=== PATIENT | male | born 1955 | race Caucasian/White ===

== ENCOUNTER → 2019-03-09 14:56 | Outpatient (CLI) | payer BC, SELFPAY ==
[2017-07-04 13:34] VITALS: BMI 32.3
[2019-03-12 13:33] LABS: Semen Analysis Post Vas ABSENT
== END ==
PROVIDERS: Family Provider Family Medicine; PCP Family Medicine; Referring Provider Nurse Practitioner Family; Visit Provider Nurse Practitioner Family
DX: Z98.52 Vasectomy status (principal)
CPT/HCPCS: 89321

== ENCOUNTER → 2020-05-27 10:51 | Outpatient (CLI) | payer BC, SELFPAY ==
[2017-07-04 13:34] VITALS: BMI 32.3
[2020-05-28 07:05] LABS: SARS-COV-2 TOTAL ABS Nonreactive (Nonreactive)
== END ==
PROVIDERS: PCP Student in an Organized Health Care Education/Training Program; Referring Provider Student in an Organized Health Care Education/Training Program; Visit Provider Student in an Organized Health Care Education/Training Program
DX: R09.89 Other specified symptoms and signs involving the circulatory and respiratory systems (principal)
CPT/HCPCS: 36415; 86769

== ENCOUNTER → 2021-04-09 14:02 | Outpatient (CLI) | payer MEDICARE, SELFPAY ==
--- NOTE | 2021-04-09 14:07 | ECHOD_ITS ---
Reason For Study: ABNORMAL EKG Procedure This was a 2D Doppler, Color Flow transthoracic echocardiogram. Exam performed in department. Left Ventricle Normal LV size. The estimated ejection fraction is 60 %. No evidence for diastolic dysfunction. No regional wall motion abnormalities noted. Right Ventricle Normal RV size. Normal systolic function. Atria Normal left atrium. Normal right atrium. No doppler evidence for ASD. Mitral Valve There is no mitral valve stenosis. No mitral valve insufficiency. Tricuspid Valve There is no tricuspid stenosis. Trivial tricuspid valve insufficiency. Pulmonary artery systolic pressure is 25 mmHg. Aortic Valve Trisinus/trileaflet aortic valve. There is no aortic stenosis. No aortic valve insufficiency. Pulmonic Valve There is no pulmonic valvular stenosis. No pulmonic valve insufficiency. Great Vessels Normal aortic root. Pericardium/Pleural No pericardial effusion. MMode/2D Measurements & Calculations LVIDd: 4.8 cm IVSd: 1.0 cm Ao root diam: 3.8 cm LVIDs: 3.4 cm LVPWd: 0.95 cm RVDd: 3.0 cm FS: 29.9 % LAV(MOD-bp): 60.1 ml LA A4 area: 19.9 cm2 LA dimension(2D): 3.6 cm LAV(MOD-bp) Indexed: 28.2 ml/m2 LAV(MOD-sp2): 59.2 ml LAV(MOD-sp4): 59.7 ml RA A4 area: 19.4 cm2 Time Measurements MV dec time: 0.20 sec Doppler Measurements & Calculations MV E max gerson: 66.3 cm/sec Lat Peak E' Gerson: 7.9 cm/sec Med Peak E' Gerson: 9.6 cm/sec MV A max gerson: 73.9 cm/sec E/E' lat: 8.4 E/E' med: 6.9 MV E/A: 0.90 Ao V2 max: 119.2 cm/sec LV V1 max: 103.2 cm/sec PA V2 max: 73.7 cm/sec Ao max P.7 mmHg LV V1 max P.3 mmHg Ao V2 mean: 85.3 cm/sec LV V1 mean P.2 mmHg Ao mean P.1 mmHg LV V1 mean: 71.3 cm/sec Ao V2 VTI: 23.5 cm LV V1 VTI: 19.9 cm TR max gerson: 235.2 cm/sec TR max P.1 mmHg ECHO/Echo Complete Interpretation Summary The estimated ejection fraction is 60 %. No evidence for diastolic dysfunction. Ordering Physician: Ranjeet Mortensen Referring Physician: Ranjeet Mortensen Performed By: Lacy Floyd, DIAMOND, RVT
== END ==
PROVIDERS: PCP Student in an Organized Health Care Education/Training Program; Visit Provider Student in an Organized Health Care Education/Training Program
DX: R94.31 Abnormal electrocardiogram [ECG] [EKG] (principal)
CPT/HCPCS: 93306

== ENCOUNTER → 2023-11-01 | Outpatient (CLI) | payer MEDICARE, SELFPAY ==
[2023-11-01 08:47] LABS: Absolute Lymphocyte Count 1.77 X10^3/uL (0.83-4.51); Absolute Neutrophil Count 2.5 X10^3/uL (2.0-7.7); Basophil# 0.05 X10^3/uL; Eosinophil# 0.26 X10^3/uL; Hematocrit 43.4 % (40-54); Hemoglobin 14.5 g/dL (13.0-16.5); Lymphocyte # 1.77 X10^3/ul (0.83-4.51); Mean Corp Hgb Conc 33.4 g/dL (32-36); Mean Corpuscular Hgb 30.9 pg (27.0-32.0); Mean Corpuscular Volume 92.3 fL (80-94); Mean Platelet Vol. 10.9 fl (6.2-12.0); Monocyte# 0.64 X10^3/uL; Monocyte% 12.3 % (0-10); NRBC Flagged by Analyzer 0 % (0-5); Neutrophil # 2.47 X10^3/uL (2.7-7.7); Neutrophil % 47.5 % (47-70); Platelet Count 187 K/mm3 (150-450); White Blood Count 5.2 K/mm3 (4.4-11.0)
[2023-11-01 09:15] LABS: Erythrocyte Sedimentation Rate 6 mm/hr (0-20)
[2023-11-01 09:20] LABS: Vitamin B12 366 pg/mL (211-911)
[2023-11-01 09:25] LABS: Cholesterol 143 mg/dL (200); High Density Lipoprotein 52 mg/dL; LDH 163 U/L (87-241); Thyroid Stim Hormone (TSH) 1.66 uIU/mL (0.358-3.74); Triglycerides 82 mg/dL; Very Low Density Lipoprotein 16 mg/dL (5-40)
[2023-11-01 09:30] LABS: AST(SGOT) 17 U/L (15-37); Alanine Aminotransfer ALT/SGPT 22 U/L (16-61); Albumin, Serum 3.6 g/dL (3.2-5.0); Alkaline Phosphatase 70 U/L (45-117); Anion Gap 3 (5-15); BUN 21 mg/dL (7-18); CRP < 2.90 mg/L (0.0-3.0); Calcium,Total 8.8 mg/dL (8.5-10.1); Chloride 107 mmol/L (98-107); Creatinine, Serum 0.87 mg/dL (0.70-1.30); EST Glomerular Filtration Rate 92 mL/min (>60); Est Glom Filt Rate - Afr Amer 112 mL/min (>60); Globulin 3.6 g/dL (2.2-4.2); Glucose 108 mg/dL (74-106); Potassium 4.4 mmol/L (3.5-5.1); Protein, Total 7.2 g/dL (6.4-8.2); Sodium Level 137 mmol/L (136-145)
[2023-11-01 10:20] LABS: Microalbumin,Random Urine 6.1 mg/L (NO RANGE EST.); Microalbumin:Creatinine Ratio 6.7 mg/g CRE (<30 mg/g CRE)
[2023-11-02 13:08] LABS: ANTINUCLEAR ANTIBODIES DIRECT Negative (Negative)
[2023-11-02 17:07] LABS: Albumin 3.9 g/dL (2.9-4.4); Alpha-1-Globulins 0.2 g/dL (0.0-0.4); Alpha-2-Globulins 0.7 g/dL (0.4-1.0); Free Kappa Light Chains 13.8 mg/L (3.3-19.4); Free Lambda Light Chains 10.6 mg/L (5.7-26.3); Gamma Globulin 1.2 g/dL (0.4-1.8); Immunoglobulin A 692 mg/dL (61-437); Immunoglobulin G 749 mg/dL (603-1613); Immunoglobulin M 27 mg/dL (20-172); PROEL- TOTAL PROTEIN 6.9 g/dL (6.0-8.5)
== END | disposition home or self-care (01) ==
LOC: LAB 07:22
PROVIDERS: PCP Student in an Organized Health Care Education/Training Program; Referring Provider Internal Medicine Medical Oncology; Visit Provider Internal Medicine Medical Oncology
DX: E11.51 Type 2 diabetes mellitus with diabetic peripheral angiopathy without gangrene (principal); R20.2 Paresthesia of skin; R76.8 Other specified abnormal immunological findings in serum
CPT/HCPCS: 36415; 80053; 80061; 82043; 82570; 82607; 82784; 83615; 83883; 84165; 84443; 85025; 85652; 86038; 86140; 86334

== ENCOUNTER → 2024-04-05 | Outpatient (CLI) | payer MEDICARE, SELFPAY ==
[2024-04-05 08:46] LABS: Absolute Lymphocyte Count 1.74 X10^3/uL (0.83-4.51); Absolute Neutrophil Count 3.1 X10^3/uL (2.0-7.7); Basophil# 0.06 X10^3/uL; Eosinophil# 0.32 X10^3/uL; Eosinophils% 5.3 % (0-5); Hemoglobin 15.2 g/dL (13.0-16.5); Lymphocyte # 1.74 X10^3/ul (0.83-4.51); Mean Corp Hgb Conc 34.5 g/dL (32-36); Mean Corpuscular Hgb 31.7 pg (27.0-32.0); Mean Corpuscular Volume 91.7 fL (80-94); Mean Platelet Vol. 10.5 fl (6.2-12.0); Monocyte# 0.73 X10^3/uL; Monocyte% 12.1 % (0-10); NRBC Flagged by Analyzer 0 % (0-5); Neutrophil # 3.14 X10^3/uL (2.7-7.7); Neutrophil % 52.3 % (47-70); Platelet Count 196 K/mm3 (150-450); RBC Distribution Width CV 12.7 % (11.6-14.6); RBC Distribution Width SD 43.1 fl (35.1-43.9)
[2024-04-05 09:18] LABS: Hemoglobin A1c 5.9 % (3.8-5.6)
[2024-04-05 09:28] LABS: AST(SGOT) 18 U/L (15-37); Alanine Aminotransfer ALT/SGPT 24 U/L (16-61); Albumin, Serum 3.8 g/dL (3.2-5.0); Alkaline Phosphatase 84 U/L (45-117); Anion Gap 3 (5-15); BUN 20 mg/dL (7-18); BUN/Creat Ratio 22.5 RATIO (10-20); Chloride 104 mmol/L (98-107); Cholesterol 152 mg/dL (200); Creatinine, Serum 0.89 mg/dL (0.70-1.30); EST Glomerular Filtration Rate 90 mL/min (>60); Est Glom Filt Rate - Afr Amer 109 mL/min (>60); Globulin 3.7 g/dL (2.2-4.2); Glucose 115 mg/dL (74-106); High Density Lipoprotein 55 mg/dL; LDH 161 U/L (87-241); PSA,Total - Annual Screen 2.21 ng/mL (0.00-4.00); Potassium 4.2 mmol/L (3.5-5.1); Protein, Total 7.5 g/dL (6.4-8.2); Sodium Level 136 mmol/L (136-145); Triglycerides 95 mg/dL; Very Low Density Lipoprotein 19 mg/dL (5-40)
[2024-04-05 10:28] LABS: Microalbumin,Random Urine < 5.0 mg/L (NO RANGE EST.)
[2024-04-06 11:50] LABS: Vitamin B12 329 pg/mL (211-911)
[2024-04-11 12:09] LABS: Albumin 3.9 g/dL (2.9-4.4); Alpha-1-Globulins 0.2 g/dL (0.0-0.4); Alpha-2-Globulins 0.8 g/dL (0.4-1.0); Free Lambda Light Chains 11.8 mg/L (5.7-26.3); Gamma Globulin 1.2 g/dL (0.4-1.8); Immunoglobulin A 737 mg/dL (87-352); Immunoglobulin G 707 mg/dL (586-1602); Immunoglobulin M 31 mg/dL (26-217); PROEL- TOTAL PROTEIN 7.1 g/dL (6.0-8.5)
== END | disposition home or self-care (01) ==
LOC: LAB 08:02
PROVIDERS: Internal Medicine Medical Oncology; PCP Student in an Organized Health Care Education/Training Program; Referring Provider Student in an Organized Health Care Education/Training Program; Visit Provider Student in an Organized Health Care Education/Training Program
DX: D47.2 Monoclonal gammopathy (principal); E11.69 Type 2 diabetes mellitus with other specified complication; Z12.5 Encounter for screening for malignant neoplasm of prostate; R20.2 Paresthesia of skin
CPT/HCPCS: 36415; 80053; 80061; 82043; 82570; 82607; 82784; 83036; 83615; 83883; 84153; 84165; 84443; 85025; 86334; G0103

== ENCOUNTER → 2024-09-28 | Outpatient (CLI) | payer MEDICARE, SELFPAY ==
[2024-09-28 07:47] LABS: Absolute Lymphocyte Count 1.57 X10^3/uL (0.83-4.51); Absolute Neutrophil Count 2.8 X10^3/uL (2.0-7.7); Basophil# 0.03 X10^3/uL; Basophil% 0.6 % (0-1); Eosinophil# 0.16 X10^3/uL; Eosinophils% 3.1 % (0-5); Hemoglobin 15.4 g/dL (13.0-16.5); Lymphocyte # 1.57 X10^3/ul (0.83-4.51); Lymphocyte % 30.2 % (19-41); Mean Corp Hgb Conc 34.2 g/dL (32-36); Mean Corpuscular Hgb 31.6 pg (27.0-32.0); Mean Corpuscular Volume 92.2 fL (80-94); Mean Platelet Vol. 10.7 fl (6.2-12.0); Monocyte# 0.62 X10^3/uL; Monocyte% 11.9 % (0-10); NRBC Flagged by Analyzer 0 % (0-5); Neutrophil # 2.81 X10^3/uL (2.7-7.7); Platelet Count 186 K/mm3 (150-450); RBC Distribution Width CV 12.9 % (11.6-14.6); RBC Distribution Width SD 43.7 fl (35.1-43.9); Red Blood Count 4.88 M/mm3 (4.6-6.2); White Blood Count 5.2 K/mm3 (4.4-11.0)
[2024-09-28 08:09] LABS: Erythrocyte Sedimentation Rate 3 mm/hr (0-20)
[2024-09-28 08:15] LABS: ALB/GLOB Ratio 1.4 RATIO (0.9-2.4); AST(SGOT) 19 U/L (<=37); Alanine Aminotransfer ALT/SGPT 17 U/L (<=46); Albumin, Serum 4.1 g/dL (3.4-4.8); Alkaline Phosphatase 82 U/L (40-129); Anion Gap 9 (5-15); BUN 17 mg/dL (4-19); Calcium,Total 9.2 mg/dL (7.6-11.0); Carbon Dioxide 24.6 mmol/L (21.0-32.0); Chloride 102 mmol/L (98-108); Cholesterol 144 mg/dL (<=200); Creatinine, Serum 0.99 mg/dL (0.70-1.20); EST Glomerular Filtration Rate 83 (>60); Globulin 2.9 g/dL (2.2-4.2); Glucose 135 mg/dL (70-99); High Density Lipoprotein 58 mg/dL; Low Density Lipoprotein Calc. 66 mg/dL; Potassium 4.8 mmol/L (3.3-5.1); Sodium Level 136 mmol/L (133-145); Total Bilirubin 0.35 mg/dL (0.00-1.30); Triglycerides 99 mg/dL; Very Low Density Lipoprotein 20 mg/dL (5-40); cholesterol:hdl ratio screen 2.48
[2024-09-28 08:27] LABS: Hemoglobin A1c 6.6 % (<=5.6)
[2024-09-28 08:33] LABS: Microalbumin,Random Urine < 12.0 mg/L (NO RANGE EST.); Microalbumin:Creatinine Ratio UNABLE TO CALCULATE mg/g CRE
[2024-09-28 08:57] LABS: CRP < 3.00 mg/L (0.0-3.0); LDH 151 U/L (87-241); Magnesium 2.5 mg/dL (1.5-2.2); Phosphorus 2.7 mg/dL (2.7-4.5)
[2024-10-02 12:08] LABS: Albumin 3.7 g/dL (2.9-4.4); Alpha-1-Globulins 0.2 g/dL (0.0-0.4); Alpha-2-Globulins 0.7 g/dL (0.4-1.0); Free Kappa Light Chains 11.4 mg/L (3.3-19.4); Free Lambda Light Chains 9.2 mg/L (5.7-26.3); Gamma Globulin 1.2 g/dL (0.4-1.8); Immunoglobulin A 638 mg/dL (61-437); Immunoglobulin G 682 mg/dL (603-1613); Immunoglobulin M 25 mg/dL (20-172); PROEL- TOTAL PROTEIN 6.7 g/dL (6.0-8.5)
== END | disposition home or self-care (01) ==
LOC: LAB 07:05
PROVIDERS: PCP Student in an Organized Health Care Education/Training Program; Referring Provider Internal Medicine Medical Oncology; Visit Provider Internal Medicine Medical Oncology
DX: E11.51 Type 2 diabetes mellitus with diabetic peripheral angiopathy without gangrene (principal); D47.2 Monoclonal gammopathy; Z13.6 Encounter for screening for cardiovascular disorders
CPT/HCPCS: 80053; 80061; 82043; 82570; 82784; 83036; 83615; 83735; 83883; 84100; 84165; 84443; 85025; 85652; 86140; 86334

== ENCOUNTER → 2025-04-10 | Outpatient (CLI) | payer MEDICARE, SELFPAY ==
--- OUTSIDE RECORDS SUMMARY | 2025-04-10 07:05 | XMS RPT_ITS | CCD ---
Author Organization [facility] Care Team Providers Care Network Intern Name Role Phone SABI ANAND DO Primary Care Physician [phone] HALJEREMIAH DO, SABI Attending Unavailable HALKO DO, SABI Primary Care Unavailable LILIANA LARSON MD Attending Unavailable HALKO DO, SABI Primary Care Unavailable HALKO DO, SABI Attending Unavailable HALKO DO, SABI Primary Care Unavailable SHITAL MONTANA MD Attending Unavailable HALKO DO, SABI Primary Care Unavailable HALKO DO, SABI Primary Care Unavailable HALKO DO, SABI Attending Unavailable GEREMIAS VEGA MD Attending Unavailable HALKO DO, SABI Primary Care Unavailable GEREMIAS VEGA MD Attending Unavailable HALKO DO, SABI Primary Care Unavailable GEREMIAS VEGA MD Consulting Unavailable HALJEREMIAH DO, SABI Attending Unavailable HALKO DO, SABI Primary Care Unavailable HALKO DO, SABI Attending Unavailable HALKO , SABI Primary Care Unavailable LILIANA LARSON MD Attending Unavailable HALJEREMIAH STEEL, SABI Primary Care Unavailable Cheng STEEL, Dr. Pollack Primary Care Provider [phone] Dr. Blaze Mcmahon MD Attending Provider Dr. Blaze Mcmahon MD Referring Provider Blaze Mcmahon Attending Unavailable Blaze Mcmahon Referring Unavailable Halko, Sabi Primary Care Unavailable Halko, Sabi Primary Care Unavailable Blaze Mcmahon Attending Unavailable Cheng, Sabi Referring Unavailable Blaze Mcmahon Attending Unavailable Blaze Mcmahon Referring Unavailable Halko, Sabi Primary Care Unavailable Blaze Mcmahon Attending Unavailable Halko, Sabi Referring Unavailable Halko, Sabi Primary Care Unavailable Halko, Sabi Referring Unavailable Halko, Sabi Primary Care Unavailable Blaze Mcmahon Attending Unavailable Blaze Mcmahon Consulting Unavailable Sabi Anand Attending Unavailable Halko, Sabi Referring Unavailable Halko, Sabi Primary Care Unavailable ESTEPHANIE MOORE, SHAGUFTA Attending Unacarolyn ANAND DO, SABI Primary Care Unavailable SHITAL MONTANA MD Attending Unavailable CHENG STEEL, SABI Primary Care Unavailable CHENG STEEL, SABI Primary Care Unavailable LILIANA LARSON MD Admitting Unavailable LILIANA LARSON MD Attending Unavailable CHENG STEEL, SABI Primary Care Unavailable CHENG STEEL, SABI Attending Unavailable CHENG STEEL, SABI Primary Care Unavailable NAEEM OSEI DO Attending Unavailabl e CHENG STEEL, SABI Primary Care Unavailable JUAN WHITMORE DO Attending Unavailable Medications Current Medications Medication Drug Class(es) Dates Sig (Normalized) Sig (Original) acetaminophen 325 mg / HYDROcodone bitartrate 5 mg oral tablet (1 source) Opioid Agonist Start: 04-28-2023 End: 05-03-2023 Loving 325- 5 mg oral tablet Dose = 1 tab(s), Oral, q4h, PRN Pain, scale 1-6, X 5 day(s), # 12 tab(s), 0 Refill(s), [id number], Acute post-operative pain, 175.3, cm, 04/28/23 6:50:00 EST, Height, 81.8, kg, 04/28/23 6:50:00 EST, Dosing Weight Start Date: 04/28/23 Stop Date: 05/03/23 Status: Ordered albuterol MDI (90 mcg/inh) CFC free inhalation aerosol (2 sources) Start: 07-23-2024 take 2 doses by inhalation every six hours as needed for wheezing albuterol MDI (90 mcg/inh) CFC free inhalation aerosol Dose : 180 mcg = 2 inh, Inhalation, q6hr, PRN as needed for wheezing, # 18 gram(s), 0 Refill(s), [facility]acy: [id number], Acute bronchitis, 173, cm, 07/23/24 10:29:00 EST, Height, kg, 07/23/24 10:29:00 EST, Dosing Weight Start Date: 07/23/24 Status: Ordered Quantity: 18.0 Unit: g Repeat number: 1 Indications: Acute bronchitis, unspecified; Start: 07-23-2024 take 2 doses by inha lation every six hours as needed for wheezing albuterol MDI (90 mcg/inh) CFC free inhalation aerosol Dose : 180 mcg = 2 inh, Inhalation, q6hr, PRN as needed for wheezing, # 18 gram(s), 0 Refill(s), [id number], Acute bronchitis, 173, cm, 07/23/24 10:29:00 EST, Height, kg, 07/23/24 10:29:00 EST, Dosing Weight Start Date: 07/23/24 Status: Ordered Quantity: 18.0 Unit: g Repeat number: 1 Indication: Acute bronchitis, unspecified amitriptyline hydrochloride 25 mg oral tablet (13 sources) Tricyclic Antidepressant Start: 10-10-2024 End: 04-08-2025 amitriptyline 25 mg oral tablet Dose : 25 mg = 1 tab(s), Oral, Daily, # 90 tab(s), 1 Refill(s), [id number], 173, cm, 10/10/24 8:41:00 EDT, Height, kg, 10/10/24 8:41:00 EDT, Dosing Weight Start Date: 10/10/24 Stop Date: 04/08/25 Status: Ordered Quantity: 90.0 Unit: tab(s) Repeat number: 2 Start: 10-27-2022 End: 10-08-2024 take 1 tablet by mouth once daily Amitriptyline 25 mg tablet Active 25 mg PO DAILY July 14, 2023 1:00am Start: 04-01-2022 End: 09-28-2022 amitriptyline 25 mg oral tab let Dose : 25 mg = 1 tab(s), Oral, Daily, # 90 tab(s), 1 Refill(s), [id number], 174.2, cm, 03/30/22 8:20:00 EDT, Height Start Date: 04/01/22 Stop Date: 09/28/22 Status: Ordered amoxicillin 500 mg oral tablet (1 source) Penicillin-class Antibacterial Start: 06-22-2024 End: 07-02-2024 amoxicillin 500 mg oral tablet Dose : 1,000 mg = 2 tab(s), Oral, TID, fill on or after 06/24/2023, X 10 day(s), # 60 tab(s), 0 Refill(s), 07/02/24 12:09:00 PM EST, [id number], 175, cm, 06/22/24 11:22:00 EST, Height, kg, 06/22/24 11:22:00 EST, Dosing Weight Start Date: 06/22/24 Stop Date: 07/02/24 Status: Ordered Quantity: 60.0 Unit: tab(s) Repeat number: 1 Blood Glucose Test Machine (8 sources) Start: 10-05-2022 Blood Glucose Test Machine See Instructions, Use as directed Brand type per insurance or patient preference, # 1 EA, 0 Refill(s), Pharmacy: [facility] #[id number], Type II diabetes mellitus Hyperglycemia, 175.3, cm, 10/04/22 8:57:00 EDT, Height, 95.1 Start Date: 10/05/22 Status: Ordered cyclobenzaprine hydrochloride 10 mg oral tablet (18 sources) Muscle Relaxant Start: 10-10-2024 cyclobenzaprin e 10 mg oral tablet Dose : 10 mg = 1 tab(s), Oral, TID, PRN for muscle spasm, # 30 tab(s), 5 Refill(s), Pharmacy: [facility]/pharmacy #[id number], 173, cm, 10/10/24 8:41:00 EDT, Height, kg, 10/10/24 8:41:00 EDT, Dosing Weight Start Date: 10/10/24 Status: Ordered Quantity: 30.0 Unit: tab(s) Repeat number: 6 Start: 07-14-2023 cyclobenzaprin e 10 mg oral tablet Dose : 10 mg = 1 tab(s), Oral, TID, PRN for muscle spasm, # 30 tab(s), 5 Refill(s), Pharmacy: [facility]/pharmacy #[id number], 175.3, cm, 04/28/23 6:50:00 EST, Height, kg, 07/14/23 10:57:00 EST, Dosing Weight Start Date: 07/14/23 Status: Ordered Quantity: 30.0 Unit: tab(s) Repeat number: 6 Start: 03-28-2023 cyclobenzaprin e 10 mg oral tablet Dose : 10 mg = 1 tab(s), Oral, TID, PRN for muscle spasm, # 30 tab(s), 5 Refill(s), Pharmacy: [facility]/pharmacy #[id number], 174.5, cm, 03/28/23 17:31:00 EDT, Height, kg, 03/28/23 17:31:00 EDT, Dosing Weight Start Date: 03/28/23 Status: Ordered Start: 10-27-2022 End: 01-19-2023 cyclobenzaprine 10 mg oral t ablet Dose : 10 mg = 1 tab(s), Oral, TID, # 42 tab(s), 5 Refill(s), Pharmacy: [facility]/pharmacy #[id number], 174.5, cm, 10/27/22 9:05:00 EDT, Height, kg, 10/27/22 9:05:00 EDT, Dosing Weight Start Date: 10/27/22 Stop Date: 01/19/23 Status: Ordered Start: 05-19-2022 End: 10-18-2022 cyclobenzaprine 10 mg oral t ablet Dose : 10 mg = 1 tab(s), Oral, TID, # 42 tab(s), 5 Refill(s), Pharmacy: [facility]/pharmacy #[id number], 173, cm, 07/26/22 10:04:00 EST, Height, kg, 07/26/22 10:04:00 EST, Dosing Weight Start Date: 07/26/22 Stop Date: 10/18/22 Status: Ordered Start: 09-22-2021 End: 11-03-2021 cyclobenzaprine 10 mg oral t ablet Dose : 10 mg = 1 tab(s), Oral, TID, # 42 tab(s), 2 Refill(s), Pharmacy: [facility]/pharmacy #[id number], 172.5, cm, 09/22/21 8:54:00 EDT, Height, kg, 09/22/21 8:54:00 EDT, Dosing Weight Start Date: 09/22/21 Stop Date: 11/03/21 Status: Ordered Start: 03-25-2021 End: 04-24-2021 cyclobenzaprine 10 mg oral t ablet Dose : 10 mg = 1 tab(s), Oral, TID, # 30 tab(s), 0 Refill(s), Pharmacy: [facility]/pharmacy #[id number], 173.5, cm, 03/24/21 8:58:00 EDT, Height, kg, 03/24/21 8:58:00 EDT, Dosing Weight Start Date: 03/25/21 Stop Date: 04/24/21 Status: Ordered DME MISCellaneous (20 sources) Start: 10-29-2022 DME MISCellane ous See Instructions, dx E11.65; Z79.4; dispense free style oscar transmitter, # 1 EA, 0 Refill(s), Diabetes mellitus with hyperglycemia Current use of insulin, 174.5, cm, 10/27/22 9:05:00 EDT, Height, 92.8 Start Date: 10/29/22 Status: Ordered Start: 10-29-2022 DME MISCellane ous See Instructions, dx E11.65; Z79.4; dispense 2 freestyle oscar sensor, wear for 14 days and then reapply; 11 refills, # 2 EA, 11 Refill(s), Diabetes mellitus with hyperglycemia Current use of insulin, 174.5, cm, 10/27/22 9:05:00 EDT, Height, 92.8 Start Date: 10/29/22 Status: Ordered Start: 10-29-2022 DME MISCellane ous See Instructions, dx E11.65; Z79.4; 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, # 1 EA, 0 Refill(s), Diabetes mellitus with hyperglycemia Current use of insulin, 174.5, cm, 10/27/22 9:05:00 EDT, Height, 92.8 Start Date: 10/29/22 Status: Ordered Start: 11-11-2021 DME MISCellane ous See Instructions, Dx I71.2; dispense one automated sphygmomanometer with supplies, # 1 EA, 0 Refill(s), 100.9 Start Date: 11/11/21 Status: Ordered ibuprofen 600 mg oral tablet (4 sources) Nonsteroidal Anti-inflammatory Drug Start: 12-02-2020 ibuprofen 600 mg oral tablet Dose : 600 mg = 1 tab(s), Oral, QID, PRN as needed for pain, # 40 tab(s), 0 Refill(s) Start Date: 12/02/20 Status: Ordered Start: 05-02-2017 End: 05-18-2017 take 1 tablet by mouth every four hours Ibuprofen 400 MG tablet Discontinued 400 mg PO Q4H May 02, 2017 1:00am May 18, 2017 12:02pm insulin glargine-yfgn 100 units/mL subcutaneous solution (1 source) Start: 10-05-2022 inject 1 dose by subcutaneous injection once daily in the morning insulin glargine-yfgn 100 units/mL subcutaneous solution Dose : 10 unit(s) =, Subcutaneous, qDay, at the same time every day - in the morning after checking your blood sugar, # 15 mL, 3 Refill(s), [id number], 175.3, cm, 10/04/22 8:57:00 EDT, Height Start Date: 10/05/22 Status: Ordered lisinopril 5 mg oral tablet (1 source) Angiotensin Converting Enzyme Inhibitor Start: 10-05-2022 lisinopril 5 mg oral tablet Dose : 5 mg = 1 tab(s), Oral, qDay, # 30 tab(s), 3 Refill(s), Pharmacy: [facility]/pharmacy #[id number], Type II diabetes mellitus Hyperglycemia, 175.3, cm, 10/04/22 8:57:00 EDT, Height Start Date: 10/05/22 Status: Ordered meloxicam 15 mg oral tablet (13 sources) Nonsteroidal Anti-inflammatory Drug Start: 04-06-2023 End: 04-08-2025 meloxicam 15 mg oral tablet Dose : 15 mg = 1 tab(s), Oral, qDay, TAKE 1 TABLET BY MOUTH EVERY DAY, # 90 tab(s), 1 Refill(s), Pharmacy: [facility]/pharmacy #[id number], 173, cm, 10/10/24 8:41:00 EDT, Height, kg, 10/10/24 8:41:00 EDT, Dosing Weight Start Date: 10/10/24 Stop Date: 04/08/25 Status: Ordered Quantity: 90.0 Unit: tab(s) Repeat number: 2 Start: 03-30-2022 take 1 tablet by dara th once daily meloxicam 15 mg oral tablet TAKE 1 TABLET BY MOUTH EVERY DAY Start Date: 03/30/22 Status: Ordered Multivitamin tablet (1 source) Start: 07-14-2023 Multivitamin t ablet Active 1 {tbl} PO DAILY July 14, 2023 1:00am rizatriptan 10 mg oral tablet (13 sources) Serotonin-1b and Serotonin-1d Receptor Agonist Start: 10-10-2024 take 1 tablet by mouth every two hours as needed for headache, then take 3 tablets by mouth once daily as needed for headache rizatriptan 10 mg oral tablet See Instructions, TAKE 1 TABLET BY MOUTH NEEDED AT START OF HEADACHE, MAY REPEAT IN 2 HRS IF NEEDED-LIMIT 3 PER DAY, # 12 tab(s), 5 Refill(s), Pharmacy: [facility]/pharmacy #[id number], 173, cm, 10/10/24 8:41:00 EDT, Height, kg, 10/10/24 8:41:00 EDT, Dosing Weight Start Date: 10/10/24 Status: Ordered Quantity: 12.0 Unit: tab(s) Repeat number: 6 Start: 04-11-2024 take 1 tablet by dara th every two hours as needed for headache, then take 3 tablets by mouth once daily as needed for headache rizatriptan 10 mg oral tablet See Instructions, TAKE 1 TABLET BY MOUTH NEEDED AT START OF HEADACHE, MAY REPEAT IN 2 HRS IF NEEDED-LIMIT 3 PER DAY, # 12 tab(s), 5 Refill(s), [id number], 175, cm, 04/11/24 8:46:00 EDT, Height, kg, 04/11/24 8:46:00 EDT, Dosing Weight Start Date: 04/11/24 Status: Ordered Quantity: 12.0 Unit: tab(s) Repeat number: 6 Start: 07-14-2023 take 1 tablet by dara th every two hours as needed for headache, then take 3 tablets by mouth once daily as needed for headache rizatriptan 10 mg oral tablet See Instructions, TAKE 1 TABLET BY MOUTH NEEDED AT START OF HEADACHE, MAY REPEAT IN 2 HRS IF NEEDED-LIMIT 3 PER DAY, # 12 tab(s), 5 Refill(s), Pharmacy: [facility]acy #[id number], 175.3, cm, 12/08/23 13:31:00 EDT, Height, kg, 12/08/23 13:31:00 EDT, Dosing Weight Start Date: 12/08/23 Status: Ordered Start: 04-06-2023 take 1 tablet by dara th every two hours as needed for headache, then take 3 tablets by mouth once daily as needed for headache rizatriptan 10 mg oral tablet See Instructions, TAKE 1 TABLET BY MOUTH NEEDED AT START OF HEADACHE, MAY REPEAT IN 2 HRS IF NEEDED-LIMIT 3 PER DAY, # 12 tab(s), 5 Refill(s), [id number], 174.5, cm, 04/06/23 9:44:00 EDT, Height, kg, 04/06/23 9:44:00 EDT, Dosing Weight Start Date: 04/06/23 Status: Ordered Start: 03-30-2022 take 1 tablet by dara th every two hours as needed for headache, then take 3 tablets by mouth once daily as needed for headache rizatriptan 10 mg oral tablet TAKE 1 TABLET BY MOUTH NEEDED AT START OF HEADACHE, MAY REPEAT IN 2 HRS IF NEEDED-LIMIT 3 PER DAY Start Date: 03/30/22 Status: Ordered sildenafil 50 mg oral tablet (13 sources) Phosphodiesterase 5 Inhibitor Start: 10-27-2022 End: 04-08-2025 sildenafil 50 mg oral tablet Dose : 50 mg = 1 tab(s), Oral, qDay, PRN as needed for erectile dysfunction, # 30 tab(s), 5 Refill(s), Pharmacy: [id number], 173, cm, 10/10/24 8:41:00 EDT, Height, kg, 10/10/24 8:41:00 EDT, Dosing Weight Start Date: 10/10/24 Stop Date: 04/08/25 Status: Ordered Quantity: 30.0 Unit: tab(s) Repeat number: 6 Start: 04-01-2022 End: 09-28-2022 sildenafil 50 mg oral tablet Dose : 50 mg = 1 tab(s), Oral, qDay, PRN as needed for erectile dysfunction, # 30 tab(s), 5 Refill(s), Pharmacy: [id number], 174.2, cm, 03/30/22 8:20:00 EDT, Height Start Date: 04/01/22 Stop Date: 09/28/22 Status: Ordered simvastatin 40 mg oral tablet (16 sources) HMG-CoA Reductase Inhibitor Start: 10-10-2024 End: 04-08-2025 simvastatin 40 mg oral tablet Dose : 40 mg = 1 tab(s), Oral, qHS, # 90 tab(s), 1 Refill(s), Pharmacy: [id number], 173, cm, 10/10/24 8:41:00 EDT, Height, kg, 10/10/24 8:41:00 EDT, Dosing Weight Start Date: 10/10/24 Stop Date: 04/08/25 Status: Ordered Quantity: 90.0 Unit: tab(s) Repeat number: 2 Start: 10-27-2022 End: 10-08-2024 simvastatin 40 mg oral table t Dose : 40 mg = 1 tab(s), Oral, qHS, # 90 tab(s), 1 Refill(s), Pharmacy: [facility] #[id number], 175, cm, 04/11/24 8:46:00 EDT, Height, kg, 04/11/24 8:46:00 EDT, Dosing Weight Start Date: 04/11/24 Stop Date: 10/08/24 Status: Ordered Quantity: 90.0 Unit: tab(s) Repeat number: 2 Start: 04-01-2022 End: 09-28-2022 simvastatin 40 mg oral table t Dose : 40 mg = 1 tab(s), Oral, qHS, # 90 tab(s), 1 Refill(s), Pharmacy: [facility]acy #[id number], 174.2, cm, 03/30/22 8:20:00 EDT, Height, kg, 03/30/22 8:20:00 EDT, Dosing Weight Start Date: 04/01/22 Stop Date: 09/28/22 Status: Ordered Start: 12-28-2016 End: 03-21-2022 simvastatin 40 mg oral table t Dose : 40 mg = 1 tab(s), Oral, qHS, # 90 tab(s), 1 Refill(s), Pharmacy: [facility]/pharmacy #[id number], 172.5, cm, 09/22/21 8:54:00 EDT, Height, kg, 09/22/21 8:54:00 EDT, Dosing Weight Start Date: 09/22/21 Stop Date: 03/21/22 Status: Ordered terbinafine hydrochloride 10 mg/ml topical cream (1 source) Allylamine Antifungal Start: 01-25-2023 LamISIL AT 1% topica l cream Apply 1 chidi, Topical, BID, # 30 gram(s), 1 Refill(s), [id number], Cream, 174.5, cm, 01/25/23 8:24:00 EDT, Height, 85, kg, 01/25/23 8:24:00 EDT, Dosing Weight Start Date: 01/25/23 Status: Ordered topiramate 25 mg oral tablet (3 sources) Start: 09-22-2021 End: 11-21-2021 topiramate 25 mg oral tablet Dose : 50 mg = 2 tab(s), Oral, qHS, start at 1 tab QHS for 2 weeks, then increase to 2 tabs QHS if headaches not improved, # 60 tab(s), 1 Refill(s), [id number], 172.5, cm, 09/22/21 8:54:00 EDT, Height Start Date: 09/22/21 Stop Date: 11/21/21 Status: Ordered Start: 03-25-2021 End: 09-21-2021 topiramate 50 mg oral tablet Dose : 50 mg = 1 tab(s), Oral, qHS, # 90 tab(s), 1 Refill(s), [id number], 173.5, cm, 03/24/21 8:58:00 EDT, Height, kg, 03/24/21 8:58:00 EDT, Dosing Weight Start Date: 03/25/21 Stop Date: 09/21/21 Status: Ordered Vitamin B Complex oral capsule (3 sources) Start: 10-13-2023 take 1 capsule by mouth once daily Vitamin B Complex oral capsule Dose = 1 cap(s), Oral, Daily, # 90 cap(s), 1 Refill(s), [id number], 175.3, cm, 04/28/23 6:50:00 EST, Height, kg, 10/13/23 10:35:00 EDT, Dosing Weight Start Date: 10/13/23 Status: Ordered Start: 07-14-2023 take 1 capsule by mo uth once daily Vitamin B Complex oral capsule Dose = 1 cap(s), Oral, Daily, # 90 cap(s), 0 Refill(s), Pharmacy: [facility] #[id number], 175.3, cm, 04/28/23 6:50:00 EST, Height, kg, 07/14/23 10:57:00 EST, Dosing Weight Start Date: 07/14/23 Status: Ordered Start: 06-04-2023 take 1 capsule by [facility] once daily Vitamin B Complex oral capsule Dose = 1 cap(s), Oral, Daily, # 90 cap(s), 0 Refill(s), Pharmacy: [facility]acy #[id number], 175.3, cm, 04/28/23 6:50:00 EST, Height, kg, 06/04/23 9:40:00 EST, Dosing Weight Start Date: 06/04/23 Status: Ordered vitamin b12 0.5 mg sublingual tablet (1 source) Vitamin B12 Start: 11-02-2023 cyanocobalamin 500 mcg sublingual tablet Dose : 500 mcg = 1 tab(s), Sublingual, qDay, # 100 tab(s), 1 Refill(s), Pharmacy: [facility] #[id number], 175.3, cm, 04/28/23 6:50:00 EST, Height, kg, 10/13/23 10:35:00 EDT, Dosing Weight Start Date: 11/02/23 Status: Ordered Completed/Discontinued Medications Medication Drug Class(es) Dates Sig (Normalized) Sig (Original) 0.25 MG, 0.5 MG Dose 3 ML semaglutide 0.68 MG/ML Pen Injector [Ozempic] (1 source) Start: 10-27-2022 inject 0.5 mg by subcutaneous injection every week Ozempic 2 mg/3 mL (0.25 mg or 0.5 mg dose) subcutaneous solution Dose : 0.25 mg =, Subcutaneous, qWeek, rotate injection sites, # 1 EA, 0 Refill(s) Start Date: 10/27/22 Status: Ordered acetaminophen 500 mg oral tablet (2 sources) Start: 07-06-2017 End: 07-14-2023 take 2 tablets by mouth every eight hours Acetaminophen 500 MG tablet Discontinued 1000 mg PO EVERY 8 HOURS 90 July 06, 2017 1:00am July 14, 2023 9:05am Start: 06-22-2017 End: 07-06-2017 take 1 tablet by mouth twice daily Acetaminophen (Tylenol Extra Strength) 500 MG tablet Discontinued 500 mg PO TWICE A DAY June 22, 2017 1:00July 06, 2017 12:04pm aspirin 325 mg oral tablet (2 sources) Platelet Aggregation Inhibitor, Nonsteroidal Anti-inflammatory Drug Start: 07-06-2017 End: 07-14-2023 take 1 tablet by mouth twice daily at mealtime Aspirin 325 MG tablet Discontinued 325 mg PO TWICE DAILY WITH MEALS 60 July 06, 2017 1:00am July 14, 2023 9:05am Start: 05-18-2017 End: 05-25-2017 take 1 tablet by mouth twice daily at mealtime Aspirin 325 MG tablet Discontinued 325 mg PO TWICE DAILY WITH MEALS 60 May 18, 2017 1:00am May 25, 2017 2:53pm celecoxib 200 mg oral capsule (1 source) Nonsteroidal Anti-inflammatory Drug Start: 05-18-2017 End: 05-25-2017 take 1 capsule by mouth twice daily Celecoxib 200 MG capsule Discontinued 200 mg PO TWICE A DAY 60 May 18, 2017 1:00am May 25, 2017 2:53pm docusate sodium 50 mg / sennosides, senior care 8.6 mg oral tablet (1 source) Start: 05-18-2017 End: 05-25-2017 take 1 tablet by mouth twice daily Sennosides-Docusa te Sodium (Stool Softener-Stimulan t Laxat) 1 TABLET tablet Discontinued 2 {tbl} PO TWICE A DAY 14 May 18, 2017 1:00am May 25, 2017 2:53pm eluxadoline 100 mg oral tablet (1 source) mu-Opioid Receptor Agonist Start: 12-28-2016 End: 07-14-2023 take 1 tablet by mouth twice daily Eluxadoline (Viberzi) 100 MG tablet Discontinued 100 mg PO TWICE A DAY December 28, 2016 12:00am July 14, 2023 9:05am hydrOXYzine pamoate 25 mg oral capsule (1 source) Antihistamine Start: 06-22-2017 End: 07-14-2023 take 1 capsule by mouth once daily as needed for anxiety Hydroxyzine Pamoate 25 MG capsule Discontinued 25 mg PO DAILY NEEDED as needed for Anxiety June 22, 2017 1:00am July 14, 2023 9:05am morphine sulfate 15 mg extended release oral tablet (2 sources) Opioid Agonist Start: 07-06-2017 End: 07-14-2023 take 1 tablet by mouth twice daily Morphine 15 MG tablet Discontinued 15 mg PO TWICE A DAY July 06, 2017 1:00am July 14, 2023 9:05am Start: 05-18-2017 End: 05-25-2017 take 1 tablet by mouth twice daily Morphine 15 MG tablet Discontinued 15 mg PO TWICE A DAY May 18, 2017 1:00am May 25, 2017 2:53pm oxyCODONE hydrochloride 5 mg oral tablet (1 source) Opioid Agonist Start: 07-06-2017 End: 07-14-2023 take 5-10 mg by mouth every four hours as needed for pain Oxycodone 5 MG tablet Discontinued 5 - 10 mg PO EVERY 4 HOURS NEEDED as needed for Mod-Severe Pain (4-10/10) 60 July 06, 2017 1:00am July 14, 2023 9:05am 72 hr scopolamine 0.0139 mg/hr transdermal system (1 source) Anticholinergic Start: 07-06-2017 End: 07-14-2023 Scopolamine Base 1 PATCH patch Discontinued 1 NMA TD Every 3 Days 7 July 06, 2017 1:00am July 14, 2023 9:05am Semaglutide (Ozempic) 2 mg/dose (8 mg/3 mL) pen injector (1 source) Start: 07-14-2023 End: 07-14-2023 Semaglutide (Ozempic) 2 mg/dose (8 mg/3 mL) pen injector Discontinued 2 mg SC EVERY WEEK July 14, 2023 1:00am July 14, 2023 9:40am traMADol hydrochloride 50 mg oral tablet (1 source) Opioid Agonist Start: 05-02-2017 End: 05-18-2017 take 1 tablet by mouth twice daily Tramadol (Ultram) 50 MG tablet Discontinued 50 mg PO TWICE A DAY May 02, 2017 1:00am May 18, 2017 12:02pm Problems Active Problems Problem Classification Problem Date Documented Da te Episodic/Chronic Abdominal hernia (20 sources) Inguinal hernia; Translations: [Left direct inguinal hernia] 07-06-2019 Episodic Aortic; peripheral; and visceral artery aneurysms (16 sources) Aneurysm of ascending aorta 11-10-2020 Chronic Chronic obstructive pulmonary disease and bronchiectasis (15 sources) Pulmonary emphysema 2020 Chronic Chronic obstructive pulmonary disease and bronchiectasis (12 sources) Bronchitis 05-10-2022 Episodic Coronary atherosclerosis and other heart disease (10 sources) Coronary arteriosclerosis 10-06-2022 Chronic Comment on above: seen on CTA thorax Diabetes mellitus with complications (20 sources) Hyperglycemia due to type 2 diabetes mellitus; Translations: [Peripheral vascular disorder due to diabetes mellitus] Onset: 5 10-06-2022 Chronic Diabetes mellitus without complication (17 sources) Type 2 diabetes mellitus; Translations: [Type 2 diabetes mellitus without complication] 01-15-2020 Chronic Diabetes mellitus without complication (2 sources) Hyperglycemia; Translations: [Hyperglycemia, unspecified] Episodic Disorders of lipid metabolism (16 sources) Hyperlipidemia; Translations: [Hyperlipidemia, unspecified] Onset: 5 01-14-2020 Chronic Headache; including migraine (10 sources) Migraine 10-27-2022 Chronic Headache; including migraine (17 sources) Frequent headache; Translations: [Chronic headache disorder] 07-06-2019 Episodic Neoplasms of unspecified nature or uncertain behavior (7 sources) Monoclonal gammopathy of uncertain significance; Translations: [Monoclonal gammopathy] Onset: 5 07-14-2023 Chronic Comment on above: Biclonal IgA Lambda. Skeletal survey is normal, no evidence of CRAB.Clinically stable, Other aftercare (7 sources) Surgical follow-up 05-16-2023 Episodic Other bone disease and musculoskeletal deformities (15 sources) Somatic dysfunction of lower limb 01-18-2020 Episodic Other bone disease and musculoskeletal deformities (15 sources) Somatic dysfunction of lumbar region 01-15-2020 Episodic Other bone disease and musculoskeletal deformities (15 sources) Somatic dysfunction of pelvic region 01-15-2020 Episodic Other bone disease and musculoskeletal deformities (15 sources) Somatic dysfunction of rib 01-15-2020 Episodic Other bone disease and musculoskeletal deformities (15 sources) Somatic dysfunction of sacral region 01-15-2020 Episodic Other bone disease and musculoskeletal deformities (15 sources) Somatic dysfunction of thoracic region 10-28-2020 Episodic Other bone disease and musculoskeletal deformities (3 sources) Cervical somatic dysfunction 06-22-2024 Episodic Other circulatory disease (6 sources) Vascular disease of abdomen 06-21-2023 Episodic Other connective tissue disease (4 sources) Bursitis of olecranon of right elbow 11-23-2023 Episodic Other gastrointestinal disorders (15 sources) Irritable bowel syndrome 07-06-2019 Chronic Other hematologic conditions (1 source) Protein electrophoresis abnormal; Translations: [Other specified abnormalities of plasma proteins] 07-14-2023 Episodic Comment on above: Discussed abnormal m onoclonal protein, causes and management. He needs repeat blood work and X-rays. Pt agrees to proceed. Other injuries and conditions due to external causes (2 sources) At low risk for fall 09-22-2021 Episodic Other male genital disorders (12 sources) Impotence 03-30-2022 Chronic Other nervous system disorders (17 sources) Paresthesia 05-01-2021 Episodic Other nervous system disorders (1 source) Postoperative pain ; Translations: [Other acute postprocedural pain] Onset: 3 Episodic Other nutritional; endocrine; and metabolic disorders (6 sources) Body mass index 30+ - obesity 10-28-2020 Chronic Other nutritional; endocrine; and metabolic disorders (6 sources) Obesity 01-14-2020 Chronic Other nutritional; endocrine; and metabolic disorders (6 sources) Overweight 01-19-2023 Episodic Other nutritional; endocrine; and metabolic disorders (6 sources) Overweight in adulthood with body mass index of 25 or more but less than 30 01-19-2023 Episodic Other screening for suspected conditions (not mental disorders or infectious disease) (20 sources) Electrocardiogram abnormal; Translations: [Viral screening status] Onset: 4 03-24-2021 Episodic Comment on above: Pt wants screening P SA done. Other skin disorders (14 sources) Multiple actinic keratoses 09-22-2021 Episodic Peripheral and visceral atherosclerosis (20 sources) Atherosclerosis of aorta; Translations: [Peripheral vascular disease] Onset: 5 10-06-2022 Chronic Comment on above: seen on CTA thorax Residual codes; unclassified (15 sources) Immunization due 03-24-2021 Episodic Residual codes; unclassified (9 sources) Screening due 01-25-2023 Episodic Screening and history of mental health and substance abuse codes (16 sources) Ex-smoker; Translations: [Personal history of nicotine dependence] Onset: 5 10-28-2020 Episodic Comment on above: quit 2000, 1.5 ppd f or 25 years Spondylosis; intervertebral disc disorders; other back problems (9 sources) Degeneration of lumbar intervertebral disc; Translations: [Cervical spondylosis] Onset: 5 06-21-2023 Chronic Spondylosis; intervertebral disc disorders; other back problems (20 sources) Low back pain; Translations: [Spasm of back muscles] 2020 Episodic Sprains and strains (14 sources) Low back strain 09-04-2021 Episodic Unclassified (20 sources) Patient encounter status 03-24-2021 Unclassified (10 sources) Coronary artery disease due to type 2 diabetes mellitus 10-06-2022 Unclassified (2 sources) Exposure to viral disease (event) 08-09-2024 Viral infection (15 sources) Disease caused by 2019-nCoV 07-09-2020 Past or Other Problems Problem Classification Problem Date Documented Da te Episodic/Chronic Immunizations and screening for infectious disease (7 sources) Raised antinuclear antibody; Translations: [Contact with and (suspected) exposure to other viral communicable diseases] Onset: 08-09-2024 07-14-2023 Episodic Other upper respiratory infections (4 sources) Upper respiratory infection; Translations: [Acute upper respiratory infection, unspecified] Onset: 08-09-2024 08-09-2024 Episodic Results Test Name Value Interpretation Reference Range Facility Oncology Visit Reporton Oncology Visit Report [facility] [address] [place] [address] OFFICE VISIT Date of Service: 10/22/24 1407 MR#: [id number] Acct: [id number] Name: BRANDYN KELLY Rep #: [id number] : 1955 From: Blaze Mcmahon MD Age/Sex: 68/M Location: [facility] Status: Signed HPI Subjective Date of Service 10/22/24 Chief Complaint F/u for abnormal serum Protein. History of Present Illness 68y.o.man was found to have M-spike of 0.2 on 06/29/2023 and referred for further evaluation. He has joint pains and tingling in the finger tips. Denies weight loss, fever and night sweat. He had Skeletal survey which was negative. 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 Feels well. [facility] Medical History Somatic dysfunction of lower extremity Somatic dysfunction of pelvic region Somatic dysfunction of lumbar region Emphysema lung Coronary artery disease due to type 2 diabetes mellitus Diabetic peripheral vascular disease Type 2 diabetes mellitus with hyperlipidemia Type 2 diabetes mellitus with hyperglycemia Thoracic ascending aortic aneurysm PVD (peripheral vascular disease) Aortic atherosclerosis Paresthesias DDD (degenerative disc disease) Surgical History History of tonsillectomy S/P manipulation of deviated nasal septum Pilonidal sinus History of knee replacement Bilateral inguinal hernia Family History Mother CAD (coronary artery disease) Social History household members: significant other current occupational status: retired current occupation: [employer] Smoking Status: Former smoker alcohol intake: never Intake Vital Signs 05/01/24 13:46 10/22/24 14:07 10/22/24 14:10 Height 5 ft 9 in 5 ft 9 in 5 ft 9 in Weight: 92.278 kg BMI 30.0 BP 104/62 Blood Pressure Location Lt brachial Position Sitting Respiration 18 Pulse 89 Pulse Source Monitor Temp 98.5 F Temperature Source Temporal Artery Pulse Oximetry (%) 94 Oxygen Delivery Method room air Intake Is patient in pain?: No Allergies No Known Allergies Allergy (Verified 10/22/24 14:08) Medications ???Medication ???Instructions ???Recorded ???Confirmed ???Type simvastatin 40 mg tablet 40 mg PO QHS cholesterol 12/28/16 10/22/24 History amitriptyline 25 mg tablet 25 mg PO DAILY 07/14/23 10/22/24 H istory cyclobenzaprine 10 mg tablet 10 mg PO TID PRN muscle spasm 06/2110/22/24 History meloxicam 15 mg tablet 15 mg PO DAILY 07/14/23 10/22/24 H istory multivitamin 1 tab PO DAILY 07/14/23 10/22/24 H istory rizatriptan 10 mg tablet See Rx Instructions PO .COMPLEX 10/22/24 History sildenafil 50 mg tablet 50 mg PO DAILY PRN 07/14/23 History Have you fallen in the past year?: No Central Venous Access Central Venous Access: No Laboratory Tests 07/14/23 11/01/23 11/01/23 10:05 07:28 07:30 WBC 7.1 5.2 Hgb 15.4 14.5 Hct 45.9 43.4 Plt Count 206 187 Absolute Neuts (auto) 4.5 Sodium 137 137 Potassium 4.1 4.4 Chloride 105 107 Carbon Dioxide 28.0 27.0 BUN 17 21 H Creatinine 0.92 0.87 Glucose 109 H 108 H Uric Acid 4.5 Calcium 9.6 8.8 Phosphorus Magnesium Total Bilirubin 0.40 0.70 AST 20 17 ALT 27 22 Alkaline Phosphatase 87 70 Lactate Dehydrogenase 168 163 C-React Prot Ext Range < 2.90 Total Protein 7.8 7.2 Albumin 4.0 3.6 Total Protein (PEP) Globulin 3.3 Vitamin B12 366 TSH 1.66 IgG 778 749 IgA 731 H 692 H IgM 26 27 MARK M-Solitario Comment: Comment: Free Edwards LC, Quant 16.3 13.8 Free Lambda LC, Quant 9.7 10.6 Free Edwards/Lambda Ratio 1.68 H 1.30 04/05/24 09/28/24 08:12 07:10 WBC 6.0 5.2 Hgb 15.2 15.4 Hct 44.0 45.0 Plt Count 196 186 Absolute Neuts (auto) Sodium 136 Potassium 4.8 Chloride 102 Carbon Dioxide BUN 17 Creatinine 0.99 Glucose 135 H Uric Acid Calcium 9.2 Phosphorus 2.7 Magnesium 2.5 H Total Bilirubin 0.35 AST 19 ALT 17 Alkaline Phosphatase 82 Lactate Dehydrogenase 151 C-React Prot Ext Range < 3.00 Total Protein 7.0 Albumin 4.1 Total Protein (PEP) 6.7 Globulin Vitamin B12 TSH IgG 707 682 IgA 737 H 638 H IgM 31 25 MARK M-Solitario Comment: 0.4 H Free Edwards LC, Quant 16.0 11.4 Free Lambda LC, Quant 11.8 9.2 Free Edwards/Lambda Ratio 1.36 1.24 Exam Physical Exam Narrative Elderly man. Const alert, oriented x3 and no apparent distress HEENT normocephalic, ext (more content not included)... Normal [facility] MARK + Protein Elect, Serumon 10-02-2024 Albumin [Mass/Vol] 3.7 g/dL Normal 2.9-4.4 [facility] Comment on above: Order Comment: ORDERED CBCD,CMP,LDH,ESR,CRP,PHOS,MG,LIGHTCHAINS,IMG G/A/M,MARK,SPEPY Performed By: #### L 3100.3425, L501.2300, L501.9985, L100.0100, L501.9520, L3130.0010, L504.2610, L501.5200, L500.4100, L101.9900, L500.4050, L502.0250, L501.6710 ####[facility] [address] [place], [place], [phone] Albumin/Globulin [Mass ratio] 1.3 {ratio} Normal 0.7-1.7 [facility] Comment on above: Order Comment: DR.PR DAVIS ORDERED CBCD,CMP,LDH,ESR,CRP,PHOS,MG,LIGHTCHAINS,IMG G/A/M,MARK,SPEPY Performed By: #### L 3100.3425, L501.2300, L501.9985, L100.0100, L501.9520, L3130.0010, L504.2610, L501.5200, L500.4100, L101.9900, L500.4050, L502.0250, L501.6710 ####[facility] [address] [place], [place], [phone] VQGCH-0-DYBZ 0.2 g/dL Normal 0.0-0.4 [facility] Comment on above: Order Comment: DR.PR DAVIS ORDERED CBCD,CMP,LDH,ESR,CRP,PHOS,MG,LIGHTCHAINS,IMG G/A/M,MARK,SPEPY Performed By: #### L 3100.3425, L501.2300, L501.9985, L100.0100, L501.9520, L3130.0010, L504.2610, L501.5200, L500.4100, L101.9900, L500.4050, L502.0250, L501.6710 ####[facility] [address] [place], [address] FNCQO-4-LEWI 0.7 g/dL Normal 0.4-1.0 [facility] Comment on above: Order Comment: DR.PR DAVIS ORDERED CBCD,CMP,LDH,ESR,CRP,PHOS,MG,LIGHTCHAINS,IMG G/A/M,MARK,SPEPY Performed By: #### L 3100.3425, L501.2300, L501.9985, L100.0100, L501.9520, L3130.0010, L504.2610, L501.5200, L500.4100, L101.9900, L500.4050, L502.0250, L501.6710 ####[facility] [address] [place], [address] BETA GLOBULIN 0.9 g/dL Normal 0.7-1.3 [facility] Comment on above: Order Comment: DR.PR DAVIS ORDERED CBCD,CMP,LDH,ESR,CRP,PHOS,MG,LIGHTCHAINS,IMG G/A/M,MARK,SPEPY Performed By: #### L 3100.3425, L501.2300, L501.9985, L100.0100, L501.9520, L3130.0010, L504.2610, L501.5200, L500.4100, L101.9900, L500.4050, L502.0250, L501.6710 ####[facility] [address] [place], [address] GAMMA GLOBULIN 1.2 g/dL Normal 0.4-1.8 [facility] Comment on above: Order Comment: DR.PR DAVIS ORDERED CBCD,CMP,LDH,ESR,CRP,PHOS,MG,LIGHTCHAINS,IMG G/A/M,MARK,SPEPY Performed By: #### L 3100.3425, L501.2300, L501.9985, L100.0100, L501.9520, L3130.0010, L504.2610, L501.5200, L500.4100, L101.9900, L500.4050, L502.0250, L501.6710 ####[facility] [address] [place], [place], [phone] Globulin (S) [Mass/Vol] 3.0 g/dL Normal 2.2-3.9 [facility] Comment on above: Order Comment: DR.PR DAVIS ORDERED CBCD,CMP,LDH,ESR,CRP,PHOS,MG,LIGHTCHAINS,IMG G/A/M,MARK,SPEPY Performed By: #### L 3100.3425, L501.2300, L501.9985, L100.0100, L501.9520, L3130.0010, L504.2610, L501.5200, L500.4100, L101.9900, L500.4050, L502.0250, L501.6710 ####[facility] [address] [place], [address] MARK RESULT,S Comment Abnormal . [facility] Comment on above: Order Comment: DR.PR DAVIS ORDERED CBCD,CMP,LDH,ESR,CRP,PHOS,MG,LIGHTCHAINS,IMG G/A/M,MARK,SPEPY Result Comment: Immu nofixation shows IgA monoclonal protein with lambda light chain specificity. Performed By: #### L 3100.3425, L501.2300, L501.9985, L100.0100, L501.9520, L3130.0010, L504.2610, L501.5200, L500.4100, L101.9900, L500.4050, L502.0250, L501.6710 ####[facility] [address] [place], [address] IMMUNOGLOB A QN 638 mg/dL High 61-437 [facility] Comment on above: Order Comment: DR.PR DAVIS ORDERED CBCD,CMP,LDH,ESR,CRP,PHOS,MG,LIGHTCHAINS,IMG G/A/M,MARK,SPEPY Performed By: #### L 3100.3425, L501.2300, L501.9985, L100.0100, L501.9520, L3130.0010, L504.2610, L501.5200, L500.4100, L101.9900, L500.4050, L502.0250, L501.6710 ####[facility] [address] [place], [address] IMMUNOGLOB G QN 682 mg/dL Normal 603-1613 [facility] Comment on above: Order Comment: DR.PR DAVIS ORDERED CBCD,CMP,LDH,ESR,CRP,PHOS,MG,LIGHTCHAINS,IMG G/A/M,MARK,SPEPY Performed By: #### L 3100.3425, L501.2300, L501.9985, L100.0100, L501.9520, L3130.0010, L504.2610, L501.5200, L500.4100, L101.9900, L500.4050, L502.0250, L501.6710 ####[facility] [address] [place], [address] IMMUNOGLOB M QN 25 mg/dL Normal 20-172 [facility] Comment on above: Order Comment: DR.PR DAVIS ORDERED CBCD,CMP,LDH,ESR,CRP,PHOS,MG,LIGHTCHAINS,IMG G/A/M,MARK,SPEPY Result Comment: Resu lt confirmed on concentration. Performed By: #### L 3100.3425, L501.2300, L501.9985, L100.0100, L501.9520, L3130.0010, L504.2610, L501.5200, L500.4100, L101.9900, L500.4050, L502.0250, L501.6710 ####[facility] [address] [place], [address] M-Solitario 0.4 g/dL Abnormal Not Observed [facility] Comment on above: Order Comment: DR.PR DAVIS ORDERED CBCD,CMP,LDH,ESR,CRP,PHOS,MG,LIGHTCHAINS,IMG G/A/M,MARK,SPEPY Performed By: #### L 3100.3425, L501.2300, L501.9985, L100.0100, L501.9520, L3130.0010, L504.2610, L501.5200, L500.4100, L101.9900, L500.4050, L502.0250, L501.6710 ####[facility] [address] [place], [place], [phone] NOTE: Comment Normal . [facility] Comment on above: Order Comment: DR.PR DAVIS ORDERED CBCD,CMP,LDH,ESR,CRP,PHOS,MG,LIGHTCHAINS,IMG G/A/M,MARK,SPEPY Result Comment: Prot ein electrophoresis scan will follow via computer, mail, or network support engineer delivery. Performed By: #### L 3100.3425, L501.2300, L501.9985, L100.0100, L501.9520, L3130.0010, L504.2610, L501.5200, L500.4100, L101.9900, L500.4050, L502.0250, L501.6710 ####[facility] [address] [place], [place], [phone] Protein [Mass/Vol] 6.7 g/dL Normal 6.0-8.5 [facility] Comment on above: Order Comment: DR.PR DAVIS ORDERED CBCD,CMP,LDH,ESR,CRP,PHOS,MG,LIGHTCHAINS,IMG G/A/M,MARK,SPEPY Performed By: #### L 3100.3425, L501.2300, L501.9985, L100.0100, L501.9520, L3130.0010, L504.2610, L501.5200, L500.4100, L101.9900, L500.4050, L502.0250, L501.6710 ####[facility] [address] [place], [place], [phone] Edwards Lambda Light Chainson 10-02-2024 FR KAPPA LT CHN 11.4 mg/L Normal 3.3-19.4 [facility] Comment on above: Order Comment: DR.PR DAVIS ORDERED CBCD,CMP,LDH,ESR,CRP,PHOS,MG,LIGHTCHAINS,IMG G/A/M,MARK,SPEP Performed By: #### L 3100.3425, L501.2300, L501.9985, L100.0100, L501.9520, L3130.0010, L504.2610, L501.5200, L500.4100, L101.9900, L500.4050, L502.0250, L501.6710 ####[facility] [address] [place], [place], [phone] FR LAMBDA LT CH 9.2 mg/L Normal 5.7-26.3 [facility] Comment on above: Order Comment: DR.PR DAVIS ORDERED CBCD,CMP,LDH,ESR,CRP,PHOS,MG,LIGHTCHAINS,IMG G/A/M,MARK,SPEP Performed By: #### L 3100.3425, L501.2300, L501.9985, L100.0100, L501.9520, L3130.0010, L504.2610, L501.5200, L500.4100, L101.9900, L500.4050, L502.0250, L501.6710 ####[facility] [address] [place], [place], [phone] KAPPA/LAMBDA % 1.24 Normal 0.26-1.65 [facility] Comment on above: Order Comment: DR.PR DAVIS ORDERED CBCD,CMP,LDH,ESR,CRP,PHOS,MG,LIGHTCHAINS,IMG G/A/M,MARK,SPEP Result Comment: Perf ormed at: - [facility] [address] [id number] [employer] Routeman: Jhony Ahuja PhD, Phone: [phone] Performed By: #### L 3100.3425, L501.2300, L501.9985, L100.0100, L501.9520, L3130.0010, L504.2610, L501.5200, L500.4100, L101.9900, L500.4050, L502.0250, L501.6710 ####[facility] [address] [place], [address] Absolute neutrophil countOrd ered By: Blaze Mcmahon on 09-28-2024 Neutrophils (Bld) [#/Vol] 2.8 10*3/uL 2.0-7.7 [facility] Addendum DocumentOrdered By: Blaze Mcmahon on 09-28-2024 Serum Immunofixation Comments Comment . [facility] Comment on above: Protein electrophore sis scan will follow via computer,mail, or network support engineer delivery. Albumin DL <= 20 mg/L (U) [M ass/Vol]Ordered By: Blaze Mcmahon on 09-28-2024 Urine Random Microalbumin < 12.0 mg/L NO RANGE EST. [facility] Albumin Elph [Mass/Vol]Order ed By: Blaze Mcmahon on 09-28-2024 Albumin [Mass/Vol] 3.7 g/dL 2.9-4.4 [facility] Alpha 1 globulin Elph [Mass/ Vol]Ordered By: Blaze Mcmahon on 09-28-2024 Qipcr-0-Mkhzwhzkq (MARK) 0.2 g/dL 0.0-0.4 [facility] Bknai-5-Xidzgaojh (MARK) 0.7 g/dL 0.4-1.0 [facility] Anion gap in Serum or Plasma Ordered By: Blaze Mcmahon on 09-28-2024 Anion gap [Moles/Vol] 9 mmol/L 5-15 [facility] BUN/creatinine ratioOrdered By: Blaze Mcmahon on 09-28-2024 Urea nitrogen/Creatinine [Mass ratio] 17.0 mg/mg 10-20 [facility] Basophil percentageOrdered B y: Blaze Mcmahon on 09-28-2024 Basophils/100 WBC (Bld) 0.6 % 0-1 [facility] Beta globulin Elph [Mass/Vol ]Ordered By: Blaze Mcmahon on 09-28-2024 Beta-Globulins (MARK) 0.9 g/dL 0.7-1.3 [facility] Bilirubin, totalOrdered By: Blaze Mcmahon on 09-28-2024 Bilirubin [Mass/Vol] 0.35 mg/dL 0.00-1.30 [facility] CBC W/Diff, Automatedon 09-18 Absolute Lymph 1.57 X10 3/uL Normal 0.83-4.51 [facility] Comment on above: Order Comment: DR.PR DAVIS ORDERED CBCD,CMP,LDH,ESR,CRP,PHOS,MG,LIGHTCHAINS,IMG G/A/M,MARK,SPEP Performed By: #### L 3100.3425, L501.2300, L501.9985, L100.0100, L501.9520, L3130.0010, L504.2610, L501.5200, L500.4100, L101.9900, L500.4050, L502.0250, L501.6710 ####[facility] [address] [place], [phone]) Absolute Neut 2.8 X10 3/uL Normal 2.0-7.7 [facility] Comment on above: Order Comment: DR.PR DAVIS ORDERED CBCD,CMP,LDH,ESR,CRP,PHOS,MG,LIGHTCHAINS,IMG G/A/M,MARK,SPEP Performed By: #### L 3100.3425, L501.2300, L501.9985, L100.0100, L501.9520, L3130.0010, L504.2610, L501.5200, L500.4100, L101.9900, L500.4050, L502.0250, L501.6710 ####[facility] [address] [place], [place], [phone] Basophils/100 WBC (Bld) 0.6 % Normal 0-1 [facility] Comment on above: Order Comment: DR.PR DAVIS ORDERED CBCD,CMP,LDH,ESR,CRP,PHOS,MG,LIGHTCHAINS,IMG G/A/M,MARK,SPEP Performed By: #### L 3100.3425, L501.2300, L501.9985, L100.0100, L501.9520, L3130.0010, L504.2610, L501.5200, L500.4100, L101.9900, L500.4050, L502.0250, L501.6710 ####[facility] [address] [place], [place], [phone]) Eosinophils/100 WBC (Bld) 3.1 % Normal 0-5 [facility] Comment on above: Order Comment: DR.PR DAVIS ORDERED CBCD,CMP,LDH,ESR,CRP,PHOS,MG,LIGHTCHAINS,IMG G/A/M,MARK,SPEP Performed By: #### L 3100.3425, L501.2300, L501.9985, L100.0100, L501.9520, L3130.0010, L504.2610, L501.5200, L500.4100, L101.9900, L500.4050, L502.0250, L501.6710 ####[facility] [address] [place], [place], [phone] Erythrocyte distribution width (RBC) [Ratio] 12.9 % Normal 11.6-14.6 [facility] Comment on above: Order Comment: DR.PR DAVIS ORDERED CBCD,CMP,LDH,ESR,CRP,PHOS,MG,LIGHTCHAINS,IMG G/A/M,MARK,SPEP Performed By: #### L 3100.3425, L501.2300, L501.9985, L100.0100, L501.9520, L3130.0010, L504.2610, L501.5200, L500.4100, L101.9900, L500.4050, L502.0250, L501.6710 ####[facility] [address] [place], [place], [phone]) Hematocrit (Bld) [Volume fraction] 45.0 % Normal 40-54 [facility] Comment on above: Order Comment: DR.PR DAVIS ORDERED CBCD,CMP,LDH,ESR,CRP,PHOS,MG,LIGHTCHAINS,IMG G/A/M,MARK,SPEP Performed By: #### L 3100.3425, L501.2300, L501.9985, L100.0100, L501.9520, L3130.0010, L504.2610, L501.5200, L500.4100, L101.9900, L500.4050, L502.0250, L501.6710 ####[facility] [address] [place], [place], [phone]) Hemoglobin (Bld) [Mass/Vol] 15.4 g/dL Normal 13.0-16.5 [facility] Comment on above: Order Comment: DR.PR DAVIS ORDERED CBCD,CMP,LDH,ESR,CRP,PHOS,MG,LIGHTCHAINS,IMG G/A/M,MARK,SPEP Performed By: #### L 3100.3425, L501.2300, L501.9985, L100.0100, L501.9520, L3130.0010, L504.2610, L501.5200, L500.4100, L101.9900, L500.4050, L502.0250, L501.6710 ####[facility] [address] [place], [place], [phone]) IG% 0.200 Normal 0.0-0.9 [facility] Comment on above: Order Comment: DR.PR DAVIS ORDERED CBCD,CMP,LDH,ESR,CRP,PHOS,MG,LIGHTCHAINS,IMG G/A/M,MARK,SPEP Result Comment: IG% - Immature Granulocytes (promyelocytes, myelocytes and metamyelocytes) > 1% indicates that a LEFT SHIFT is Present. Performed By: #### L 3100.3425, L501.2300, L501.9985, L100.0100, L501.9520, L3130.0010, L504.2610, L501.5200, L500.4100, L101.9900, L500.4050, L502.0250, L501.6710 ####[facility] [address] [place], [address] Lymphocytes/100 WBC (Bld) 30.2 % Normal 19-41 [facility] Comment on above: Order Comment: DR.PR DAVIS ORDERED CBCD,CMP,LDH,ESR,CRP,PHOS,MG,LIGHTCHAINS,IMG G/A/M,MARK,SPEP Performed By: #### L 3100.3425, L501.2300, L501.9985, L100.0100, L501.9520, L3130.0010, L504.2610, L501.5200, L500.4100, L101.9900, L500.4050, L502.0250, L501.6710 ####[facility] [address] [place], [address] MCH (RBC) [Entitic mass] 31.6 pg Normal 27.0-32.0 [facility] Comment on above: Order Comment: DR.PR DAVIS ORDERED CBCD,CMP,LDH,ESR,CRP,PHOS,MG,LIGHTCHAINS,IMG G/A/M,MARK,SPEP Performed By: #### L 3100.3425, L501.2300, L501.9985, L100.0100, L501.9520, L3130.0010, L504.2610, L501.5200, L500.4100, L101.9900, L500.4050, L502.0250, L501.6710 ####[facility] [address] [place], [address] MCHC (RBC) [Mass/Vol] 34.2 g/dL Normal 32-36 [facility] Comment on above: Order Comment: DR.PR DAVIS ORDERED CBCD,CMP,LDH,ESR,CRP,PHOS,MG,[place],IMG G/A/M,MARK,SPEP Performed By: #### L 3100.3425, L501.2300, L501.9985, L100.0100, L501.9520, L3130.0010, L504.2610, L501.5200, L500.4100, L101.9900, L500.4050, L502.0250, L501.6710 ####[facility] [address] [place], [address] MCV (RBC) [Entitic vol] 92.2 fL Normal 80-94 [facility] Comment on above: Order Comment: DR.PR DAVIS ORDERED CBCD,CMP,LDH,ESR,CRP,PHOS,MG,[place],IMG G/A/M,MARK,SPEP Performed By: #### L 3100.3425, L501.2300, L501.9985, L100.0100, L501.9520, L3130.0010, L504.2610, L501.5200, L500.4100, L101.9900, L500.4050, L502.0250, L501.6710 ####[facility] [address] [place], [address] Monocytes/100 WBC (Bld) 11.9 % High 0-10 [facility] Comment on above: Order Comment: DR.PR DAVIS ORDERED CBCD,CMP,LDH,ESR,CRP,PHOS,MG,LIGHTCHAINS,IMG G/A/M,MARK,SPEP Performed By: #### L 3100.3425, L501.2300, L501.9985, L100.0100, L501.9520, L3130.0010, L504.2610, L501.5200, L500.4100, L101.9900, L500.4050, L502.0250, L501.6710 ####[facility] [address] [place], [place], [phone](500) Neutrophils/100 WBC (Bld) 54.0 % Normal 47-70 [facility] Comment on above: Order Comment: DR.PR DAVIS ORDERED CBCD,CMP,LDH,ESR,CRP,PHOS,MG,LIGHTCHAINS,IMG G/A/M,MARK,SPEP Performed By: #### L 3100.3425, L501.2300, L501.9985, L100.0100, L501.9520, L3130.0010, L504.2610, L501.5200, L500.4100, L101.9900, L500.4050, L502.0250, L501.6710 ####[facility] [address] [place], [place], [phone](811) Nucleated RBC (Bld) [#/Vol] 0 10*3/uL Normal 0-5 [facility] Comment on above: Order Comment: DR.PR DAVIS ORDERED CBCD,CMP,LDH,ESR,CRP,PHOS,MG,LIGHTCHAINS,IMG G/A/M,MARK,SPEP Performed By: #### L 3100.3425, L501.2300, L501.9985, L100.0100, L501.9520, L3130.0010, L504.2610, L501.5200, L500.4100, L101.9900, L500.4050, L502.0250, L501.6710 ####[facility] [address] [place], [address] Platelet mean volume (Bld) [Entitic vol] 10.7 fL Normal 6.2-12.0 [facility] Comment on above: Order Comment: DR.PR DAVIS ORDERED CBCD,CMP,LDH,ESR,CRP,PHOS,MG,LIGHTCHAINS,IMG G/A/M,MARK,SPEP Performed By: #### L 3100.3425, L501.2300, L501.9985, L100.0100, L501.9520, L3130.0010, L504.2610, L501.5200, L500.4100, L101.9900, L500.4050, L502.0250, L501.6710 ####[facility] [address] [place], [address] Platelets (Bld) [#/Vol] 186 10*3/uL Normal 150-450 [facility] Comment on above: Order Comment: DR.PR DAVIS ORDERED CBCD,CMP,LDH,ESR,CRP,PHOS,MG,LIGHTCHAINS,IMG G/A/M,MARK,SPEP Performed By: #### L 3100.3425, L501.2300, L501.9985, L100.0100, L501.9520, L3130.0010, L504.2610, L501.5200, L500.4100, L101.9900, L500.4050, L502.0250, L501.6710 ####[facility] [address] [place], [address] RBC (Bld) [#/Vol] 4.88 10*6/uL Normal 4.6-6.2 [facility] Comment on above: Order Comment: DR.PR DAVIS ORDERED CBCD,CMP,LDH,ESR,CRP,PHOS,MG,LIGHTCHAINS,IMG G/A/M,MARK,SPEP Performed By: #### L 3100.3425, L501.2300, L501.9985, L100.0100, L501.9520, L3130.0010, L504.2610, L501.5200, L500.4100, L101.9900, L500.4050, L502.0250, L501.6710 ####[facility] [address] [place], [address] RDW SD 43.7 fl Normal 35.1-43.9 [facility] Comment on above: Order Comment: DR.PR DAVIS ORDERED CBCD,CMP,LDH,ESR,CRP,PHOS,MG,LIGHTCHAINS,IMG G/A/M,MARK,SPEP Performed By: #### L 3100.3425, L501.2300, L501.9985, L100.0100, L501.9520, L3130.0010, L504.2610, L501.5200, L500.4100, L101.9900, L500.4050, L502.0250, L501.6710 ####[facility] [address] [place], [address] WBC (Bld) [#/Vol] 5.2 10*3/uL Normal 4.4-11.0 [facility] Comment on above: Order Comment: DR.PR DAVIS ORDERED CBCD,CMP,LDH,ESR,CRP,PHOS,MG,LIGHTCHAINS,IMG G/A/M,MARK,SPEP Performed By: #### L 3100.3425, L501.2300, L501.9985, L100.0100, L501.9520, L3130.0010, L504.2610, L501.5200, L500.4100, L101.9900, L500.4050, L502.0250, L501.6710 ####[facility] [address] [place], [address] CRPon 09-28-2024 C-REACTIVE PROT < 3.00 Normal 0.0-3.0 [facility] Comment on above: Order Comment: DR.PR DAVIS ORDERED CBCD,CMP,LDH,ESR,CRP,PHOS,MG,LIGHTCHAINS,IMG G/A/M,MARK,SPEPDR.CHENG ORDERED TSH,A1,CMP,LIPID,MIACRE,CBC Performed By: #### L 3100.3425, L501.2300, L501.9985, L100.0100, L501.9520, L3130.0010, L504.2610, L501.5200, L500.4100, L101.9900, L500.4050, L502.0250, L501.6710 ####[facility] [address] [place], [place], [phone] CRP [Mass/Vol]Ordered By: Ronel Mcmahon on 09-28-2024 C-Reactive Protein Extended Range < 3.00 mg/L 0.0-3.0 [facility] Calculated very low density lipoprotein (VLDL) cholesterol measurementOrdered By: Blaze Mcmahon on 09-28-2024 VLDL Cholesterol 20 mg/dL 5-40 [facility] Carbon dioxide, total [Moles /volume] in Central venous bloodOrdered By: Blaze Mcmahon on 09-28-2024 CO2 [Moles/Vol] 24.6 mmol/L 21.0-32.0 [facility] Chloride assayOrdered By: Ronel Mcmahon on 09-28-2024 Chloride [Moles/Vol] 102 mmol/L 98-108 [facility] Comprehensive Metabolic Prof ilon 09-28-2024 Albumin [Mass/Vol] 4.1 g/dL Normal 3.4-4.8 [facility] Comment on above: Order Comment: DR.PR DAVIS ORDERED CBCD,CMP,LDH,ESR,CRP,PHOS,MG,LIGHTCHAINS,IMG G/A/M,MARK,SPEPDR.CHENG ORDERED TSH,A1,CMP,LIPID,MIACRE,CBC Performed By: #### L 3100.3425, L501.2300, L501.9985, L100.0100, L501.9520, L3130.0010, L504.2610, L501.5200, L500.4100, L101.9900, L500.4050, L502.0250, L501.6710 ####[facility] [address] [place], [place], [phone] Albumin/Globulin [Mass ratio] 1.4 {ratio} Normal 0.9-2.4 [facility] Comment on above: Order Comment: DR.PR DAVIS ORDERED CBCD,CMP,LDH,ESR,CRP,PHOS,MG,LIGHTCHAINS,IMG G/A/M,MARK,SPEPDR.HALKO ORDERED TSH,A1,CMP,LIPID,MIACRE,CBC Performed By: #### L 3100.3425, L501.2300, L501.9985, L100.0100, L501.9520, L3130.0010, L504.2610, L501.5200, L500.4100, L101.9900, L500.4050, L502.0250, L501.6710 ####[facility] [address] [place], [place], [phone] ALK PHOS 82 U/L Normal 40-129 [facility] Comment on above: Order Comment: DR.PR DAVIS ORDERED CBCD,CMP,LDH,ESR,CRP,PHOS,MG,LIGHTCHAINS,IMG G/A/M,MARK,SPEPDR.CHENG ORDERED TSH,A1,CMP,LIPID,MIACRE,CBC Performed By: #### L 3100.3425, L501.2300, L501.9985, L100.0100, L501.9520, L3130.0010, L504.2610, L501.5200, L500.4100, L101.9900, L500.4050, L502.0250, L501.6710 ####[facility] [address] [facility] [place], [place], [phone] ALT [Catalytic activity/Vol] 17 U/L Normal <=46 [facility] Comment on above: Order Comment: DR.PR DAVIS ORDERED CBCD,CMP,LDH,ESR,CRP,PHOS,MG,LIGHTCHAINS,IMG G/A/M,MARK,SPEPDR.CHENG ORDERED TSH,A1,CMP,LIPID,MIACRE,CBC Performed By: #### L 3100.3425, L501.2300, L501.9985, L100.0100, L501.9520, L3130.0010, L504.2610, L501.5200, L500.4100, L101.9900, L500.4050, L502.0250, L501.6710 ####[facility] [address] [place], [place], [phone] AST [Catalytic activity/Vol] 19 U/L Normal <=37 [facility] Comment on above: Order Comment: DR.PR DAVIS ORDERED CBCD,CMP,LDH,ESR,CRP,PHOS,MG,LIGHTCHAINS,IMG G/A/M,MARK,SPEPDR.CHENG ORDERED TSH,A1,CMP,LIPID,MIACRE,CBC Performed By: #### L 3100.3425, L501.2300, L501.9985, L100.0100, L501.9520, L3130.0010, L504.2610, L501.5200, L500.4100, L101.9900, L500.4050, L502.0250, L501.6710 ####[facility] [address] [place], [address] Bilirubin [Mass/Vol] 0.35 mg/dL Normal 0.00-1.30 [facility] Comment on above: Order Comment: DR.PR DAVIS ORDERED CBCD,CMP,LDH,ESR,CRP,PHOS,MG,LIGHTCHAINS,IMG G/A/M,MARK,SPEPDR.CHENG ORDERED TSH,A1,CMP,LIPID,MIACRE,CBC Performed By: #### L 3100.3425, L501.2300, L501.9985, L100.0100, L501.9520, L3130.0010, L504.2610, L501.5200, L500.4100, L101.9900, L500.4050, L502.0250, L501.6710 ####[facility] [address] [place], [address] BUN/CRE 17.0 RATIO Normal 10-20 [facility] Comment on above: Order Comment: DR.PR DAVIS ORDERED CBCD,CMP,LDH,ESR,CRP,PHOS,MG,LIGHTCHAINS,IMG G/A/M,MARK,SPEPDR.CHENG ORDERED TSH,A1,CMP,LIPID,MIACRE,CBC Performed By: #### L 3100.3425, L501.2300, L501.9985, L100.0100, L501.9520, L3130.0010, L504.2610, L501.5200, L500.4100, L101.9900, L500.4050, L502.0250, L501.6710 ####[facility] [address] [place], [address] Calcium [Mass/Vol] 9.2 mg/dL Normal 7.6-11.0 [facility] Comment on above: Order Comment: DR.PR DAVIS ORDERED CBCD,CMP,LDH,ESR,CRP,PHOS,MG,LIGHTCHAINS,IMG G/A/M,MARK,SPEPDR.CHENG ORDERED TSH,A1,CMP,LIPID,MIACRE,CBC Performed By: #### L 3100.3425, L501.2300, L501.9985, L100.0100, L501.9520, L3130.0010, L504.2610, L501.5200, L500.4100, L101.9900, L500.4050, L502.0250, L501.6710 ####[facility] [address] [facility] [place], [address] Chloride [Moles/Vol] 102 mmol/L Normal 98-108 [facility] Comment on above: Order Comment: DR.PR DAVIS ORDERED CBCD,CMP,LDH,ESR,CRP,PHOS,MG,LIGHTCHAINS,IMG G/A/M,MARK,SPEPDR.CHENG ORDERED TSH,A1,CMP,LIPID,MIACRE,CBC Performed By: #### L 3100.3425, L501.2300, L501.9985, L100.0100, L501.9520, L3130.0010, L504.2610, L501.5200, L500.4100, L101.9900, L500.4050, L502.0250, L501.6710 ####[facility] [address] [facility]. [place], [place], [phone] CO2 [Moles/Vol] 24.6 mmol/L Normal 21.0-32.0 [facility] Comment on above: Order Comment: DR.PR DAVIS ORDERED CBCD,CMP,LDH,ESR,CRP,PHOS,MG,LIGHTCHAINS,IMG G/A/M,MARK,SPEPDR.CHENG ORDERED TSH,A1,CMP,LIPID,MIACRE,CBC Performed By: #### L 3100.3425, L501.2300, L501.9985, L100.0100, L501.9520, L3130.0010, L504.2610, L501.5200, L500.4100, L101.9900, L500.4050, L502.0250, L501.6710 ####[facility] [address] [facility]. [place], [place], [phone] Creatinine [Mass/Vol] 0.99 mg/dL Normal 0.70-1.20 [facility] Comment on above: Order Comment: DR.PR DAVIS ORDERED CBCD,CMP,LDH,ESR,CRP,PHOS,MG,LIGHTCHAINS,IMG G/A/M,MARK,SPEPDR.CHENG ORDERED TSH,A1,CMP,LIPID,MIACRE,CBC Performed By: #### L 3100.3425, L501.2300, L501.9985, L100.0100, L501.9520, L3130.0010, L504.2610, L501.5200, L500.4100, L101.9900, L500.4050, L502.0250, L501.6710 ####[facility] [address] [facility]. [place], [place], [phone] GAP 9 Normal 5-15 [facility] Comment on above: Order Comment: DR.PR DAVIS ORDERED CBCD,CMP,LDH,ESR,CRP,PHOS,MG,LIGHTCHAINS,IMG G/A/M,MARK,SPEPDR.CHENG ORDERED TSH,A1,CMP,LIPID,MIACRE,CBC Performed By: #### L 3100.3425, L501.2300, L501.9985, L100.0100, L501.9520, L3130.0010, L504.2610, L501.5200, L500.4100, L101.9900, L500.4050, L502.0250, L501.6710 ####[facility] [address] [place], [place], [phone](132) GFR/1.73 sq M.predicted among non-blacks MDRD (S/P/Bld) [Vol rate/Area] 83 mL/min/{1.73_m2} Normal >60 [facility] Comment on above: Order Comment: DR.PR DAVIS ORDERED CBCD,CMP,LDH,ESR,CRP,PHOS,MG,LIGHTCHAINS,IMG G/A/M,MARK,SPEPDR.CHENG ORDERED TSH,A1,CMP,LIPID,MIACRE,CBC Result Comment: mL/m in/1.73m2 CKD-EPI Creatinine Equation (2020) Performed By: #### L 3100.3425, L501.2300, L501.9985, L100.0100, L501.9520, L3130.0010, L504.2610, L501.5200, L500.4100, L101.9900, L500.4050, L502.0250, L501.6710 ####[facility] [address] [place], [place], [phone] Globulin (S) [Mass/Vol] 2.9 g/dL Normal 2.2-4.2 [facility] Comment on above: Order Comment: DR.PR DAVIS ORDERED CBCD,CMP,LDH,ESR,CRP,PHOS,MG,LIGHTCHAINS,IMG G/A/M,MARK,SPEPDR.CHENG ORDERED TSH,A1,CMP,LIPID,MIACRE,CBC Performed By: #### L 3100.3425, L501.2300, L501.9985, L100.0100, L501.9520, L3130.0010, L504.2610, L501.5200, L500.4100, L101.9900, L500.4050, L502.0250, L501.6710 ####[facility] [address] [place], [address] Glucose [Mass/Vol] 135 mg/dL High 70-99 [facility] Comment on above: Order Comment: DR.PR DAVIS ORDERED CBCD,CMP,LDH,ESR,CRP,PHOS,MG,LIGHTCHAINS,IMG G/A/M,MARK,SPEPDR.CHENG ORDERED TSH,A1,CMP,LIPID,MIACRE,CBC Performed By: #### L 3100.3425, L501.2300, L501.9985, L100.0100, L501.9520, L3130.0010, L504.2610, L501.5200, L500.4100, L101.9900, L500.4050, L502.0250, L501.6710 ####[facility] [address] [place], [place], [phone] Potassium [Moles/Vol] 4.8 mmol/L Normal 3.3-5.1 [facility] Comment on above: Order Comment: DR.PR DAVIS ORDERED CBCD,CMP,LDH,ESR,CRP,PHOS,MG,LIGHTCHAINS,IMG G/A/M,MARK,SPEPDR.CHENG ORDERED TSH,A1,CMP,LIPID,MIACRE,CBC Performed By: #### L 3100.3425, L501.2300, L501.9985, L100.0100, L501.9520, L3130.0010, L504.2610, L501.5200, L500.4100, L101.9900, L500.4050, L502.0250, L501.6710 ####[facility] [address] [place], [address] Sodium [Moles/Vol] 136 mmol/L Normal 133-145 [facility] Comment on above: Order Comment: DR.PR DAVIS ORDERED CBCD,CMP,LDH,ESR,CRP,PHOS,MG,LIGHTCHAINS,IMG G/A/M,MARK,SPEPDR.HCENG ORDERED TSH,A1,CMP,LIPID,MIACRE,CBC Performed By: #### L 3100.3425, L501.2300, L501.9985, L100.0100, L501.9520, L3130.0010, L504.2610, L501.5200, L500.4100, L101.9900, L500.4050, L502.0250, L501.6710 ####[facility] [address] [place], [address] T PROT 7.0 g/dL Normal 5.9-8.4 [facility] Comment on above: Order Comment: DR.PR DAVIS ORDERED CBCD,CMP,LDH,ESR,CRP,PHOS,MG,LIGHTCHAINS,IMG G/A/M,MARK,SPEPDR.CHENG ORDERED TSH,A1,CMP,LIPID,MIACRE,CBC Performed By: #### L 3100.3425, L501.2300, L501.9985, L100.0100, L501.9520, L3130.0010, L504.2610, L501.5200, L500.4100, L101.9900, L500.4050, L502.0250, L501.6710 ####[facility] [address] [place], [place], [phone] Urea nitrogen [Mass/Vol] 17 mg/dL Normal 4-19 [facility] Comment on above: Order Comment: DR.PR DAVIS ORDERED CBCD,CMP,LDH,ESR,CRP,PHOS,MG,LIGHTCHAINS,IMG G/A/M,MARK,SPEPDR.CHENG ORDERED TSH,A1,CMP,LIPID,MIACRE,CBC Performed By: #### L 3100.3425, L501.2300, L501.9985, L100.0100, L501.9520, L3130.0010, L504.2610, L501.5200, L500.4100, L101.9900, L500.4050, L502.0250, L501.6710 ####[facility] [address] [place], [address] Creatinine Unsp time (U) [Ma ss/Vol]Ordered By: Blaze Mcmahon on 09-28-2024 Creatinine (U) [Mass/Vol] 113.00 mg/dL 39.00-259.0 0 [facility] Eosinophil percentageOrdered By: Blaze Mcmahon on 09-28-2024 Eosinophils/100 WBC (Bld) 3.1 % 0-5 [facility] Erythrocyte Sed Rateon 09-28 SED RATE 3 mm/hr Normal 0-20 [facility] Comment on above: Order Comment: DR.PR DAVIS ORDERED CBCD,CMP,LDH,ESR,CRP,PHOS,MG,LIGHTCHAINS,IMG G/A/M,MARK,SPEP Performed By: #### L 3100.3425, L501.2300, L501.9985, L100.0100, L501.9520, L3130.0010, L504.2610, L501.5200, L500.4100, L101.9900, L500.4050, L502.0250, L501.6710 ####[facility] [address] [place], [place], [phone] Erythrocyte distribution wid th (RBC) [Ratio]Ordered By: Blaze Mcmahon on 09-28-2024 Erythrocyte distribution width (RBC) [Entitic vol] 43.7 fL 35.1-43.9 [facility] Erythrocyte distribution wid th ratioOrdered By: Blaze Lisandro on 09-28-2024 Erythrocyte distribution width (RBC) [Ratio] 12.9 % 11.6-14.6 [facility] Erythrocyte sedimentation ra teOrdered By: Blaze Mcmahon on 09-28-2024 ESR (Bld) [Velocity] 3 mm/h 0-20 [facility] GFR/1.73 sq M.predicted patricia g non-blacks MDRD (S/P/Bld) [Vol rate/Area]Ordered By: Blaze Mcmahon on 09-28-2024 Estimated GFR (MDRD) Non-Af Amer 83 >60 [facility] Comment on above: mL/min/1.73m2 CKD-EP I Creatinine Equation (2020) Gamma globulin Elph [Mass/Vo l]Ordered By: Blaze Mcmahon on 09-28-2024 Gamma Globulins (MARK) 1.2 g/dL 0.4-1.8 [facility] Hematocrit Auto (Bld) [Volum e fraction]Ordered By: Blaze Mcmahon on 09-28-2024 Hematocrit (Bld) [Volume fraction] 45.0 % 40-54 [facility] Hemoglobin A1con 09-28-2024 HbA1c (Bld) [Mass fraction] 6.6 % High <=5.6 [facility] Comment on above: Order Comment: DR.PR DAVIS ORDERED CBCD,CMP,LDH,ESR,CRP,PHOS,MG,LIGHTCHAINS,IMG G/A/M,MARK,SPEP Result Comment: Norm al < 5.7 % Prediabetic 5.7 - 6.4 % Diabetic >or= 6.5 % Please note range changes. Performed By: #### L 3100.3425, L501.2300, L501.9985, L100.0100, L501.9520, L3130.0010, L504.2610, L501.5200, L500.4100, L101.9900, L500.4050, L502.0250, L501.6710 ####[facility] [address] [place], [place], [phone] Hemoglobin A1c percentageOrd ered By: Blaze Mcmahon on 09-28-2024 HbA1c (Bld) [Mass fraction] 6.6 % High <5.7 [facility] Comment on above: Normal < 5.7 % Predi abetic 5.7 - 6.4 % Diabetic >or= 6.5 % Please note range changes. Hemoglobin measurementOrdere d By: Blaze Mcmahon on 09-28-2024 Hemoglobin (Bld) [Mass/Vol] 15.4 g/dL 13.0-16.5 [facility] IgA [Mass/Vol]Ordered By: Ronel Mcmahon on 09-28-2024 Immunoglobulin A 638 mg/dL High 61-437 [facility] IgG [Mass/Vol]Ordered By: Ronel Mcmahon on 09-28-2024 Immunoglobulin G 682 mg/dL 603-1613 [facility] Immature granulocytes/100 WB C Auto (Bld)Ordered By: Blaze Mcmahon on 09-28-2024 Immature granulocytes/100 WBC (Bld) 0.200 % 0.0-0.9 [facility] Comment on above: IG% - Immature Granu locytes (promyelocytes, myelocytes and metamyelocytes) > 1% indicates that a LEFT SHIFT is Present. Immunoglobulin M measurement Ordered By: Blaze Mcmahon on 09-28-2024 Immunoglobulin M 25 mg/dL 20-172 [facility] Comment on above: Result confirmed on concentration. Immunoglobulin light chains. kappa [Mass/Vol]Ordered By: Blaze Mcmahon on 09-28-2024 Free Edwards Light Chains, Quant 11.4 mg/L 3.3-19.4 [facility] Immunoglobulin light chains. kappa/Immunoglobulin light chains.lambda (S) [Mass ratio]Ordered By: Blaze Mcmahon on 09-28-2024 Free Edwards/Lambda Light Chain Ratio 1.24 0.26-1.65 [facility] Comment on above: Performed at: [address] Director: Jhony Ahuja PhD, Phone: [phone] Interpretation IEP [Interp]O rdered By: Blaze Mcmahon on 09-28-2024 Immunofixation Screen Comment High . [facility] Comment on above: Immunofixation shows IgA monoclonal protein with lambdalight chain specificity. LDHon 09-28-2024 LDH 151 U/L Normal 87-241 [facility] Comment on above: Order Comment: DR.PR DAVIS ORDERED CBCD,CMP,LDH,ESR,CRP,PHOS,MG,LIGHTCHAINS,IMG G/A/M,MARK,SPEPDR.CHENG ORDERED TSH,A1,CMP,LIPID,MIACRE,CBC1 Performed By: #### L 3100.3425, L501.2300, L501.9985, L100.0100, L501.9520, L3130.0010, L504.2610, L501.5200, L500.4100, L101.9900, L500.4050, L502.0250, L501.6710 ####[facility] [address] [place], [place], [phone] LDL calc ser/plasOrdered By: Blaze Mcmahon on 09-28-2024 LDL Cholesterol, Calculated 66 mg/dL [facility] Comment on above: Sjtrfptdao=334-627 m g/dL & Higher Rtlf=337 mg/dL or greater Laboratory - Chemistry and C hemistry - challengeOrdered By: [facility]24 AST [Catalytic activity/Vol] 19 U/L <38 [facility] Lactate dehydrogenase (LDH) measurementOrdered By: [facility] on 09-28-2024 LDH [Catalytic activity/Vol] 151 U/L 87-241 [facility] Lambda free light chain tana urementOrdered By: [facility] on 09-28-2024 Free Lambda Light Chains, Quant 9.2 mg/L 5.7-26.3 [facility] Lipid Profileon 09-28-2024 CHOL:HDL 2.48 Normal [facility] Comment on above: Order Comment: DR.PR DAVIS ORDERED CBCD,CMP,LDH,ESR,CRP,PHOS,MG,LIGHTCHAINS,IMG G/A/M,MARK,SPEPDR.CHENG ORDERED TSH,A1,CMP,LIPID,MIACRE,CBC Performed By: #### L 3100.3425, L501.2300, L501.9985, L100.0100, L501.9520, L3130.0010, L504.2610, L501.5200, L500.4100, L101.9900, L500.4050, L502.0250, L501.6710 ####[facility] [address] [place], [place], [phone] Cholesterol [Mass/Vol] 144 mg/dL Normal <=200 [facility] Comment on above: Order Comment: DR.PR DAVIS ORDERED CBCD,CMP,LDH,ESR,CRP,PHOS,MG,LIGHTCHAINS,IMG G/A/M,MARK,SPEPDR.HALKO ORDERED TSH,A1,CMP,LIPID,MIACRE,CBC Result Comment: Chol esterol level, Desirable <200 mg/dL Borderline high cholesterol 200-239 mg/dL High cholesterol >=240 mg/dL Recommendations of the NCEP Adult Treatment Panel for the following risk-cutoff thresholds for the [place] population. Performed By: #### L 3100.3425, L501.2300, L501.9985, L100.0100, L501.9520, L3130.0010, L504.2610, L501.5200, L500.4100, L101.9900, L500.4050, L502.0250, L501.6710 ####[facility] [id number] [place], [phone]) Cholesterol in HDL [Mass/Vol] 58 mg/dL Normal [facility] Comment on above: Order Comment: DR.PR DAVIS ORDERED CBCD,CMP,LDH,ESR,CRP,PHOS,MG,LIGHTCHAINS,IMG G/A/M,MARK,SPEPDR.CHENG ORDERED TSH,A1,CMP,LIPID,MIACRE,CBC Result Comment: Chyna onal Cholesterol Education Program (NCEP) guidelines: <40 mg/dL: Low HDL-cholesterol (major risk factor for CHD) >= 60 mg/dL: High HDL-cholesterol (negative risk factor for CHD) HDL-cholesterol is affected by a number of factors, e.g. smoking, exercise, hormones, sex and age. Performed By: #### L 3100.3425, L501.2300, L501.9985, L100.0100, L501.9520, L3130.0010, L504.2610, L501.5200, L500.4100, L101.9900, L500.4050, L502.0250, L501.6710 ####[facility] [address] [place], [address](755) Cholesterol in LDL [Mass/Vol] 66 mg/dL Normal [facility] Comment on above: Order Comment: DR.PR DAVIS ORDERED CBCD,CMP,LDH,ESR,CRP,PHOS,MG,LIGHTCHAINS,IMG G/A/M,MARK,SPEPDR.CHENG ORDERED TSH,A1,CMP,LIPID,MIACRE,CBC Result Comment: Bord voqjyv=999-939 mg/dL Higher Mxfs=896 mg/dL or greater Performed By: #### L 3100.3425, L501.2300, L501.9985, L100.0100, L501.9520, L3130.0010, L504.2610, L501.5200, L500.4100, L101.9900, L500.4050, L502.0250, L501.6710 ####[facility] [id number] [facility] [place], [address] Cholesterol in VLDL [Mass/Vol] 20 mg/dL Normal 5-40 [facility] Comment on above: Order Comment: DR.PR DAVIS ORDERED CBCD,CMP,LDH,ESR,CRP,PHOS,MG,LIGHTCHAINS,IMG G/A/M,MARK,SPEPDR.CHENG ORDERED TSH,A1,CMP,LIPID,MIACRE,CBC Performed By: #### L 3100.3425, L501.2300, L501.9985, L100.0100, L501.9520, L3130.0010, L504.2610, L501.5200, L500.4100, L101.9900, L500.4050, L502.0250, L501.6710 ####[facility] [id number] [facility] [place], [address] Triglyceride [Mass/Vol] 99 mg/dL Normal [facility] Comment on above: Order Comment: DR.PR DAVIS ORDERED CBCD,CMP,LDH,ESR,CRP,PHOS,MG,LIGHTCHAINS,IMG G/A/M,MARK,SPEPDR.CHENG ORDERED TSH,A1,CMP,LIPID,MIACRE,CBC Result Comment: The drugs N-Acetylcysteine and Metamizole may falsely depress this assay. Normal range: <150 mg/dL Borderline High: 150-199 mg/dL High: 200-499 mg/dL Very High: >500 mg/dL Performed By: #### L 3100.3425, L501.2300, L501.9985, L100.0100, L501.9520, L3130.0010, L504.2610, L501.5200, L500.4100, L101.9900, L500.4050, L502.0250, L501.6710 ####[facility] [id number] [place], [place], [id number] Lymphocytes Auto (Unsp spec) [#/Vol]Ordered By: [facility]24 Lymphocytes (Bld) [#/Vol] 1.57 10*3/uL 0.83-4.51 [facility] Lymphocytes/100 WBC Auto (Un sp spec)Ordered By: Blaze Mcmahon on 09-28-2024 Lymphocytes/100 WBC (Bld) 30.2 % 19-41 [facility] MCV (mean corpuscular volume ) determinationOrdered By: Blaze Mcmahon on 09-28-2024 MCV (RBC) [Entitic vol] 92.2 fL 80-94 [facility] Magnesiumon 09-28-2024 Magnesium [Mass/Vol] 2.5 mg/dL High 1.5-2.2 Corey [facility] Comment on above: Order Comment: DR.PR DAVIS ORDERED CBCD,CMP,LDH,ESR,CRP,PHOS,MG,LIGHTCHAINS,IMG G/A/M,MARK,SPEPDR.CHENG ORDERED TSH,A1,CMP,LIPID,MIACRE,CBC Performed By: #### L 3100.3425, L501.2300, L501.9985, L100.0100, L501.9520, L3130.0010, L504.2610, L501.5200, L500.4100, L101.9900, L500.4050, L502.0250, L501.6710 ####[facility] [address] [place], [place], [phone] Magnesium (Unsp spec) [Mass/ Vol]Ordered By: Blaze Mcmahon on 09-28-2024 Magnesium [Mass/Vol] 2.5 mg/dL High 1.5-2.2 [facility] Mean corpuscular hemoglobin (MCH) determinationOrdered By: Blaze Mcmahon on 09-28-2024 MCH (RBC) [Entitic mass] 31.6 pg 27.0-32.0 [facility] Mean corpuscular hemoglobin concentration (MCHC) determinationOrdered By: Blaze Mcmahon on 09-28-2024 MCHC (RBC) [Mass/Vol] 34.2 g/dL 32-36 [facility] Mean platelet volume determi nationOrdered By: Blaze Lisandro on 09-28-2024 Platelet mean volume (Bld) [Entitic vol] 10.7 fL 6.2-12.0 [facility] Microalb:Creat Ratio,Random URon 09-28-2024 Creatinine [Mass/Vol] 113.00 mg/dL Normal 39.00- 259.0 0 [facility] Comment on above: Order Comment: DR.PR DAVIS ORDERED CBCD,CMP,LDH,ESR,CRP,PHOS,MG,LIGHTCHAINS,IMG G/A/M,MARK,SPEP Performed By: #### L 3100.3425, L501.2300, L501.9985, L100.0100, L501.9520, L3130.0010, L504.2610, L501.5200, L500.4100, L101.9900, L500.4050, L502.0250, L501.6710 ####[facility] [address] [place], [address] MALB:CREAT UNABLE TO CALCULATE Normal [facility] Comment on above: Order Comment: DR.PR DAVIS ORDERED CBCD,CMP,LDH,ESR,CRP,PHOS,MG,LIGHTCHAINS,IMG G/A/M,MARK,SPEP Performed By: #### L 3100.3425, L501.2300, L501.9985, L100.0100, L501.9520, L3130.0010, L504.2610, L501.5200, L500.4100, L101.9900, L500.4050, L502.0250, L501.6710 ####[facility] [address] [place], [place], [phone] MICROALBUMIN,UR < 12.0 Normal NO RANGE EST. [facility] Comment on above: Order Comment: DR.PR DAVIS ORDERED CBCD,CMP,LDH,ESR,CRP,PHOS,MG,LIGHTCHAINS,IMG G/A/M,MARK,SPEP Performed By: #### L 3100.3425, L501.2300, L501.9985, L100.0100, L501.9520, L3130.0010, L504.2610, L501.5200, L500.4100, L101.9900, L500.4050, L502.0250, L501.6710 ####[facility] [address] [place], [place], [phone] Microalbumin/creat ratio urO rdered By: Blaze Mcmahon on 09-28-2024 Urine Microalbumin/Creatinine Ratio UNABLE TO CALCULATE mg/g CRE [facility] Monocyte percentageOrdered B y: Blaze Mcmahon on 09-28-2024 Monocytes/100 WBC (Bld) 11.9 % High 0-10 [facility] Neutrophil percentageOrdered By: Blaze Mcmahon on 09-28-2024 Neutrophils/100 WBC (Bld) 54.0 % 47-70 [facility] Nucleated red blood cell per centageOrdered By: Blaze Mcmahon on 09-28-2024 Nucleated RBC/100 WBC (Bld) [Ratio] 0 % 0-5 [facility] Phosphoruson 09-28-2024 Phosphate [Mass/Vol] 2.7 mg/dL Normal 2.7-4.5 [facility] Comment on above: Order Comment: DR.PR DAVIS ORDERED CBCD,CMP,LDH,ESR,CRP,PHOS,MG,LIGHTCHAINS,IMG G/A/M,MARK,SPEPDR.CHENG ORDERED TSH,A1,CMP,LIPID,MIACRE,CBC Performed By: #### L 3100.3425, L501.2300, L501.9985, L100.0100, L501.9520, L3130.0010, L504.2610, L501.5200, L500.4100, L101.9900, L500.4050, L502.0250, L501.6710 ####[facility] [address] [place], [address] Platelet countOrdered By: Ronel Mcmahon on 09-28-2024 Platelets (Bld) [#/Vol] 186 10*3/uL 150-450 [facility] Potassium (Unsp spec) [Mass/ Vol]Ordered By: Blaze Mcmahon on 09-28-2024 Potassium [Moles/Vol] 4.8 mmol/L 3.3-5.1 [facility] Protein Fractions Immunofixa tion Elver [Interp]Ordered By: Blaze Mcmahon on 09-28-2024 M-Solitario (MARK) 0.4 g/dL High Not Observed [facility] RBC Auto (Bld) [#/Vol]Ordere d By: Blaze Mcmahon on 09-28-2024 RBC (Bld) [#/Vol] 4.88 10*6/uL 4.6-6.2 [facility] Screening total cholesterol/ high density lipoprotein (HDL) cholesterol ratioOrdered By: Blaze Mcmahon on 09-28-2024 Cholesterol.total/Farnaz sterol in HDL [Mass ratio] 2.48 {ratio} [facility] Serum albumin/globulin ratio Ordered By: Blaze Mcmahon on 09-28-2024 Albumin/Globulin (MARK) 1.3 0.7-1.7 [facility] Serum creatinine measurement (mass/volume)Ordered By: Blaze Mcmahon on 09-28-2024 Creatinine [Mass/Vol] 0.99 mg/dL 0.70-1.20 [facility] Serum globulin measurement ( mass/volume)Ordered By: Blaze Mcmahon on 09-28-2024 Globulin (S) [Mass/Vol] 3.0 g/dL 2.2-3.9 [facility] Serum glucose measurement (m ass/volume)Ordered By: Blaze Mcmahon on 09-28-2024 Glucose [Mass/Vol] 135 mg/dL High 70-99 [facility] Serum or plasma alanine lu otransferase (ALT) measurementOrdered By: Blaze Mcmahon on 09-28-2024 ALT [Catalytic activity/Vol] 17 U/L <47 [facility] Serum or plasma albumin tana urement (mass/volume)Ordered By: Blaze Mcmahon on 09-28-2024 Albumin [Mass/Vol] 4.1 g/dL 3.4-4.8 [facility] Serum or plasma albumin/glob ulin mass ratioOrdered By: Blaze Mcmahon on 09-28-2024 Albumin/Globulin [Mass ratio] 1.4 {ratio} 0.9-2.4 [facility] Serum or plasma alkaline juan sphatase measurementOrdered By: Blaze Mcmahon on 09-28-2024 ALP [Catalytic activity/Vol] 82 U/L 40-129 [facility] Serum or plasma calcium tana urement (mass/volume)Ordered By: Blaze Mcmahon on 09-28-2024 Calcium [Mass/Vol] 9.2 mg/dL 7.6-11.0 [facility] Serum or plasma cholesterol in HDL measurement (mass/volume)Ordered By: Blaze Mcmahon on 09-28-2024 Cholesterol in HDL [Mass/Vol] 58 mg/dL >40 [facility] Comment on above: National Cholesterol Education Program (NCEP) guidelines:<40 mg/dL: Low HDL-cholesterol (major risk factor for CHD)>= 60 mg/dL: High HDL-cholesterol (negative risk factor for CHD)HDL-cholesterol is affected by a number of factors, e.g. smoking, exercise, hormones, sex and age. Serum or plasma cholesterol measurement (mass/volume)Ordered By: Blaze Mcmahon on 09-28-2024 Cholesterol [Mass/Vol] 144 mg/dL <201 [facility] Comment on above: Cholesterol level, D esirable <200 mg/dLBorderline high cholesterol 200-239 mg/dLHigh cholesterol >=240 mg/dLRecommendations of the NCEP Adult Treatment Panel for the following risk-cutoff thresholds for the [place] population. Serum or plasma protein tana urement (mass/volume)Ordered By: Blaze Mcmahon on 09-28-2024 Protein [Mass/Vol] 6.7 g/dL 6.0-8.5 [facility] Serum or plasma urea nitroge n measurement (mass/volume)Ordered By: Blaze Mcmahon on 09-28-2024 Urea nitrogen [Mass/Vol] 17 mg/dL 4-19 [facility] Serum phosphorus measurement Ordered By: Blaze Mcmahon on 09-28-2024 Phosphorus Level 2.7 mg/dL 2.7-4.5 [facility] Sodium levelOrdered By: Hong Mcmahon on 09-28-2024 Sodium [Moles/Vol] 136 mmol/L 133-145 [facility] TSH DL <= 0.005 mIU/L QnOrde red By: Blaze Mcmahon on 09-28-2024 Thyroid Stimulating Hormone (TSH) 1.350 uIU/mL 0.300-4.200 [facility] Thyroid Stim Hormone (TSH)on 09-28-2024 TSH 1.350 uIU/mL Normal 0.300-4.200 [facility] Comment on above: Order Comment: DR.PR DAVIS ORDERED CBCD,CMP,LDH,ESR,CRP,PHOS,MG,LIGHTCHAINS,IMG G/A/M,MARK,SPEPDR.CHENG ORDERED TSH,A1,CMP,LIPID,MIACRE,CBC Performed By: #### L 3100.3425, L501.2300, L501.9985, L100.0100, L501.9520, L3130.0010, L504.2610, L501.5200, L500.4100, L101.9900, L500.4050, L502.0250, L501.6710 ####[facility] [address] [place], [address] Total proteinOrdered By: Son Mcmahon on 09-28-2024 Protein [Mass/Vol] 7.0 g/dL 5.9-8.4 [facility] Triglycerides measurementOrd ered By: Blaze Mcmahon on 09-28-2024 Triglyceride [Mass/Vol] 99 mg/dL <199 [facility] Comment on above: The drugs N-Acetylcy steine and Metamizole may falsely depress this assay. Normal range: <150 mg/dLBorderline High: 150-199 mg/dLHigh: 200-499 mg/dLVery High: >500 mg/dL White blood cell (WBC) count Ordered By: Blaze Mcmahon on 09-28-2024 WBC (Bld) [#/Vol] 5.2 10*3/uL 4.4-11.0 [facility] XR SHOULDER MINIMUM 2 VIEWS RIGHTon 09-17-2024 XR SHOULDER MINIMUM 2 VIEWS RIGHT ORIGINAL EXAMINATION: XR right shoulder four views 09/17/2024 11:17 am COMPARISON: None HISTORY: ORDERING SYSTEM PROVIDED HISTORY: Reason for Exam: right shoulder pain, FINDINGS: No acute fracture, dislocation, lytic process or periosteal reaction is seen in the visualized bones and joints. No erosive type of arthritis. No periarticular soft tissue calcification. No significant glenohumeral arthritis. Mild AC joint arthrosis. Preserved subacromial space. IMPRESSION: No acute skeletal abnormality is seen. . Mild AC joint arthrosis. Interpreted by: Rey Franco MD Preliminary Report By: Rey Franco MD Electronically signed By Rey Franco MD Dictated Date: 09/17/2024 12:44:41 PM Prelim Date: 09/17/2024 12:45:18 PM Sign Date: 09/17/2024 12:45:18 PM Ordering Provider: SHAGUFTA HUMMEL Normal [facility] CVFLURVochavez 08-09-2024 FLU A PCR Negative Normal Negative [facility] Comment on above: Performed By: #### C VFLURV #### [address] [address] FLU B PCR Negative Normal Negative [facility] Comment on above: Performed By: #### C VFLURV #### [address] [address] RSV PCR Negative Normal Negative [facility] Comment on above: Performed By: #### C VFLURV #### [address] [address] SARS-CoV-2 (COVID-19) RNA SAVANNA+probe Ql (Unsp spec) Negative Normal Negative [facility] Comment on above: Result Comment: Resu lts from the Xpert Xpress CoV-2/Flu/RSV plus test should be correlated with the clinical history, epidemiological data, and other data available to the clinical evaluating the patient. Performance of the Xpert Xpress CoV-2/Flu/RSV plus test has only been established in nasopharyngeal swab specimen. Erroneous test results might occur from improper specimen collection, failure to follow the recommended sample collection, handling and storage procedures, technical error, or sample mix-up. False negative results may occur if a virus is present at a level below the analytical limit of detection. Viral nucleic acid may persist in vivo, independent of virus viability. Detection of analyte target(s) does not imply that the corresponding virus(es) are infectious or are the causative agents for clinical symptoms. Recent patient exposure to FluMist or other live attenuated influenza vaccines may cause inaccurate positive results. Performed By: #### C VFLURV #### [facility] [id number] LABORATORYOrdered By: Angelic Kyle on 08-09-2024 FLUAV RNA SAVANNA+probe Ql (Resp) Negative (08/09/24 2:12 PM) Normal AO Auto Urine SS FLUBV RNA SAVANNA+probe Ql (Resp) Negative (08/09/24 2:12 PM) Normal AO Auto Urine SS RSV RNA ASVANNA+probe Ql (Resp) Negative (08/09/24 2:12 PM) Normal AO Auto Urine SS SARS-CoV-2 (COVID-19) RNA SAVANNA+probe Ql (Resp) Negative 1 (08/09/24 2:12 PM) Normal AO Auto Urine SS Comment on above: Interpretive Data: R esults from the Xpert Xpress CoV-2/Flu/RSV plus test should be correlated with the clinical history, epidemiological data, and other data available to the clinical evaluating the patient. Performance of the Xpert Xpress CoV-2/Flu/RSV plus test has only been established in nasopharyngeal swab specimen. Erroneous test results might occur from improper specimen collection, failure to follow the recommended sample collection, handling and storage procedures, technical error, or sample mix-up. False negative results may occur if a virus is present at a level below the analytical limit of detection. Viral nucleic acid may persist in vivo, independent of virus viability. Detection of analyte target(s) does not imply that the corresponding virus(es) are infectious or are the causative agents for clinical symptoms. Recent patient exposure to FluMist or other live attenuated influenza vaccines may cause inaccurate positive results. XR SPINE CERVICAL AP/LATon 0 06-22-2024 XR SPINE CERVICAL AP/LAT ORIGINAL EXAMINATION: TWO XRAY VIEWS OF THE CERVICAL SPINE 06/22/2024 1:18 pm COMPARISON: None. HISTORY: ORDERING SYSTEM PROVIDED HISTORY: Reason for Exam: neck pain FINDINGS: Early degenerative disc space narrowing affects C5-6 and C6-7. There is no acute fracture or bony encroachment upon the central spinal canal. Visualized lung apices are clear. IMPRESSION: Early degenerative disc disease C5-6 and C6-7. A Interpreted by: Ramakrishna Wong DO Preliminary Report By: Ramakrishna Wong DO Electronically signed By Ramakrishna Wong DO Dictated Date: 06/22/2024 4:36:29 PM Prelim Date: 06/22/2024 4:42:16 PM Sign Date: 06/22/2024 4:42:16 PM Ordering Provider: SABI Muniz [facility] Oncology Visit Reporton 04-20 Oncology Visit Report [facility] [address] [place] [address] OFFICE VISIT Date of Service: 05/01/24 1344 MR#: [id number] Acct: [id number] Name: BRANDYN KELLY Rep #: [id number] : 1955 From: Blaze Mcmahon MD Age/Sex: 68/M Location: [facility] Status: Signed HPI Subjective Date of Service 05/01/24 Chief Complaint F/u for abnormal serum Protein. History of Present Illness 68y.o.man was found to have M-spike of 0.2 on 06/29/2023 and referred for further evaluation. He has joint pains and tingling in the finger tips. Denies weight loss, fever and night sweat. He had Skeletal survey which was negative. He is on observation for MGUS-biclonal gammopathy IgA lambda and repeat blood work and comes for follow up. [facility] Medical History Somatic dysfunction of lower extremity Somatic dysfunction of pelvic region Somatic dysfunction of lumbar region Emphysema lung Coronary artery disease due to type 2 diabetes mellitus Diabetic peripheral vascular disease Type 2 diabetes mellitus with hyperlipidemia Type 2 diabetes mellitus with hyperglycemia Thoracic ascending aortic aneurysm PVD (peripheral vascular disease) Aortic atherosclerosis Paresthesias DDD (degenerative disc disease) Surgical History History of tonsillectomy S/P manipulation of deviated nasal septum Pilonidal sinus History of knee replacement Bilateral inguinal hernia Family History Mother CAD (coronary artery disease) Social History household members: significant other current occupational status: retired current occupation: [employer] Smoking Status: Former smoker alcohol intake: never Intake Vital Signs 11/08/23 14:08 05/01/24 13:44 05/01/24 13:46 Height 5 ft 9 in 5 ft 9 in 5 ft 9 in Weight: 92.675 kg BMI 30.2 BP 107/55 L Blood Pressure Location Lt brachial Position Sitting Respiration 18 Pulse 83 Pulse Source Monitor Temp 98.3 F Temperature Source Temporal Artery Pulse Oximetry (%) 99 Oxygen Delivery Method room air Intake Is patient in pain?: No Allergies No Known Allergies Allergy (Verified 05/01/24 13:44) Medications ???Medication ???Instructions ???Recorded ???Confirmed ???Type simvastatin 40 mg tablet 40 mg PO QHS cholesterol 12/28/16 05/01/24 History amitriptyline 25 mg tablet 25 mg PO DAILY 07/14/23 05/01/24 History cyclobenzaprine 10 mg tablet 10 mg PO TID PRN muscle spasm 07/14/23 05/01/24 History meloxicam 15 mg tablet 15 mg PO DAILY 07/14/23 05/01/24 History multivitamin 1 tab PO DAILY 07/14/23 05/01/24 History rizatriptan 10 mg tablet See Rx Instructions PO .COMPLEX 07/14/23 05/01/24 History sildenafil 50 mg tablet 50 mg PO DAILY PRN 07/14/23 05/01/24 History Have you fallen in the past year?: No Central Venous Access Central Venous Access: No Laboratory Results 04/05/24 11/01/23 11/01/23 08:12 07:30 07:28 WBC 6.0 5.2 Hgb 15.2 14.5 Hct 44.0 43.4 Plt Count 196 187 Absolute Neuts (auto) Sodium 137 Potassium 4.4 Chloride 107 Carbon Dioxide 27.0 BUN 21 H Creatinine 0.87 Glucose 108 H Uric Acid Calcium 8.8 Total Bilirubin 0.70 AST 17 ALT 22 Alkaline Phosphatase 70 Lactate Dehydrogenase 163 C-React Prot Ext Range Total Protein 7.2 Albumin 3.6 Globulin Vitamin B12 366 TSH 1.66 IgG 707 749 IgA 737 H 692 H IgM 31 27 MARK M-Solitario Comment: Comment: Free Edwards LC, Quant 16.0 13.8 Free Lambda LC, Quant 11.8 10.6 Free Edwards/Lambda Ratio 1.36 1.30 07/14/23 10:05 WBC 7.1 Hgb 15.4 Hct 45.9 Plt Count 206 Absolute Neuts (auto) 4.5 Sodium 137 Potassium 4.1 Chloride 105 Carbon Dioxide 28.0 BUN 17 Creatinine 0.92 Glucose 109 H Uric Acid 4.5 Calcium 9.6 Total Bilirubin 0.40 AST 20 ALT 27 Alkaline Phosphatase 87 Lactate Dehydrogenase 168 C-React Prot Ext Range < 2.90 Total Protein 7.8 Albumin 4.0 Globulin 3.3 Vitamin B12 TSH IgG 778 IgA 731 H IgM 26 MARK M-Solitario Comment: Free Edwards LC, Quant 16.3 Free Lambda LC, Quant 9.7 Free Edwards/Lambda Ratio 1.68 H Exam Physical Exam Narrative Elderly man. Const alert, oriented x3 and no apparent distress HEENT normocephalic, external ears normal and external nose normal Eyes PERRL, conjunctivae normal and no scleral icterus Neck supple Lymph Lymphatic: no lymphadenopathy noted Resp normal respiratory effort and clear to auscultation bilaterally Cardio regular rate, regular rhythm, S1 normal h (more content not included)... Normal [facility] MARK + Protein Elect, Serumon 04-11-2024 Albumin [Mass/Vol] 3.9 g/dL Normal 2.9-4.4 [facility] Comment on above: Order Comment: Speci men Comment: A duplicate report has been generateddue to demographicSpecimen Comment: updates.NUNK Performed By: #### L 100.0100, L3100.3425, L504.2610, L501.9520, L500.4100, L501.9985, L502.0250, L503.0105, L3130.0010 ####[facility] [address] [place], [address] Albumin/Globulin [Mass ratio] 1.3 {ratio} Normal 0.7-1.7 [facility] Comment on above: Order Comment: Speci puja Comment: A duplicate report has been generateddue to demographicSpecimen Comment: updates.NUNK Performed By: #### L 100.0100, L3100.3425, L504.2610, L501.9520, L500.4100, L501.9985, L502.0250, L503.0105, L3130.0010 ####[facility] [address] [place], [address] [id number]-7-[id number] 0.2 g/dL Normal 0.0-0.4 [facility] Comment on above: Order Comment: Dylan luo Comment: A duplicate report has been generateddue to demographicSpecimen Comment: updates.NUNK Performed By: #### L 100.0100, L3100.3425, L504.2610, L501.9520, L500.4100, L501.9985, L502.0250, L503.0105, L3130.0010 ####[facility] [address] [place], [address] VXQFW-9-WMUZ 0.8 g/dL Normal 0.4-1.0 [facility] Comment on above: Order Comment: Dylan luo Comment: A duplicate report has been generateddue to demographicSpecimen Comment: updates.NUNK Performed By: #### L 100.0100, L3100.3425, L504.2610, L501.9520, L500.4100, L501.9985, L502.0250, L503.0105, L3130.0010 ####[facility] [address] [place], [address] BETA GLOBULIN 0.9 g/dL Normal 0.7-1.3 [facility] Comment on above: Order Comment: Speci men Comment: A duplicate report has been generateddue to demographicSpecimen Comment: updates.NUNK Performed By: #### L 100.0100, L3100.3425, L504.2610, L501.9520, L500.4100, L501.9985, L502.0250, L503.0105, L3130.0010 ####[facility] [address] [place], [address] GAMMA GLOBULIN 1.2 g/dL Normal 0.4-1.8 [facility] Comment on above: Order Comment: Speci men Comment: A duplicate report has been generateddue to demographicSpecimen Comment: updates.NUNK Performed By: #### L 100.0100, L3100.3425, L504.2610, L501.9520, L500.4100, L501.9985, L502.0250, L503.0105, L3130.0010 ####[facility] [address] [place], [address] Globulin (S) [Mass/Vol] 3.2 g/dL Normal 2.2-3.9 [facility] Comment on above: Order Comment: Speci men Comment: A duplicate report has been generateddue to demographicSpecimen Comment: updates.NUNK Performed By: #### L 100.0100, L3100.3425, L504.2610, L501.9520, L500.4100, L501.9985, L502.0250, L503.0105, L3130.0010 ####[facility] [address] [place], [address] MARK RESULT,S Comment Abnormal . [facility] Comment on above: Order Comment: Speci men Comment: A duplicate report has been generateddue to demographicSpecimen Comment: updates.NUNK Result Comment: Immu nofixation shows a biclonal IgA protein with lambda specificity. Performed By: #### L 100.0100, L3100.3425, L504.2610, L501.9520, L500.4100, L501.9985, L502.0250, L503.0105, L3130.0010 ####[facility] [address] [place], [address] IMMUNOGLOB A QN 737 mg/dL High 87-352 [facility] Comment on above: Order Comment: Speci men Comment: A duplicate report has been generateddue to demographicSpecimen Comment: updates.NUNK Performed By: #### L 100.0100, L3100.3425, L504.2610, L501.9520, L500.4100, L501.9985, L502.0250, L503.0105, L3130.0010 ####[facility] [address] [place], [address] IMMUNOGLOB G QN 707 mg/dL Normal 586-1602 [facility] Comment on above: Order Comment: Speci men Comment: A duplicate report has been generateddue to demographicSpecimen Comment: updates.NUNK Performed By: #### L 100.0100, L3100.3425, L504.2610, L501.9520, L500.4100, L501.9985, L502.0250, L503.0105, L3130.0010 ####[facility] [address] [place], [address] IMMUNOGLOB M QN 31 mg/dL Normal 26-217 [facility] Comment on above: Order Comment: Speci men Comment: A duplicate report has been generateddue to demographicSpecimen Comment: updates.NUNK Performed By: #### L 100.0100, L3100.3425, L504.2610, L501.9520, L500.4100, L501.9985, L502.0250, L503.0105, L3130.0010 ####[facility] [address] [place], [address] M-Solitario Comment: Normal Not Observed [facility] Comment on above: Order Comment: Specrobert luo Comment: A duplicate report has been generateddue to demographicSpecimen Comment: updates.NUNK Result Comment: Banner clonal IgA lambda #1 = 0.5 g/dl Due to the small quantity of monoclonal IgA lambda #2, unable to quantitate the m-spike Performed By: #### L 100.0100, L3100.3425, L504.2610, L501.9520, L500.4100, L501.9985, L502.0250, L503.0105, L3130.0010 ####[facility] [address] [place], [place], [phone]) NOTE: Comment Normal . [facility] Comment on above: Order Comment: Dylan luo Comment: A duplicate report has been generateddue to demographicSpecimen Comment: updates.NUNK Result Comment: Prot ein electrophoresis scan will follow via computer, mail, or network support engineer delivery. Performed By: #### L 100.0100, L3100.3425, L504.2610, L501.9520, L500.4100, L501.9985, L502.0250, L503.0105, L3130.0010 ####[facility] [address] [place], [place], [phone] Protein [Mass/Vol] 7.1 g/dL Normal 6.0-8.5 [facility] Comment on above: Order Comment: Dylan [facility] Comment: A duplicate report has been generateddue to demographicSpecimen Comment: updates.NUNK Performed By: #### L 100.0100, L3100.3425, L504.2610, L501.9520, L500.4100, L501.9985, L502.0250, L503.0105, L3130.0010 ####[facility] [address] [place], [place], [phone] Edwards Lambda Light Chainson 04-11-2024 FR KAPPA LT CHN 16.0 mg/L Normal 3.3-19.4 [facility] Comment on above: Order Comment: Speci men Comment: A duplicate report has been generateddue to demographicSpecimen Comment: updates.NUNK Performed By: #### L 100.0100, L3100.3425, L504.2610, L501.9520, L500.4100, L501.9985, L502.0250, L503.0105, L3130.0010 ####[facility] [address] [place], [place], [phone] FR LAMBDA LT CH 11.8 mg/L Normal 5.7-26.3 [facility] Comment on above: Order Comment: Speci men Comment: A duplicate report has been generateddue to demographicSpecimen Comment: updates.NUNK Performed By: #### L 100.0100, L3100.3425, L504.2610, L501.9520, L500.4100, L501.9985, L502.0250, L503.0105, L3130.0010 ####[facility] [address] [place], [place], [id number] KAPPA/LAMBDA % 1.36 Normal 0.26-1.65 [facility] Comment on above: Order Comment: Speci men Comment: A duplicate report has been generateddue to demographicSpecimen Comment: updates.NUNK Result Comment: Perf ormed at: CB - [facility] [id number] [employer]: Jhony Ahuja PhD, Phone: [phone] Performed By: #### L 100.0100, L3100.3425, L504.2610, L501.9520, L500.4100, L501.9985, L502.0250, L503.0105, L3130.0010 ####[facility] [address] [place], [place], [id number] Vitamin B12on 04-06-2024 Cobalamin (Vitamin B12) [Mass/Vol] 329 pg/mL Normal 211-911 [facility] Comment on above: Performed By: #### L 100.0100, L3100.3425, L504.2610, L501.9520, L500.4100, L501.9985, L502.0250, L503.0105, L3130.0010 #### [facility] [address] [place], [place], [id number] CBC W/Diff, Automatedon 10- Absolute Lymph 1.74 X10 3/uL Normal 0.83-4.51 [facility] Comment on above: Order Comment: CBCD, CMP,LDH,PSA,LAMBDA,GAME,MARK-PRAH CMP CBCD-DUPLICATE W/HALKO OTHER TESTS-HALKO Performed By: #### L 100.0100, L3100.3425, L504.2610, L501.9520, L500.4100, L501.9985, L502.0250, L503.0105, L3130.0010 #### [facility] [address] [place], [place], [phone] Absolute Neut 3.1 X10 3/uL Normal 2.0-7.7 [facility] Comment on above: Order Comment: CBCD, CMP,LDH,PSA,LAMBDA,GAME,MARK-PRAH CMP CBCD-DUPLICATE W/HALKO OTHER TESTS-HALKO Performed By: #### L 100.0100, L3100.3425, L504.2610, L501.9520, L500.4100, L501.9985, L502.0250, L503.0105, L3130.0010 #### [facility] [address] [place], [place], [phone] (498) Basophils/100 WBC (Bld) 1.0 % Normal 0-1 [facility] Comment on above: Order Comment: CBCD, CMP,LDH,PSA,LAMBDA,GAME,MARK-PRAH CMP CBCD-DUPLICATE W/HALKO OTHER TESTS-HALKO Performed By: #### L 100.0100, L3100.3425, L504.2610, L501.9520, L500.4100, L501.9985, L502.0250, L503.0105, L3130.0010 #### [facility] [address] [place], [address] Eosinophils/100 WBC (Bld) 5.3 % High 0-5 [facility] Comment on above: Order Comment: CBCD, CMP,LDH,PSA,LAMBDA,GAME,MARK-PRAH CMP CBCD-DUPLICATE W/HALKO OTHER TESTS-HALKO Performed By: #### L 100.0100, L3100.3425, L504.2610, L501.9520, L500.4100, L501.9985, L502.0250, L503.0105, L3130.0010 #### [facility] [address] [place], [address] Erythrocyte distribution width (RBC) [Ratio] 12.7 % Normal 11.6-14.6 [facility] Comment on above: Order Comment: CBCD, CMP,LDH,PSA,LAMBDA,GAME,MARK-PRAH CMP CBCD-DUPLICATE W/HALKO OTHER TESTS-HALKO Performed By: #### L 100.0100, L3100.3425, L504.2610, L501.9520, L500.4100, L501.9985, L502.0250, L503.0105, L3130.0010 #### [facility] [address] [place], [address] Hematocrit (Bld) [Volume fraction] 44.0 % Normal 40-54 [facility] Comment on above: Order Comment: CBCD, CMP,LDH,PSA,LAMBDA,GAME,MARK-PRAH CMP CBCD-DUPLICATE W/HALKO OTHER TESTS-HALKO Performed By: #### L 100.0100, L3100.3425, L504.2610, L501.9520, L500.4100, L501.9985, L502.0250, L503.0105, L3130.0010 #### [facility] [address] [place], [place], [id number] Hemoglobin (Bld) [Mass/Vol] 15.2 g/dL Normal 13.0-16.5 [facility] Comment on above: Order Comment: CBCD, CMP,LDH,PSA,LAMBDA,GAME,MARK-PRAH CMP CBCD-DUPLICATE W/HALKO OTHER TESTS-HALKO Performed By: #### L 100.0100, L3100.3425, L504.2610, L501.9520, L500.4100, L501.9985, L502.0250, L503.0105, L3130.0010 #### [facility] [address] [place], [address] (093) IG% 0.300 Normal 0.0-0.9 [facility] Comment on above: Order Comment: CBCD, CMP,LDH,PSA,LAMBDA,GAME,MARK-PRAH CMP CBCD-DUPLICATE W/HALKO OTHER TESTS-HALKO Result Comment: IG% - Immature Granulocytes (promyelocytes, myelocytes and metamyelocytes) > 1% indicates that a LEFT SHIFT is Present. Performed By: #### L 100.0100, L3100.3425, L504.2610, L501.9520, L500.4100, L501.9985, L502.0250, L503.0105, L3130.0010 #### [facility] [address] [place], [place], [phone] ([address] Lymphocytes/100 WBC (Bld) 29.0 % Normal 19-41 [facility] Comment on above: Order Comment: CBCD, CMP,LDH,PSA,LAMBDA,GAME,MARK-PRAH CMP CBCD-DUPLICATE W/HALKO OTHER TESTS-HALKO Performed By: #### L 100.0100, L3100.3425, L504.2610, L501.9520, L500.4100, L501.9985, L502.0250, L503.0105, L3130.0010 #### [facility] [address] [place], [address] (944) MCH (RBC) [Entitic mass] 31.7 pg Normal 27.0-32.0 [facility] Comment on above: Order Comment: CBCD, CMP,LDH,PSA,LAMBDA,GAME,MARK-PRAH CMP CBCD-DUPLICATE W/HALKO OTHER TESTS-HALKO Performed By: #### L 100.0100, L3100.3425, L504.2610, L501.9520, L500.4100, L501.9985, L502.0250, L503.0105, L3130.0010 #### [facility] [address] [place], [address] MCHC (RBC) [Mass/Vol] 34.5 g/dL Normal 32-36 [facility] Comment on above: Order Comment: CBCD, CMP,LDH,PSA,LAMBDA,GAME,MARK-PRAH CMP CBCD-DUPLICATE W/HALKO OTHER TESTS-HALKO Performed By: #### L 100.0100, L3100.3425, L504.2610, L501.9520, L500.4100, L501.9985, L502.0250, L503.0105, L3130.0010 #### [facility] [address] [facility] [place], [address] MCV (RBC) [Entitic vol] 91.7 fL Normal 80-94 [facility] Comment on above: Order Comment: CBCD, CMP,LDH,PSA,LAMBDA,GAME,MARK-PRAH CMP CBCD-DUPLICATE W/HALKO OTHER TESTS-HALKO Performed By: #### L 100.0100, L3100.3425, L504.2610, L501.9520, L500.4100, L501.9985, L502.0250, L503.0105, L3130.0010 #### [facility] [address] [place], [address] Monocytes/100 WBC (Bld) 12.1 % High 0-10 [facility] Comment on above: Order Comment: CBCD, CMP,LDH,PSA,LAMBDA,GAME,MARK-PRAH CMP CBCD-DUPLICATE W/HALKO OTHER TESTS-HALKO Performed By: #### L 100.0100, L3100.3425, L504.2610, L501.9520, L500.4100, L501.9985, L502.0250, L503.0105, L3130.0010 #### [facility] [address] [place], [address] Neutrophils/100 WBC (Bld) 52.3 % Normal 47-70 [facility] Comment on above: Order Comment: CBCD, CMP,LDH,PSA,LAMBDA,GAME,MARK-PRAH CMP CBCD-DUPLICATE W/HALKO OTHER TESTS-HALKO Performed By: #### L 100.0100, L3100.3425, L504.2610, L501.9520, L500.4100, L501.9985, L502.0250, L503.0105, L3130.0010 #### [facility] [address] [place], [place], [phone] (434 Nucleated RBC (Bld) [#/Vol] 0 10*3/uL Normal 0-5 [facility] Comment on above: Order Comment: CBCD, CMP,LDH,PSA,LAMBDA,GAME,MARK-PRAH CMP CBCD-DUPLICATE W/HALKO OTHER TESTS-HALKO Performed By: #### L 100.0100, L3100.3425, L504.2610, L501.9520, L500.4100, L501.9985, L502.0250, L503.0105, L3130.0010 #### [facility] [address] [place], [place], [phone] ([phone] Platelet mean volume (Bld) [Entitic vol] 10.5 fL Normal 6.2-12.0 [facility] Comment on above: Order Comment: CBCD, CMP,LDH,PSA,LAMBDA,GAME,MARK-PRAH CMP CBCD-DUPLICATE W/HALKO OTHER TESTS-HALKO Performed By: #### L 100.0100, L3100.3425, L504.2610, L501.9520, L500.4100, L501.9985, L502.0250, L503.0105, L3130.0010 #### [facility] [address] [place], [address] Platelets (Bld) [#/Vol] 196 10*3/uL Normal 150-450 [facility] Comment on above: Order Comment: CBCD, CMP,LDH,PSA,LAMBDA,GAME,MARK-PRAH CMP CBCD-DUPLICATE W/HALKO OTHER TESTS-HALKO Performed By: #### L 100.0100, L3100.3425, L504.2610, L501.9520, L500.4100, L501.9985, L502.0250, L503.0105, L3130.0010 #### [facility] [address] [place], [place], [phone] (183) RBC (Bld) [#/Vol] 4.80 10*6/uL Normal 4.6-6.2 [facility] Comment on above: Order Comment: CBCD, CMP,LDH,PSA,LAMBDA,GAME,MARK-PRAH CMP CBCD-DUPLICATE W/HALKO OTHER TESTS-HALKO Performed By: #### L 100.0100, L3100.3425, L504.2610, L501.9520, L500.4100, L501.9985, L502.0250, L503.0105, L3130.0010 #### [facility] [address] [place], [place], [phone] (569) RDW SD 43.1 fl Normal 35.1-43.9 [facility] Comment on above: Order Comment: CBCD, CMP,LDH,PSA,LAMBDA,GAME,MARK-PRAH CMP CBCD-DUPLICATE W/HALKO OTHER TESTS-HALKO Performed By: #### L 100.0100, L3100.3425, L504.2610, L501.9520, L500.4100, L501.9985, L502.0250, L503.0105, L3130.0010 #### [facility] [address] [place], [address] WBC (Bld) [#/Vol] 6.0 10*3/uL Normal 4.4-11.0 [facility] Comment on above: Order Comment: CBCD, CMP,LDH,PSA,LAMBDA,GAME,MARK-PRAH CMP CBCD-DUPLICATE W/HALKO OTHER TESTS-HALKO Performed By: #### L 100.0100, L3100.3425, L504.2610, L501.9520, L500.4100, L501.9985, L502.0250, L503.0105, L3130.0010 #### [facility] [address] [place], [address] Comprehensive Metabolic Prof ilon 04-05-2024 Albumin [Mass/Vol] 3.8 g/dL Normal 3.2-5.0 [facility] Comment on above: Order Comment: CBCD, CMP,LDH,PSA,LAMBDA,GAME,MARK-PRAHCMP CBCD-DUPLICATE W/HALKOOTHER TESTS-HALKOUNK Performed By: #### L 501.9910, L500.4050 ####[facility] [address] [place], [address] Albumin/Globulin [Mass ratio] 1.0 {ratio} Normal 0.9-2.4 [facility] Comment on above: Order Comment: CBCD, CMP,LDH,PSA,LAMBDA,GAME,MARK-PRAHCMP CBCD-DUPLICATE W/HALKOOTHER TESTS-HALKOUNK Performed By: #### L 501.9910, L500.4050 ####[facility] [address] [place], [address] ALK P 84 U/L Normal 45-117 [facility] Comment on above: Order Comment: CBCD, CMP,LDH,PSA,LAMBDA,GAME,MARK-PRAHCMP CBCD-DUPLICATE W/HALKOOTHER TESTS-HALKOUNK Performed By: #### L 501.9910, L500.4050 ####[facility] [address] [place], [address] ALT [Catalytic activity/Vol] 24 U/L Normal 16-61 [facility] Comment on above: Order Comment: CBCD, CMP,LDH,PSA,LAMBDA,GAME,MARK-PRAHCMP CBCD-DUPLICATE W/HALKOOTHER TESTS-HALKOUNK Performed By: #### L 501.9910, L500.4050 ####[facility] [address] [place], [address] AST [Catalytic activity/Vol] 18 U/L Normal 15-37 [facility] Comment on above: Order Comment: CBCD, CMP,LDH,PSA,LAMBDA,GAME,MARK-PRAHCMP CBCD-DUPLICATE W/HALKOOTHER TESTS-HALKOUNK Performed By: #### L 501.9910, L500.4050 ####[facility] [address] [place], [address] Bilirubin [Mass/Vol] 0.50 mg/dL Normal 0.20-1.00 [facility] Comment on above: Order Comment: CBCD, CMP,LDH,PSA,LAMBDA,GAME,MARK-PRAHCMP CBCD-DUPLICATE W/HALKOOTHER TESTS-HALKOUNK Result Comment: For patients on eltrombopag therapy, use of Dimension [place] TBIL is not recommended. Performed By: #### L 501.9910, L500.4050 ####[facility] [address] [place], [address] BUN/CRE 22.5 RATIO High 10-20 [facility] Comment on above: Order Comment: CBCD, CMP,LDH,PSA,LAMBDA,GAME,MARK-PRAHCMP CBCD-DUPLICATE W/HALKOOTHER TESTS-HALKOUNK Performed By: #### L 501.9910, L500.4050 ####[facility] [address] [place], [address] CA,Total 9.0 mg/dL Normal 8.5-10.1 [facility] Comment on above: Order Comment: CBCD, CMP,LDH,PSA,LAMBDA,GAME,MARK-PRAHCMP CBCD-DUPLICATE W/HALKOOTHER TESTS-HALKOUNK Performed By: #### L 501.9910, L500.4050 ####[facility] [address] [place], [place], [phone](347) Chloride [Moles/Vol] 104 mmol/L Normal 98-107 [facility] Comment on above: Order Comment: CBCD, CMP,LDH,PSA,LAMBDA,GAME,MARK-PRAHCMP CBCD-DUPLICATE W/HALKOOTHER TESTS-HALKOUNK Performed By: #### L 501.9910, L500.4050 ####[facility] [address] [place], [place], [phone](872) CO2 [Moles/Vol] 29.0 mmol/L Normal 21.0-32.0 [facility] Comment on above: Order Comment: CBCD, CMP,LDH,PSA,LAMBDA,GAME,MARK-PRAHCMP CBCD-DUPLICATE W/HALKOOTHER TESTS-HALKOUNK Performed By: #### L 501.9910, L500.4050 ####[facility] [address] [place], [address] Creatinine [Mass/Vol] 0.89 mg/dL Normal 0.70-1.30 [facility] Comment on above: Order Comment: CBCD, CMP,LDH,PSA,LAMBDA,GAME,MARK-PRAHCMP CBCD-DUPLICATE W/HALKOOTHER TESTS-HALKOUNK Result Comment: The validity of the calculated GFR GFRAA in patients over 70 years has not been determined. Clinical correlation is essential. Performed By: #### L 501.9910, L500.4050 ####[facility] [address] [place], [address] EST GFR - AA 109 mL/min Normal >60 [facility] Comment on above: Order Comment: CBCD, CMP,LDH,PSA,LAMBDA,GAME,MARK-PRAHCMP CBCD-DUPLICATE W/HALKOOTHER TESTS-HALKOUNK Result Comment: Afri can Vincentian GFR Calc Performed By: #### L 501.9910, L500.4050 ####[facility] [address], [address] GAP 3 Low 5-15 [facility] Comment on above: Order Comment: CBCD, CMP,LDH,PSA,LAMBDA,GAME,MARK-PRAHCMP CBCD-DUPLICATE W/HALKOOTHER TESTS-HALKOUNK Performed By: #### L 501.9910, L500.4050 ####[facility] [address] [place], [address] GFR/1.73 sq M.predicted among non-blacks MDRD (S/P/Bld) [Vol rate/Area] 90 mL/min/{1.73_m2} Normal >60 [facility] Comment on above: Order Comment: CBCD, CMP,LDH,PSA,LAMBDA,GAME,MARK-PRAHCMP CBCD-DUPLICATE W/HALKOOTHER TESTS-HALKOUNK Result Comment: Non- GFR Calc Performed By: #### L 501.9910, L500.4050 ####[facility] [address] [place], [address] Globulin (S) [Mass/Vol] 3.7 g/dL Normal 2.2-4.2 [facility] Comment on above: Order Comment: CBCD, CMP,LDH,PSA,LAMBDA,GAME,MARK-PRAHCMP CBCD-DUPLICATE W/HALKOOTHER TESTS-HALKOUNK Performed By: #### L 501.9910, L500.4050 ####[facility] [address] [place], [address] Glucose [Mass/Vol] 115 mg/dL High 74-106 [facility] Comment on above: Order Comment: CBCD, CMP,LDH,PSA,LAMBDA,GAME,MARK-PRAHCMP CBCD-DUPLICATE W/HALKOOTHER TESTS-HALKOUNK Result Comment: Fast ing Glucose result from 100 to 125 mg/dL suggests IMPAIRED HOMEOSTASIS per A.D.A. criteria. Performed By: #### L 501.9910, L500.4050 ####[facility] [address] [place], [address] Potassium [Moles/Vol] 4.2 mmol/L Normal 3.5-5.1 [facility] Comment on above: Order Comment: CBCD, CMP,LDH,PSA,LAMBDA,GAME,MARK-PRAHCMP CBCD-DUPLICATE W/HALKOOTHER TESTS-HALKOUNK Performed By: #### L 501.9910, L500.4050 ####[facility] [address] [place], [address] Sodium [Moles/Vol] 136 mmol/L Normal 136-145 [facility] Comment on above: Order Comment: CBCD, CMP,LDH,PSA,LAMBDA,GAME,MARK-PRAHCMP CBCD-DUPLICATE W/HALKOOTHER TESTS-HALKOUNK Performed By: #### L 501.9910, L500.4050 ####[facility] [address] [place], [address] T PROT 7.5 g/dL Normal 6.4-8.2 [facility] Comment on above: Order Comment: CBCD, CMP,LDH,PSA,LAMBDA,GAME,MARK-PRAHCMP CBCD-DUPLICATE W/HALKOOTHER TESTS-HALKOUNK Performed By: #### L 501.9910, L500.4050 ####[facility] [address] [place], [address] Urea nitrogen [Mass/Vol] 20 mg/dL High 7-18 [facility] Comment on above: Order Comment: CBCD, CMP,LDH,PSA,LAMBDA,GAME,MARK-PRAHCMP CBCD-DUPLICATE W/HALKOOTHER TESTS-HALKOUNK Performed By: #### L 501.9910, L500.4050 ####[facility] [address] [place], [place], [address] Hemoglobin A1con 04-05-2024 HbA1c (Bld) [Mass fraction] 5.9 % High 3.8-5.6 [facility] Comment on above: Result Comment: Norm al < 5.7 % Prediabetic 5.7 - 6.4 % Diabetic >or= 6.5 % Please note range changes. Performed By: #### L 100.0100, L3100.3425, L504.2610, L501.9520, L500.4100, L501.9985, L502.0250, L503.0105, L3130.0010 #### [facility] [address] [place], [place], [id number] LDHon 04-05-2024 LDH 161 U/L Normal 87-241 [facility] Comment on above: Order Comment: CBCD, CMP,LDH,PSA,LAMBDA,GAME,MARK-PRAH CMP CBCD-DUPLICATE W/HALKO OTHER TESTS-HALKO UNK 1 Performed By: #### L 100.0100, L3100.3425, L504.2610, L501.9520, L500.4100, L501.9985, L502.0250, L503.0105, L3130.0010 #### [facility] [address] [place], [place], [phone] Lipid Profileon 04-05-2024 Cholesterol [Mass/Vol] 152 mg/dL Normal 200 [facility] Comment on above: Order Comment: CBCD, CMP,LDH,PSA,LAMBDA,GAME,MARK-PRAH CMP CBCD-DUPLICATE W/HALKO OTHER TESTS-HALKO UNK 1 Result Comment: <200 mg/dL Desirable 200-240 mg/dL Borderline >240 mg/dL High Risk Performed By: #### L 100.0100, L3100.3425, L504.2610, L501.9520, L500.4100, L501.9985, L502.0250, L503.0105, L3130.0010 #### [facility] [address] [place], [address] Cholesterol in HDL [Mass/Vol] 55 mg/dL Normal [facility] Comment on above: Order Comment: CBCD, CMP,LDH,PSA,LAMBDA,GAME,MARK-PRAH CMP CBCD-DUPLICATE W/HALKO OTHER TESTS-HALKO UNK 1 Result Comment: The drugs N-Acetylcysteine and Metamizole may falsely depress this assay. Reference Range HDL <40 mg/dL Low HDL Cholesterol HDL >or= 60 mg/dL High HDL Cholesterol Performed By: #### L 100.0100, L3100.3425, L504.2610, L501.9520, L500.4100, L501.9985, L502.0250, L503.0105, L3130.0010 #### [facility] [address] [place], [place], [phone] ([address] Cholesterol in LDL [Mass/Vol] 78 mg/dL Normal 0-130 [facility] Comment on above: Order Comment: CBCD, CMP,LDH,PSA,LAMBDA,GAME,MARK-PRAH CMP CBCD-DUPLICATE W/HALKO OTHER TESTS-HALKO UNK 1 Performed By: #### L 100.0100, L3100.3425, L504.2610, L501.9520, L500.4100, L501.9985, L502.0250, L503.0105, L3130.0010 #### [facility] [address] [place], [address] Cholesterol in VLDL [Mass/Vol] 19 mg/dL Normal 5-40 [facility] Comment on above: Order Comment: CBCD, CMP,LDH,PSA,LAMBDA,GAME,MARK-PRAH CMP CBCD-DUPLICATE W/HALKO OTHER TESTS-HALKO UNK 1 Performed By: #### L 100.0100, L3100.3425, L504.2610, L501.9520, L500.4100, L501.9985, L502.0250, L503.0105, L3130.0010 #### [facility] [address] [place], [place], [id number] Triglyceride [Mass/Vol] 95 mg/dL Normal [facility] Comment on above: Order Comment: CBCD, CMP,LDH,PSA,LAMBDA,GAME,MARK-PRAH CMP CBCD-DUPLICATE W/HALKO OTHER TESTS-HALKO UNK 1 Result Comment: The drugs N-Acetylcysteine and Metamizole may falsely depress this assay. Serum Triglycerides Reference Interval Normal <150 mg/dL Borderline high 150 - 199 mg/dL High 200 - 499 mg/dL Very High > or = 500 mg/dL Performed By: #### L 100.0100, L3100.3425, L504.2610, L501.9520, L500.4100, L501.9985, L502.0250, L503.0105, L3130.0010 #### [facility] [address] [facility] [place], [address] Microalb:Creat Ratio,Random URon 04-05-2024 Creatinine [Mass/Vol] 30.60 mg/dL Normal NO RAN GE EST. [facility] Comment on above: Performed By: #### L 100.0100, L3100.3425, L504.2610, L501.9520, L500.4100, L501.9985, L502.0250, L503.0105, L3130.0010 #### [facility] [address] [place], [place], [phone] MALB:CRE TNP Normal <30 mg/g CRE [facility] Comment on above: Performed By: #### L 100.0100, L3100.3425, L504.2610, L501.9520, L500.4100, L501.9985, L502.0250, L503.0105, L3130.0010 #### [facility] [address] [place], [place], [id number] MICROALBUMIN,UR < 5.0 Normal NO RANGE EST. [facility] Comment on above: Performed By: #### L 100.0100, L3100.3425, L504.2610, L501.9520, L500.4100, L501.9985, L502.0250, L503.0105, L3130.0010 #### [facility] [address] [place], [place], [id number] PSA,Total - Annual Screenon 04-05-2024 PSA,TOT SCREEN 2.21 ng/mL Normal 0.00-4.00 [facility] Comment on above: Order Comment: CBCD, CMP,LDH,PSA,LAMBDA,GAME,MARK-PRAHCMP CBCD-DUPLICATE W/HALKOOTHER TESTS-HALKOUNK Result Comment: This test was performed using the TPSA assay method for the [employer] chemistry system. Values obtained with different assay methods cannot be used interchangably. When changing PSA assays in the course of monitoring a patient, additional sequential testing should be carried out to confirm baseline values. Performed By: #### L 501.9910, L500.4050 ####[facility] [address] [place], [place], [id number] Thyroid Stim Hormone (TSH)on 04-05-2024 TSH 2.010 uIU/mL Normal 0.358-3.740 [facility] Comment on above: Order Comment: CBCD, CMP,LDH,PSA,LAMBDA,GAME,MARK-PRAH CMP CBCD-DUPLICATE W/HALKO OTHER TESTS-HALKO UNK 1 Performed By: #### L 100.0100, L3100.3425, L504.2610, L501.9520, L500.4100, L501.9985, L502.0250, L503.0105, L3130.0010 #### [facility] [address] [place], [place], [id number] CT ANGIOGRAPHY CHEST W/CONTR Ila 03-28-2024 CT ANGIOGRAPHY CHEST W/CONTRAST ORIGINAL EXAMINATION: CTA OF THE CHEST03/27/2024 10:04 am CTA CHEST WITH CONTRAST TECHNIQUE: CTA of the chest was performed after the administration of intravenous contrast. Multiplanar reformatted images are provided for review. MIP images are provided for review. Automated exposure control, iterative reconstruction, and/or weight based adjustment of the mA/kV was utilized to reduce the radiation dose to as low as reasonably achievable. CTA of the thorax was acquired in the axial plane. Coronal and sagittal reformatted images were reviewed. Three dimensional reconstructions were created on a separate workstation. COMPARISON: 10/20/2021 HISTORY: ORDERING SYSTEM PROVIDED HISTORY: Reason for Exam: 2 yr follow up FINDINGS: No filling defects seen in the pulmonary arteries. The heart size is normal; no pericardial effusion. Atherosclerosis including coronary artery calcifications. There are no pathologically enlarged axillary, mediastinal or hilar lymph nodes. Aortic annulus measures 2.5 cm. At the coronary sinus level, the thoracic aorta is measured at 3.8 cm. At the sino-tubular junction, the ascending thoracic aorta is 3.2 cm. The ascending thoracic aorta is 3.5 cm at the level of the main pulmonary artery. Mild atherosclerotic plaques seen in the aortic arch. No dissections visualized. Emphysema. Linear scarring seen in the anterior left upper lobe. No pulmonary consolidation identified. There is no pleural effusion or pneumothorax. No aggressive osseous lesions seen. Degenerative changes seen in the spine. Bony detail is suboptimal. Small cysts identified in the liver IMPRESSION: Minimal ectasia of the aortic root, similar to the prior exam Atherosclerosis with mild coronary artery calcifications Emphysema Interpreted by: Ramakrishna Silva MD Preliminary Report By: Ramakrishna Silva MD Electronically signed By Ramakrishna Silva MD Dictated Date: 03/28/2024 1:28:01 PM Prelim Date: 03/28/2024 1:36:29 PM Sign Date: 03/28/2024 1:36:29 PM Ordering Provider: LILIANA Muniz [facility] Oncology Visit Reporton 10-19 Oncology Visit Report [facility] [address] [place] [address] OFFICE VISIT Date of Service: 11/08/23 1403 MR#: [id number] Acct: [id number] Name: BRANDYN KELLY Rep #: [id number] : 1955 From: Blaze Mcmahon MD Age/Sex: 67/M Location: [facility] Status: Signed HPI Subjective Date of Service 07/19/23 Chief Complaint F/u for abnormal serum Protein. History of Present Illness 67y.o.man was found to have M-spike of 0.2 on 06/29/2023 and referred for further evaluation. He has joint pains and tingling in the finger tips. Denies weight loss, fever and night sweat. He had Skeletal survey which was negative. He is on observation for MGUS-biclonal gammopathy and repeat blood work and comes for follow up. [facility] Medical History Somatic dysfunction of lower extremity Somatic dysfunction of pelvic region Somatic dysfunction of lumbar region Emphysema lung Coronary artery disease due to type 2 diabetes mellitus Diabetic peripheral vascular disease Type 2 diabetes mellitus with hyperlipidemia Type 2 diabetes mellitus with hyperglycemia Thoracic ascending aortic aneurysm PVD (peripheral vascular disease) Aortic atherosclerosis Paresthesias DDD (degenerative disc disease) Surgical History History of tonsillectomy S/P manipulation of deviated nasal septum Pilonidal sinus History of knee replacement Bilateral inguinal hernia Family History Mother CAD (coronary artery disease) Social History household members: significant other current occupational status: retired current occupation: [employer] Smoking Status: Former smoker alcohol intake: never Intake Vital Signs 07/19/23 15:35 11/08/23 14:05 11/08/23 14:08 Height 5 ft 9 in 5 ft 9 in 5 ft 9 in Weight: 90.917 kg BMI 29.5 BP 102/67 Blood Pressure Location Lt brachial Position Sitting Respiration 18 Pulse 84 Pulse Source Monitor Temp 98.6 F Temperature Source Temporal Artery Pulse Oximetry (%) 95 Oxygen Delivery Method room air Intake Is patient in pain?: No Allergies No Known Allergies Allergy (Verified 11/08/23 14:07) Medications ???Medication ???Instructions ???Recorded ???Confirmed ???Type simvastatin 40 mg tablet 40 mg PO QHS cholesterol 12/28/16 11/08/23 History amitriptyline 25 mg tablet 25 mg PO DAILY 07/14/23 11/08/23 History cyclobenzaprine 10 mg tablet 10 mg PO TID PRN muscle spasm 07/14/23 11/08/23 History meloxicam 15 mg tablet 15 mg PO DAILY 07/14/23 11/08/23 History multivitamin 1 tab PO DAILY 07/14/23 11/08/23 History rizatriptan 10 mg tablet See Rx Instructions PO .COMPLEX 07/14/23 11/08/23 History sildenafil 50 mg tablet 50 mg PO DAILY PRN 07/14/23 11/08/23 History Central Venous Access Central Venous Access: No Laboratory Results 11/01/23 11/01/23 07/14/23 07:30 07:28 10:05 WBC 5.2 7.1 Hgb 14.5 15.4 Hct 43.4 45.9 Plt Count 187 206 Absolute Neuts (auto) 4.5 Sodium 137 137 Potassium 4.4 4.1 Chloride 107 105 Carbon Dioxide 27.0 28.0 BUN 21 H 17 Creatinine 0.87 0.92 Glucose 108 H 109 H Uric Acid 4.5 Calcium 8.8 9.6 Total Bilirubin 0.70 0.40 AST 17 20 ALT 22 27 Alkaline Phosphatase 70 87 Lactate Dehydrogenase 163 168 C-React Prot Ext Range < 2.90 Total Protein 7.2 7.8 Albumin 3.6 4.0 Globulin 3.3 Vitamin B12 366 TSH 1.66 IgG 749 778 IgA 692 H 731 H IgM 27 26 MARK M-Solitario Comment: Comment: Free Edwards LC, Quant 13.8 16.3 Free Lambda LC, Quant 10.6 9.7 Free Edwards/Lambda Ratio 1.30 1.68 H Exam Physical Exam Narrative Elderly man. Const alert, oriented x3 and no apparent distress HEENT normocephalic, external ears normal and external nose normal Eyes PERRL, conjunctivae normal and no scleral icterus Neck supple Lymph Lymphatic: no lymphadenopathy noted Resp normal respiratory effort and clear to auscultation bilaterally Cardio regular rate, regular rhythm, S1 normal heart sound and S2 normal heart sound GI normal to inspection, nondistended, normoactive bowel sounds no CVA tenderness Back/Spine no CVA tenderness and thoracic and lumbar spine normal to inspection Extremity no clubbing, cyanosis or edema Extremity Narrative: Bilateral Knee scars Skin no rashes or lesions noted Neuro oriented x3, CN's II-XII intact bilaterally and moves all extremities Psych mental status grossly normal Coding Level of Care Code Off vis,est,level 3 Exam Problem Focused Diagnoses MGUS (monoclonal gammopathy of unknown significance) D47.2 Scr (more content not included)... Normal [facility] ANTINUCLEAR ANTIBODIES DIREC Ton 11-02-2023 JUAN LUIS,DIRECT Negative Normal Negative [facility] Comment on above: Order Comment: CBCD, CMP,LDH,PSA,LAMBDA,GAME,MARK-PRAH CMP CBCD-DUPLICATE W/HALKO OTHER TESTS-HALKO Result Comment: Perf ormed at: - [facility] [address] [id number] [employer] Routeman: Jhony Ahuja PhD, Phone: [phone] Performed By: #### L 100.0100, L3100.3425, L504.2610, L501.9520, L500.4100, L501.9985, L502.0250, L503.0105, L3130.0010 #### [facility] [address] [place], [place], [phone] ([phone]) MARK + Protein Elect, Serumon 11-02-2023 Albumin [Mass/Vol] 3.9 g/dL Normal 2.9-4.4 [facility] Comment on above: Order Comment: CBCD, CMP,LDH,PSA,LAMBDA,GAME,MARK-PRAH CMP CBCD-DUPLICATE W/HALKO OTHER TESTS-HALKO Performed By: #### L 100.0100, L3100.3425, L504.2610, L501.9520, L500.4100, L501.9985, L502.0250, L503.0105, L3130.0010 #### [facility] [address] [place], [place], [phone] (008) Albumin/Globulin [Mass ratio] 1.4 {ratio} Normal 0.7-1.7 [facility] Comment on above: Order Comment: CBCD, CMP,LDH,PSA,LAMBDA,GAME,MARK-PRAH CMP CBCD-DUPLICATE W/HALKO OTHER TESTS-HALKO Performed By: #### L 100.0100, L3100.3425, L504.2610, L501.9520, L500.4100, L501.9985, L502.0250, L503.0105, L3130.0010 #### [facility] [address] [place], [place], [phone] (995) KNAEC-0-GNMG 0.2 g/dL Normal 0.0-0.4 [facility] Comment on above: Order Comment: CBCD, CMP,LDH,PSA,LAMBDA,GAME,MARK-PRAH CMP CBCD-DUPLICATE W/HALKO OTHER TESTS-HALKO Performed By: #### L 100.0100, L3100.3425, L504.2610, L501.9520, L500.4100, L501.9985, L502.0250, L503.0105, L3130.0010 #### [facility] [place], [address] IICLH-8-CTSC 0.7 g/dL Normal 0.4-1.0 [facility] Comment on above: Order Comment: CBCD, CMP,LDH,PSA,LAMBDA,GAME,MARK-PRAH CMP CBCD-DUPLICATE W/HALKO OTHER TESTS-HALKO Performed By: #### L 100.0100, L3100.3425, L504.2610, L501.9520, L500.4100, L501.9985, L502.0250, L503.0105, L3130.0010 #### [facility] [place], [address] (915) BETA GLOBULIN 0.9 g/dL Normal 0.7-1.3 [facility] Comment on above: Order Comment: CBCD, CMP,LDH,PSA,LAMBDA,GAME,MARK-PRAH CMP CBCD-DUPLICATE W/HALKO OTHER TESTS-HALKO Performed By: #### L 100.0100, L3100.3425, L504.2610, L501.9520, L500.4100, L501.9985, L502.0250, L503.0105, L3130.0010 #### [facility] [address] [place], [place], [phone] (467) GAMMA GLOBULIN 1.2 g/dL Normal 0.4-1.8 [facility] Comment on above: Order Comment: CBCD, CMP,LDH,PSA,LAMBDA,GAME,MARK-PRAH CMP CBCD-DUPLICATE W/HALKO OTHER TESTS-HALKO Performed By: #### L 100.0100, L3100.3425, L504.2610, L501.9520, L500.4100, L501.9985, L502.0250, L503.0105, L3130.0010 #### [facility] [address] [place], [address] (349) Globulin (S) [Mass/Vol] 3.0 g/dL Normal 2.2-3.9 [facility] Comment on above: Order Comment: CBCD, CMP,LDH,PSA,LAMBDA,GAME,MARK-PRAH CMP CBCD-DUPLICATE W/HALKO OTHER TESTS-HALKO Performed By: #### L 100.0100, L3100.3425, L504.2610, L501.9520, L500.4100, L501.9985, L502.0250, L503.0105, L3130.0010 #### [facility] [address] [place], [address] (093) MARK RESULT,S Comment Abnormal . [facility] Comment on above: Order Comment: CBCD, CMP,LDH,PSA,LAMBDA,GAME,MARK-PRAH CMP CBCD-DUPLICATE W/HALKO OTHER TESTS-HALKO Result Comment: Immu nofixation shows a biclonal IgA protein with lambda specificity. Performed By: #### L 100.0100, L3100.3425, L504.2610, L501.9520, L500.4100, L501.9985, L502.0250, L503.0105, L3130.0010 #### [facility] [address] [place], [address] (995) IMMUNOGLOB A QN 692 mg/dL High 61-437 [facility] Comment on above: Order Comment: CBCD, CMP,LDH,PSA,LAMBDA,GAME,MARK-PRAH CMP CBCD-DUPLICATE W/HALKO OTHER TESTS-HALKO Performed By: #### L 100.0100, L3100.3425, L504.2610, L501.9520, L500.4100, L501.9985, L502.0250, L503.0105, L3130.0010 #### [facility] [address] [place], [address] IMMUNOGLOB G QN 749 mg/dL Normal 603-1613 [facility] Comment on above: Order Comment: CBCD, CMP,LDH,PSA,LAMBDA,GAME,MARK-PRAH CMP CBCD-DUPLICATE W/HALKO OTHER TESTS-HALKO Performed By: #### L 100.0100, L3100.3425, L504.2610, L501.9520, L500.4100, L501.9985, L502.0250, L503.0105, L3130.0010 #### [facility] [address] [place], [address] IMMUNOGLOB M QN 27 mg/dL Normal 20-172 [facility] Comment on above: Order Comment: CBCD, CMP,LDH,PSA,LAMBDA,GAME,MARK-PRAH CMP CBCD-DUPLICATE W/HALKO OTHER TESTS-HALKO Performed By: #### L 100.0100, L3100.3425, L504.2610, L501.9520, L500.4100, L501.9985, L502.0250, L503.0105, L3130.0010 #### [facility] [address] [place], [address] M-Solitario Comment: Normal Not Observed [facility] Comment on above: Order Comment: CBCD, CMP,LDH,PSA,LAMBDA,GAME,MARK-PRAH CMP CBCD-DUPLICATE W/HALKO OTHER TESTS-HALKO Result Comment: MONO CLONAL IGA LAMBDA #1 = 0.4 G/DL DUE TO THE SMALL QUANTITY OF MONOCLONAL IGA LAMBDA #2, UNABLE TO QUANTITATE THE M-SPIKE. Performed By: #### L 100.0100, L3100.3425, L504.2610, L501.9520, L500.4100, L501.9985, L502.0250, L503.0105, L3130.0010 #### [facility] [address] [place], [place], [phone] (226) NOTE: Comment Normal . [facility] Comment on above: Order Comment: CBCD, CMP,LDH,PSA,LAMBDA,GAME,MARK-PRAH CMP CBCD-DUPLICATE W/HALKO OTHER TESTS-HALKO Result Comment: Prot ein electrophoresis scan will follow via computer, mail, or network support engineer delivery. Performed By: #### L 100.0100, L3100.3425, L504.2610, L501.9520, L500.4100, L501.9985, L502.0250, L503.0105, L3130.0010 #### [facility] [address] [place], [place], [phone] Protein [Mass/Vol] 6.9 g/dL Normal 6.0-8.5 [facility] Comment on above: Order Comment: CBCD, CMP,LDH,PSA,LAMBDA,GAME,MARK-PRAH CMP CBCD-DUPLICATE W/HALKO OTHER TESTS-HALKO Performed By: #### L 100.0100, L3100.3425, L504.2610, L501.9520, L500.4100, L501.9985, L502.0250, L503.0105, L3130.0010 #### [facility] [address] [place], [place], [phone] (148) Edwards Lambda Light Chainson 11-02-2023 FR KAPPA LT CHN 13.8 mg/L Normal 3.3-19.4 [facility] Comment on above: Order Comment: CBCD, CMP,LDH,PSA,LAMBDA,GAME,MARK-PRAH CMP CBCD-DUPLICATE W/HALKO OTHER TESTS-HALKO Performed By: #### L 100.0100, L3100.3425, L504.2610, L501.9520, L500.4100, L501.9985, L502.0250, L503.0105, L3130.0010 #### [facility] [address] [place], [place], [phone] FR LAMBDA LT CH 10.6 mg/L Normal 5.7-26.3 [facility] Comment on above: Order Comment: CBCD, CMP,LDH,PSA,LAMBDA,GAME,MARK-PRAH CMP CBCD-DUPLICATE W/HALKO OTHER TESTS-HALKO Performed By: #### L 100.0100, L3100.3425, L504.2610, L501.9520, L500.4100, L501.9985, L502.0250, L503.0105, L3130.0010 #### [facility] [address] [facility] [place], [address] KAPPA/LAMBDA % 1.30 Normal 0.26-1.65 [facility] Comment on above: Order Comment: CBCD, CMP,LDH,PSA,LAMBDA,GAME,MARK-PRAH CMP CBCD-DUPLICATE W/HALKO OTHER TESTS-HALKO Result Comment: Perf ormed at: - [facility] [id number] [employer] Routeman: Jhony Ahuja PhD, Phone: [phone] Performed By: #### L 100.0100, L3100.3425, L504.2610, L501.9520, L500.4100, L501.9985, L502.0250, L503.0105, L3130.0010 #### [facility] [address] [facility] [place], [address] CBC W/Diff, Automatedon 05- Absolute Lymph 1.77 X10 3/uL Normal 0.83-4.51 [facility] Comment on above: Order Comment: CBC C MP-DUPLIACATED FOR BOTH PRAH HALKOMICRALB,B12,JUAN LUIS,TSH,LIPID-HALKOOTHER TESTS-PRAH Performed By: #### L 500.4050, L101.9900, L501.6710, L100.0100 ####[facility] [address] [place], [address] Absolute Neut 2.5 X10 3/uL Normal 2.0-7.7 [facility] Comment on above: Order Comment: CBC C MP-DUPLIACATED FOR BOTH PRAH HALKOMICRALB,B12,JUAN LUIS,TSH,LIPID-HALKOOTHER TESTS-PRAH Performed By: #### L 500.4050, L101.9900, L501.6710, L100.0100 ####[facility] [address] [place], [address] Basophils/100 WBC (Bld) 1.0 % Normal 0-1 [facility] Comment on above: Order Comment: CBC C MP-DUPLIACATED FOR BOTH PRAH HALKOMICRALB,B12,JUAN LUIS,TSH,LIPID-HALKOOTHER TESTS-PRAH Performed By: #### L 500.4050, L101.9900, L501.6710, L100.0100 ####[facility] [address] [place], [address] Eosinophils/100 WBC (Bld) 5.0 % Normal 0-5 [facility] Comment on above: Order Comment: CBC C MP-DUPLIACATED FOR BOTH PRAH HALKOMICRALB,B12,JUAN LUIS,TSH,LIPID-HALKOOTHER TESTS-PRAH Performed By: #### L 500.4050, L101.9900, L501.6710, L100.0100 ####[facility] [address] [place], [address] Erythrocyte distribution width (RBC) [Ratio] 13.0 % Normal 11.6-14.6 [facility] Comment on above: Order Comment: CBC C MP-DUPLIACATED FOR BOTH PRAH HALKOMICRALB,B12,JUAN LUIS,TSH,LIPID-HALKOOTHER TESTS-PRAH Performed By: #### L 500.4050, L101.9900, L501.6710, L100.0100 ####[facility] [address] [place], [address] Hematocrit (Bld) [Volume fraction] 43.4 % Normal 40-54 [facility] Comment on above: Order Comment: CBC C MP-DUPLIACATED FOR BOTH PRAH HALKOMICRALB,B12,JUAN LUIS,TSH,LIPID-HALKOOTHER TESTS-PRAH Performed By: #### L 500.4050, L101.9900, L501.6710, L100.0100 ####[facility] [address] [place], [address] Hemoglobin (Bld) [Mass/Vol] 14.5 g/dL Normal 13.0-16.5 [facility] Comment on above: Order Comment: CBC C MP-DUPLIACATED FOR BOTH PRAH HALKOMICRALB,B12,JUAN LUIS,TSH,LIPID-HALKOOTHER TESTS-PRAH Performed By: #### L 500.4050, L101.9900, L501.6710, L100.0100 ####[facility] [address] [place], [address] IG% 0.200 Normal 0.0-0.9 [facility] Comment on above: Order Comment: CBC C MP-DUPLIACATED FOR BOTH PRAH HALKOMICRALB,B12,JUAN LUIS,TSH,LIPID-HALKOOTHER TESTS-PRAH Result Comment: IG% - Immature Granulocytes (promyelocytes, myelocytes and metamyelocytes) > 1% indicates that a LEFT SHIFT is Present. Performed By: #### L 500.4050, L101.9900, L501.6710, L100.0100 ####[facility] [address] [place], [address] Lymphocytes/100 WBC (Bld) 34.0 % Normal 19-41 [facility] Comment on above: Order Comment: CBC C MP-DUPLIACATED FOR BOTH PRAH HALKOMICRALB,B12,JUAN LUIS,TSH,LIPID-HALKOOTHER TESTS-PRAH Performed By: #### L 500.4050, L101.9900, L501.6710, L100.0100 ####[facility] [address] [place], [address] MCH (RBC) [Entitic mass] 30.9 pg Normal 27.0-32.0 [facility] Comment on above: Order Comment: CBC C MP-DUPLIACATED FOR BOTH PRAH HALKOMICRALB,B12,JUAN LUIS,TSH,LIPID-HALKOOTHER TESTS-PRAH Performed By: #### L 500.4050, L101.9900, L501.6710, L100.0100 ####[facility] [address] [place], [address] MCHC (RBC) [Mass/Vol] 33.4 g/dL Normal 32-36 [facility] Comment on above: Order Comment: CBC C MP-DUPLIACATED FOR BOTH PRAH HALKOMICRALB,B12,JUAN LUIS,TSH,LIPID-HALKOOTHER TESTS-PRAH Performed By: #### L 500.4050, L101.9900, L501.6710, L100.0100 ####[facility] [address] [place], [address] MCV (RBC) [Entitic vol] 92.3 fL Normal 80-94 [facility] Comment on above: Order Comment: CBC C MP-DUPLIACATED FOR BOTH PRAH HALKOMICRALB,B12,JUAN LUIS,TSH,LIPID-HALKOOTHER TESTS-PRAH Performed By: #### L 500.4050, L101.9900, L501.6710, L100.0100 ####[facility] [address] [place], [address] Monocytes/100 WBC (Bld) 12.3 % High 0-10 [facility] Comment on above: Order Comment: CBC C MP-DUPLIACATED FOR BOTH PRAH HALKOMICRALB,B12,JUAN LUIS,TSH,LIPID-HALKOOTHER TESTS-PRAH Performed By: #### L 500.4050, L101.9900, L501.6710, L100.0100 ####[facility] [address] [facility] [place], [address] Neutrophils/100 WBC (Bld) 47.5 % Normal 47-70 [facility] Comment on above: Order Comment: CBC C MP-DUPLIACATED FOR BOTH PRAH HALKOMICRALB,B12,JUAN LUIS,TSH,LIPID-HALKOOTHER TESTS-PRAH Performed By: #### L 500.4050, L101.9900, L501.6710, L100.0100 ####[facility] [address] [facility] [place], [address] Nucleated RBC (Bld) [#/Vol] 0 10*3/uL Normal 0-5 [facility] Comment on above: Order Comment: CBC C MP-DUPLIACATED FOR BOTH PRAH HALKOMICRALB,B12,JUAN LUIS,TSH,LIPID-HALKOOTHER TESTS-PRAH Performed By: #### L 500.4050, L101.9900, L501.6710, L100.0100 ####[facility] [address] [facility] [place], [address] Platelet mean volume (Bld) [Entitic vol] 10.9 fL Normal 6.2-12.0 [facility] Comment on above: Order Comment: CBC C MP-DUPLIACATED FOR BOTH PRAH HALKOMICRALB,B12,JUAN LUIS,TSH,LIPID-HALKOOTHER TESTS-PRAH Performed By: #### L 500.4050, L101.9900, L501.6710, L100.0100 ####[facility] [address] [facility] [place], [address] Platelets (Bld) [#/Vol] 187 10*3/uL Normal 150-450 [facility] Comment on above: Order Comment: CBC C MP-DUPLIACATED FOR BOTH PRAH HALKOMICRALB,B12,JUAN LUIS,TSH,LIPID-HALKOOTHER TESTS-PRAH Performed By: #### L 500.4050, L101.9900, L501.6710, L100.0100 ####[facility] [address] [place], [address] RBC (Bld) [#/Vol] 4.70 10*6/uL Normal 4.6-6.2 [facility] Comment on above: Order Comment: CBC C MP-DUPLIACATED FOR BOTH PRAH HALKOMICRALB,B12,JUAN LUIS,TSH,LIPID-HALKOOTHER TESTS-PRAH Performed By: #### L 500.4050, L101.9900, L501.6710, L100.0100 ####[facility] [address] [place], [address] RDW SD 44.0 fl High 35.1-43.9 [facility] Comment on above: Order Comment: CBC C MP-DUPLIACATED FOR BOTH PRAH HALKOMICRALB,B12,JUAN LUIS,TSH,LIPID-HALKOOTHER TESTS-PRAH Performed By: #### L 500.4050, L101.9900, L501.6710, L100.0100 ####[facility] [address] [place], [address] WBC (Bld) [#/Vol] 5.2 10*3/uL Normal 4.4-11.0 [facility] Comment on above: Order Comment: CBC C MP-DUPLIACATED FOR BOTH PRAH HALKOMICRALB,B12,JUAN LUIS,TSH,LIPID-HALKOOTHER TESTS-PRAH Performed By: #### L 500.4050, L101.9900, L501.6710, L100.0100 ####[facility] [address] [place], [address] CRPon 11-01-2023 C-REACTIVE PROT < 2.90 Normal 0.0-3.0 [facility] Comment on above: Order Comment: CBCD, CMP,LDH,PSA,LAMBDA,GAME,MARK-PRAH CMP CBCD-DUPLICATE W/HALKO OTHER TESTS-HALKO Result Comment: C-Re active Protein (CRP) provides useful information for the diagnosis, therapy and monitoring of inflammatory processes and associated diseases. For the evaluation of Relative Risk for Cardiovascular Disease, a High Sensitivity CRP (HSCRP) should be ordered. Performed By: #### L 100.0100, L3100.3425, L504.2610, L501.9520, L500.4100, L501.9985, L502.0250, L503.0105, L3130.0010 #### [facility] [address] [place], [place], [phone] Comprehensive Metabolic Prof [facility] 11-01-2023 Albumin [Mass/Vol] 3.6 g/dL Normal 3.2-5.0 [facility] Comment on above: Order Comment: CBC C MP-DUPLIACATED FOR BOTH PRAH HALKOMICRALB,B12,JUAN LUIS,TSH,LIPID-HALKOOTHER TESTS-PRAHUNK Performed By: #### L 500.4050, L101.9900, L501.6710, L100.0100 ####[facility] [address] [place], [place], [phone] Albumin/Globulin [Mass ratio] 1.0 {ratio} Normal 0.9-2.4 [facility] Comment on above: Order Comment: CBC C MP-DUPLIACATED FOR BOTH PRAH HALKOMICRALB,B12,JUAN LUIS,TSH,LIPID-HALKOOTHER TESTS-PRAHUNK Performed By: #### L 500.4050, L101.9900, L501.6710, L100.0100 ####[facility] [address] [place], [place], [phone] ALK P 70 U/L Normal 45-117 [facility] Comment on above: Order Comment: CBC C MP-DUPLIACATED FOR BOTH PRAH HALKOMICRALB,B12,JUAN LUIS,TSH,LIPID-HALKOOTHER TESTS-PRAHUNK Performed By: #### L 500.4050, L101.9900, L501.6710, L100.0100 ####[facility] [address] [place], [address] ALT [Catalytic activity/Vol] 22 U/L Normal 16-61 [facility] Comment on above: Order Comment: CBC C MP-DUPLIACATED FOR BOTH PRAH HALKOMICRALB,B12,JUAN LUIS,TSH,LIPID-HALKOOTHER TESTS-PRAHUNK Performed By: #### L 500.4050, L101.9900, L501.6710, L100.0100 ####[facility] [address] [place], [address] AST [Catalytic activity/Vol] 17 U/L Normal 15-37 [facility] Comment on above: Order Comment: CBC C MP-DUPLIACATED FOR BOTH PRAH HALKOMICRALB,B12,JUAN LUIS,TSH,LIPID-HALKOOTHER TESTS-PRAHUNK Performed By: #### L 500.4050, L101.9900, L501.6710, L100.0100 ####[facility] [address] [place], [address] Bilirubin [Mass/Vol] 0.70 mg/dL Normal 0.20-1.00 [facility] Comment on above: Order Comment: CBC C MP-DUPLIACATED FOR BOTH PRAH HALKOMICRALB,B12,JUAN LUIS,TSH,LIPID-HALKOOTHER TESTS-PRAHUNK Result Comment: For patients on eltrombopag therapy, use of Dimension [place] TBIL is not recommended. Performed By: #### L 500.4050, L101.9900, L501.6710, L100.0100 ####[facility] [id number] [place], [address] BUN/CRE 24.0 RATIO High 10-20 [facility] Comment on above: Order Comment: CBC C MP-DUPLIACATED FOR BOTH PRAH HALKOMICRALB,B12,JUAN LUIS,TSH,LIPID-HALKOOTHER TESTS-PRAHUNK Performed By: #### L 500.4050, L101.9900, L501.6710, L100.0100 ####[facility] [id number] [place], [address] CA,Total 8.8 mg/dL Normal 8.5-10.1 [facility] Comment on above: Order Comment: CBC C MP-DUPLIACATED FOR BOTH PRAH HALKOMICRALB,B12,JUAN LUIS,TSH,LIPID-HALKOOTHER TESTS-PRAHUNK Performed By: #### L 500.4050, L101.9900, L501.6710, L100.0100 ####[facility] [facility] [address] [facility]. [place], [place], [id number] Chloride [Moles/Vol] 107 mmol/L Normal 98-107 [facility] Comment on above: Order Comment: CBC C MP-DUPLIACATED FOR BOTH PRAH HALKOMICRALB,B12,JUAN LUIS,TSH,LIPID-HALKOOTHER TESTS-PRAHUNK Performed By: #### L 500.4050, L101.9900, L501.6710, L100.0100 ####[facility] [address] [place], [address] CO2 [Moles/Vol] 27.0 mmol/L Normal 21.0-32.0 [facility] Comment on above: Order Comment: CBC C MP-DUPLIACATED FOR BOTH PRAH HALKOMICRALB,B12,JUAN LUIS,TSH,LIPID-HALKOOTHER TESTS-PRAHUNK Performed By: #### L 500.4050, L101.9900, L501.6710, L100.0100 ####[facility] [address] [facility] [place], [address] Creatinine [Mass/Vol] 0.87 mg/dL Normal 0.70-1.30 [facility] Comment on above: Order Comment: CBC C MP-DUPLIACATED FOR BOTH PRAH HALKOMICRALB,B12,JUAN LUIS,TSH,LIPID-HALKOOTHER TESTS-PRAHUNK Result Comment: The validity of the calculated GFR GFRAA in patients over 70 years has not been determined. Clinical correlation is essential. Performed By: #### L 500.4050, L101.9900, L501.6710, L100.0100 ####[facility] [address] [place], [address] EST GFR - AA 112 mL/min Normal >60 [facility] Comment on above: Order Comment: CBC C MP-DUPLIACATED FOR BOTH PRAH HALKOMICRALB,B12,JUAN LUIS,TSH,LIPID-HALKOOTHER TESTS-PRAHUNK Result Comment: Afri can Vincentian GFR Calc Performed By: #### L 500.4050, L101.9900, L501.6710, L100.0100 ####[facility] [address] [place], [address] GAP 3 Low 5-15 [facility] Comment on above: Order Comment: CBC C MP-DUPLIACATED FOR BOTH PRAH HALKOMICRALB,B12,JUAN LUIS,TSH,LIPID-HALKOOTHER TESTS-PRAHUNK Performed By: #### L 500.4050, L101.9900, L501.6710, L100.0100 ####[facility] [address] [place], [address] GFR/1.73 sq M.predicted among non-blacks MDRD (S/P/Bld) [Vol rate/Area] 92 mL/min/{1.73_m2} Normal >60 [facility] Comment on above: Order Comment: CBC C MP-DUPLIACATED FOR BOTH PRAH HALKOMICRALB,B12,JUAN LUIS,TSH,LIPID-HALKOOTHER TESTS-PRAHUNK Result Comment: Non- GFR Calc Performed By: #### L 500.4050, L101.9900, L501.6710, L100.0100 ####[facility] [address] [place], [address] Globulin (S) [Mass/Vol] 3.6 g/dL Normal 2.2-4.2 [facility] Comment on above: Order Comment: CBC C MP-DUPLIACATED FOR BOTH PRAH HALKOMICRALB,B12,JUAN LUIS,TSH,LIPID-HALKOOTHER TESTS-PRAHUNK Performed By: #### L 500.4050, L101.9900, L501.6710, L100.0100 ####[facility] [address] [place], [address] Glucose [Mass/Vol] 108 mg/dL High 74-106 [facility] Comment on above: Order Comment: CBC C MP-DUPLIACATED FOR BOTH PRAH HALKOMICRALB,B12,JUAN LUIS,TSH,LIPID-HALKOOTHER TESTS-PRAHUNK Result Comment: Fast ing Glucose result from 100 to 125 mg/dL suggests IMPAIRED HOMEOSTASIS per A.D.A. criteria. Performed By: #### L 500.4050, L101.9900, L501.6710, L100.0100 ####[facility] [address] [place], [address] Potassium [Moles/Vol] 4.4 mmol/L Normal 3.5-5.1 [facility] Comment on above: Order Comment: CBC C MP-DUPLIACATED FOR BOTH PRAH HALKOMICRALB,B12,JUAN LUIS,TSH,LIPID-HALKOOTHER TESTS-PRAHUNK Performed By: #### L 500.4050, L101.9900, L501.6710, L100.0100 ####[facility] [address] [place], [address] Sodium [Moles/Vol] 137 mmol/L Normal 136-145 [facility] Comment on above: Order Comment: CBC C MP-DUPLIACATED FOR BOTH PRAH HALKOMICRALB,B12,JUAN LUIS,TSH,LIPID-HALKOOTHER TESTS-PRAHUNK Performed By: #### L 500.4050, L101.9900, L501.6710, L100.0100 ####[facility] [address] [place], [address] T PROT 7.2 g/dL Normal 6.4-8.2 [facility] Comment on above: Order Comment: CBC C MP-DUPLIACATED FOR BOTH PRAH HALKOMICRALB,B12,JUAN LUIS,TSH,LIPID-HALKOOTHER TESTS-PRAHUNK Performed By: #### L 500.4050, L101.9900, L501.6710, L100.0100 ####[facility] [address] [place], [address] Urea nitrogen [Mass/Vol] 21 mg/dL High 7-18 [facility] Comment on above: Order Comment: CBC C MP-DUPLIACATED FOR BOTH PRAH HALKOMICRALB,B12,JUAN LUIS,TSH,LIPID-HALKOOTHER TESTS-PRAHUNK Performed By: #### L 500.4050, L101.9900, L501.6710, L100.0100 ####[facility] [address] [place], [address] Erythrocyte Sed Rateon 10-31 SED RATE 6 mm/hr Normal 0-20 [facility] Comment on above: Order Comment: CBC C MP-DUPLIACATED FOR BOTH PRAH HALKOMICRALB,B12,JUAN LUIS,TSH,LIPID-HALKOOTHER TESTS-PRAH Performed By: #### L 500.4050, L101.9900, L501.6710, L100.0100 ####[facility] [address] [place], [address] LDHon 11-01-2023 LDH 163 U/L Normal 87-241 [facility] Comment on above: Order Comment: CBCD, CMP,LDH,PSA,LAMBDA,GAME,MARK-PRAH CMP CBCD-DUPLICATE W/HALKO OTHER TESTS-HALKO Performed By: #### L 100.0100, L3100.3425, L504.2610, L501.9520, L500.4100, L501.9985, L502.0250, L503.0105, L3130.0010 #### [facility] [address] [place], [place], [phone] ([phone] Lipid Profileon 11-01-2023 Cholesterol [Mass/Vol] 143 mg/dL Normal 200 [facility] Comment on above: Order Comment: CBCD, CMP,LDH,PSA,LAMBDA,GAME,MARK-PRAH CMP CBCD-DUPLICATE W/HALKO OTHER TESTS-HALKO Result Comment: <200 mg/dL Desirable 200-240 mg/dL Borderline >240 mg/dL High Risk Performed By: #### L 100.0100, L3100.3425, L504.2610, L501.9520, L500.4100, L501.9985, L502.0250, L503.0105, L3130.0010 #### [facility] [address] [place], [address] ([phone] Cholesterol in HDL [Mass/Vol] 52 mg/dL Normal [facility] Comment on above: Order Comment: CBCD, CMP,LDH,PSA,LAMBDA,GAME,MARK-PRAH CMP CBCD-DUPLICATE W/HALKO OTHER TESTS-HALKO Result Comment: The drugs N-Acetylcysteine and Metamizole may falsely depress this assay. Reference Range HDL <40 mg/dL Low HDL Cholesterol HDL >or= 60 mg/dL High HDL Cholesterol Performed By: #### L 100.0100, L3100.3425, L504.2610, L501.9520, L500.4100, L501.9985, L502.0250, L503.0105, L3130.0010 #### [facility] [address] [place], [place], [id number] ([phone] Cholesterol in LDL [Mass/Vol] 75 mg/dL Normal 0-130 [facility] Comment on above: Order Comment: CBCD, CMP,LDH,PSA,LAMBDA,GAME,MARK-PRAH CMP CBCD-DUPLICATE W/HALKO OTHER TESTS-HALKO Performed By: #### L 100.0100, L3100.3425, L504.2610, L501.9520, L500.4100, L501.9985, L502.0250, L503.0105, L3130.0010 #### [facility] [address] [place], [place], [phone] Cholesterol in VLDL [Mass/Vol] 16 mg/dL Normal 5-40 [facility] Comment on above: Order Comment: CBCD, CMP,LDH,PSA,LAMBDA,GAME,MARK-PRAH CMP CBCD-DUPLICATE W/HALKO OTHER TESTS-HALKO Performed By: #### L 100.0100, L3100.3425, L504.2610, L501.9520, L500.4100, L501.9985, L502.0250, L503.0105, L3130.0010 #### [facility] [address] [place], [address] Triglyceride [Mass/Vol] 82 mg/dL Normal [facility] Comment on above: Order Comment: CBCD, CMP,LDH,PSA,LAMBDA,GAME,MARK-PRAH CMP CBCD-DUPLICATE W/HALKO OTHER TESTS-HALKO Result Comment: The drugs N-Acetylcysteine and Metamizole may falsely depress this assay. Serum Triglycerides Reference Interval Normal <150 mg/dL Borderline high 150 - 199 mg/dL High 200 - 499 mg/dL Very High > or = 500 mg/dL Performed By: #### L 100.0100, L3100.3425, L504.2610, L501.9520, L500.4100, L501.9985, L502.0250, L503.0105, L3130.0010 #### [facility] [address] [place], [address] Microalb:Creat Ratio,Random URon 11-01-2023 Creatinine [Mass/Vol] 91.60 mg/dL Normal NO RAN GE EST. [facility] Comment on above: Order Comment: CBCD, CMP,LDH,PSA,LAMBDA,GAME,MARK-PRAH CMP CBCD-DUPLICATE W/HALKO OTHER TESTS-HALKO Performed By: #### L 100.0100, L3100.3425, L504.2610, L501.9520, L500.4100, L501.9985, L502.0250, L503.0105, L3130.0010 #### [facility] [address] [place], [place], [id number] MALB:CRE 6.7 mg/g CRE Normal <30 mg/g CRE [facility] Comment on above: Order Comment: CBCD, CMP,LDH,PSA,LAMBDA,GAME,MARK-PRAH CMP CBCD-DUPLICATE W/HALKO OTHER TESTS-HALKO Performed By: #### L 100.0100, L3100.3425, L504.2610, L501.9520, L500.4100, L501.9985, L502.0250, L503.0105, L3130.0010 #### [facility] [address] [place], [place], [id number] MICROALBUMIN,UR 6.1 mg/L Normal NO RANGE EST. [facility] Comment on above: Order Comment: CBCD, CMP,LDH,PSA,LAMBDA,GAME,MARK-PRAH CMP CBCD-DUPLICATE W/HALKO OTHER TESTS-HALKO Performed By: #### L 100.0100, L3100.3425, L504.2610, L501.9520, L500.4100, L501.9985, L502.0250, L503.0105, L3130.0010 #### [facility] [address], [place], [id number] Thyroid Stim Hormone (TSH)on 11-01-2023 TSH 1.66 uIU/mL Normal 0.358-3.74 [facility] Comment on above: Order Comment: CBCD, CMP,LDH,PSA,LAMBDA,GAME,MARK-PRAH CMP CBCD-DUPLICATE W/HALKO OTHER TESTS-HALKO Performed By: #### L 100.0100, L3100.3425, L504.2610, L501.9520, L500.4100, L501.9985, L502.0250, L503.0105, L3130.0010 #### [facility] [address] [place], [place], [address] Vitamin B12on 11-01-2023 Cobalamin (Vitamin B12) [Mass/Vol] 366 pg/mL Normal 211-911 [facility] Comment on above: Order Comment: CBCD, CMP,LDH,PSA,LAMBDA,GAME,MARK-PRAH CMP CBCD-DUPLICATE W/HALKO OTHER TESTS-HALKO Performed By: #### L 100.0100, L3100.3425, L504.2610, L501.9520, L500.4100, L501.9985, L502.0250, L503.0105, L3130.0010 #### [facility] [address] [place], [place], [phone] LEADAon 07-08-2023 Blood Lead Purpose Initial Normal [facility]) Comment on above: Performed By: #### B MP, ADIFF, ANEU, CBC, GFR #### [address] [address] Blood Lead Type Venous Normal [facility] ([place]) Comment on above: Performed By: #### B MP, ADIFF, ANEU, CBC, GFR #### [address] [address] HMETBon 07-06-2023 Arsenic Bld Lvl 4 UG/L Normal [facility]) Comment on above: Result Comment: This test was developed and its performance characteristics determined by [facility]. It has not been cleared or approved by the Food and Drug Administration. Detection Limit = 1 Performed By: #### B MP, ADIFF, ANEU, CBC, GFR #### [address] [address] Cadmium Bld Lvl 0.6 UG/L Normal [facility] ([place]) Comment on above: Result Comment: This test was developed and its performance characteristics determined by [facility]. It has not been cleared or approved by the Food and Drug Administration. Environmental Exposure: Nonsmokers 0.3 - 1.2 Smokers 0.6 - 3.9 Occupational Exposure: OSHA Cadmium Std 5.0 CESILIA 5.0 Detection Limit = 0.5 Performed At: [address] [id number] Nirmal Silveira MD Ph:[phone] Performed By: #### B MP, ADIFF, ANEU, CBC, GFR #### [address] [address] Lead Bld Lvl 1.2 UG/DL Normal [facility] ([place]) Comment on above: Result Comment: Test ing performed by Inductively coupled plasma/Mass Spectrometry. This test was developed and its performance characteristics determined by [facility]. It has not been cleared or approved by the Food and Drug Administration. Environmental Exposure: WHO Recommendation <5.0 Occupational Exposure: OSHA Lead Std 40.0 CESILIA 30.0 Detection Limit = 1.0 Performed By: #### B MP, ADIFF, ANEU, CBC, GFR #### [address] [address] Mercury Bld Lvl 5.6 UG/L Normal [facility] ([place]) Comment on above: Result Comment: This test was developed and its performance characteristics determined by [facility]. It has not been cleared or approved by the Food and Drug Administration. Environmental Exposure: <15.0 Occupational Exposure: CESILIA - Inorganic Mercury: 15.0 Detection Limit = 1.0 Performed By: #### B MP, ADIFF, ANEU, CBC, GFR #### [address] [address] ANCAon 07-04-2023 C-ANCA 3.9 Normal 0.0-20.0 [facility] ([place]) Comment on above: Result Comment: NEW REFERENCE RANGES FOR ANCA BY EIA: NEGATIVE <= 20 UNITS WEAK POSITIVE 21 - 30 UNITS MOD. TO STRONG POSITIVE > 30 UNITS A positive result indicates the presence of NJ-3 antibodies and suggests the possibility of certain autoimmune vasculitides such as Di?s granulomatosis. A negative result indicates no NJ-3 antibody or levels below the negative cut-off of the assay. These results were obtained with the [employer] QUANTA Lite NJ-3 IgG ANGELA. NJ-3 values obtained with different manufacturers? assay methods may not be used interchangeably. The magnitude of the reported IgG level cannot be correlated to an endpoint titer. Results of this assay should be used in conjunction with clinical findings. Performed By: #### B MP, ADIFF, ANEU, CBC, GFR #### [address] [address] Cytoplasmic Neutro. Ab. See Below Normal [facility] ([place]) Comment on above: Performed By: #### B MP, ADIFF, ANEU, CBC, GFR #### [address] [address] P-ANCA 3.2 Normal 0.0-20.0 [facility] ([place]) Comment on above: Result Comment: REFE RENCE RANGES FOR ANCA BY EIA: NEGATIVE <= 20 UNITS WEAK POSITIVE 21 - 30 UNITS MOD. TO STRONG POSITIVE > 30 UNITS A positive result indicates the presence of MPO antibodies and suggests the possibility of certain autoimmune vasculitides such as microscopic polyarteritis, and crescentic glomerulonephritis. A negative result indicates no MPO antibody or levels below the negative cut-off of the assay. These results were obtained with the [employer] QUANTA Lite MPO IgG ANGELA. MPO values obtained with different manufacturers? assay methods may not be used interchangeably. The magnitude of the reported IgG level cannot be correlated to an endpoint titer. Results of this assay should be used in conjunction with clinical findings. Performed By: #### B MP, ADIFF, ANEU, CBC, GFR #### [address] [address] LEADAon 07-04-2023 Lead Adult Lvl 1.2 UG/DL Normal [facility] ([place]) Comment on above: Result Comment: Test ing performed by Inductively coupled plasma/Mass Spectrometry. Analysis by inductively coupled plasma/mass spectrometry (ICP/MS) This test was developed and its performance characteristics determined by [facility]. It has not been cleared or approved by the Food and Drug Administration. Environmental Exposure: WHO Recommendation <5.0 Occupational Exposure: OSHA Lead Std 40.0 CESILIA 30.0 Detection Limit = 1.0 Performed At: [address] [id number] Leigha Booker PhD Ph:[phone] Performed By: #### B MP, ADIFF, ANEU, CBC, GFR #### [place] [address] .ANATon 06-30-2023 JUAN LUIS Pattern 1 Homogeneous Normal [facility] ([place]) Comment on above: Result Comment: At A [facility], an JUAN LUIS titer of less than 160 is not considered suggestive of significant rheumatoid disease. If clinical suspicion is high, suggest repeat testing in 1-2 months. Performed By: #### B MP, ADIFF, ANEU, CBC, GFR #### [place] [address] JUAN LUIS Titer 1 40 Normal [facility] ([place]) Comment on above: Performed By: #### B MP, ADIFF, ANEU, CBC, GFR #### [place] [address] ANAon 06-30-2023 JUAN LUIS See Titer Normal Neg 40 [facility]) Comment on above: Result Comment: JUAN LUIS Screen and Titer methodology is an immunofluorescent technique utilizing Hep2 Substrate. Performed By: #### B MP, ADIFF, ANEU, CBC, GFR #### [place] [address] RFon 06-30-2023 Rheumatoid Factor <6.0 Normal <=5.9 [facility] ([place]) Comment on above: Result Comment: RF I gM Antibody by Enzyme Immunoassay: Negative < or = 6 Positive > 6 A positive result indicates the presence of RF antibodies and suggests the possibility of rheumatoid arthritis. A negative result indicates no RF IgM antibody or levels below the negative cut-off of the assay. Results of this assay should be used in conjunction with clinical findings and other serological tests. These results were obtained with the [employer] QUANTA Lite RF IgM ANGELA. RF IgM values obtained with different manufacturers' assay methods may not be used interchangeably. The magnitude of the reported IgM levels cannot be correlated to an endpoint titer. Performed By: #### B MP, ADIFF, ANEU, CBC, GFR #### [place] [address] SPEon 01-11-2024 SPE Interpretation There is a discrete band in beta-gamma region, with normal remaining polyclonal immunoglobulins. This pattern suggests monoclonal or oligoclonal proteins that may occur in chronic inflammatory diseases, multiple myeloma, or may be idiopathic (MGUS). Suggest serum and urine immunofixation and quantitative serum immunoglobulins. Normal [facility] ([place]) Comment on above: Result Comment: Elec tronically Signed by: ROBERT LOPEZ 06/30/2023 16:15 EST Performed By: #### B MP, ADIFF, ANEU, CBC, GFR #### [address] [address] Albumin 3.6 G/dL Normal 3.3-5.0 [facility] ([place]) Comment on above: Performed By: #### B MP, ADIFF, ANEU, CBC, GFR #### [address] [address] Alpha 1 0.2 G/dL Normal 0.1-0.4 [facility] ([place]) Comment on above: Performed By: #### B MP, ADIFF, ANEU, CBC, GFR #### [address] [address] Alpha 2 1.0 G/dL Normal 0.6-1.2 [facility] ([place]) Comment on above: Performed By: #### B MP, ADIFF, ANEU, CBC, GFR #### [address] [address] Beta 0.9 G/dL Normal 0.6-1.3 [facility] ([place]) Comment on above: Performed By: #### B MP, ADIFF, ANEU, CBC, GFR #### [address] [address] Gamma 1.3 G/dL Normal 0.7-1.6 [facility] ([place]) Comment on above: Performed By: #### B MP, ADIFF, ANEU, CBC, GFR #### [address] [address] M-spike 0.2 G/dL Normal [facility] ([place]) Comment on above: Performed By: #### B MP, ADIFF, ANEU, CBC, GFR #### [address] [address] UPEon 06-30-2023 UPE Interpretation There was no appreciable protein detected by electrophoresis of concentrated urine. Normal [facility] ([place]) Comment on above: Result Comment: Elec tronically Signed by: ROBERT LOPEZ 06/30/2023 16:16 EST Performed By: #### U PE #### [address] [address] .Auto Diffon 06-29-2023 Basophil, Absolute 0.1 10 3/mcL Normal 0.0-0.2 [facility] ([place]) Comment on above: Performed By: #### C BC, [id number], ADIFF, ANEU, 296301, CRP, FERR, PSA #### [address] [address] #### B12, JUAN LUIS, RF, SPE, JENNY, ANCA #### [address] [address] Basophils/100 WBC (Bld) 0.8 % Normal 0.0-2.5 [facility] ([place]) Comment on above: Performed By: #### C BC, 899741, ADIFF, ANEU, 617039, CRP, FERR, PSA #### [address] [address] #### B12, JUAN LUIS, RF, SPE, JENNY, ANCA #### [address] [address] Eosinophil, Absolute 0.3 10 3/mcL Normal 0.0-0.4 [facility] ([place]) Comment on above: Performed By: #### C BC, 426443, ADIFF, ANEU, 793182, CRP, FERR, PSA #### [place] [address] #### B12, JUAN LUIS, RF, SPE, JENNY, ANCA #### [address] [address] Eosinophils/100 WBC (Bld) 4.7 % Normal 0.0-7.0 [facility] ([place]) Comment on above: Performed By: #### C BC, 333712, ADIFF, ANEU, 015632, CRP, FERR, PSA #### [address] [address] #### B12, JUAN LUIS, RF, SPE, JENNY, ANCA #### [address] [address] Lymphocyte, Absolute 1.8 10 3/mcL Normal 0.8-3.9 [facility] ([place]) Comment on above: Performed By: #### C BC, 841777, ADIFF, ANEU, 589042, CRP, FERR, PSA #### [place] [address] #### B12, JUAN LUIS, RF, SPE, JENNY, ANCA #### [address] [address] Lymphocytes/100 WBC (Bld) 29.4 % Normal 10.0-50.0 [facility] ([place]) Comment on above: Performed By: #### C BC, 660715, ADIFF, ANEU, 868983, CRP, FERR, PSA #### [place] [address] #### B12, JUAN LUIS, RF, SPE, JENNY, ANCA #### [address] [address] Monocyte, Absolute 0.6 10 3/mcL Normal 0.2-1.0 [facility] ([place]) Comment on above: Performed By: #### C BC, 768825, ADIFF, ANEU, 474986, CRP, FERR, PSA #### [address] [address] #### B12, JUAN LUIS, RF, SPE, JENNY, ANCA #### [address] [address] Monocytes/100 WBC (Bld) 8.9 % Normal 1.7-13.0 [facility] ([place]) Comment on above: Performed By: #### C BC, 456110, ADIFF, ANEU, 378168, CRP, FERR, PSA #### [place] [id number] #### B12, JUAN LUIS, RF, SPE, JENNY, ANCA #### [address] [address] Neutrophils/100 WBC (Bld) 56.2 % Normal 37.0-80.0 [facility] ([place]) Comment on above: Performed By: #### C BC, 915761, ADIFF, ANEU, 361423, CRP, FERR, PSA #### [place] [address] #### B12, JUAN LUIS, RF, SPE, JENNY, ANCA #### [address] [address] .NEUABSon 06-29-2023 Neutrophil, Absolute 3.5 10 3/mcL Normal 2.9-6.2 [facility] ([place]) Comment on above: Performed By: #### C BC, 991420, ADIFF, ANEU, 833270, CRP, FERR, PSA #### [place] [address] #### B12, JUAN LUIS, RF, SPE, JENNY, ANCA #### [address] [address] B12on 06-29-2023 Cobalamin (Vitamin B12) [Mass/Vol] 276 pg/mL Normal 211-911 [facility] ([place]) Comment on above: Performed By: #### B MP, ADIFF, ANEU, CBC, GFR #### [place] [address] CBCon 06-29-2023 Erythrocyte distribution width (RBC) [Ratio] 13.6 % Normal 11.5-14.5 [facility] ([place]) Comment on above: Performed By: #### C BC, 520771, ADIFF, ANEU, 137272, CRP, FERR, PSA #### [place] [address] #### B12, JUAN LUIS, RF, SPE, JENNY, ANCA #### [address] [address] Hematocrit (Bld) [Volume fraction] 45.9 % Normal 42.0-52.0 [facility] ([place]) Comment on above: Performed By: #### C BC, 087416, ADIFF, ANEU, 015062, CRP, FERR, PSA #### [place] [address] #### B12, JUAN LUIS, RF, SPE, JENNY, ANCA #### [place] [address] Hgb 16.1 G/dL Normal 14.0-18.0 [facility] ([place]) Comment on above: Performed By: #### C BC, 402754, ADIFF, ANEU, 099940, CRP, FERR, PSA #### [place] [address] #### B12, JUAN LUIS, RF, SPE, JENNY, ANCA #### [place] [address] MCH (RBC) [Entitic mass] 32.1 pg High 27.0-31.2 [facility] ([place]) Comment on above: Performed By: #### C BC, 368854, ADIFF, ANEU, 550030, CRP, FERR, PSA #### [place] [address] #### B12, JUAN LUIS, RF, SPE, JENNY, ANCA #### [place] [address] MCHC 35.1 G/dL Normal 31.8-35.4 [facility] ([place]) Comment on above: Performed By: #### C BC, 108681, ADIFF, ANEU, 580880, CRP, FERR, PSA #### [place] [address] #### B12, JUAN LUIS, RF, SPE, JENNY, ANCA #### [place] [address] MCV (RBC) [Entitic vol] 91.3 fL Normal 80.0-94.0 [facility] ([place]) Comment on above: Performed By: #### C BC, 503149, ADIFF, ANEU, 571488, CRP, FERR, PSA #### [place] [address] #### B12, JUAN LUIS, RF, SPE, JENNY, ANCA #### [address] [address] Platelet 194 10 3/mcL Normal 130-400 [facility] ([place]) Comment on above: Performed By: #### C BC, 805896, ADIFF, ANEU, 700444, CRP, FERR, PSA #### [place] [address] #### B12, JUAN LUIS, RF, SPE, JENNY, ANCA #### [place] [address] Platelet mean volume (Bld) [Entitic vol] 8.8 fL Normal 7.4-10.4 [facility] ([place]) Comment on above: Performed By: #### C BC, 082020, ADIFF, ANEU, 357041, CRP, FERR, PSA #### [place] [address] #### B12, JUAN LUIS, RF, SPE, JENNY, ANCA #### [address] [address] RBC 5.03 10 6/mcL Normal 4.04-6.13 [facility] ([place]) Comment on above: Performed By: #### C BC, 072179, ADIFF, ANEU, 468019, CRP, FERR, PSA #### [place] [address] #### B12, JUAN LUIS, RF, SPE, JENNY, ANCA #### [place] [address] WBC 6.2 10 3/mcL Normal 4.6-10.8 [facility] ([place]) Comment on above: Performed By: #### C BC, 086481, ADIFF, ANEU, 246784, CRP, FERR, PSA #### [place] [address] #### B12, JUAN LUIS, RF, SPE, JENNY, ANCA #### [place] [address] CRPon 06-29-2023 C-Reactive Protein 0.1 mg/dL Normal 0.0-0.3 [facility] ([place]) Comment on above: Performed By: #### B HENRIQUE MARY, ANEU, CBC, GFR #### [facility] [place] [id number] [place], [place] [address] Balaji 06-29-2023 Ferritin [Mass/Vol] 281.0 ng/mL Normal 26.0-388.0 [facility] ([place]) Comment on above: Performed By: #### B USMAN, HENRIQUE, ANEU, CBC, GFR #### [facility] [place] [id number] [place], [place] [address] LABORATORYOrdered By: SYSTEM SYSTEM on 06-29-2023 Basophil, Absolute 0.1 103/mcL Normal 0.0 - 0.2 10^3/mcL AO Workflow SS Basophils/100 WBC (Bld) 0.8 % Normal 0.0 - 2.5 % AO Workflow SS Cobalamin (Vitamin B12) [Mass/Vol] 276 pg/mL Normal 211 - 911 pg/mL AH ADM SS CRP [Mass/Vol] 0.1 mg/dL Normal 0.0 - 0.3 mg/dL AO ADM SS Eosinophil, Absolute 0.3 103/mcL Normal 0.0 - 0 .4 10^3/mcL AO Workflow SS Eosinophils/100 WBC (Bld) 4.7 % Normal 0.0 - 7.0 % AO Workflow SS Erythrocyte distribution width (RBC) [Ratio] 13.6 % Normal 11.5 - 14.5 % AO Workflow SS Ferritin [Mass/Vol] 281.0 ng/mL Normal 26.0 - 388.0 ng/mL AO ADM SS Hematocrit (Bld) [Volume fraction] 45.9 % Normal 42.0 - 52.0 % AO Workflow SS Hemoglobin (Bld) [Mass/Vol] 16.1 G/dL Normal 14.0 - 18.0 G/dL AO Workflow SS Lymphocyte, Absolute 1.8 103/mcL Normal 0.8 - 3 .9 10^3/mcL AO Workflow SS Lymphocytes/100 WBC (Bld) 29.4 % Normal 10.0 - 50.0 % AO Workflow SS MCH (RBC) [Entitic mass] 32.1 pg High 27.0 - 31.2 pg AO Workflow SS MCHC 35.1 G/dL Normal 31.8 - 35.4 G/dL AO Workflow SS MCV (RBC) [Entitic vol] 91.3 fL Normal 80.0 - 94.0 fL AO Workflow SS Monocyte, Absolute 0.6 103/mcL Normal 0.2 - 1.0 10^3/mcL AO Workflow SS Monocytes/100 WBC (Bld) 8.9 % Normal 1.7 - 13.0 % AO Workflow SS Neutrophil, Absolute 3.5 103/mcL Normal 2.9 - 6 .2 10^3/mcL AO Workflow SS Neutrophils/100 WBC (Bld) 56.2 % Normal 37.0 - 80.0 % AO Workflow SS Platelet mean volume (Bld) [Entitic vol] 8.8 fL Normal 7.4 - 10.4 fL AO Workflow SS Platelets (Bld) [#/Vol] 194 103/mcL Normal 130 - 400 10^3/mcL AO Workflow SS Prostate specific Ag [Mass/Vol] 2.19 ng/mL Normal 0.00 - 4.00 ng/mL AO ADM SS RBC (Bld) [#/Vol] 5.03 106/mcL Normal 4.04 - 6.1 3 10^6/mcL AO Workflow SS WBC (Bld) [#/Vol] 6.2 103/mcL Normal 4.6 - 10.8 10^3/mcL AO Workflow SS LABORATORYOrdered By: Emiliano Elizabeth on 06-29-2023 Protein [Mass/Vol] 7.1 G/dL Normal 5.7 - 8.2 G/dL AH ADM SS Comment on above: Interpretive Data: * *Note - New Reference Range in effect 20 PSAon 06-29-2023 Prostate Specific Antigen 2.19 ng/mL Normal 0.00-4.00 [facility] ([place]) Comment on above: Performed By: #### B USMAN, HENRIQUE, ANEU, CBC, GFR #### [facility] [address] [address] SPEon 06-29-2023 Total Protein 7.1 G/dL Normal 5.7-8.2 [facility] ([place]) Comment on above: Result Comment: No te - New Reference Range in effect 20 Performed By: #### B MP, ADIFF, ANEU, CBC, GFR #### [facility] [place] [address] [place], [place] [address] CT ANGIOGRAPHY ABD/PELVIS/BI LAT LOWER EXTREMon 06-17-2023 CT ANGIOGRAPHY ABD/PELVIS/BILAT LOWER EXTREM ORIGINAL EXAMINATION: CTA OF THE AORTA WITH LOWER EXTREMITY [id number]/03/2023 10:29 am TECHNIQUE: CTA of the pelvis and bilateral lower extremities was performed after the administration of intravenous contrast. Multiplanar reformatted images are provided for review. MIP images are provided for review. Automated exposure control, iterative reconstruction, and/or weight based adjustment of the mA/kV was utilized to reduce the radiation dose to as low as reasonably achievable. COMPARISON: CTA abdomen/pelvis 11/06/2020 HISTORY: ORDERING SYSTEM PROVIDED HISTORY: Reason for Exam: severe PAD FINDINGS: VASCULAR: ABD AORTA Suprarenal: Minimal to no atherosclerosis. No aneurysm. Infrarenal: Minimal to mild atherosclerosis.No aneurysm. Celiac: Mild stenosis at the origin and proximally; there is slight poststenotic dilation. May reflect extrinsic compression from median arcuate ligament. SMA: No significant stenosis at the origin and proximally. Replaced right hepatic artery, SMA origin. ROLLY: Patent at the origin and proximally. RIGHT Renal: No significant stenosis. Single renal artery. LEFT Renal: No significant stenosis. Single renal artery. RIGHT JANET: No significant stenosis. EIA: No significant stenosis. 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 MOTORCYCLE SALES ASSOCIATE: No significant stenosis. Profunda: No significant stenosis. SFA: No significant stenosis. Popliteal: Metallic artifact from total knee arthroplasty obscures visualization. No definite severe stenosis. TP trunk: No contrast opacification seen. FAITH: No contrast opacification seen. Peroneal: No contrast opacification seen. TUBE COVERER: No contrast opacification seen. LEFT JANET: No significant stenosis. EIA: No significant stenosis. 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 MOTORCYCLE SALES ASSOCIATE: No significant stenosis. Profunda: No significant stenosis. SFA: No significant stenosis. Metallic artifact from total left knee arthroplasty obscures visualization of the distal half of the popliteal artery and the tibioperoneal trunk. Popliteal: Visualized proximal portion is without significant stenosis. TP trunk: No severe stenosis. FAITH: Incidental high origin just above the joint, anatomic variant. Loss of contrast opacification within the proximal leg.. Peroneal: Loss of contrast opacification within the proximal leg TUBE COVERER: Loss of contrast opacification within the proximal leg NONVASCULAR: LUNG BASES: Unremarkable. LIVER:Unremarkable. BILIARY: No extra or intrahepatic duct dilatation. GALLBLADDER: Unremarkable. SPLEEN: Unremarkable. RT ADRENAL: Unremarkable. LT ADRENAL: Unremarkable. PANCREAS: Unremarkable. ASCITES: Trace amount within left inguinal hernia. RT KIDNEY: Normal enhancement. No hydronephrosis. LT KIDNEY: Normal enhancement. No hydronephrosis. URINARY BLADDER: Unremarkable. PROSTATE: Enlarged at 5.2 cm. GI: No obstruction or inflammatory change. Colonic diverticulosis without acute diverticulitis. LYMPHATIC: No pathologically enlarged or aggressive appearing lymph nodes. BONES: No acute osseous abnormality. No aggressive osseous lesions.Varying degrees multifocal degenerative change. Total bilateral knee arthroplasty. Mild to moderate posterior disc osteophyte complex at L2-L3 causes miles central canal stenosis. OTHER: No free air or drainable fluid collection within the abdomen or pelvis. Small to moderate left fat and fluid containing inguinal hernia. Unchanged cystic lesion with a small wall based calcification within the right buttocks superficial soft tissues up to 3.4 cm; this likely represents a sebaceous cyst. IMPRESSION: 1. No severe inflow or outflow stenosis in either limb. Overall atherosclerotic plaque burden is mild. Evaluation of arterial runoff below the knee is not possible as the vessels are unopacified due to early contrast bolus timing. 2. No AAA. 3. 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 4. Small to moderate left inguinal hernia containing fat and trace ascites. Recommend correlation with physical exam for tenderness. 5. #3 above is relevant if the patient were to have inguinal hernia repair. 6. Incidental stable 3.4 cm likely sebaceous cyst of the inferior medial right buttocks. I have personally reviewed the images of this examination and agree with the resident's findings and interpretation. Interpreted by: Mukund Coffey MD Preliminary Report By: Sabi Ogden Electronically signed By Mukund Coffey MD Dictated Date: 06/08/2023 2:15:58 PM Prelim Date: 06/17/2023 5:12:03 PM Sign Date: 06/17/20 (more content not included)... Normal [facility] ([place]) LABORATORYOrdered By: Haider cifuentes Dali on 04-28-2023 Glucose [Mass/Vol] 93 mg/dL Invalid Interpretation Code 82 - 115 mg/dL [facility] Work Phone: .Auto Diffon 04-15-2023 Basophil, Absolute 0.0 10 3/mcL Normal 0.0-0.2 [facility] ([place]) Comment on above: Performed By: #### B MP, ADIFF, ANEU, CBC, GFR #### [address] [address] Basophils/100 WBC (Bld) 0.9 % Normal 0.0-2.5 [facility] ([place]) Comment on above: Performed By: #### B MP, ADIFF, ANEU, CBC, GFR #### [address] [address] Eosinophil, Absolute 0.3 10 3/mcL Normal 0.0-0.4 [facility] ([place]) Comment on above: Performed By: #### B MP, ADIFF, ANEU, CBC, GFR #### [address] [address] Eosinophils/100 WBC (Bld) 4.8 % Normal 0.0-7.0 [facility] ([place]) Comment on above: Performed By: #### B MP, ADIFF, ANEU, CBC, GFR #### [address] [address] Lymphocyte, Absolute 1.7 10 3/mcL Normal 0.8-3.9 [facility] ([place]) Comment on above: Performed By: #### B MP, ADIFF, ANEU, CBC, GFR #### [address] [address] Lymphocytes/100 WBC (Bld) 32.3 % Normal 10.0-50.0 [facility] ([place]) Comment on above: Performed By: #### B MP, ADIFF, ANEU, CBC, GFR #### [address] [address] Monocyte, Absolute 0.5 10 3/mcL Normal 0.2-1.0 [facility] ([place]) Comment on above: Performed By: #### B MP, ADIFF, ANEU, CBC, GFR #### [address] [address] Monocytes/100 WBC (Bld) 9.8 % Normal 1.7-13.0 [facility] ([place]) Comment on above: Performed By: #### B MP, ADIFF, ANEU, CBC, GFR #### [address] [address] Neutrophils/100 WBC (Bld) 52.2 % Normal 37.0-80.0 [facility] ([place]) Comment on above: Performed By: #### B MP, ADIFF, ANEU, CBC, GFR #### [address] [address] .GFRon 04-15-2023 GFR Non- 95 ml/min/1.73sqm Normal [facility] ([place]) Comment on above: Result Comment: GFR Population mean for , Non- Americans Ages 20-29 = 116 mL/min/1.73 sq.m. Ages 30-39 = 107 mL/min/1.73 sq.m. Ages 40-49 = 99 mL/min/1.73 sq.m. Ages 50-59 = 93 mL/min/1.73 sq.m. Ages 60-69 = 85 mL/min/1.73 sq.m. Ages 70+ = 75 mL/min/1.73 sq.m. Chronic Kidney Disease: Less than 60 mL/min/1.73 square meters End Stage Renal Disease: Less than 15 mL/min/1.73 square meters Performed By: #### B MP, ADIFF, ANEU, CBC, GFR #### [address] [address] GFR 115 ml/min/1.73sqm Normal [facility] ([place]) Comment on above: Result Comment: GFR Population mean for , Non- Americans Ages 20-29 = 116 mL/min/1.73 sq.m. Ages 30-39 = 107 mL/min/1.73 sq.m. Ages 40-49 = 99 mL/min/1.73 sq.m. Ages 50-59 = 93 mL/min/1.73 sq.m. Ages 60-69 = 85 mL/min/1.73 sq.m. Ages 70+ = 75 mL/min/1.73 sq.m. Chronic Kidney Disease: Less than 60 mL/min/1.73 square meters End Stage Renal Disease: Less than 15 mL/min/1.73 square meters Performed By: #### B MP, ADIFF, ANEU, CBC, GFR #### [address] [address] .NEUABSon 04-15-2023 Neutrophil, Absolute 2.8 10 3/mcL Low 2.9-6.2 [facility] ([place] Comment on above: Performed By: #### B MP, ADIFF, ANEU, CBC, GFR #### [address] [address] BMPon 04-15-2023 BUN/Creatinine Ratio 20 ratio Normal 7-27 [facility] ([place]) Comment on above: Performed By: #### B MP, ADIFF, ANEU, CBC, GFR #### [address] [address] Calcium [Mass/Vol] 8.8 mg/dL Normal 8.4-10.2 [facility] ([place]) Comment on above: Performed By: #### B MP, ADIFF, ANEU, CBC, GFR #### [address] [address] Chloride [Moles/Vol] 98 mmol/L Normal 98-107 [facility] ([place]) Comment on above: Performed By: #### B MP, ADIFF, ANEU, CBC, GFR #### [address] [address] CO2 [Moles/Vol] 28 mmol/L Normal 23-31 [facility] ([place]) Comment on above: Performed By: #### B MP, ADIFF, ANEU, CBC, GFR #### [address] [address] Creatinine [Mass/Vol] 0.81 mg/dL Normal 0.70-1.30 [facility] ([place]) Comment on above: Performed By: #### B MP, ADIFF, ANEU, CBC, GFR #### [address] [address] Electrolyte Balance 9.0 mEq/L Normal 4.0-15.0 [facility] ([place]) Comment on above: Performed By: #### B MP, ADIFF, ANEU, CBC, GFR #### [address] [address] Glucose [Mass/Vol] 97 mg/dL Normal 80-115 [facility] ([place]) Comment on above: Performed By: #### B MP, ADIFF, ANEU, CBC, GFR #### [address] [address] Potassium [Moles/Vol] 4.3 mmol/L Normal 3.5-5.1 [facility] ([place]) Comment on above: Performed By: #### B MP, ADIFF, ANEU, CBC, GFR #### [address] [address] Sodium [Moles/Vol] 135 mmol/L Low 136-145 [facility] ([place]) Comment on above: Performed By: #### B MP, ADIFF, ANEU, CBC, GFR #### [address] [address] Urea nitrogen [Mass/Vol] 16 mg/dL Normal 7-18 [facility] ([place]) Comment on above: Performed By: #### B MP, ADIFF, ANEU, CBC, GFR #### [address] [address] CBCon 04-15-2023 Erythrocyte distribution width (RBC) [Ratio] 13.2 % Normal 11.5-14.5 [facility] ([place]) Comment on above: Order Comment: Pre-A dmission Testing Performed By: #### B MP, ADIFF, ANEU, CBC, GFR #### [address] [address] Hematocrit (Bld) [Volume fraction] 39.7 % Low 42.0-52.0 [facility] ([place]) Comment on above: Order Comment: Pre-A dmission Testing Performed By: #### B MP, ADIFF, ANEU, CBC, GFR #### [address] [address] Hgb 13.9 G/dL Low 14.0-18.0 [facility] ([place]) Comment on above: Order Comment: Pre-A dmission Testing Performed By: #### B MP, ADIFF, ANEU, CBC, GFR #### [address] [address] MCH (RBC) [Entitic mass] 31.7 pg High 27.0-31.2 [facility] ([place]) Comment on above: Order Comment: Pre-A dmission Testing Performed By: #### B MP, ADIFF, ANEU, CBC, GFR #### [address] [address] MCHC 34.9 G/dL Normal 31.8-35.4 [facility] ([place]) Comment on above: Order Comment: Pre-A dmission Testing Performed By: #### B MP, ADIFF, ANEU, CBC, GFR #### [address] [address] MCV (RBC) [Entitic vol] 90.7 fL Normal 80.0-94.0 [facility] ([place]) Comment on above: Order Comment: Pre-A dmission Testing Performed By: #### B MP, ADIFF, ANEU, CBC, GFR #### [address] [address] Platelet 208 10 3/mcL Normal 130-400 [facility] ([place] Comment on above: Order Comment: Pre-A dmission Testing Performed By: #### B MP, ADIFF, ANEU, CBC, GFR #### [address] [address] Platelet mean volume (Bld) [Entitic vol] 7.9 fL Normal 7.4-10.4 [facility] ([place]) Comment on above: Order Comment: Pre-A dmission Testing Performed By: #### B MP, ADIFF, ANEU, CBC, GFR #### [facility] [address] [address] RBC 4.38 10 6/mcL Normal 4.04-6.13 [facility] ([place] Comment on above: Order Comment: Pre-A dmission Testing Performed By: #### B MP, ADIFF, ANEU, CBC, GFR #### [facility] [address] [address] WBC 5.3 10 3/mcL Normal 4.6-10.8 [facility] ([place] Comment on above: Order Comment: Pre-A dmission Testing Performed By: #### B MP, ADIFF, ANEU, CBC, GFR #### [facility] [address] [address] LABORATORYOrdered By: SYSTEM SYSTEM on 04-15-2023 Basophil, Absolute 0.0 103/mcL Invalid Interpretation Code 0.0 - 0.2 10^3/mcL AO Workflow SS Basophils/100 WBC (Bld) 0.9 % Invalid Interpretation Code 0.0 - 2.5 % AO Workflow SS Calcium [Mass/Vol] 8.8 mg/dL Invalid Interpretation Code 8.4 - 10.2 mg/dL AO ADM SS Chloride [Moles/Vol] 98 mmol/L Invalid Interpretation Code 98 - 107 mmol/L AO ADM SS CO2 [Moles/Vol] 28 mmol/L Invalid Interpretation Code 23 - 31 mmol/L AO ADM SS Creatinine [Mass/Vol] 0.81 mg/dL Invalid Interpretation Code 0.70 - 1.30 mg/dL AO ADM SS Electrolyte Balance 9.0 mEq/L Invalid Interpretation Code 4.0 - 15.0 mEq/L AO ADM SS Eosinophil, Absolute 0.3 103/mcL Invalid Interpretation Code 0.0 - 0.4 10^3/mcL AO Workflow SS Eosinophils/100 WBC (Bld) 4.8 % Invalid Interpretation Code 0.0 - 7.0 % AO Workflow SS Erythrocyte distribution width (RBC) [Ratio] 13.2 % Invalid Interpretation Code 11.5 - 14.5 % AO Workflow SS GFR/1.73 sq M.predicted among blacks MDRD (S/P/Bld) [Vol rate/Area] 115 ml/min/1.73sqm Invalid Interpretation Code AO Chemistry S Comment on above: Interpretive Data: GFR Population mean for , Non- Americans Ages 20-29 = 116 mL/min/1.73 sq.m. Ages 30-39 = 107 mL/min/1.73 sq.m. Ages 40-49 = 99 mL/min/1.73 sq.m. Ages 50-59 = 93 mL/min/1.73 sq.m. Ages 60-69 = 85 mL/min/1.73 sq.m. Ages 70+ = 75 mL/min/1.73 sq.m. Chronic Kidney Disease: Less than 60 mL/min/1.73 square meters End Stage Renal Disease: Less than 15 mL/min/1.73 square meters GFR/1.73 sq M.predicted among non-blacks MDRD (S/P/Bld) [Vol rate/Area] 95 ml/min/1.73sqm Invalid Interpretation Code AO Chemistry S Comment on above: Interpretive Data: GFR Population mean for , Non- Americans Ages 20-29 = 116 mL/min/1.73 sq.m. Ages 30-39 = 107 mL/min/1.73 sq.m. Ages 40-49 = 99 mL/min/1.73 sq.m. Ages 50-59 = 93 mL/min/1.73 sq.m. Ages 60-69 = 85 mL/min/1.73 sq.m. Ages 70+ = 75 mL/min/1.73 sq.m. Chronic Kidney Disease: Less than 60 mL/min/1.73 square meters End Stage Renal Disease: Less than 15 mL/min/1.73 square meters Glucose [Mass/Vol] 97 mg/dL Invalid Interpretation Code 80 - 115 mg/dL AO ADM SS Hematocrit (Bld) [Volume fraction] 39.7 % Invalid Interpretation Code 42.0 - 52.0 % AO Workflow SS Hemoglobin (Bld) [Mass/Vol] 13.9 G/dL Invalid Interpretation Code 14.0 - 18.0 G/dL AO Workflow SS Lymphocyte, Absolute 1.7 103/mcL Invalid Interpretation Code 0.8 - 3.9 10^3/mcL AO Workflow SS Lymphocytes/100 WBC (Bld) 32.3 % Invalid Interpretation Code 10.0 - 50.0 % AO Workflow SS MCH (RBC) [Entitic mass] 31.7 pg Invalid Interpretation Code 27.0 - 31.2 pg AO Workflow SS MCHC 34.9 G/dL Invalid Interpretation Code 31.8 - 35.4 G/dL AO Workflow SS MCV (RBC) [Entitic vol] 90.7 fL Invalid Interpretation Code 80.0 - 94.0 fL AO Workflow SS Monocyte, Absolute 0.5 103/mcL Invalid Interpretation Code 0.2 - 1.0 10^3/mcL AO Workflow SS Monocytes/100 WBC (Bld) 9.8 % Invalid Interpretation Code 1.7 - 13.0 % AO Workflow SS Neutrophil, Absolute 2.8 103/mcL Invalid Interpretation Code 2.9 - 6.2 10^3/mcL AO Workflow SS Neutrophils/100 WBC (Bld) 52.2 % Invalid Interpretation Code 37.0 - 80.0 % AO Workflow SS Platelet mean volume (Bld) [Entitic vol] 7.9 fL Invalid Interpretation Code 7.4 - 10.4 fL AO Workflow SS Platelets (Bld) [#/Vol] 208 103/mcL Invalid Interpretation Code 130 - 400 10^3/mcL AO Workflow SS Potassium [Moles/Vol] 4.3 mmol/L Invalid Interpretation Code 3.5 - 5.1 mmol/L AO ADM SS RBC (Bld) [#/Vol] 4.38 106/mcL Invalid Interpretation Code 4.04 - 6.13 10^6/mcL AO Workflow SS Sodium [Moles/Vol] 135 mmol/L Invalid Interpretation Code 136 - 145 mmol/L AO ADM SS Urea nitrogen [Mass/Vol] 16 mg/dL Invalid Interpretation Code 7 - 18 mg/dL AO ADM SS Urea nitrogen/Creatinine [Mass ratio] 20 ratio Invalid Interpretation Code 7 - 27 ratio AO ADM SS WBC (Bld) [#/Vol] 5.3 103/mcL Invalid Interpretation Code 4.6 - 10.8 10^3/mcL AO Workflow SS LABORATORYOrdered By: Rashmi Kasper on 01-12-2023 Albumin DL <= 20 mg/L (U) [Mass/Vol] 582 mcg/dL Invalid Interpretation Code AO ADM SS Albumin/Creatinine DL <= 20 mg/L (U) [Mass ratio] 6 mcg/mg Invalid Interpretation Code 0 - 30 mcg/mg AO ADM SS Creatinine (U) [Mass/Vol] 97.1 mg/dL Invalid Interpretation Code 39.0 - 259.0 mg/dL AO ADM SS Cholesterol [Mass/Vol] 147 mg/dL Invalid Interpretation Code 0 - 200 mg/dL AO ADM SS Comment on above: Interpretive Data: C holesterol Reference Interval: Less than 200 Desirable 200-239 Borderline high risk 240 and above High risk Cholesterol in HDL [Mass/Vol] 52 mg/dL Invalid Interpretation Code 40 - 60 mg/dL AO ADM SS Cholesterol in LDL [Mass/Vol] 74 mg/dL Invalid Interpretation Code 0 - 130 mg/dL AO ADM SS Triglyceride [Mass/Vol] 103 mg/dL Invalid Interpretation Code 0 - 150 mg/dL AO ADM SS Comment on above: Interpretive Data: T riglyceride Reference Interval: Less than 150 Normal 150-199 Borderline high risk 200-499 High risk 500 or higher Very high risk LABORATORYOrdered By: SYSTEM SYSTEM on 01-12-2023 Basophil, Absolute 0.0 103/mcL Invalid Interpretation Code 0.0 - 0.2 10^3/mcL AO Workflow SS Basophils/100 WBC (Bld) 0.6 % Invalid Interpretation Code 0.0 - 2.5 % AO Workflow SS Eosinophil, Absolute 0.3 103/mcL Invalid Interpretation Code 0.0 - 0.4 10^3/mcL AO Workflow SS Eosinophils/100 WBC (Bld) 3.8 % Invalid Interpretation Code 0.0 - 7.0 % AO Workflow SS Erythrocyte distribution width (RBC) [Ratio] 13.8 % Invalid Interpretation Code 11.5 - 14.5 % AO Workflow SS HbA1c (Bld) [Mass fraction] 6.0 % Invalid Interpretation Code 4.3 - 6.4 % AO ADM SS Hematocrit (Bld) [Volume fraction] 44.6 % Invalid Interpretation Code 42.0 - 52.0 % AO Workflow SS Hemoglobin (Bld) [Mass/Vol] 15.3 G/dL Invalid Interpretation Code 14.0 - 18.0 G/dL AO Workflow SS Lymphocyte, Absolute 2.2 103/mcL Invalid Interpretation Code 0.8 - 3.9 10^3/mcL AO Workflow SS Lymphocytes/100 WBC (Bld) 28.8 % Invalid Interpretation Code 10.0 - 50.0 % AO Workflow SS MCH (RBC) [Entitic mass] 31.5 pg Invalid Interpretation Code 27.0 - 31.2 pg AO Workflow SS MCHC 34.2 G/dL Invalid Interpretation Code 31.8 - 35.4 G/dL AO Workflow SS MCV (RBC) [Entitic vol] 91.9 fL Invalid Interpretation Code 80.0 - 94.0 fL AO Workflow SS Monocyte, Absolute 0.7 103/mcL Invalid Interpretation Code 0.2 - 1.0 10^3/mcL AO Workflow SS Monocytes/100 WBC (Bld) 9.8 % Invalid Interpretation Code 1.7 - 13.0 % AO Workflow SS Neutrophil, Absolute 4.3 103/mcL Invalid Interpretation Code 2.9 - 6.2 10^3/mcL AO Workflow SS Neutrophils/100 WBC (Bld) 57.0 % Invalid Interpretation Code 37.0 - 80.0 % AO Workflow SS Platelet mean volume (Bld) [Entitic vol] 9.1 fL Invalid Interpretation Code 7.4 - 10.4 fL AO Workflow SS Platelets (Bld) [#/Vol] 201 103/mcL Invalid Interpretation Code 130 - 400 10^3/mcL AO Workflow SS RBC (Bld) [#/Vol] 4.85 106/mcL Invalid Interpretation Code 4.04 - 6.13 10^6/mcL AO Workflow SS TSH Qn 1.37 m[IU]/L Invalid Interpretation Code 0.36 - 3.74 mcIU/mL AO ADM SS Urea nitrogen [Mass/Vol] 13 mg/dL Invalid Interpretation Code 7 - 18 mg/dL AO ADM SS WBC (Bld) [#/Vol] 7.5 103/mcL Invalid Interpretation Code 4.6 - 10.8 10^3/mcL AO Workflow SS LABORATORYOrdered By: Gee Alvares on 10-04-2022 Albumin DL <= 20 mg/L (U) [Mass/Vol] 2226 mcg/dL Invalid Interpretation Code AO ADM SS Albumin/Creatinine DL <= 20 mg/L (U) [Mass ratio] 19 mcg/mg Invalid Interpretation Code 0 - 30 mcg/mg AO ADM SS Creatinine (U) [Mass/Vol] 114.6 mg/dL Invalid Interpretation Code 39.0 - 259.0 mg/dL AO ADM SS Cholesterol [Mass/Vol] 155 mg/dL Invalid Interpretation Code 0 - 200 mg/dL AO ADM SS Cholesterol in HDL [Mass/Vol] 53 mg/dL Invalid Interpretation Code 40 - 60 mg/dL AO ADM SS Cholesterol in LDL [Mass/Vol] 79 mg/dL Invalid Interpretation Code 0 - 130 mg/dL AO ADM SS Triglyceride [Mass/Vol] 115 mg/dL Invalid Interpretation Code 0 - 150 mg/dL AO ADM SS LABORATORYOrdered By: Chely Ornelas on 10-04-2022 Ketones Ql (U) Trace mg/dL Invalid Interpretation Code Neg-Tracemg /dL AH Auto Urine SS LABORATORYOrdered By: SYSTEM SYSTEM on 10-04-2022 Albumin BCP dye [Mass/Vol] 4.0 G/dL Invalid Interpretation Code 3.4 - 4.8 G/dL AO ADM SS Albumin/Globulin [Mass ratio] 1.2 {ratio} Invalid Interpretation Code 1.1 - 2.5 ratio AO ADM SS ALP [Catalytic activity/Vol] 130 U/L Invalid Interpretation Code 40 - 135 U/L AO ADM SS ALT With P-5'-P [Catalytic activity/Vol] 29 U/L Invalid Interpretation Code 16 - 63 U/L AO ADM SS AST With P-5'-P [Catalytic activity/Vol] 23 U/L Invalid Interpretation Code 10 - 40 U/L AO ADM SS Bilirubin [Mass/Vol] 0.5 mg/dL Invalid Interpretation Code 0.2 - 1.0 mg/dL AO ADM SS Calcium [Mass/Vol] 9.6 mg/dL Invalid Interpretation Code 8.4 - 10.2 mg/dL AO ADM SS Chloride [Moles/Vol] 98 mmol/L Invalid Interpretation Code 98 - 107 mmol/L AO ADM SS CO2 [Moles/Vol] 26 mmol/L Invalid Interpretation Code 23 - 31 mmol/L AO ADM SS Creatinine [Mass/Vol] 0.92 mg/dL Invalid Interpretation Code 0.70 - 1.30 mg/dL AO ADM SS Electrolyte Balance 11.0 mEq/L Invalid Interpretation Code 4.0 - 15.0 mEq/L AO ADM SS GFR/1.73 sq M.predicted among blacks MDRD (S/P/Bld) [Vol rate/Area] 100 ml/min/1.73sqm Invalid Interpretation Code AO Chemistry S GFR/1.73 sq M.predicted among non-blacks MDRD (S/P/Bld) [Vol rate/Area] 82 ml/min/1.73sqm Invalid Interpretation Code AO Chemistry S Globulin 3.4 G/dL Invalid Interpretation Code AO ADM SS Glucose [Mass/Vol] 266 mg/dL Invalid Interpretation Code 80 - 115 mg/dL AO ADM SS HbA1c (Bld) [Mass fraction] 11.4 % Invalid Interpretation Code 4.3 - 6.4 % AO ADM SS Potassium [Moles/Vol] 4.7 mmol/L Invalid Interpretation Code 3.5 - 5.1 mmol/L AO ADM SS Prostate specific Ag [Mass/Vol] 2.05 ng/mL Invalid Interpretation Code 0.00 - 4.00 ng/mL AO ADM SS Protein [Mass/Vol] 7.4 G/dL Invalid Interpretation Code 6.4 - 8.2 G/dL AO ADM SS Sodium [Moles/Vol] 135 mmol/L Invalid Interpretation Code 136 - 145 mmol/L AO ADM SS TSH Qn 1.02 m[IU]/L Invalid Interpretation Code 0.36 - 3.74 mcIU/mL AO ADM SS Urea nitrogen [Mass/Vol] 11 mg/dL Invalid Interpretation Code 7 - 18 mg/dL AO ADM SS Urea nitrogen/Creatinine [Mass ratio] 12 ratio Invalid Interpretation Code 7 - 27 ratio AO ADM SS LABORATORYOrdered By: John Paul Sanchez on 10-04-2022 Basophil, Absolute 0.1 103/mcL Invalid Interpretation Code 0.0 - 0.2 10^3/mcL AO Workflow SS Basophils/100 WBC (Bld) 0.7 % Invalid Interpretation Code 0.0 - 2.5 % AO Workflow SS Eosinophil, Absolute 0.2 103/mcL Invalid Interpretation Code 0.0 - 0.4 10^3/mcL AO Workflow SS Eosinophils/100 WBC (Bld) 2.7 % Invalid Interpretation Code 0.0 - 7.0 % AO Workflow SS Erythrocyte distribution width (RBC) [Ratio] 13.6 % Invalid Interpretation Code 11.5 - 14.5 % AO Workflow SS Hematocrit (Bld) [Volume fraction] 45.4 % Invalid Interpretation Code 42.0 - 52.0 % AO Workflow SS Hemoglobin (Bld) [Mass/Vol] 16.0 G/dL Invalid Interpretation Code 14.0 - 18.0 G/dL AO Workflow SS Lymphocyte, Absolute 1.8 103/mcL Invalid Interpretation Code 0.8 - 3.9 10^3/mcL AO Workflow SS Lymphocytes/100 WBC (Bld) 22.6 % Invalid Interpretation Code 10.0 - 50.0 % AO Workflow SS MCH (RBC) [Entitic mass] 31.7 pg Invalid Interpretation Code 27.0 - 31.2 pg AO Workflow SS MCHC 35.3 G/dL Invalid Interpretation Code 31.8 - 35.4 G/dL AO Workflow SS MCV (RBC) [Entitic vol] 89.8 fL Invalid Interpretation Code 80.0 - 94.0 fL AO Workflow SS Monocyte, Absolute 0.8 103/mcL Invalid Interpretation Code 0.2 - 1.0 10^3/mcL AO Workflow SS Monocytes/100 WBC (Bld) 9.4 % Invalid Interpretation Code 1.7 - 13.0 % AO Workflow SS Neutrophil, Absolute 5.2 103/mcL Invalid Interpretation Code 2.9 - 6.2 10^3/mcL AO Workflow SS Neutrophils/100 WBC (Bld) 64.6 % Invalid Interpretation Code 37.0 - 80.0 % AO Workflow SS Platelet mean volume (Bld) [Entitic vol] 9.5 fL Invalid Interpretation Code 7.4 - 10.4 fL AO Workflow SS Platelets (Bld) [#/Vol] 190 103/mcL Invalid Interpretation Code 130 - 400 10^3/mcL AO Workflow SS RBC (Bld) [#/Vol] 5.05 106/mcL Invalid Interpretation Code 4.04 - 6.13 10^6/mcL AO Workflow SS WBC (Bld) [#/Vol] 8.0 103/mcL Invalid Interpretation Code 4.6 - 10.8 10^3/mcL AO Workflow SS LABORATORYOrdered By: Angelic Kyle on 09-23-2021 Albumin BCP dye [Mass/Vol] 3.9 G/dL Invalid Interpretation Code 3.4 - 4.8 G/dL AO ADM SS Albumin DL <= 20 mg/L (U) [Mass/Vol] 581 mcg/dL Invalid Interpretation Code AO ADM SS Albumin/Creatinine DL <= 20 mg/L (U) [Mass ratio] 5 mcg/mg Invalid Interpretation Code 0 - 30 mcg/mg AO ADM SS Albumin/Globulin [Mass ratio] 1.1 {ratio} Invalid Interpretation Code 1.1 - 2.5 ratio AO ADM SS ALP [Catalytic activity/Vol] 92 U/L Invalid Interpretation Code 40 - 135 U/L AO ADM SS ALT With P-5'-P [Catalytic activity/Vol] 57 U/L Invalid Interpretation Code 16 - 63 U/L AO ADM SS AST With P-5'-P [Catalytic activity/Vol] 25 U/L Invalid Interpretation Code 10 - 40 U/L AO ADM SS Basophil, Absolute 0.10 103/mcL Invalid Interpretation Code 0.00 - 0.19 10^3/mcL AO Auto Heme SS Basophils/100 WBC (Bld) 1.0 % Invalid Interpretation Code 0.0 - 2.5 % AO Auto Heme SS Bilirubin [Mass/Vol] 0.4 mg/dL Invalid Interpretation Code 0.2 - 1.0 mg/dL AO ADM SS C-Reactive Protein mg/dL Invalid Interpretation Code 0.0 - 0.9 mg/dL AO Chemistry S Calcium [Mass/Vol] 9.5 mg/dL Invalid Interpretation Code 8.4 - 10.2 mg/dL AO ADM SS Chloride [Moles/Vol] 103 mmol/L Invalid Interpretation Code 98 - 107 mmol/L AO ADM SS Cholesterol [Mass/Vol] 169 mg/dL Invalid Interpretation Code 0 - 200 mg/dL AO ADM SS Cholesterol in HDL [Mass/Vol] 48 mg/dL Invalid Interpretation Code 40 - 60 mg/dL AO ADM SS Cholesterol in LDL [Mass/Vol] 89 mg/dL Invalid Interpretation Code 0 - 130 mg/dL AO ADM SS CO2 [Moles/Vol] 28 mmol/L Invalid Interpretation Code 23 - 31 mmol/L AO ADM SS Creatinine (U) [Mass/Vol] 114.2 mg/dL Invalid Interpretation Code 39.0 - 259.0 mg/dL AO ADM SS Creatinine [Mass/Vol] 0.91 mg/dL Invalid Interpretation Code 0.70 - 1.30 mg/dL AO ADM SS Electrolyte Balance 8.0 mEq/L Invalid Interpretation Code 4.0 - 15.0 mEq/L AO ADM SS Eosinophil, Absolute 0.30 103/mcL Invalid Interpretation Code 0.00 - 0.40 10^3/mcL AO Auto Heme SS Eosinophils/100 WBC (Bld) 3.6 % Invalid Interpretation Code 0.0 - 7.0 % AO Auto Heme SS Erythrocyte distribution width (RBC) [Ratio] 13.2 % Invalid Interpretation Code 11.5 - 14.5 % AO Auto Heme SS Globulin 3.4 G/dL Invalid Interpretation Code AO ADM SS Glucose [Mass/Vol] 147 mg/dL Invalid Interpretation Code 80 - 115 mg/dL AO ADM SS HbA1c (Bld) [Mass fraction] 7.1 % Invalid Interpretation Code 4.3 - 6.4 % AO ADM SS Hematocrit (Bld) [Volume fraction] 41.7 % Invalid Interpretation Code 42.0 - 52.0 % AO Auto Heme SS Hemoglobin (Bld) [Mass/Vol] 14.8 G/dL Invalid Interpretation Code 14.0 - 18.0 G/dL AO Auto Heme SS Lymphocyte, Absolute 2.30 103/mcL Invalid Interpretation Code 0.77 - 3.85 10^3/mcL AO Auto Heme SS Lymphocytes/100 WBC (Bld) 32.4 % Invalid Interpretation Code 10.0 - 50.0 % AO Auto Heme SS MCH (RBC) [Entitic mass] 31.8 pg Invalid Interpretation Code 27.0 - 31.2 pg AO Auto Heme SS MCHC (RBC) [Mass/Vol] 35.5 G/dL Invalid Interpretation Code 31.8 - 35.4 G/dL AO Auto Heme SS MCV (RBC) [Entitic vol] 89.6 fL Invalid Interpretation Code 80.0 - 94.0 fL AO Auto Heme SS Monocyte, Absolute 0.90 103/mcL Invalid Interpretation Code 0.15 - 1.00 10^3/mcL AO Auto Heme SS Monocytes/100 WBC (Bld) 12.2 % Invalid Interpretation Code 1.7 - 13.0 % AO Auto Heme SS Neutrophil, Absolute 3.60 103/mcL Invalid Interpretation Code 2.85 - 6.16 10^3/mcL AO Auto Heme SS Neutrophils/100 WBC (Bld) 50.8 % Invalid Interpretation Code 37.0 - 80.0 % AO Auto Heme SS Platelet mean volume (Bld) [Entitic vol] 9.1 fL Invalid Interpretation Code 7.4 - 10.4 fL AO Auto Heme SS Platelets (Bld) [#/Vol] 220 103/mcL Invalid Interpretation Code 130 - 400 10^3/mcL AO Auto Heme SS Potassium [Moles/Vol] 4.4 mmol/L Invalid Interpretation Code 3.5 - 5.1 mmol/L AO ADM SS Prostate specific Ag [Mass/Vol] 2.20 ng/mL Invalid Interpretation Code 0.00 - 4.00 ng/mL AO ADM SS Protein [Mass/Vol] 7.3 G/dL Invalid Interpretation Code 6.4 - 8.2 G/dL AO ADM SS RBC (Bld) [#/Vol] 4.65 106/mcL Invalid Interpretation Code 4.04 - 6.13 10^6/mcL AO Auto Heme SS Sodium [Moles/Vol] 139 mmol/L Invalid Interpretation Code 136 - 145 mmol/L AO ADM SS Triglyceride [Mass/Vol] 160 mg/dL Invalid Interpretation Code 0 - 150 mg/dL AO ADM SS TSH Qn 1.19 m[IU]/L Invalid Interpretation Code 0.36 - 3.74 mcIU/mL AO ADM SS Urea nitrogen [Mass/Vol] 21 mg/dL Invalid Interpretation Code 7 - 18 mg/dL AO ADM SS Urea nitrogen/Creatinine [Mass ratio] 23 ratio Invalid Interpretation Code 7 - 27 ratio AO ADM SS WBC (Bld) [#/Vol] 7.10 103/mcL Invalid Interpretation Code 4.60 - 10.80 10^3/mcL AO Auto Heme SS LABORATORYOrdered By: Sonali León on 09-23-2021 ESR 15 minute reading (Bld) [Velocity] 9 mm/hr Invalid Interpretation Code 0 - 20 mm/hr AO Man Heme SS LABORATORYOrdered By: SYSTEM SYSTEM on 09-23-2021 GFR 101 ml/min/1.73sqm Invalid Interpretation Code AO Chemistry S GFR Non- 84 ml/min/1.73sqm Invalid Interpretation Code AO Chemistry S LABORATORYOrdered By: Chely Bolton on 09-23-2021 Hep C Ab Non-Reactive (09/23/21 7:25 AM) Invalid Interpretation Code Non-Reactiv e AH ADM SS Hep C Ab Int Nonreactive: Samples with a value < 0.80 are considered nonreactive (negative) for antibodies to HCV.A negative test result does not exclude the possibility of exposure to or infection with HCV. HCV antibodies may be undetectable in some stages of the infection and in some clinical conditions. Invalid Interpretation Code AH Chemistry S Vital Signs Date Time Vital Sign Value Performing Clinician Leah kwok 04-28-2023 12:58-0500 Diastolic Blood Pressure Non-Invasive 64 1 GEREMIAS VEGA MD [facility] 04-28-2023 12:58-0500 Heart rate 66 /min GEREMIAS VEGA MD [facility] 04-28-2023 12:58-0500 Respiratory rate 16 /min GEREMIAS VEGA MD [facility] 04-28-2023 12:58-0500 Systolic Blood Pressure Non-Invasive 110 1 GEREMIAS VEGA MD [facility] 04-28-2023 11:31-0500 Diastolic Blood Pressure Non-Invasive 56 1 GEREMIAS VEGA MD [facility] 04-28-2023 11:31-0500 Systolic Blood Pressure Non-Invasive 103 1 GEREMIAS VEGA MD [facility] 04-28-2023 11:30-0500 Diastolic Blood Pressure Non-Invasive 57 1 GEREMIAS VEGA MD [facility] 04-28-2023 11:30-0500 Heart rate 75 /min GEREMIAS VEGA MD [facility] 04-28-2023 11:30-0500 Respiratory rate 14 /min GEREMIAS VEGA MD [facility] 04-28-2023 11:30-0500 Systolic Blood Pressure Non-Invasive 97 1 GEREMIAS VEGA MD [facility] 04-28-2023 11:20-0500 Heart rate 57 /min GEREMIAS VEGA MD [facility] 04-28-2023 11:20-0500 Respiratory rate 12 /min GEREMIAS VEGA MD [facility] 04-28-2023 10:34-0500 Body temperature 97.16 [degF] GEREMIAS VEGA MD [facility] 04-28-2023 10:30-0500 Respiratory Rate - Anes 0 br/min GEREMIAS VEGA MD [facility] 04-28-2023 10:25-0500 Respiratory Rate - Anes 16 br/min GEREMIAS VEGA MD [facility] 04-28-2023 10:20-0500 Respiratory Rate - Anes 17 br/min GEREMIAS VEGA MD [facility] 04-28-2023 06:56-0500 Body temperature 97.88 [degF] GEREMIAS VEGA MD [facility] 04-28-2023 06:56-0500 Heart rate 76 /min GEREMIAS VEGA MD [facility] 04-28-2023 06:50-0500 Body height 175.3 cm GEREMIAS VEGA MD [facility] 04-28-2023 06:50-0500 Body weight 81.8 kg GEREMIAS VEGA MD [facility] 04-28-2023 06:50-0500 Body weight 26.62 kg/m2 GEREMIAS VEGA MD [facility] 04-15-2023 10:06-0400 Body height 175.3 cm GEREMIAS VEGA MD [facility] 04-15-2023 10:06-0400 Body weight 81.8 kg GEREMIAS VEGA MD [facility] 05-25-2021 10:40-0500 Diastolic Blood Pressure NBP [address] JHONY BIRD MD [facility] 05-25-2021 10:40-0500 Heart rate 78 /min DR JHONY BIRD MD [facility] 05-25-2021 10:40-0500 Respiratory rate 18 /min DR JHONY BIRD MD [facility] 05-25-2021 10:40-0500 Systolic Blood Pressure NBP [address] JHONY BIRD MD [facility] 05-25-2021 10:20-0500 Diastolic Blood Pressure NBP [address] JHONY BIRD MD [facility] 05-25-2021 10:20-0500 Heart rate 80 /min DR JHONY BIRD MD [facility] 05-25-2021 10:20-0500 Respiratory rate 18 /min DR JHONY BIRD MD [facility] 05-25-2021 10:20-0500 Systolic Blood Pressure NBP [address] JHONY BIRD MD [facility] 05-25-2021 10:16-0500 Diastolic Blood Pressure NBP [address] JHONY BIRD MD [facility] 05-25-2021 10:16-0500 Heart rate 81 /min DR JHONY BIRD MD [facility] 05-25-2021 10:16-0500 Respiratory rate 16 /min DR JHONY BIRD MD [facility] 05-25-2021 10:16-0500 Systolic Blood Pressure NBP [address] JHONY BIRD MD [facility] 05-25-2021 10:10-0500 Body temperature 97.7 [degF] DR JHONY BIRD MD [facility] 05-25-2021 08:17-0500 Body height 175.[address] JHONY BIRD MD [facility] 05-25-2021 08:17-0500 Body temperature 97.16 [degF] DR JHONY BIRD MD [facility] 05-25-2021 08:17-0500 Body weight 97.[address] JHONY BIRD MD [facility] 05-25-2021 08:17-0500 Heart rate 74 /min DR JHONY BIRD MD [facility] Encounters Encounter Date Encounter Type Care Provider Facility Start: 01-02-2025 End: 01-02-2025 ambulatory SHITAL MONTANA MD Facility:[facility] Start: 01-02-2025 End: 01-02-2025 Patient encounter procedure SHITAL MONTANA MD [facility] Start: 10-22-2024 End: 10-22-2024 ambulatory Sabi Anand Facility:[facility] Start: 09-28-2024 End: 09-28-[address] Sabi Anand DO Work Phone: [facility] Work Phone: Start: 09-28-2024 End: 09-28-[address] Blaze Mcmahon MD -Laboratory Work Phone: Start: 09-28-2024 End: 09-28-2024 ambulatory Blaze Mcmahon Facility:[facility] Start: 09-17-2024 End: 09-17-2024 ambulatory SHAGUFTA HUMMEL CREPE MACHINE OPERATOR-RADIOLOGY CLERK Facility:[facility] Start: 08-09-2024 End: 08-13-2024 ambulatory SABI ROBINSKO DO Facility:[facility] Start: 08-09-2024 End: 08-13-2024 Outreach Lab JUAN WHITMORE DO [facility] Start: 07-12-2024 End: 10-04-2024 ambulatory SABI HALKO DO Facility:[facility] Start: 06-22-2024 End: 06-22-2024 ambulatory SABI HALKO DO Facility:[facility] Start: 06-22-2024 End: 06-22-2024 Patient encounter procedure SABI ANAND DO [facility] Start: 05-01-2024 End: 05-01-2024 ambulatory [facility] Facility:[facility] Start: 04-05-2024 End: 04-05-2024 ambulatory [facility] Facility:[facility] Start: 03-27-2024 End: 03-27-2024 ambulatory SABI ROBINSKO Facility:[facility] Start: 03-27-2024 End: 03-27-2024 Patient encounter procedure LILIANA LARSON MD [facility] Start: 03-09-2024 ambulatory LILIANA LARSON MD Faci lity:A Start: 02-15-2024 ambulatory LILIANA LARSON MD Faci lity:A Start: 11-08-2023 End: 11-08-2023 ambulatory Sabi Anand Facility:[facility] Start: 11-01-2023 End: 11-01-2023 ambulatory [facility] Facility:[facility] Start: 08-09-2023 ambulatory SABI ANAND DO Facili ty:A Start: 07-18-2023 End: 07-18-2023 ambulatory SHITAL MONTANA MD Facility:[facility] Start: 07-18-2023 End: 07-18-2023 Patient encounter procedure SHITAL MONTANA MD [facility] Start: 07-08-2023 ambulatory SABI ANAND DO Facili ty:[facility] Start: 07-07-2023 ambulatory SABI HALKO DO Facili ty:A Start: 06-29-2023 End: 06-29-2023 ambulatory SABI ANAND DO Facility:[facility] Start: 06-29-2023 End: 06-29-2023 Patient encounter procedure SABI ROBINSKO DO [facility] Start: 06-03-2023 End: 06-03-2023 ambulatory SABI ANAND DO Facility:[facility] Start: 06-03-2023 End: 06-03-2023 Patient encounter procedure SABI ROBINSKO DO [facility] Start: 04-28-2023 End: 04-28-2023 ambulatory GEREMIAS VEGA MD Facility:[facility] Start: 04-28-2023 End: 04-28-2023 SAME DAY STAY GEREMIAS VEGA MD [facility] Start: 04-15-2023 End: 04-15-2023 Admission to establishment GEREMIAS VEGA MD [facility] Start: 04-15-2023 End: 04-15-2023 ambulatory GEREMIAS VEGA MD Facility:[facility] Start: 01-12-2023 End: 01-12-2023 Patient encounter procedure SABI ANAND DO [facility] Start: 10-05-2022 End: 10-05-2022 Patient encounter procedure JOAQUIM DENISE-Dougie [facility] Start: 10-04-2022 End: 10-04-2022 Patient encounter procedure JOAQUIM GARCIA PA-C [facility] Start: 10-20-2021 End: 10-20-2021 Patient encounter procedure ELVI PALMA MD [facility] Start: 09-23-2021 End: 09-23-2021 Patient encounter procedure SABI ANAND DO [facility] Start: 05-25-2021 End: 05-25-[address] JHONY BIRD MD [facility] Procedures Date Procedure Procedure Detail Performing Clinician Start: 04-28-2023 Bilateral inguinal h ernia (disorder) SABI SHIMONJEREMIAH DO Start: 06-20-[address] JHONY BIRD MD Comment on above: Bilateral Excision of pilonidal sinus DR JHONY BIRD MD Manipulation of disp laced nasal septum DR JHONY BIRD MD Tonsillectomy DR JHONY WAYNE MD Immunizations Immunization Date Immunization Notes Care Provider Papo gibson 04-11-2024 influenza, high dose seasonal, preservative-free; Translations: [Afluria PF Prefilled Syringe ] SABI ANAND DO [facility] 06-28-2023 influenza, high dose seasonal, preservative-free; Translations: [Fluad Quadrivalent PF ] SABI ANAND DO [facility] 04-06-2023 Pneumococcal conjuga te PCV20, polysaccharide [id number] conjugate, adjuvant, PF; Translations: [Prevnar 20] GEREMIAS VEGA MD [facility] 03-28-2023 influenza, high dose seasonal, preservative-free; Translations: [Fluad Quadrivalent PF ] GEREMIAS VEGA MD [facility] 08-23-2022 tetanus toxoid, redu [place] diphtheria toxoid, and acellular pertussis vaccine, adsorbed JOAQUIM VACCARELLI PA-C [facility] 04-20-2022 SARS-CoV-2 (CV19)mRNA-1273 bivalent vac SABI ANAND DO [facility] 04-20-2022 SARSCoV2 (CV19)mRNA-1273(6y+ bival bobbi JOAQUIM VACCARELLI PA-C [facility] 03-30-2022 influenza, high dose seasonal, preservative-free [facility] VACCARELLI PA-C [facility] 03-30-2022 pneumococcal polysaccharide vaccine, 23 valent; Translations: [Pneumovax 23] JOAQUIM VACCARELLI PA-C [facility] 07-08-2021 SARS-CoV-2 mRNA (tozinameran) vaccine SABI ANAND DO [facility] Comment on above: Result Comment: [facility] 03-24-2021 influenza, high dose seasonal, preservative-free; Translations: [Fluad Quadrivalent PF ] DR JHONY BIRD MD [facility] 12-17-[address] JHONY BIRD MD [facility] Comment on above: Result Comment: [facility] 09-23-2020 SARS-CoV-2 mRNA (tozinameran) vaccine DR JHONY BRID MD [facility] Comment on above: Result Comment: [facility] 09-02-2020 SARS-CoV-2 mRNA (tozinameran) vaccine DR JHONY BIRD MD [facility] Comment on above: Result Comment: [facility] 06-19-[address] JHONY BIRD MD [facility] Comment on above: [facility] influenza virus vaccine, unspecified formulation DR JHONY BIRD MD [facility] Comment on above: Result Comment: [facility] 04-05-2019 influenza virus vaccine, unspecified formulation DR JHONY BIRD MD [facility] 06-01-2018 influenza virus vaccine, unspecified formulation JOAQUIM VACCARELLI PA-C [facility] 04-03-[address] Sabi Anand DO Work Phone: [facility] 03-28-2017 influenza virus vaccine, unspecified formulation JOAQUIM VACCARELLI PA-C [facility] 07-01-2016 influenza virus vaccine, unspecified formulation JOAQUIM VACCARELLI PA-C [facility] 06-27-2015 influenza virus vaccine, unspecified formulation JOAQUIM VACCARELLI PA-C [facility] Payers Date Payer Category Payer Self-pay 2022 Private Health Insurance [id number] 2022 Unknown [id number] 2022 Unknown [id number] 1955 Unknown [id number] 2.16.840.1.157184.3.579.2. 1955 Unknown [id number] 2.16.840.1.026974.3.579.2. 1955 Unknown [id number] 2.16.840.1.088782.3.579.2. 1955 Unknown [id number] 2.16.840.1.629718.3.579.2. 1955 Unknown [id number] 2.16.840.1.367869.3.579.2. 1955 Unknown [id number] 2.16.840.1.532830.3.579.2. 1955 Unknown [id number] 2.16.840.1.097644.3.579.2. 1955 Unknown [id number] 2.16.840.1.491803.3.579.2. 1955 Unknown [id number] 2.16.840.1.973665.3.579.2. 1955 Unknown [id number] 2.16.840.1.486552.3.579.2. 1955 Unknown [id number] 2.16.840.1.388734.3.579.2 1955 Unknown [id number] 2.16.840.1.522276.3.579.2 1955 Unknown [id number] 2.16.840.1.354230.3.579.2.627 1955 Unknown [id number] 2.16.840.1.482909.3.579.2.627 1955 Unknown [id number] 2.16.840.1.092860.3.579.2.627 1955 Unknown [id number] 2.16.840.1.625631.3.579.2.627 Self-pay SELF PAY INSURANCE [id number] Unknown JACOB [id number] Unknown [id number] 2.16.840.1.003452.3.579.2.462 Unknown [id number] 2.16.840.1.430325.3.579.2.462 Unknown [id number] 2.16.840.1.227453.3.579.2.462 Unknown [id number] 2.16.840.1.787818.3.579.2.462 Unknown [id number] 2.16.840.1.520158.3.579.2.462 Unknown [id number] 2.16.840.1.019486.3.579.2.462 Social History Date Type Detail Facility Start: 07-06-2019 End: 07-05-2024 Ex-smoker (finding) [facility] Start: 1955 Sex Assigned At Male A [facility] Sexual Orientation [facility] Start: 12-13-2018 End: 10-03-2024 Sex Male (finding) [facility] Procedure Code Equipment Code Equipment Origin al Text Equipment Identifier Dates See Instructions , 1 bottle of 50, # 1 EA, 11 Refill(s), Pharmacy: [facility]/pharmacy #[id number], Type II diabetes mellitus Hyperglycemia, 175.3, cm, 10/04/22 8:57:00 EDT, Height, 95.1 Start: 10-05-2022 See Instructions , qs 1 month supply, # 1 EA, 11 Refill(s), [id number], Type II diabetes mellitus Hyperglycemia, 175.3, cm, 10/04/22 8:57:00 EDT, Height, 95.1 Start: 10-05-2022 See Instructions , 1 bottle of 50, # 1 EA, 11 Refill(s), [id number], Type II diabetes mellitus Hyperglycemia, 175.3, cm, 10/04/22 8:57:00 EDT, Height, 95.1 Start: 10-05-2022 See Instructions , qs 1 month supply, # 1 EA, 11 Refill(s), [id number], Type II diabetes mellitus Hyperglycemia, 175.3, cm, 10/04/22 8:57:00 EDT, Height, 95.1 Start: 10-05-2022 See Instructions , BD UF 8mm 31 G (short) Use once daily to inject insulin, # 1 EA, 11 Refill(s), [id number], 171.5, cm, 10/06/22 9:03:00 EDT, Height, 94.6 Start: 10-07-2022 See Instructions , 1 bottle of 50, # 1 EA, 11 Refill(s), Pharmacy: [facility]/pharmacy #[id number], Type II diabetes mellitus Hyperglycemia, 175.3, cm, 10/04/22 8:57:00 EDT, Height, 95.1 Start: 10-05-2022 See Instructions , qs 1 month supply, # 1 EA, 11 Refill(s), Pharmacy: [facility]/pharmacy #[id number], Type II diabetes mellitus Hyperglycemia, 175.3, cm, 10/04/22 8:57:00 EDT, Height, 95.1 Start: 10-05-2022 See Instructions , BD UF 8mm 31 G (short) Use once daily to inject insulin, # 1 EA, 11 Refill(s), [id number], 171.5, cm, 10/06/22 9:03:00 EDT, Height, 94.6 Start: 10-07-2022 See Instructions , 1 bottle of 50, # 1 EA, 11 Refill(s), [id number], Type II diabetes mellitus Hyperglycemia, 175.3, cm, 10/04/22 8:57:00 EDT, Height, 95.1 Start: 10-05-2022 See Instructions , qs 1 month supply, # 1 EA, 11 Refill(s), [id number], Type II diabetes mellitus Hyperglycemia, 175.3, cm, 10/04/22 8:57:00 EDT, Height, 95.1 Start: 10-05-2022 See Instructions , BD UF 8mm 31 G (short) Use once daily to inject insulin, # 1 EA, 11 Refill(s), [id number], 171.5, cm, 10/06/22 9:03:00 EDT, Height, 94.6 Start: 10-07-2022 See Instructions , 1 bottle of 50, # 1 EA, 11 Refill(s), [id number], Type II diabetes mellitus Hyperglycemia, 175.3, cm, 10/04/22 8:57:00 EDT, Height, 95.1 Start: 10-05-2022 See Instructions , qs 1 month supply, # 1 EA, 11 Refill(s), [id number], Type II diabetes mellitus Hyperglycemia, 175.3, cm, 10/04/22 8:57:00 EDT, Height, 95.1 Start: 10-05-2022 See Instructions , BD UF 8mm 31 G (short) Use once daily to inject insulin, # 1 EA, 11 Refill(s), [id number], 171.5, cm, 10/06/22 9:03:00 EDT, Height, 94.6 Start: 10-07-2022 See Instructions , 1 bottle of 50, # 1 EA, 11 Refill(s), [id number], Type II diabetes mellitus Hyperglycemia, 175.3, cm, 10/04/22 8:57:00 EDT, Height, 95.1 Start: 10-05-2022 See Instructions , qs 1 month supply, # 1 EA, 11 Refill(s), [id number], Type II diabetes mellitus Hyperglycemia, 175.3, cm, 10/04/22 8:57:00 EDT, Height, 95.1 Start: 10-05-2022 See Instructions , BD UF 8mm 31 G (short) Use once daily to inject insulin, # 1 EA, 11 Refill(s), [id number], 171.5, cm, 10/06/22 9:03:00 EDT, Height, 94.6 Start: 10-07-2022 See Instructions , 1 bottle of 50, # 1 EA, 11 Refill(s), [id number], Type II diabetes mellitus Hyperglycemia, 175.3, cm, 10/04/22 8:57:00 EDT, Height, 95.1 Start: 10-05-2022 See Instructions , qs 1 month supply, # 1 EA, 11 Refill(s), [facility], Type II diabetes mellitus Hyperglycemia, 175.3, cm, 10/04/22 8:57:00 EDT, Height, 95.1 Start: 10-05-2022 See Instructions , BD UF 8mm 31 G (short) Use once daily to inject insulin, # 1 EA, 11 Refill(s), [id number], 171.5, cm, 10/06/22 9:03:00 EDT, Height, 94.6 Start: 10-07-2022 See Instructions , 1 bottle of 50, # 1 EA, 11 Refill(s), [id number], Type II diabetes mellitus Hyperglycemia, 175.3, cm, 10/04/22 8:57:00 EDT, Height, 95.1 Start: 10-05-2022 See Instructions , qs 1 month supply, # 1 EA, 11 Refill(s), [id number], Type II diabetes mellitus Hyperglycemia, 175.3, cm, 10/04/22 8:57:00 EDT, Height, 95.1 Start: 10-05-2022 See Instructions , BD UF 8mm 31 G (short) Use once daily to inject insulin, # 1 EA, 11 Refill(s), [id number], 171.5, cm, 10/06/22 9:03:00 EDT, Height, 94.6 Start: 10-07-2022 DOUGH,CEMENT 6191-1-010 FDA Start: 07-04-2017 TRIATHLON X3 TIB IAL INSERT-PS FDA Start: 07-04-2017 DOUGH,CEMENT 6191-1-010 FDA Start: 07-04-2017 HEADED PINS FDA Start: 07-04-2017 HEADED PINS FDA Start: 07-04-2017 HEADLESS PIN FDA Start: 07-04-2017 PATELLA REAMER BLADE FDA Star t: 07-04-2017 TRIATHLON POST STABIL FEM COMP FDA Start: 07-04-2017 TRIATHLON TIBIAL BASEPLATE FDA Start: 07-04-2017 TRIATHLON X3 PATELLA FDA Star t: 07-04-2017 Functional Status Date Assessment Result Facility 04-28-2023 Functional Status Activity Statu s ADL Up to bathroom [facility] 04-28-2023 Functional Status bilateral knee high applied/on [facility] 04-28-2023 Functional Status Maintained [facility] 04-15-2023 Functional Status Sensory Deficits None A [facility] Mental Status Date Assessment Result Facility 04-28-2023 Mental Status Orientation Oriented x 4 [facility] 04-28-2023 Mental Status [facility] Clinical Notes 05-25-2021 to 06-22-2024 Note Date & Type Note Facility 06-22-2024 Note Exam Date Time Procedure Performing Provider Status 06/22/24 1:18 PM XR Spine Cervical Ap/Lat RAMAKRISHNA WONG DO; Auth (Verified) [id number] ORIGINAL EXAMINATION: TWO XRAY VIEWS OF THE CERVICAL SPINE 06/22/2024 1:18 pm COMPARISON: None. HISTORY: ORDERING SYSTEM PROVIDED HISTORY: Reason for Exam: neck pain FINDINGS: Early degenerative disc space narrowing affects C5-6 and C6-7. There is no acute fracture or bony encroachment upon the central spinal canal. Visualized lung apices are clear. IMPRESSION: Early degenerative disc disease C5-6 and C6-7. A Interpreted by: Ramakrishna Wong DO Preliminary Report By: Ramakrishna Wong DO Electronically signed By Ramakrishna Wong DO Dictated Date: 06/22/2024 4:36:29 PM Prelim Date: 06/22/2024 4:42:16 PM Sign Date: 06/22/2024 4:42:16 PM Ordering Provider[id number] Discharge instructions Patient Education 04/28/2023 10:57:31 Nausea and Vomiting, Adult Nausea and Vomiting, Adult Nausea is the feeling that you have an upset stomach or that you are about to vomit. Vomiting is when stomach contents are thrown up and out of the mouth as a result of nausea. Vomiting can make you feel weak and cause you to become dehydrated. Dehydration can make you feel tired and thirsty, cause you to have a dry mouth, and decrease how often you urinate. Older adults and people with other diseases or a weak disease-fighting system (immune system) are at higher risk for dehydration. It is important to treat your nausea and vomiting as told by your health care provider. Follow these instructions at home: Watch your symptoms for any changes. Tell your health care provider about them. Follow these instructions to care for yourself at home. Eating and drinking Take an oral rehydration solution (ORS). This is a drink that is sold at pharmacies and retail stores. Drink clear fluids slowly and in small amounts as you are able. Clear fluids include water, ice chips, low-calorie sports drinks, and fruit juice that has water added (diluted fruit juice). Eat bland, vtur-ob-uutpxl foods in small amounts as you are able. These foods include bananas, applesauce, rice, lean meats, toast, and crackers. Avoid fluids that contain a lot of sugar or caffeine, such as energy drinks, sports drinks, and soda. Avoid alcohol. Avoid spicy or fatty foods. General instructions Take jnvg-czu-twscawo and prescription medicines only as told by your health care provider. Drink enough fluid to keep your urine pale yellow. Wash your hands often using soap and water. If soap and water are not available, use hand damage cutter. Make sure that all people in your household wash their hands well and often. Rest at home while you recover. Watch your condition for any changes. Breathe slowly and deeply when you feel nauseated. Keep all follow-up visits as told by your health care provider. This is important. Contact a health care provider if: Your symptoms get worse. You have new symptoms. You have a fever. You cannot drink fluids without vomiting. Your nausea does not go away after 2 days. You feel light-headed or dizzy. You have a headache. You have muscle cramps. You have a rash. You have pain while urinating. Get help right away if: You have pain in your chest, neck, arm, or jaw. You feel extremely weak or you faint. You have persistent vomiting. You have vomit that is bright red or looks like black coffee grounds. You have bloody or black stools or stools that look like tar. You have a severe headache, a stiff neck, or both. You have severe pain, cramping, or bloating in your abdomen. You have difficulty breathing, or you are breathing very quickly. Your heart is beating very quickly. Your skin feels cold and clammy. You feel confused. You have signs of dehydration, such as: ?Dark urine, very little urine, or no urine. ?Cracked lips. ?Dry mouth. ?Sunken eyes. ?Sleepiness. ?Weakness. These symptoms may represent a serious problem that is an emergency. Do not wait to see if the symptoms will go away. Get medical help right away. Call your local emergency services (911 in the [place] Do not drive yourself to the hospital. Summary Nausea is the feeling that you have an upset stomach or that you are about to vomit. As nausea getsworse, it can lead to vomiting. Vomiting can make you feel weak and cause you to become dehydrated. Follow instructions from your health care provider about eating and drinking to prevent dehydration. Take gngh-jjb-ngiyyfm and prescription medicines only as told by your health care provider. Contact your health care provider if your symptoms get worse, or you have new symptoms. Keep all follow-up visits as told by your health care provider. This is important. This information is not intended to replace advice given to you by your health care provider. Make sure you discuss any questions you have with your health care provider. Document Released: 06/06/2006 Document Revised: 09/28/2019 Document Reviewed: 11/14/2018 [employer] Patient Education 2020 [employer]. 04/28/2023 10:57:25 Laparoscopic Inguinal Hernia Repair, Adult, Care After Laparoscopic Inguinal Hernia Repair, Adult, Care After This sheet gives you information about how to care for yourself after your procedure. Your health care provider may also give you more specific instructions. If you have problems or questions, contact your health care provider. What can I expect after the procedure? After the procedure, it is common to have: Pain. Swelling and bruising around the incision area. Scrotal swelling, in men. Some fluid or blood draining from your incisions. Follow these instructions at home: Incision care Follow instructions from your health care provider about how to take care of your incisions. Make sure you: ?Wash your hands with soap and water before you change your bandage (dressing). If soap and water are not available, use hand damage cutter. ?Change your dressing as told by your health care provider. ?Leave stitches (sutures), skin glue, or adhesive strips in place. These skin closures may need to stay in place for 2 weeks or longer. If adhesive strip edges start to loosen and curl up, you may trim the loose edges. Do not remove adhesive strips completely unless your health care provider tells you to do that. Check your incision area every day for signs of infection. Check for: ?More redness, swelling, or pain. ?More fluid or blood. ?Warmth. ?Pus or a bad smell. Wear loose, soft clothing while your incisions heal. Driving Do not drive or use heavy machinery while taking prescription pain medicine. Do not drive for 24 hours if you were given a medicine to help you relax (sedative) during your procedure. Activity Do not lift anything that is heavier than 10 lb (4.5 kg), or the limit that you are told, until your health care provider says that it is safe. Ask your health care provider what activities are safe for you. A lot of activity during the first week after surgery can increase pain and swelling. For 1 week after your procedure: ?Avoid activities that take a lot of effort, such as exercise or sports. ?You may walk and climb stairs as needed for daily activity, but avoid long walks or climbing stairs for exercise. Managing pain and swelling Put ice on painful or swollen areas: ?Put ice in a plastic bag. ?Place a towel between your skin and the bag. ?Leave the ice on for 20 minutes, 2 3 times a day. General instructions Do not take baths, swim, or use a hot tub until your health care provider approves. Ask your healthcare provider if you may take showers. You may only be allowed to take sponge baths. Take kpaf-qgm-wphbibv and prescription medicines only as told by your health care provider. To prevent or treat constipation while you are taking prescription pain medicine, your health care provider may recommend that you: ?Drink enough fluid to keep your urine pale yellow. ?Take utms-yex-jydnheh or prescription medicines. ?Eat foods that are high in fiber, such as fresh fruits and vegetables, whole grains, and beans. ?Limit foods that are high in fat and processed sugars, such as fried and sweet foods. Do not use any products that contain nicotine or tobacco, such as cigarettes and e-cigarettes. If you need help quitting, ask your health care provider. Drink enough fluid to keep your urine pale yellow. Keep all follow-up visits as told by your health care provider. This is important. Contact a health care provider if: You have more redness, swelling, or pain around your incisions or your groin area. You have more swelling in your scrotum. You have more fluid or blood coming from your incisions. Your incisions feel warm to the touch. You have severe pain and medicines do not help. You have abdominal pain or swelling. You cannot eat or drink without vomiting. You cannot urinate or pass a bowel movement. You faint. You feel dizzy. You have nausea and vomiting. You have a fever. Get help right away if: You have pus or a bad smell coming from your incisions. You have redness, warmth, or pain in your leg. You have chest pain. You have problems breathing. Summary Pain, swelling, and bruising are common after the procedure. Check your incision area every day for signs of infection, such as more redness, swelling, or pain. Put ice on painful or swollen areas for 20 minutes, 2 3 times a day. This information is not intended to replace advice given to you by your health care provider. Make sure you discuss any questions you have with your health care provider. Document Released: 09/15/2017 Document Revised: 11/14/2019 Document Reviewed: 09/15/2017 [employer] Patient Education 2020 [employer]. 04/28/2023 10:56:47 General Anesthesia, Adult, Care After General Anesthesia, Adult, Care After This sheet gives you information about how to care for yourself after your procedure. Your health care provider may also give you more specific instructions. If you have problems or questions, contact your health care provider. What can I expect after the procedure? After the procedure, the following side effects are common: Pain or discomfort at the IV site. Nausea. Vomiting. Sore throat. Trouble concentrating. Feeling cold or chills. Weak or tired. Sleepiness and fatigue. Soreness and body aches. These side effects can affect parts of the body that were not involved in surgery. Follow these instructions at home: For at least 24 hours after the procedure: Have a responsible adult stay with you. It is important to have someone help care for you until youare awake and alert. Rest as needed. Do not: ?Participate in activities in which you could fall or become injured. ?Drive. ?Use heavy machinery. ?Drink alcohol. ?Take sleeping pills or medicines that cause drowsiness. ?Make important decisions or sign legal documents. ?Take care of children on your own. Eating and drinking Follow any instructions from your health care provider about eating or drinking restrictions. When you feel hungry, start by eating small amounts of foods that are soft and easy to digest (bland), such as toast. Gradually return to your regular diet. Drink enough fluid to keep your urine pale yellow. If you vomit, rehydrate by drinking water, juice, or clear broth. General instructions If you have sleep apnea, surgery and certain medicines can increase your risk for breathing problems. Follow instructions from your health care provider about wearing your sleep device: ?Anytime you are sleeping, including during daytime naps. ?While taking prescription pain medicines, sleeping medicines, or medicines that make you drowsy. Return to your normal activities as told by your health care provider. Ask your health care provider what activities are safe for you. Take ihzt-ykc-cjzylyl and prescription medicines only as told by your health care provider. If you smoke, do not smoke without supervision. Keep all follow-up visits as told by your health care provider. This is important. Contact a health care provider if: You have nausea or vomiting that does not get better with medicine. You cannot eat or drink without vomiting. You have pain that does not get better with medicine. You are unable to pass urine. You develop a skin rash. You have a fever. You have redness around your IV site that gets worse. Get help right away if: You have difficulty breathing. You have chest pain. You have blood in your urine or stool, or you vomit blood. Summary After the procedure, it is common to have a sore throat or nausea. It is also common to feel tired. Have a responsible adult stay with you for the first 24 hours after general anesthesia. It is important to have someone help care for you until you are awake and alert. When you feel hungry, start by eating small amounts of foods that are soft and easy to digest (bland), such as toast. Gradually return to your regular diet. Drink enough fluid to keep your urine pale yellow. Return to your normal activities as told by your health care provider. Ask your health care provider what activities are safe for you. This information is not intended to replace advice given to you by your health care provider. Make sure you discuss any questions you have with your health care provider. Document Released: 09/12/2001 Document Revised: 06/09/2018 Document Reviewed: 01/20/2018 [employer] Patient Education [employer]. Follow Up Care 04/11/2023 14:19:19 With:GEREMIAS VEGA MD, Surgery Address: [address] [place] [phone] When:Within 2 Week(s) Comments:Schedule appointment as soon as possible [facility] 11-09-2023 Summary of episode note Discharge Instructions Thank you for allowing [facility] to assist you with your healthcare needs. The following is importantdischarge information regarding your hospital visit. Your Care Team SABI ANAND DO Your Diagnosis Acute post-operative pain What to do next Scheduled Follow-Up Appointments Appointment Type When With Where Contact InformationDB Diabetic Individual Visit ([facility]) 07/08/2023 09:00 AM [facility] Diet Visits [phone] PC OV 07/27/2023 09:00 AM SABI ZHENG DO [facility] Follow Up Appointments Follow Up with GEREMIAS VEGA MD, Surgery When In 2 weeks Why: Schedule appointment as soon as possible Where: [address] [place] [address]- [phone] The Following Activity and Diet Have Been Ordered for You Discharge Activity - Ordered -- Sexual [place] Restricted No bending, twisting, crawling or squatt, No shower or tub bath for 2 days; no driving for 5 days, no lifting >15 lbs, 04/28/23 10:28:00 EST Discharge Diet - Ordered -- Follow the post-operative/post-procedure diet instructions provided by your physician's office.,04/28/23 10:28:00 EST The Following Equipment Has Been Ordered for You Discharge Home Equipment Discharge Wound Care - Ordered -- Dressing Type: Dry sterile drsg, Remove dressing in two (2) days. Leave steristrips on until they fall off, 04/28/23 10:28:00 EST Someone Will Contact You Regarding These Home Health Referrals No home referrals have been ordered for you. No one will call you. Allergies NKA Medications Please ask your primary doctor or pharmacist before taking any other medication not listed, including over the counter drugs, herbal medications, vitamins and or supplements as they may interact withyour home medications. What How Much When Why Instructions Last Dose New acetaminophen-hydrocodone (Loving 325- 5 mg oral tablet) 1 tab(s) by mouth Every 4 hours as needed for Pain, scale 1-6 Acute post-operative pain Duration: 5 Days Pickup at [facility]/pharmacy #[id number] Unchanged amitriptyline (amitriptyline 25 mg oral tablet) 1 tab(s) by mouth Every day Duration: 90 Days Unchanged cyclobenzaprine (cyclobenzaprine 10 mg oral tablet) 1 tab(s) by mouth Three (3) times a day as needed for for muscle spasm Unchanged DME (Blood Glucose Test Machine) See instructions Type II diabetes mellitus Hyperglycemia Use as directed Brand type per insurance or patient preference Unchanged DME (Blood Glucose Test Strips) See instructions Type II diabetes mellitus Hyperglycemia 1 bottle of 50 Unchanged DME (DME MISCellaneous) See instructions Diabetes mellitus with hyperglycemia Current use of insulin dx E11.65; Z79.4; 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 Unchanged DME (DME MISCellaneous) See instructions Dx I71.2; dispense one automated sphygmomanometer with supplies Unchanged DME (DME MISCellaneous) See instructions Diabetes mellitus with hyperglycemia Current use of insulin dx E11.65; Z79.4; dispense free style oscar transmitter Unchanged DME (DME MISCellaneous) See instructions Diabetes mellitus with hyperglycemia Current use of insulin dx E11.65; Z79.4; dispense 2 freestyle oscar sensor, wear for 14 days and then reapply; 11 refills Unchanged DME (Lancets) See instructions Type II diabetes mellitus Hyperglycemia qs 1 month supply Unchanged DME (Pen needles 8 mm) See instructions BD UF 8mm 31 G (short) Use once daily to inject insulin Unchanged meloxicam (meloxicam 15 mg oral tablet) 1 tab(s) by mouth Once a day Duration: 90 Days TAKE 1 TABLET BY MOUTH EVERY DAY Unchanged rizatriptan (rizatriptan 10 mg oral tablet) See instructions TAKE 1 TABLET BY MOUTH NEEDED AT START OF HEADACHE, MAY REPEAT IN 2 HRS IF NEEDED-LIMIT 3 PER DAY Unchanged sildenafil (sildenafil 50 mg oral tablet) 1 tab(s) by mouth Once a day as needed for as needed for erectile dysfunction Duration: 30 Days Unchanged simvastatin (simvastatin 40 mg oral tablet) 1 tab(s) by mouth Daily at bedtime Duration: 90 Days Pharmacy Information [facility]/pharmacy #[id number]: [address], [place] [id number] [phone] Please take this list to your next doctor s visit. Bring all medications you take, including over the counter medications, herbals and other supplements with you to your doctor s visit. Patients and families are reminded to discard old lists and to update any records with all medication providers or retail pharmacies. Education Materials Nausea and Vomiting, Adult Nausea is the feeling that you have an upset stomach or that you are about to vomit. Vomiting is when stomach contents are thrown up and out of the mouth as a result of nausea. Vomiting can make you feel weak and cause you to become dehydrated. Dehydration can make you feel tired and thirsty, cause you to have a dry mouth, and decrease how often you urinate. Older adults and people with other diseases or a weak disease-fighting system (immune system) are at higher risk for dehydration. It is important to treat your nausea and vomiting as told by your health care provider. Follow these instructions at home: Watch your symptoms for any changes. Tell your health care provider about them. Follow these instructions to care for yourself at home. Eating and drinking Take an oral rehydration solution (ORS). This is a drink that is sold at pharmacies and retail stores. Drink clear fluids slowly and in small amounts as you are able. Clear fluids include water, ice chips, low-calorie sports drinks, and fruit juice that has water added (diluted fruit juice). Eat bland, fvpv-uo-hcgijy foods in small amounts as you are able. These foods include bananas, applesauce, rice, lean meats, toast, and crackers. Avoid fluids that contain a lot of sugar or caffeine, such as energy drinks, sports drinks, and soda. Avoid alcohol. Avoid spicy or fatty foods. General instructions Take qbta-yzs-jvsivuw and prescription medicines only as told by your health care provider. Drink enough fluid to keep your urine pale yellow. Wash your hands often using soap and water. If soap and water are not available, use hand damage cutter. Make sure that all people in your household wash their hands well and often. Rest at home while you recover. Watch your condition for any changes. Breathe slowly and deeply when you feel nauseated. Keep all follow-up visits as told by your health care provider. This is important. Contact a health care provider if: Your symptoms get worse. You have new symptoms. You have a fever. You cannot drink fluids without vomiting. Your nausea does not go away after 2 days. You feel light-headed or dizzy. You have a headache. You have muscle cramps. You have a rash. You have pain while urinating. Get help right away if: You have pain in your chest, neck, arm, or jaw. You feel extremely weak or you faint. You have persistent vomiting. You have vomit that is bright red or looks like black coffee grounds. You have bloody or black stools or stools that look like tar. You have a severe headache, a stiff neck, or both. You have severe pain, cramping, or bloating in your abdomen. You have difficulty breathing, or you are breathing very quickly. Your heart is beating very quickly. Your skin feels cold and clammy. You feel confused. You have signs of dehydration, such as: ? Dark urine, very little urine, or no urine. ? Cracked lips. ? Dry mouth. ? Sunken eyes. ? Sleepiness. ? Weakness. These symptoms may represent a serious problem that is an emergency. Do not wait to see if the symptoms will go away. Get medical help right away. Call your local emergency services (911 in the .[place] Do not drive yourself to the hospital. Summary Nausea is the feeling that you have an upset stomach or that you are about to vomit. As nausea getsworse, it can lead to vomiting. Vomiting can make you feel weak and cause you to become dehydrated. Follow instructions from your health care provider about eating and drinking to prevent dehydration. Take xmtv-wxw-rsgremc and prescription medicines only as told by your health care provider. Contact your health care provider if your symptoms get worse, or you have new symptoms. Keep all follow-up visits as told by your health care provider. This is important. This information is not intended to replace advice given to you by your health care provider. Make sure you discuss any questions you have with your health care provider. Document Released: 06/06/2006 Document Revised: 09/28/2019 Document Reviewed: 11/14/2018 [employer] Patient Education 2020 [employer]. Laparoscopic Inguinal Hernia Repair, Adult, Care After This sheet gives you information about how to care for yourself after your procedure. Your health care provider may also give you more specific instructions. If you have problems or questions, contact your health care provider. What can I expect after the procedure? After the procedure, it is common to have: Pain. Swelling and bruising around the incision area. Scrotal swelling, in men. Some fluid or blood draining from your incisions. Follow these instructions at home: Incision care Follow instructions from your health care provider about how to take care of your incisions. Make sure you: ? Wash your hands with soap and water before you change your bandage (dressing). If soap and water are not available, use hand damage cutter. ? Change your dressing as told by your health care provider. ? Leave stitches (sutures), skin glue, or adhesive strips in place. These skin closures may need to stay in place for 2 weeks or longer. If adhesive strip edges start to loosen and curl up, you may trim the loose edges. Do not remove adhesive strips completely unless your health care provider tells you to do that. Check your incision area every day for signs of infection. Check for: ? More redness, swelling, or pain. ? More fluid or blood. ? Warmth. ? Pus or a bad smell. Wear loose, soft clothing while your incisions heal. Driving Do not drive or use heavy machinery while taking prescription pain medicine. Do not drive for 24 hours if you were given a medicine to help you relax (sedative) during your procedure. Activity Do not lift anything that is heavier than 10 lb (4.5 kg), or the limit that you are told, until your health care provider says that it is safe. Ask your health care provider what activities are safe for you. A lot of activity during the first week after surgery can increase pain and swelling. For 1 week after your procedure: ? Avoid activities that take a lot of effort, such as exercise or sports. ? You may walk and climb stairs as needed for daily activity, but avoid long walks or climbing stairsfor exercise. Managing pain and swelling Put ice on painful or swollen areas: ? Put ice in a plastic bag. ? Place a towel between your skin and the bag. ? Leave the ice on for 20 minutes, 2 3 times a day. General instructions Do not take baths, swim, or use a hot tub until your health care provider approves. Ask your healthcare provider if you may take showers. You may only be allowed to take sponge baths. Take bfqf-ata-vpvzanj and prescription medicines only as told by your health care provider. To prevent or treat constipation while you are taking prescription pain medicine, your health care provider may recommend that you: ? Drink enough fluid to keep your urine pale yellow. ? Take sbuo-mwf-znrpiho or prescription medicines. ? Eat foods that are high in fiber, such as fresh fruits and vegetables, whole grains, and beans. ? Limit foods that are high in fat and processed sugars, such as fried and sweet foods. Do not use any products that contain nicotine or tobacco, such as cigarettes and e-cigarettes. If you need help quitting, ask your health care provider. Drink enough fluid to keep your urine pale yellow. Keep all follow-up visits as told by your health care provider. This is important. Contact a health care provider if: You have more redness, swelling, or pain around your incisions or your groin area. You have more swelling in your scrotum. You have more fluid or blood coming from your incisions. Your incisions feel warm to the touch. You have severe pain and medicines do not help. You have abdominal pain or swelling. You cannot eat or drink without vomiting. You cannot urinate or pass a bowel movement. You faint. You feel dizzy. You have nausea and vomiting. You have a fever. Get help right away if: You have pus or a bad smell coming from your incisions. You have redness, warmth, or pain in your leg. You have chest pain. You have problems breathing. Summary Pain, swelling, and bruising are common after the procedure. Check your incision area every day for signs of infection, such as more redness, swelling, or pain. Put ice on painful or swollen areas for 20 minutes, 2 3 times a day. This information is not intended to replace advice given to you by your health care provider. Make sure you discuss any questions you have with your health care provider. Document Released: 09/15/2017 Document Revised: 11/14/2019 Document Reviewed: 09/15/2017 [employer] Patient Education 2020 [employer]. General Anesthesia, Adult, Care After This sheet gives you information about how to care for yourself after your procedure. Your health care provider may also give you more specific instructions. If you have problems or questions, contact your health care provider. What can I expect after the procedure? After the procedure, the following side effects are common: Pain or discomfort at the IV site. Nausea. Vomiting. Sore throat. Trouble concentrating. Feeling cold or chills. Weak or tired. Sleepiness and fatigue. Soreness and body aches. These side effects can affect parts of the body that were not involved in surgery. Follow these instructions at home: For at least 24 hours after the procedure: Have a responsible adult stay with you. It is important to have someone help care for you until youare awake and alert. Rest as needed. Do not: ? Participate in activities in which you could fall or become injured. ? Drive. ? Use heavy machinery. ? Drink alcohol. ? Take sleeping pills or medicines that cause drowsiness. ? Make important decisions or sign legal documents. ? Take care of children on your own. Eating and drinking Follow any instructions from your health care provider about eating or drinking restrictions. When you feel hungry, start by eating small amounts of foods that are soft and easy to digest (bland), such as toast. Gradually return to your regular diet. Drink enough fluid to keep your urine pale yellow. If you vomit, rehydrate by drinking water, juice, or clear broth. General instructions If you have sleep apnea, surgery and certain medicines can increase your risk for breathing problems. Follow instructions from your health care provider about wearing your sleep device: ? Anytime you are sleeping, including during daytime naps. ? While taking prescription pain medicines, sleeping medicines, or medicines that make you drowsy. Return to your normal activities as told by your health care provider. Ask your health care provider what activities are safe for you. Take qnpo-szj-uorzdhu and prescription medicines only as told by your health care provider. If you smoke, do not smoke without supervision. Keep all follow-up visits as told by your health care provider. This is important. Contact a health care provider if: You have nausea or vomiting that does not get better with medicine. You cannot eat or drink without vomiting. You have pain that does not get better with medicine. You are unable to pass urine. You develop a skin rash. You have a fever. You have redness around your IV site that gets worse. Get help right away if: You have difficulty breathing. You have chest pain. You have blood in your urine or stool, or you vomit blood. Summary After the procedure, it is common to have a sore throat or nausea. It is also common to feel tired. Have a responsible adult stay with you for the first 24 hours after general anesthesia. It is important to have someone help care for you until you are awake and alert. When you feel hungry, start by eating small amounts of foods that are soft and easy to digest (bland), such as toast. Gradually return to your regular diet. Drink enough fluid to keep your urine pale yellow. Return to your normal activities as told by your health care provider. Ask your health care provider what activities are safe for you. This information is not intended to replace advice given to you by your health care provider. Make sure you discuss any questions you have with your health care provider. Document Released: 09/12/2001 Document Revised: 06/09/2018 Document Reviewed: 01/20/2018 Elsevier Patient Education 2020 [employer] Additional Information VACCINATE! IT SAVES LIVES! Members of the community who have not yet received the COVID-19 vaccine and would like to receive it can visit one of [facility] vaccine clinics. There are many vaccine clinic locations within the [facility]. For locations and available times, please visit https://[email or web address].[place].gov/. It is important to note that some COVID mobile vaccine clinics are held outdoors and may be canceled in rainy or stormy conditions. To learn more about pediatric vaccinations (ages 5-11), we invite you to visit the [facility] webpage. https://www.[email or web address].org/pages/[email or web address]-Hjmkd-Vjubcfklxsz-Dwetjpfxbo-Fptbf-Oxp stions.htmlTo learn more about the COVID-19 vaccine, we invite you to visit the CDC website for a list of frequently asked questions.https://www.cdc.gov/coronavirus/2019-ncov/vaccines/faq.html [facility] Patient Portal Access Instructions: Stay connected with your healthcare team and access your personal medical information anytime with the [facility] Patient Portal. Please follow the directions below to create your [employer] account: 1.Access the email account you provided upon registration to the hospital/physician office.2.Look for an invitation email from [facility].3.Open the email and access the invitation link: AcceptInvitation to [facility].4.Fill in the required toro to create your account. To access your account, visit [facility]. Click the blue button labeled "Access Patient Portal" and then log in with the username and password that you created in the steps above. You will be able to view your test results, lab results, a summary of your visits, upcoming appointments and more. There is also a convenient messaging option where you can send secure messages to your p [employer]. In addition, you will have the ability to download any documents or summaries to your computer and/or send the information securely to a physician. Remember that your healthcare information is confidential, so carefully consider who you will allowto register on the [facility] Patient Portal for access to your information. You can also access the [facility] Patient Portal on the [employer] chidi. Simply click on "Patient Portal" and then log into your account. If you would like to receive a full copy of your medical records, please contact the [facility] Medical Records Department by calling [phone], Tuesday through Tuesday between 8 a.m. and 4:30 p.m. HOW TO SAFELY DISPOSE OF PRESCRIPTION MEDICATIONS Please use one of the following methods to safely dispose of your unused medications. 1.Use a drug disposal kit: the drug disposal pouch allows you to safely discard your old and unuseddrugs. Ask your nurse to give you one when you are discharged.2.Visit a local take-back location: Many local pharmacies and police departments have programs that collect old and unwanted prescriptiondrugs. Call your local pharmacy or go to http://eflow.[employer] Feint/3G6Xn4v to find one close to you.3.Make use of household items: Use cat litter or old coffee grounds to dispose medications if other options arenot available. Mix your drugs with these household products, seal them in an airtight container andthrow it into the garbage. Call [facility]: [phone] to be sure your drugs can be disposed of in this way. Some medicines may require a different approach.4.Never flush your medications down the toilet. IF YOU HAVE BEEN PRESCRIBED AN OPIOID FOR PAIN If you have been prescribed an opioid (such as hydrocodone, oxycodone or morphine), it is critical to understand the possible side effects and risks of opioid pain medications. Even when taken as directed, opioids can have several side effects including: Tolerance, meaning you might need to take more of a medication for the same pain relief. Nausea, vomiting and/or constipation. Sleepiness, dizziness, dry mouth, confusion, depression or itching. Physical dependence, meaning you have withdrawal symptoms when a medication is stopped, can develop within a few days. KNOW YOUR RESPONSIBILITIES It is important to know exactly how much and how often to take the opioid pain medications you are prescribed. Never take opioids in higher amounts or more often than prescribed. Do not combine opioids with alcohol or other drugs that cause drowsiness, such as benzodiazepines, also known as benzos, including diazepam and alprazolam, muscle relaxants or sleep aids. Never sell or share prescription opioids. This is illegal. Store opioids in a secure place and out of reach of others (including children, family, friends and visitors). The last page of this document has been signed and retained as a CHART COPY. Signatures Patient Education Materials Nausea and Vomiting, Adult Laparoscopic Inguinal Hernia Repair, Adult, Care After General Anesthesia, Adult, Care After Medication Leaflets My discharge plan and instructions have been reviewed and explained to me and I,BRANDYN KELLY M understand my current condition and have read and understand these discharge instructions. I have received a written copy of the plan/instructions. If I have questions, I am aware that I should contact my doctor. 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 Family's history: negative. Review of Systems Ear/Nose/Mouth/Throat: Negative. Respiratory: emphysema, fr smoker. Cardiovascular: , CAD, PVD. Gastrointestinal: Negative. Genitourinary: Negative. Endocrine: DM2. Musculoskeletal: Negative. Integumentary: Negative. Neurologic: migraines. Health Status Allergies: Allergic Reactions (Selected) NKA, Allergies (1) ActiveReaction NKANone Documented Current medications: (Selected) Inpatient Medications Ordered LR 1000 mL: 20 mL/hr, Intravenous LR 1000 mL: 20 mL/hr, Intravenous Zofran ( PACU ): 4 mg, 2 mL, IV Push, AsDirected, PRN: Nausea/Vomiting morphine ( PACU ): 2 mg, 1 mL, IV Push, q5min, PRN: Pain, scale 4-6 Prescriptions Prescribed Blood Glucose Test Machine: See Instructions, Use as directed Brand type per insurance or patient preference, 1 EA, 0 Refill(s) Blood Glucose Test Strips: See Instructions, 1 bottle of 50, 1 EA, 11 Refill(s) DME MISCellaneous: See Instructions, Dx I71.2; dispense one automated sphygmomanometer with supplies, 1 EA, 0 Refill(s) DME MISCellaneous: See Instructions, dx E11.65; Z79.4; dispense 2 freestyle oscar sensor, wear for 14 days and then reapply; 11 refills, 2 EA, 11 Refill(s) DME MISCellaneous: See Instructions, dx E11.65; Z79.4; dispense free style oscar transmitter, 1 EA,0 Refill(s) DME MISCellaneous: See Instructions, dx E11.65; Z79.4; 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, 1 EA, 0 Refill(s) Lancets: See Instructions, qs 1 month supply, 1 EA, 11 Refill(s) Pen needles 8 mm: See Instructions, BD UF 8mm 31 G (short) Use once daily to inject insulin, 1 EA, 11 Refill(s) amitriptyline 25 mg oral tablet: 25 mg, 1 tab(s), Oral, Daily, for 90 day(s), 90 tab(s), 1 Refill(s) cyclobenzaprine 10 mg oral tablet: 10 mg, 1 tab(s), Oral, TID, PRN: for muscle spasm, 30 tab(s), 5 Refill(s) meloxicam 15 mg oral tablet: 15 mg, 1 tab(s), Oral, qDay, for 90 day(s), TAKE 1 TABLET BY MOUTH EVERY DAY, 90 tab(s), 1 Refill(s) rizatriptan 10 mg oral tablet: See Instructions, TAKE 1 TABLET BY MOUTH NEEDED AT START OF HEADACHE, MAY REPEAT IN 2 HRS IF NEEDED-LIMIT 3 PER DAY, 12 tab(s), 5 Refill(s) sildenafil 50 mg oral tablet: 50 mg, 1 tab(s), Oral, qDay, for 30 day(s), PRN: as needed for erectile dysfunction, 30 tab(s), 5 Refill(s) simvastatin 40 mg oral tablet: 40 mg, 1 tab(s), Oral, qHS, for 90 day(s), 90 tab(s), 1 Refill(s), Medications (4) Active Scheduled: (0) Continuous: (2) Lactated Ringers Infusion 1000 mL 1,000 mL, Intravenous, 20 mL/hr Lactated Ringers Infusion 1000 mL 1,000 mL, Intravenous, 20 mL/hr PRN: (2) morphine 2 mg/mL 1 mL syringe 2 mg 1 mL, IV Push, q5min ondansetron 2 mg/ 1 mL 2 mL INJ 4 mg 2 mL, IV Push, AsDirected Problem list: Medical Thoracic ascending aortic aneurysm / SNOMED CT 3423414427 / Confirmed Aortic atherosclerosis / SNOMED CT 850277768 / Confirmed Bronchitis / SNOMED CT 14582451 / Confirmed Chronic headaches / SNOMED CT 8626482723 / Confirmed Coronary artery disease / SNOMED CT 51910513 / Confirmed Coronary artery disease due to type 2 diabetes mellitus / SNOMED CT 1815399084 / Confirmed COVID-19 virus infection / SNOMED CT 7828435689 / Confirmed Abnormal EKG / SNOMED CT 9334108603 / Confirmed ED (erectile dysfunction) / SNOMED CT 8177341164 / Confirmed Former smoker / SNOMED CT 77182114 / Confirmed Type 2 diabetes mellitus with hyperglycemia / SNOMED CT 6323583644 / Confirmed HLD (hyperlipidemia) / SNOMED CT 07367237 / Confirmed Immunization due / SNOMED CT 620146170 / Confirmed Inguinal hernia / SNOMED CT 4335208754 / Confirmed IBS (irritable bowel syndrome) / SNOMED CT 93708207 / Confirmed Direct inguinal hernia of left side / SNOMED CT 4664525218 / Confirmed Left inguinal hernia / SNOMED CT 350976982 / Confirmed Low back pain / SNOMED CT 706248056 / Confirmed Lumbar strain / SNOMED CT 170826535 / Confirmed Migraines / SNOMED CT 71456384 / Confirmed Actinic keratoses / SNOMED CT 1738767309 / Confirmed Overweight / SNOMED CT 200023420 / Confirmed BMI 27.0-27.9,adult / SNOMED CT 1468621497 / Confirmed Paresthesia / SNOMED CT 021865816 / Confirmed Screen for colon cancer / SNOMED CT 169216938 / Confirmed Screening for prostate cancer / SNOMED CT 848708460 / Confirmed Screening for AAA (abdominal aortic aneurysm) / SNOMED CT 342965282 / Confirmed Medicare annual wellness visit, subsequent / SNOMED CT 661431875 / Confirmed Screening for cardiovascular condition / SNOMED CT 294750989 / Confirmed Peripheral vascular disease / SNOMED CT 9285405203 / Confirmed Diabetic peripheral vascular disease / SNOMED CT 4492878834 / Confirmed Emphysema of lung / SNOMED CT 945065238 / Confirmed Screening due / SNOMED CT 735579272 / Confirmed Somatic dysfunction of lower extremity / SNOMED CT 5755948072 / Confirmed Somatic dysfunction of lumbar region / SNOMED CT 0000418644 / Confirmed Somatic dysfunction of pelvic region / SNOMED CT 9893008015 / Confirmed Somatic dysfunction of rib region / SNOMED CT 0131978319 / Confirmed Somatic dysfunction of sacral region / SNOMED CT 5652466669 / Confirmed Somatic dysfunction of thoracic region / SNOMED CT 4024840308 / Confirmed Back spasm / SNOMED CT 083233411 / Confirmed Back pain, thoracic / SNOMED CT 992983496 / Confirmed Type 2 diabetes mellitus with hyperlipidemia / SNOMED CT 645016077 / Confirmed, Active Problems (42) Abnormal EKG Actinic keratoses Aortic atherosclerosis Back pain, thoracic Back spasm BMI 27.0-27.9,adult Bronchitis Chronic headaches Coronary artery disease Coronary artery disease due to type 2 diabetes mellitus COVID-19 virus infection Diabetic peripheral vascular disease Direct inguinal hernia of left side ED (erectile dysfunction) Emphysema of lung Former smoker HLD (hyperlipidemia) IBS (irritable bowel syndrome) Immunization due Inguinal hernia Left inguinal hernia Low back pain Lumbar strain Medicare annual wellness visit, subsequent Migraines Overweight Paresthesia Peripheral vascular disease Screen for colon cancer Screening due Screening for AAA (abdominal aortic aneurysm) Screening for cardiovascular condition Screening for prostate cancer Somatic dysfunction of lower extremity Somatic dysfunction of lumbar region Somatic dysfunction of pelvic region Somatic dysfunction of rib region Somatic dysfunction of sacral region Somatic dysfunction of thoracic region Thoracic ascending aortic aneurysm Type 2 diabetes mellitus with hyperglycemia Type 2 diabetes mellitus with hyperlipidemia Histories Past Medical History: No active or resolved past medical history items have been selected or recorded. Family History: Cancer Father (Harpreet) CAD - Coronary artery disease Mother Procedure history: Knee replacement (744138461) in 2018 at 62 Years. Comments: 07/06/2019 8:40 JACINDA - Maren Sanchez RN Bilateral Manipulation of deviated nasal septum (603448308). Tonsillectomy (259302702). Excision of pilonidal sinus (408788410). 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 Hehas 3 grandchildren Nutrition/Health 04/28/2023 Caffeine intake amount: Coffee- 5 servings/day . Physical Examination Vital Signs 04/28/2023 8:20 EST Heart Rate Monitored 81 bpm bpm Respiratory Rate - Anes 10 br/min br/min Systolic Blood Pressure Non-Invasive 97 mmHg mmHg Diastolic Blood Pressure Non-Invasive 70 mmHg mmHg 04/28/2023 8:15 EST Heart Rate Monitored 87 bpm bpm Respiratory Rate - Anes 3 br/min br/min Systolic Blood Pressure Non-Invasive 108 mmHg mmHg Diastolic Blood Pressure Non-Invasive 72 mmHg mmHg 04/28/2023 8:10 EST Heart Rate Monitored 75 bpm bpm Respiratory Rate - Anes 7 br/min br/min Systolic Blood Pressure Non-Invasive 125 mmHg mmHg Diastolic Blood Pressure Non-Invasive 79 mmHg mmHg 04/28/2023 8:06 EST Systolic Blood Pressure Non-Invasive 132 mmHg mmHg Diastolic Blood Pressure Non-Invasive 71 mmHg mmHg 04/28/2023 6:56 EST Temperature Temporal Artery 36.6 DegC Peripheral Pulse Rate 76 bpm Respiratory Rate 17 br/min Systolic Blood Pressure Non-Invasive 121 mmHg Diastolic Blood Pressure Non-Invasive 74 mmHg Vital Signs(last 24 hrs) Last Charted Heart Rate [id number] bpm (APR 28 08:20) Resp Rate 17 br/min (APR 28 06:56) SBP97 mmHg (APR 28 08:20) DBP70 mmHg (APR 28 08:20) BMI26.62 (APR 28 06:50) Measurements from flowsheet : Measurements 04/28/2023 6:50 EST Height 175.3 cm Admission Weight 81.8 kg Weight Method Stated [place] Body Weight 70.74 kg BSA Admission 1.98 Body Mass Index 26.62 kg/m2 Pain assessment: Pain Assessment 04/28/2023 6:56 EST Primary Pain Intensity 0 Pain Scale Type 0-10 Pain scale . General: Alert and oriented. Airway: Normal temporomandibular joint mobility. Mallampati classification: II (soft palate, fauces, uvula visible). Head: Atraumatic. Dentition Evaluation: Own teeth. Neck: Supple. Respiratory: Lungs are clear to auscultation. Cardiovascular: Normal rate. Heart Sounds: Normal. Gastrointestinal: Soft. Musculoskeletal Normal range of motion. Integumentary: Intact. Neurologic: Alert, Oriented. Review / Management Results review: No qualifying data available , Lab results 04/28/2023 8:23 EST SN - SP - HR - Method Clipped in OR 04/28/2023 8:23 EST SN - CTm - Surgery Start 04/28/2023 8:22 04/28/2023 8:23 EST dexAMETHasone 4 mg mg ondansetron 4 mg mg 04/28/2023 8:22 EST SN - CTm - Surgery Start Surgery Start 04/28/2023 8:20 EST Heart Rate Monitored 81 bpm bpm Respiratory Rate - Anes 10 br/min br/min Systolic Blood Pressure Non-Invasive 97 mmHg mmHg Diastolic Blood Pressure Non-Invasive 70 mmHg mmHg Oxygen Saturation 99 % % Set Rate Anes 10 br/min br/min 04/28/2023 8:17 EST SN - FL - By (Single) SN - FL - By (Single) 04/28/2023 8:15 EST Heart Rate Monitored 87 bpm bpm Respiratory Rate - Anes 3 br/min br/min Systolic Blood Pressure Non-Invasive 108 mmHg mmHg Diastolic Blood Pressure Non-Invasive 72 mmHg mmHg Oxygen Saturation 99 % % Set Rate Anes 10 br/min br/min 04/28/2023 8:10 EST Heart Rate Monitored 75 bpm bpm Respiratory Rate - Anes 7 br/min br/min Systolic Blood Pressure Non-Invasive 125 mmHg mmHg Diastolic Blood Pressure Non-Invasive 79 mmHg mmHg Oxygen Saturation 100 % % fentaNYL 50 mcg mcg lidocaine 4 mg mg propofol 150 mg mg rocuronium 40 mg mg 04/28/2023 8:06 EST Systolic Blood Pressure Non-Invasive 132 mmHg mmHg Diastolic Blood Pressure Non-Invasive 71 mmHg mmHg 04/28/2023 8:05 EST SN - CTm - Anesthesia Start Time Anesthesia Start midazolam 1 mg mg 04/28/2023 7:43 EST SN - PP - Body Position Supine Standard Intra-op 04/28/2023 7:35 EST SN - Proc - Anesthesia Type General SN - Proc - Actual Procedure ROBOTIC ASSISTED LEFT INGUINAL HERNIA REPAIR 04/28/2023 7:34 EST SN - SP - Prep Agents Chloraprep 04/28/2023 7:32 EST SN - PTCare - Thermals Forced Air Warming Device Upper Body SN - [facility] - Anti-thromboembolism Margaret Sequential Compression Device (SCD) 04/28/2023 7:31 EST SN - Assess - LOC Alert, Awake SN - Assess - Orientation Oriented X 3 SN - Assess - Post-op Skin Integrity Intact/Dry 04/28/2023 7:31 EST Blood Glucose, Capillary 93 mg/dL 04/28/2023 7:30 EST SN - GCD - Post-operative Diagnosis LEFT INGUINAL HERNIA SN - GCD - Case Level Level 6 04/28/2023 7:29 EST SN - CAt - Case Attendee SN - CAt - Case Attendee SN - CAt - Case Attendee SN - CAt - Case Attendee SN - CAt - Case Attendee SN - CAt - Case Attendee SN - CAt - Case Attendee SN - CAt - Case Attendee SN - CAt - Case Attendee SN - CAt - Case Attendee SN - CAt - Case Attendee SN - CAt - Case Attendee SN - CAt - Role Performed Primary Surgeon SN - CAt - Role Performed TOBACCO PREVENTION HEALTH EDUCATOR SN - CAt - Role Performed Tool Design Checker 1 SN - CAt - Role Performed Tool Design Checker 2 SN - CAt - Role Performed Scrub 1 SN - CAt - Role Performed Mobile Paramedical Examiner 1 04/28/2023 7:27 EST SN - Preop - CTm Pt in SDS Room 04/28/2023 6:38 SN - Preop - CTm Pt Ready for OR/Proced 04/28/2023 7:27 04/28/2023 7:23 EST gabapentin 300 mg mg Lactated Ringers Injection Begin Bag 1,000 mL mL 04/28/2023 7:21 EST ibuprofen 800 mg mg Dextrose 5% in Water 250 mL mL 04/28/2023 7:08 EST Hand Left 04/28/2023 20 gauge Peripheral IV Activity: Insert new site Peripheral IV Dressing Condition: Clean, Dry, Intact Peripheral IV Dressing Activity: Applied, Transparent dressing Peripheral IV Line Status/Patency: Continuous infusion Peripheral IV Site Condition: No complications Peripheral IV Equipment: Extension set Peripheral IV Number of Attempts: 2 04/28/2023 6:56 EST Temperature Temporal Artery 36.6 DegC Peripheral Pulse Rate 76 bpm Respiratory Rate 17 br/min Systolic Blood Pressure Non-Invasive 121 mmHg Diastolic Blood Pressure Non-Invasive 74 mmHg Primary Pain Intensity 0 Pain Scale Type 0-10 Pain scale Heart Sounds ICU S1S2 Heart Rhythm Regular Respirations Unlabored Respiratory Pattern Regular Oxygen Therapy Room air Oxygen Saturation 99 % Abdomen Description Non-distended, Soft Abdomen Palpation Tender, Soft Abdomen Tender LUQ Bowel Sounds All Quadrants Present Skin Temperature Warm Skin Description Normal for ethnicity Skin Integrity Intact Skin Moisture General Dry Neurological Symptoms Patient denies Extremity Movement Equal Characteristics of Speech Clear Level of Consciousness Alert Strength All Extremities Strong Tone All Extremities Normal Sensation All Extremities Intact Affect/Behavior Appropriate, Calm, Cooperative Orientation Oriented x 4 Kya Motor (2) Moves 4 extremities voluntarily or on command Kya Respirations (2) Spontaneous respiration without support, RR > 10 Kya Blood Pressure (2) BP 20% above or below preanesthetic level Kya Pulse (2) Pulse 20% above or below preanesthetic level Kya Oxygen Saturation (2) 94% or more Kya Level of Consciousness (2) Fully awake Kya III Score 12 Assistive Device None Positioning Repositions self Mobility Assistance Level Independent Activity Status ADL Awake Sequential Compression Device bilateral knee high applied/on Standard Safety ID band on, Call device within reach, Bed in low position, Wheels locked, Upper/Half-Length side-rails up, Non-Slip footwear, Precautions maintained 04/28/2023 6:54 EST Urinary Elimination Voiding, no difficulties IV Present Present Allergies No Anesthesia Extension Set Applied Yes [employer] Fabricating Supervisor On Yes Consent Form Signed Yes Patient Dressed In Hospital gown, No undergarments Pre-op Preparation Glasses removed CHG Preoperative Wash/Wipe Night before procedure, Day of procedure Preop Nasal Swab Povidone-Iodine CHG Skin Prep Completed for Eligible Surgery History & Physical Update On Chart Yes History & Physical On Chart Yes Obstructive Sleep Apnea Assess Completed Yes Belongings At Bedside Cell phone, Glasses, Pants, Shirt, Shoes, Socks, Wallet NPO Status Maintained Patient ID Band on and Verified Yes Implants Verified Yes Pacemaker/AICD Verified Yes Site Verified by Patient/Family Yes Anesthesia Consent Signed Yes Blood Consent Signed Yes Last Fluid Intake 04/27/2023 22:00 Last Food Intake 04/27/2023 21:00 Last Void 04/28/2023 6:40 04/28/2023 6:50 EST Designated Person #1 We May Share [facility] [phone] Designated Person #1 Relationship Significant other Designated Person #2 We May Share PHI [place] [phone] Designated Person #2 Relationship Other: Rc son Height 175.3 cm Admission Weight 81.8 kg Weight Method Stated [place] Body Weight 70.74 kg BSA Admission 1.98 Body Mass Index 26.62 kg/m2 Status N/A Sensory Deficits None Infectious Disease Symptoms Patient states no symptoms Infectious Disease Recent Exposure No Alcohol and Drug Use No Employee of Institutional Living No Health Care Employee No History of Exposure to TB No History of Positive Chest X-Ray for TB No History of Positive TB Skin Test No Homeless No Known Immunosuppression No Recent Immigrant No Resident of Institutional Living No Bloody Sputum No Fatigue No Fever No Loss of Appetite No Night Sweats No Persistent Cough > 3 Weeks No Weight Loss No Barriers to Learning None evident Teaching Method Explanation Preferred Spoken Language Polish Preferred Written Language Polish Information Given by Patient Patient's Current Physicians Patient's Current Physicians Discharge To, Anticipated Home independently Prev Test Positive/Diagnosis w/COVID-19 Yes Previous COVID-19 Positive Date 2020 Current Quarantine/Isolated any Illness No Any Contact with Sick Animals/Birds No Traveled Anywhere in Last 30 Days No N/A Personal Devices, Patient Valuables Glasses Admission Note-Nursing Procedure/Therapy Intake . Assessment and Plan [place] [employer] Anesthesiologists (ASA) physical status classification: Class III. Anesthetic Preoperative Plan Premedication: intravenous. Anesthetic technique: General. Induction: intravenously. Maintenance airway: Oral endotracheal tube. Postoperative pain management: Per surgeon. Risks discussed: nausea, vomiting, sore throat. Informed consent: signed by patient. Digitally Signed by MARGARITO LOVING on 04/28/2023 08:37 AM [facility]12-06-2021 Evaluation + Plan noteExtracted from: Title:Clinical Document Author:JHONY BIRD Date:05/25/21 [place] ADMISSION HISTORY A [place] PHYSICIAL CHIEF COMPLAINT: HISTORY OF PRESENT ILLNESS: REVIEW OF SYSTEMS: ACTIVE PROBLEMS: (30) Abnormal EKG (2867654107) Ascending aortic aneurysm (8089951683) Back pain, thoracic (907665605) Back spasm (819200471) BMI 33.0-33.9,adult (713595207) COVID-19 virus infection (3902858769) Depression screen (005419083) Emphysema of lung (263076448) Former smoker (86370491) Frequent headaches (8561198495) HLD (hyperlipidemia) (34691376) IBS (irritable bowel syndrome) (21492640) Immunization due (847144932) Inguinal hernia (5823103680) Low back pain (141274203) Medicare annual wellness visit, initial (611750699) Need for hepatitis C screening test (434953237) Obesity (0428818332) Paresthesia (378541204) Screen for colon cancer (873031769) Screening for AAA (abdominal aortic aneurysm) (843866403) Screening for prostate cancer (513465284) Somatic dysfunction of lower extremity (9606291738) Somatic dysfunction of lumbar region (8764893715) Somatic dysfunction of pelvic region (4038720503) Somatic dysfunction of rib region (9598876041) Somatic dysfunction of sacral region (3942429451) Somatic dysfunction of thoracic region (6309576782) Thoracic ascending aortic aneurysm (7686324330) Type 2 diabetes mellitus (870314512) MEDICATIONS: Active Inpt Meds: None Active PRN Meds: None One Time Meds: None Active IV Meds: Lactated Ringers Infusion 1,000 mL (LR 1,000 mL) Start: 05/25/21 8:20:00 EST, Rate: 50 mL/hr ALLERGIES: (1) NKA FAMILY HISTORY: SOCIAL HISTORY: PHYSICAL EXAM: VITALS: [id number](kg) 05/25 08:1736.2103/170226--EP93/06 97.7 24 Hr Tmax: 36.2 at 05/25 08:17 36 Hr Tmax: 36.2 at 05/25 08:17 Vital Signs are the last 5 in the past 48 hours. Weights display the last 5 within 7 days. Initial Wt: 05/25 97.7 kg 215 lb Current Wt: 05/25 97.7 kg 215 lb GENERAL: HEENT: CARDIOVASCULAR: RESPIRATORY: ABDOMEN: EXREMETIES: NEUROLOGICAL: PSYCHIATRIC: LABS: No 36hr Lab Data DIAGNOSTICS: IMPRESSION: PLAN: History and Physical Update I have examined the patient; reviewed the H&P and there are no changes to the H&P unless noted below. Future Appointments Appointment Date:09/22/2021 09:00:00 AM Scheduled Provider:SABI ANAND DO Location:[facility] Appointment Type:PC OV Future Scheduled Tests Laboratory* Lead, Blood 05/01/21 * Angiotensin Converting Enzyme 05/01/21 * Basic Metabolic Panel 10/28/20 * Antinuclear Antibody Screen, Serum 05/01/21 * C-Reactive Protein 05/01/21 * Folate Level 05/01/21 * Prostate Specific Antigen 11/18/20 * Prostate Specific Antigen 03/24/21 * Urinalysis 05/01/21 * Thyroid Stimulating Hormone 11/18/20 * Thyroid Stimulating Hormone 05/01/21 * Thyroid Stimulating Hormone 03/24/21 * Vitamin B12 Level 05/01/21 * Ratio Prot/Creat Urine 05/01/21 * A1C Hemoglobin 11/18/20 * A1C Hemoglobin 03/24/21 * Rheumatoid Factor 05/01/21 * Complete Blood Count 11/18/20 * Complete Blood Count 05/01/21 * Complete Blood Count 03/24/21 * Cytoplasmic Neutro. Antibody 05/01/21 * Lipid Profile 11/18/20 * Lipid Profile 03/24/21 * Hepatitis C Antibody IgG 11/18/20 * Hepatitis C Antibody IgG 03/24/21 * Microalbumin Level Urine 11/18/20 * Microalbumin Level Urine 03/24/21 * Sedimentation Rate Automated 05/01/21 * Complete Metabolic Panel 11/18/20 * Complete Metabolic Panel 05/01/21 * Complete Metabolic Panel 03/24/21 Radiology* CT Angiography Chest w/ Contrast 12/03/20 * XR Spine Lumbar W/Obliques 4 Views 11/19/20 [facility] 12-06-2021 Hospital Discharge instructions Patient Education 05/25/2021 10:22:56 Colon Polyps Colon Polyps Polyps are tissue growths inside the body. Polyps can grow in many places, including the large intestine (colon). A polyp may be a round bump or a mushroom-shaped growth. You could have one polyp or several. Most colon polyps are noncancerous (benign). However, some colon polyps can become cancerous over time. Finding and removing the polyps early can help prevent this. What are the causes? The exact cause of colon polyps is not known. What increases the risk? You are more likely to develop this condition if you: Have a family history of colon cancer or colon polyps. Are older than 50 or older than 45 if you are . Have inflammatory bowel disease, such as ulcerative colitis or Crohn's disease. Have certain hereditary conditions, such as: ?Familial adenomatous polyposis. ?Spann syndrome. ?Turcot syndrome. ?Peutz Jeghers syndrome. Are overweight. Smoke cigarettes. Do not get enough exercise. Drink too much alcohol. Eat a diet that is high in fat and red meat and low in fiber. Had childhood cancer that was treated with abdominal radiation. What are the signs or symptoms? Most polyps do not cause symptoms. If you have symptoms, they may include: Blood coming from your rectum when having a bowel movement. Blood in your stool. The stool may look dark red or black. Abdominal pain. A change in bowel habits, such as constipation or diarrhea. How is this diagnosed? This condition is diagnosed with a colonoscopy. This is a procedure in which a lighted, flexible scope is inserted into the anus and then passed into the colon to examine the area. Polyps are sometimes found when a colonoscopy is done as part of routine cancer screening tests. How is this treated? Treatment for this condition involves removing any polyps that are found. Most polyps can be removed during a colonoscopy. Those polyps will then be tested for cancer. Additional treatment may be needed depending on the results of testing. Follow these instructions at home: Lifestyle Maintain a healthy weight, or lose weight if recommended by your health care provider. Exercise every day or as told by your health care provider. Do not use any products that contain nicotine or tobacco, such as cigarettes and e-cigarettes. If you need help quitting, ask your health care provider. If you drink alcohol, limit how much you have: ?0 1 drink a day for women. ? 0 2 drinks a day for men. Be aware of how much alcohol is in your drink. In the [place] one drink equals one 12 oz bottle of beer (355 mL), one 5 oz glass of wine (148 mL), or one 1 oz shot of hard liquor (44 mL). Eating and drinking Eat foods that are high in fiber, such as fruits, vegetables, and whole grains. Eat foods that are high in calcium and vitamin D, such as milk, cheese, yogurt, eggs, liver, fish, and broccoli. Limit foods that are high in fat, such as fried foods and desserts. Limit the amount of red meat and processed meat you eat, such as hot dogs, sausage, oropeza, and lunch meats. General instructions Keep all follow-up visits as told by your health care provider. This is important. ?This includes having regularly scheduled colonoscopies. ?Talk to your health care provider about when you need a colonoscopy. Contact a health care provider if: You have new or worsening bleeding during a bowel movement. You have new or increased blood in your stool. You have a change in bowel habits. You lose weight for no known reason. Summary Polyps are tissue growths inside the body. Polyps can grow in many places, including the colon. Most colon polyps are noncancerous (benign), but some can become cancerous over time. This condition is diagnosed with a colonoscopy. Treatment for this condition involves removing any polyps that are found. Most polyps can be removed during a colonoscopy. This information is not intended to replace advice given to you by your health care provider. Make sure you discuss any questions you have with your health care provider. Document Released: 03/02/2005 Document Revised: 09/21/2018 Document Reviewed: 09/21/2018 [employer] Patient Education 2020 [employer]. 05/25/2021 10:22:49 Nausea and Vomiting, Adult, Tsum-fq-Pomf Nausea and Vomiting, Adult Nausea is feeling sick to your stomach or feeling that you are about to throw up (vomit). Vomiting is when food in your stomach is thrown up and out of the mouth. Throwing up can make you feel weak. It can also make you lose too much water in your body (get dehydrated). If you lose too much water in your body, you may: Feel tired. Feel thirsty. Have a dry mouth. Have cracked lips. Go pee (urinate) less often. Older adults and people with other diseases or a weak body defense system (immune system) are at higher risk for losing too much water in the body. If you feel sick to your stomach and you throw up, it is important to follow instructions from your doctor about how to take care of yourself. Follow these instructions at home: Watch your symptoms for any changes. Tell your doctor about them. Follow these instructions to carefor yourself at home. Eating and drinking Take an ORS (oral rehydration solution). This is a drink that is sold at pharmacies and stores. Drink clear fluids in small amounts as you are able, such as: ?Water. ?Ice chips. ?Fruit juice that has water added (diluted fruit juice). ?Low-calorie sports drinks. Eat bland, jrpv-kt-odhdth foods in small amounts as you are able, such as: ?Bananas. ?Applesauce. ?Rice. ?Low-fat (lean) meats. ?[place]. ?Crackers. Avoid drinking fluids that have a lot of sugar or caffeine in them. This includes energy drinks, sports drinks, and soda. Avoid alcohol. Avoid spicy or fatty foods. General instructions Take zfcj-cyc-txfvjns and prescription medicines only as told by your doctor. Drink enough fluid to keep your pee (urine) pale yellow. Wash your hands often with soap and water. If you cannot use soap and water, use hand damage cutter. Make sure that all people in your home wash their hands well and often. Rest at home while you get better. Watch your condition for any changes. Take slow and deep breaths when you feel sick to your stomach. Keep all follow-up visits as told by your doctor. This is important. Contact a doctor if: Your symptoms get worse. You have new symptoms. You have a fever. You cannot drink fluids without throwing up. You feel sick to your stomach for more than 2 days. You feel light-headed or dizzy. You have a headache. You have muscle cramps. You have a rash. You have pain while peeing. Get help right away if: You have pain in your chest, neck, arm, or jaw. You feel very weak or you pass out (faint). You throw up again and again. You have throw up that is bright red or looks like black coffee grounds. You have bloody or black poop (stools) or poop that looks like tar. You have a very bad headache, a stiff neck, or both. You have very bad pain, cramping, or bloating in your belly (abdomen). You have trouble breathing. You are breathing very quickly. Your heart is beating very quickly. Your skin feels cold and clammy. You feel confused. You have signs of losing too much water in your body, such as: ?Dark pee, very little pee, or no pee. ?Cracked lips. ?Dry mouth. ?Sunken eyes. ?Sleepiness. ?Weakness. These symptoms may be an emergency. Do not wait to see if the symptoms will go away. Get medical help right away. Call your local emergency services (911 in the [place] Do not drive yourself to the hospital. Summary Nausea is feeling sick to your stomach or feeling that you are about to throw up (vomit). Vomiting is when food in your stomach is thrown up and out of the mouth. Follow instructions from your doctor about eating and drinking to keep from losing too much water in your body. Take hxdf-ljt-mkzywwa and prescription medicines only as told by your doctor. Contact your doctor if your symptoms get worse or you have new symptoms. Keep all follow-up visits as told by your doctor. This is important. This information is not intended to replace advice given to you by your health care provider. Make sure you discuss any questions you have with your health care provider. Document Released: 11/22/2008 Document Revised: 09/28/2019 Document Reviewed: 11/14/2018 [employer] Patient Education 2020 [employer]. 05/25/2021 10:22:47 Monitored Anesthesia Care, Care After Monitored Anesthesia Care, Care After These instructions provide you with information about caring for yourself after your procedure. Your health care provider may also give you more specific instructions. Your treatment has been plannedaccording to current medical practices, but problems sometimes occur. Call your health care provider if you have any problems or questions after your procedure. What can I expect after the procedure? After your procedure, you may: Feel sleepy for several hours. Feel clumsy and have poor balance for several hours. Feel forgetful about what happened after the procedure. Have poor judgment for several hours. Feel nauseous or vomit. Have a sore throat if you had a breathing tube during the procedure. Follow these instructions at home: For at least 24 hours after the procedure: Have a responsible adult stay with you. It is important to have someone help care for you until youare awake and alert. Rest as needed. Do not: ?Participate in activities in which you could fall or become injured. ?Drive. ?Use heavy machinery. ?Drink alcohol. ?Take sleeping pills or medicines that cause drowsiness. ?Make important decisions or sign legal documents. ?Take care of children on your own. Eating and drinking Follow the diet that is recommended by your health care provider. If you vomit, drink water, juice, or soup when you can drink without vomiting. Make sure you have little or no nausea before eating solid foods. General instructions Take gegg-nqb-mxnqjpo and prescription medicines only as told by your health care provider. If you have sleep apnea, surgery and certain medicines can increase your risk for breathing problems. Follow instructions from your health care provider about wearing your sleep device: ?Anytime you are sleeping, including during daytime naps. ?While taking prescription pain medicines, sleeping medicines, or medicines that make you drowsy. If you smoke, do not smoke without supervision. Keep all follow-up visits as told by your health care provider. This is important. Contact a health care provider if: You keep feeling nauseous or you keep vomiting. You feel light-headed. You develop a rash. You have a fever. Get help right away if: You have trouble breathing. Summary For several hours after your procedure, you may feel sleepy and have poor judgment. Have a responsible adult stay with you for at least 24 hours or until you are awake and alert. This information is not intended to replace advice given to you by your health care provider. Make sure you discuss any questions you have with your health care provider. Document Released: 09/26/2016 Document Revised: 09/04/2018 Document Reviewed: 09/26/2016 [employer] Patient Education 2020 [employer]. 05/25/2021 10:22:07 Colonoscopy, Adult, Care After, [id number] Colonoscopy, Adult, Care After This sheet gives you information about how to care for yourself after your procedure. Your doctor may also give you more specific instructions. If you have problems or questions, call your doctor. What can I expect after the procedure? After the procedure, it is common to have: A small amount of blood in your poop for 24 hours. Some gas. Mild cramping or bloating in your belly. Follow these instructions at home: General instructions For the first 24 hours after the procedure: ?Do not drive or use machinery. ?Do not sign important documents. ?Do not drink alcohol. ?Do your daily activities more slowly than normal. ?Eat foods that are soft and easy to digest. Take ertp-aei-[id number] or prescription medicines only as told by your doctor. To help cramping and bloating: Try walking around. Put heat on your belly (abdomen) as told by your doctor. Use a heat source that your doctor recommends, such as a moist heat pack or a heating pad. ?Put a towel between your skin and the heat source. ?Leave the heat on for 20 30 minutes. ?Remove the heat if your skin turns bright red. This is especially important if you cannot feel pain, heat, or cold. You can get burned. Eating and drinking Drink enough fluid to keep your pee (urine) clear or pale yellow. Return to your normal diet as told by your doctor. Avoid heavy or fried foods that are hard to digest. Avoid drinking alcohol for as long as told by your doctor. Contact a doctor if: You have blood in your poop (stool) 2 3 days after the procedure. Get help right away if: You have more than a small amount of blood in your poop. You see large clumps of tissue (blood clots) in your poop. Your belly is swollen. You feel sick to your stomach (nauseous). You throw up (vomit). You have a fever. You have belly pain that gets worse, and medicine does not help your pain. Summary After the procedure, it is common to have a small amount of blood in your poop. You may also have mild cramping and bloating in your belly. For the first 24 hours after the procedure, do not drive or use machinery, do not sign important documents, and do not drink alcohol. Get help right away if you have a lot of blood in your poop, feel sick to your stomach, have a fever, or have more belly pain. This information is not intended to replace advice given to you by your health care provider. Make sure you discuss any questions you have with your health care provider. Document Released: 07/09/2011 Document Revised: 04/06/2018 Document Reviewed: 02/28/2017 [employer] Patient Education 2020 [employer] Follow Up Care 04/21/2021 13:08:40 With:JHONY BIRD MD Address: [phone] When: Unknown Comments:CALL DR BIRD WITH ANY QUESTIONS. GO TO THE EMERGENCY ROOM WITH ANY URGENT MATTERS [facility] Evaluation + Plan note Future Appointments Appointment Date:10/20/2021 10:30:00 AM Scheduled Provider: Location:[facility] Appointment Type:CT Angiography Chest w/ Contrast Appointment Date:11/03/2021 02:00:00 PM Scheduled Provider:ELVI PALMA MD Location:[facility] Appointment Type:CTS OV Appointment Date:11/11/2021 09:30:00 AM Scheduled Provider:SABI ANAND DO Location:[facility] Appointment Type:PC OV Future Scheduled Tests Laboratory* Lead, Blood 05/01/21 * Basic Metabolic Panel 10/28/20 * Antinuclear Antibody Screen, Serum 05/01/21 * C-Reactive Protein 05/01/21 * Folate Level 05/01/21 * Prostate Specific Antigen 11/18/20 * Prostate Specific Antigen 03/24/21 * Urinalysis 05/01/21 * Thyroid Stimulating Hormone 11/18/20 * Thyroid Stimulating Hormone 05/01/21 * Thyroid Stimulating Hormone 03/24/21 * Vitamin B12 Level 05/01/21 * Angiotensin Converting Enzyme 05/01/21 * A1C Hemoglobin 11/18/20 * A1C Hemoglobin 03/24/21 * Rheumatoid Factor 05/01/21 * Complete Blood Count 11/18/20 * Complete Blood Count 05/01/21 * Complete Blood Count 03/24/21 * Cytoplasmic Neutro. Antibody 05/01/21 * Lipid Profile 11/18/20 * Lipid Profile 03/24/21 * Hepatitis C Antibody IgG 11/18/20 * Hepatitis C Antibody IgG 03/24/21 * Microalbumin Level Urine 11/18/20 * Microalbumin Level Urine 03/24/21 * Sedimentation Rate Automated 05/01/21 * Complete Metabolic Panel 11/18/20 * Complete Metabolic Panel 05/01/21 * Complete Metabolic Panel 03/24/21 * Ratio Prot/Creat Urine 05/01/21 Radiology* CT Angiography Chest w/ Contrast 10/20/21 * XR Spine Lumbar W/Obliques 4 Views 11/19/20 [facility] Evaluation + Plan note Future Appointments Appointment Date:11/03/2021 02:00:00 PM Scheduled Provider:ELVI PALMA MD Location:[facility] Appointment Type:CTS OV Appointment Date:11/11/2021 09:30:00 AM Scheduled Provider:SABI ANAND DO Location:[facility] Appointment Type:PC OV Future Scheduled Tests Laboratory* Lead, Blood 05/01/21 * Basic Metabolic Panel 10/28/20 * Antinuclear Antibody Screen, Serum 05/01/21 * C-Reactive Protein 05/01/21 * Folate Level 05/01/21 * Prostate Specific Antigen 11/18/20 * Prostate Specific Antigen 03/24/21 * Urinalysis 05/01/21 * Thyroid Stimulating Hormone 11/18/20 * Thyroid Stimulating Hormone 05/01/21 * Thyroid Stimulating Hormone 03/24/21 * Vitamin B12 Level 05/01/21 * Angiotensin Converting Enzyme 05/01/21 * A1C Hemoglobin 11/18/20 * A1C Hemoglobin 03/24/21 * Rheumatoid Factor 05/01/21 * Complete Blood Count 11/18/20 * Complete Blood Count 05/01/21 * Complete Blood Count 03/24/21 * Cytoplasmic Neutro. Antibody 05/01/21 * Lipid Profile 11/18/20 * Lipid Profile 03/24/21 * Hepatitis C Antibody IgG 11/18/20 * Hepatitis C Antibody IgG 03/24/21 * Microalbumin Level Urine 11/18/20 * Microalbumin Level Urine 03/24/21 * Sedimentation Rate Automated 05/01/21 * Complete Metabolic Panel 11/18/20 * Complete Metabolic Panel 05/01/21 * Complete Metabolic Panel 03/24/21 * Ratio Prot/Creat Urine 05/01/21 Radiology* XR Spine Lumbar W/Obliques 4 Views 11/19/20 [facility] Evaluation + Plan note Future Appointments Appointment Date:10/27/2022 09:00:00 AM Scheduled Provider:SABI ANAND DO Location:[facility] Appointment Type:PC OV Future Scheduled Tests Laboratory* Prostate Specific Antigen 11/11/21 * Prostate Specific Antigen 03/30/22 * Thyroid Stimulating Hormone 07/26/22 * A1C Hemoglobin 11/11/21 * A1C Hemoglobin 07/26/22 * Complete Blood Count 11/11/21 * Complete Blood Count 07/26/22 * Lipid Profile 11/11/21 * Lipid Profile 07/26/22 * Microalbumin Level Urine 07/26/22 * Complete Metabolic Panel 11/11/21 * Complete Metabolic Panel 07/26/22 Radiology* CT Angiography Chest w/ Contrast 11/04/23 * XR Spine Lumbar W/Obliques 4 Views 07/26/22 [facility] Evaluation + Plan note Future Appointments Appointment Date:10/06/2022 09:00:00 AM Scheduled Provider:JACKELINE MANCINI DO Location:[facility] Appointment Type:PC OV Appointment Date:10/06/2022 02:30:00 PM Scheduled Provider: Location:[facility] Appointment Type:DB Diabetic Individual Visit (AOH) Appointment Date:10/27/2022 09:00:00 AM Scheduled Provider:SABI ANAND DO Location:[facility] Appointment Type:PC OV Diagnostic Tests Pending * Islet Cell Ab 10/05/22 * Glutamic Acid Decarboxylase 10/05/22 Future Scheduled Tests Laboratory* Prostate Specific Antigen 11/11/21 * Prostate Specific Antigen 03/30/22 * Thyroid Stimulating Hormone 07/26/22 * A1C Hemoglobin 11/11/21 * A1C Hemoglobin 07/26/22 * Complete Blood Count 11/11/21 * Complete Blood Count 07/26/22 * Lipid Profile 11/11/21 * Lipid Profile 07/26/22 * Microalbumin Level Urine 07/26/22 * Complete Metabolic Panel 11/11/21 * Complete Metabolic Panel 07/26/22 Radiology* CT Angiography Chest w/ Contrast 11/04/23 * XR Spine Lumbar W/Obliques 4 Views 07/26/22 [facility] Evaluation + Plan note Future Appointments Appointment Date:01/19/2023 09:00:00 AM Scheduled Provider:SABI ANAND DO Location:[facility] Appointment Type:PC OV Appointment Date:04/06/2023 09:30:00 AM Scheduled Provider:SABI ANAND DO Location:[facility] Appointment Type:PC Wellness Medicare Appointment Date:04/07/2023 11:00:00 AM Scheduled Provider: Location:[facility] Appointment Type:DB Diabetic Individual Visit (AOH) Future Scheduled Tests Laboratory* Prostate Specific Antigen 03/30/22 * Thyroid Stimulating Hormone 07/26/22 * A1C Hemoglobin 07/26/22 * Complete Blood Count 07/26/22 * Lipid Profile 07/26/22 * Microalbumin Level Urine 07/26/22 * Complete Metabolic Panel 07/26/22 Radiology* CT Angiography Chest w/ Contrast 11/04/23 * XR Spine Lumbar W/Obliques 4 Views 07/26/22 [facility] Evaluation + Plan note Future Appointments Appointment Date:07/08/2023 09:00:00 AM Scheduled Provider: Location:[facility] Appointment Type:DB Diabetic Individual Visit (AOH) Appointment Date:07/27/2023 09:00:00 AM Scheduled Provider:SABI ANAND DO [facility] Type:PC OV Future Scheduled Tests Laboratory* Prostate Specific Antigen 04/06/23 * Thyroid Stimulating Hormone 04/06/23 * Thyroid Stimulating Hormone 07/26/22 * Thyroid Stimulating Hormone 07/22/23 * A1C Hemoglobin 04/06/23 * A1C Hemoglobin 07/26/22 * A1C Hemoglobin 07/22/23 * Complete Blood Count 04/06/23 * Complete Blood Count 07/26/22 * Complete Blood Count 07/22/23 * Lipid Profile 04/06/23 * Lipid Profile 07/26/22 * Lipid Profile 07/22/23 * Albumin/Creatinine Ratio, Random Urine 04/06/23 * Albumin/Creatinine Ratio, Random Urine 07/22/23 * Microalbumin Level Urine 07/26/22 * Complete Metabolic Panel 04/06/23 * Complete Metabolic Panel 07/26/22 * Complete Metabolic Panel 07/22/23 Radiology* CT Angiography Chest w/ Contrast 11/04/23 * CT Angio Abd/Pelvis/Bilat Lower Extrem 06/21/23 * XR Spine Lumbar W/Obliques 4 Views 07/26/22 [facility] Evaluation + Plan note Future Appointments Appointment Date:07/08/2023 09:00:00 AM Scheduled Provider: Location:[facility] Appointment Type:DB Diabetic Individual Visit (AO) Appointment Date:07/14/2023 11:00:00 AM Scheduled Provider:SABI ANAND DO [facility] Appointment Type:PC OV Diagnostic Tests Pending * Rheumatoid Factor 06/29/23 * Protein Electrophoresis Urine 06/29/23 * Cytoplasmic Neutro. Antibody 06/29/23 * Heavy Metals Profile II, Blood 06/29/23 * Lead, Blood (Adult >=16 yrs) 06/29/23 * Antinuclear Antibody Screen, Serum 06/29/23 Future Scheduled Tests Laboratory* Thyroid Stimulating Hormone 07/22/23 * A1C Hemoglobin 07/22/23 * Complete Blood Count 07/22/23 * Lipid Profile 07/22/23 * Albumin/Creatinine Ratio, Random Urine 07/22/23 * Complete Metabolic Panel 07/22/23 Radiology* CT Angiography Chest w/ Contrast 11/04/23 * XR Spine Lumbar W/Obliques 4 Views 07/26/22 [facility] Evaluation + Plan note Future Appointments Appointment Date:08/23/2023 01:10:00 PM Scheduled Provider: Location:[facility] [place] Appointment Type:PM EMG/NCV 4 Extremity Appointment Date:10/13/2023 10:30:00 AM Scheduled Provider:SABI ANAND DO [facility] Appointment Type:PC OV Appointment Date:01/04/2024 09:00:00 AM Scheduled Provider: Location:[facility] Appointment Type:DB Diabetic Individual Visit (AOH) Future Scheduled Tests Laboratory* Thyroid Stimulating Hormone 07/22/23 * A1C Hemoglobin 07/22/23 * Complete Blood Count 07/22/23 * Lipid Profile 07/22/23 * Albumin/Creatinine Ratio, Random Urine 07/22/23 * Complete Metabolic Panel 07/22/23 Radiology* CT Angiography Chest w/ Contrast 11/04/23 * XR Spine Lumbar W/Obliques 4 Views 07/26/22 [facility] Evaluation + Plan note Future Appointments Appointment Date:04/11/2024 09:00:00 AM Scheduled Provider:SABI ANAND DO [facility] Appointment Type:PC Wellness Medicare Appointment Date:04/19/2024 02:00:00 PM Scheduled Provider:LILIANA LARSON MD Location:[facility] Appointment Type:CTS OV Future Scheduled Tests Laboratory* Thyroid Stimulating Hormone 12/08/23 * Vitamin B12 Level 12/08/23 * A1C Hemoglobin 12/08/23 * Complete Blood Count 12/08/23 * Lipid Profile 12/08/23 * Albumin/Creatinine Ratio, Random Urine 12/08/23 * Complete Metabolic Panel 12/08/23 [facility] Evaluation + Plan note Future Appointments Appointment Date:07/08/2023 09:00:00 AM Scheduled Provider: Location:[facility] Appointment Type:DB Diabetic Individual Visit (AOH) Appointment Date:07/27/2023 09:00:00 AM Scheduled Provider:SABI ANAND DO Location:[facility] Appointment Type:PC OV Future Scheduled Tests Laboratory* Prostate Specific Antigen 04/06/23 * Thyroid Stimulating Hormone 04/06/23 * Thyroid Stimulating Hormone 07/26/22 * Thyroid Stimulating Hormone 07/22/23 * A1C Hemoglobin 04/06/23 * A1C Hemoglobin 07/26/22 * A1C Hemoglobin 07/22/23 * Complete Blood Count 04/06/23 * Complete Blood Count 07/26/22 * Complete Blood Count 07/22/23 * Lipid Profile 04/06/23 * Lipid Profile 07/26/22 * Lipid Profile 07/22/23 * Albumin/Creatinine Ratio, Random Urine 04/06/23 * Albumin/Creatinine Ratio, Random Urine 07/22/23 * Microalbumin Level Urine 07/26/22 * Complete Metabolic Panel 04/06/23 * Complete Metabolic Panel 07/26/22 * Complete Metabolic Panel 07/22/23 Radiology* CT Angiography Chest w/ Contrast 11/04/23 * XR Spine Lumbar W/Obliques 4 Views 07/26/22 [facility] Evaluation + Plan note Future Appointments Appointment Date:10/10/2024 08:30:00 AM Scheduled Provider:SABI ANAND DO Location:[facility] Appointment Type:PC OV Future Scheduled Tests Laboratory* Prostate Specific Antigen 04/04/24 * Thyroid Stimulating Hormone 04/04/24 * Thyroid Stimulating Hormone 10/10/24 * Vitamin B12 Level 04/04/24 * A1C Hemoglobin 04/04/24 * A1C Hemoglobin 10/10/24 * Complete Blood Count 04/04/24 * Complete Blood Count 10/10/24 * Lipid Profile 04/04/24 * Lipid Profile 10/10/24 * Albumin/Creatinine Ratio, Random Urine 04/04/24 * Albumin/Creatinine Ratio, Random Urine 10/10/24 * Complete Metabolic Panel 04/04/24 * Complete Metabolic Panel 10/10/24 [facility] Evaluation + Plan note Future Appointments Appointment Date:04/24/2025 09:00:00 AM Scheduled Provider:SABI ANAND DO Location:[facility] Appointment Type: Wellness Medicare with Labs Future Scheduled Tests Laboratory* Prostate Specific Antigen 04/04/24 * Thyroid Stimulating Hormone 04/04/24 * Thyroid Stimulating Hormone 10/10/24 * Vitamin B12 Level 04/04/24 * A1C Hemoglobin 04/04/24 * A1C Hemoglobin 10/10/24 * Complete Blood Count 04/04/24 * Complete Blood Count 10/10/24 * Lipid Profile 04/04/24 * Lipid Profile 10/10/24 * Albumin/Creatinine Ratio, Random Urine 04/04/24 * Albumin/Creatinine Ratio, Random Urine 10/10/24 * Complete Metabolic Panel 04/04/24 * Complete Metabolic Panel 10/10/24 [facility] Evaluation noteNo assessment information available [facility] Work Phone: Hospital course Narrative No data available for this section [facility] Hospital Discharge instructions No data available for this section [facility] Progress note No data available for this section [facility] Reason for referral (narrative)No reason for referral information available[facility] Work Phone: Summary Purpose Family History No Family History Records Found Advance Directives No Advanced Directives Records FoundNo Advanced Directives Records FoundNo Advanced Directives Records FoundNo Advanced Directives Records Found Chief Complaint and Reason for Visit Chief Complaint Admit Date [address] dr[address]/paper and e orders September 28, 2024 7:03am Additional Source Comments Care Team (unrecognized sect ion and content) Team Status: Active Member Role Status Dates Dr. Sabi Anand DO Primary Care Provider Active Team Status: Inactive Member Role Status Dates Dr. Sabi Anand DO Primary Care Provider Active Start: September 28, 2024 End: September 28, 2024 Dr. Blaze Mcmahon MD Attending Provider Active S tart: September 28, 2024 End: September 28, 2024 Dr. Blaze Mcmahon MD Referring Provider Active S tart: September 28, 2024 End: September 28, 2024 (unrecognized sect ion and content) No Status Records FoundNo Status Records FoundNo Status Records FoundNo Status Records Found INFORMATION SOURCE (unrecogn ized section and content) DATE CREATED AUTHOR 02/17/2024 [facility] ([place]) DATE CREATED AUTHOR AUTHOR'S ORGANIZ ATION 03/11/2024 [facility] DATE CREATED AUTHOR AUTHOR'S ORGANIZ ATION 10/24/2024 [facility] DATE CREATED AUTHOR AUTHOR'S ORGANIZ ATION 01/10/2025 [facility] Goals (unrecognized section and content) Goals may be documented in a n alternate section FOR RECORDS PERTAINING TO PATIENTS WHO ARE OR HAVE BEEN ENROLLED IN A CHEMICAL DEPENDENCY/SUBSTANCEABUSE PROGRAM, SOME INFORMATION MAY BE OMITTED. This clinical summary was aggregated from multiple sources. Caution should be exercised in using it in the provision of clinical care. This summary normalizes information from multiple sources, and as a consequence, information in this document may materially change the coding, format and clinical context of patient data. In addition, data may be omitted in some cases. CLINICAL DECISIONS SHOULD BE BASED ON THE PRIMARY CLINICAL RECORDS. [employer] [facility]. provides no warranty or guarantee of the accuracy or completeness of information in this document.
[2025-04-10 08:07] LABS: Hematocrit 43.0 % (40-54); Hemoglobin 15.0 g/dL (13.0-16.5); Immature Granulocytes Count 0.020 X10^3/uL (0.0-0.0); Mean Corp Hgb Conc 34.9 g/dL (32-36); Mean Corpuscular Volume 90.1 fL (80-94); Mean Platelet Vol. 10.7 fl (6.2-12.0); NRBC Flagged by Analyzer 0 % (0-5); Platelet Count 202 K/mm3 (150-450); RBC Distribution Width CV 12.6 % (11.6-14.6); RBC Distribution Width SD 41.9 fl (35.1-43.9); Red Blood Count 4.77 M/mm3 (4.6-6.2); White Blood Count 6.1 K/mm3 (4.4-11.0)
[2025-04-10 09:02] LABS: AST(SGOT) 20 U/L (<=37); Alanine Aminotransfer ALT/SGPT 19 U/L (<=46); Albumin, Serum 4.5 g/dL (3.4-4.8); Alkaline Phosphatase 85 U/L (40-129); Anion Gap 10 (5-15); BUN 21 mg/dL (4-19); BUN/Creat Ratio 27.4 RATIO (10-20); Calcium,Total 9.4 mg/dL (7.6-11.0); Carbon Dioxide 25.3 mmol/L (21.0-32.0); Chloride 103 mmol/L (98-108); Globulin 2.6 g/dL (2.2-4.2); Glucose 119 mg/dL (70-99); LDH 168 U/L (87-241); Potassium 4.6 mmol/L (3.3-5.1)
[2025-04-15 14:08] LABS: Albumin 3.8 g/dL (2.9-4.4); Gamma Globulin 1.2 g/dL (0.4-1.8); Immunoglobulin A 671 mg/dL (61-437); Immunoglobulin G 681 mg/dL (603-1613); Immunoglobulin M 23 mg/dL (20-172); PROEL- TOTAL PROTEIN 7.0 g/dL (6.0-8.5)
== END | disposition home or self-care (01) ==
LOC: LAB 07:02
PROVIDERS: PCP Student in an Organized Health Care Education/Training Program; Referring Provider Internal Medicine Medical Oncology; Visit Provider Internal Medicine Medical Oncology
DX: D47.2 Monoclonal gammopathy (principal); R77.8 Other specified abnormalities of plasma proteins
CPT/HCPCS: 36415; 80053; 82784; 83615; 83883; 84165; 85025; 86334

== ENCOUNTER 2025-05-22 19:54 | Emergency (ER) | payer MEDICARE, SELFPAY ==
[2025-05-22 19:54] VITALS: BP 119/107; PULSE 99; RESP 16; TEMP 36.6; O2SAT 99; BMI 30.7
--- NOTE | 2025-05-22 21:19 | EX.ED.GENINJ ---
HPI History of Present Illness Chief Complaint: Laceration Narrative Narrative: Patient is a 69-year-old male who presented to the emergency department with a chief complaint of cut to his left middle finger. He states that he was try to gut a deer earlier tonight when the knife slipped and cut his finger. He tried to wash at home and felt that this may needs stitches therefore he came here to be further evaluated. Patient states that he is unsure when his last tetanus shot was. PFSH [facility] Medical History Somatic dysfunction of lower extremity Somatic dysfunction of pelvic region Somatic dysfunction of lumbar region Emphysema lung Coronary artery disease due to type 2 diabetes mellitus Diabetic peripheral vascular disease Type 2 diabetes mellitus with hyperlipidemia Type 2 diabetes mellitus with hyperglycemia Thoracic ascending aortic aneurysm PVD (peripheral vascular disease) Aortic atherosclerosis Paresthesias DDD (degenerative disc disease) Home Medications ?Medication ?Instructions ?Recorded ?Last Taken ?Type simvastatin 40 mg tablet 40 mg PO QHS cholesterol 12/28/16 05/15/17 22:00 History 1 amitriptyline 25 mg tablet 25 mg PO DAILY 07/14/23 Unknown History cyclobenzaprine 10 mg tablet 10 mg PO TID PRN muscle spasm 07/14/23 Unknown History meloxicam 15 mg tablet 15 mg PO DAILY 07/14/23 Unknown History multivitamin 1 tab PO DAILY 07/14/23 Unknown History rizatriptan 10 mg tablet See Rx Instructions PO .COMPLEX 07/14/23 Unknown History sildenafil 50 mg tablet 50 mg PO DAILY PRN 07/14/23 Unknown History Allergy/AdvReac Type Severity Reaction Status Date / Time No Known Allergies Allergy Verified 05/22/25 19:57 Family History Mother CAD (coronary artery disease) Surgical History History of tonsillectomy S/P manipulation of deviated nasal septum Pilonidal sinus History of knee replacement Bilateral inguinal hernia Social History household members: significant other current occupational status: retired current occupation: [employer] Smoking Status: Former smoker alcohol intake: never ROS ROS ED ROS Narrative Neurological: Denies any numbness, weakness, tingling Musculoskeletal: Complains of left middle finger pain Skin: Complains of cut to the left middle finger EXAM Physical Exam Narrative Exam Narrative: General: Patient lying in bed rest comfortably did not appear to be acute distress Head: Atraumatic, normocephalic Eyes: PERRL bilaterally, EOMI bilateral, no conjunctival injection noted Neck: Soft, supple, trachea midline Cardiovascular: Regular rate Extremities: +5/5 strength noted in the bilateral lower extremities Neurological: Sensation grossly intact in the median ulnar and radial nerve distribution bilaterally Skin: Warm, dry, patient has complex laceration over the left knuckle measuring approximately 4 cm in total length Const Vital Signs: 05/22/25 19:54 Temperature 97.8 F Temperature Source Temporal Pulse Rate 99 Respiratory Rate 16 Blood Pressure 119/107 H Blood Pressure Mean 111 Pulse Ox 99 Oxygen Delivery Method Room Air MDM MDM MDM Narrative Medical decision making narrative: Patient is a 69-year-old male who presents to the emergency department the chief complaint of laceration from a knife while trying to gut a deer earlier this evening. Patient tetanus shot will be updated. On the differential diagnose includes but not went to laceration, abrasion, tendon injury although low suspicion for this as he has full flexion extension of that finger. Patient had laceration repaired per see procedure note for separate details. He was advised to have these removed in approximately 7 to 10 days. He was encouraged to watch out for signs of infection and return with worsening symptoms or concerns. He is agreeable this plan as well as significant other at bedside all question concerns answered he was discharged home in stable condition. Procedure name: Laceration repair Indication: Reduce risk of infection Location: Left middle finger complex 4 cm laceration Preprocedure diagnosis: Laceration Postprocedure diagnosis: Repaired laceration Informed consent was obtained prior to procedure started. Procedure: The appropriate timeout was taken. The area was prepped and draped in usual sterile fashion. Local anesthesia was achieved using 3 cc of lidocaine 1% without epinephrine. Wound was copiously irrigated. 7 4-0 Ethilon interrupted sutures were placed. Estimated blood loss was less than 0.5 mL. Dressing was applied to the area and anticipatory guidance, as well as standard postprocedure care was explained. Return precautions are given. Patient tolerated procedure well without any complications. Follow-up visit for suture removal and evaluation of laceration. Discharge Plan Triage Chief Complaint: Laceration ED Provider: Ervin Casey Dx/Rx/DC Orders Clinical Impression: Laceration of left middle finger, Encounter for medical screening examination, History of diabetes mellitus, type II Prescriptions: No Action amitriptyline 25 mg tablet 25 mg PO DAILY cyclobenzaprine 10 mg tablet 10 mg PO TID PRN (Reason: muscle spasm) meloxicam 15 mg tablet 15 mg PO DAILY multivitamin Tablet 1 tab PO DAILY rizatriptan 10 mg tablet See Rx Instructions PO .COMPLEX Rx Instructions: take 1 tab at onset of headache; if no relief may repeat 1 tab after at least 2 hrs; max = 3 tabs/24 hr PO sildenafil 50 mg tablet 50 mg PO DAILY PRN Rx Instructions: administer 30 minutes to 4 hours before activity simvastatin 40 MG tablet 40 mg PO QHS Patient Comments: TAKE ONE TABLET BY MOUTH DAILY IN THE EVENING FOR CHOLESTEROL Primary Care Provider: Ranjeet Mortensen Referrals: Ranjeet Mortensen DO [Primary Care Provider, Family Practice] Activity Restrictions/Additional Instructions: Have your sutures removed in approximately 7 to 10 days. Keep the area dry and clean. You may shower and let warm soapy water run over these do not soak your sutures. Rotate Tylenol and ibuprofen [id number] for pain control when you do this you can take some every 3 hours for pain max dose Tylenol in 24 hours 4000 mg max dose of ibuprofen in 24 hours 3200 mg. Watch out for signs of infection such as surrounding redness or pus coming from the site if this is to occur you need to call your doctor for antibiotics or return to the emergency department. Print Language: [place] Disposition Disposition: Home, Self Care
--- OUTSIDE RECORDS SUMMARY | 2025-05-22 21:22 | XMS RPT_ITS | CCD ---
Author Organization [facility] Care Team Providers Care Extension Educator Name Role Phone SABI ANAND DO Primary Care Physician [phone] CHENG STEEL, SABI Attending Unavailable HALKO DO, SABI Primary Care Unavailable LILIANA LARSON MD Attending Unavailable HALKO DO, SABI Primary Care Unavailable HALKO DO, SABI Attending Unavailable HALKO DO, SABI Primary Care Unavailable SHITAL MONTANA MD Attending Unavailable HALJEREMIAH STEEL, SABI Primary Care Unavailable HALKO DO, SABI Primary Care Unavailable HALKO , SABI Attending Unavailable GEREMIAS VEGA MD Attending Unavailable HALKO DO, SABI Primary Care Unavailable GEREMIAS VEGA MD Attending Unavailable HALKO DO, SABI Primary Care Unavailable GEREMIAS VEGA MD Consulting Unavailable SABI ANAND DO Attending Unavailable HALKO DO, SABI Primary Care Unavailable HALKO , SABI Attending Unavailable HALKO , SABI Primary Care Unavailable LILIANA LARSON MD Attending Unavailable HALSABI DANIELS DO Primary Care Unavailable Dr. Sabi Anand DO Primary Care Provider [phone] Dr. Blaze Mcmahon MD Attending Provider [phone] Dr. Blaze Mcmahon MD Referring Provider SHAGUFTA GOMEZ Attending Jacky ANAND DO, SABI Primary Care Unavailable SHITAL MONTANA MD Attending Unavailable HALKO DO, SABI Primary Care Unavailable HALKO , SABI Primary Care Unavailable LILIANA LARSON MD Admitting Unavailable LILIANA LARSON MD Attending Unavailable HALKO DO, SABI Primary Care Unavailable HALKO DOSABI Attending Unavailable HALKO DO, SABI Primary Care Unavailable NAEEM OSEI DO Attending Unavailabl e CHENG STEEL, SABI Primary Care Unavailable JUAN WHITMORE DO Attending Unavailable Blaze Mcmahon Attending Unavailable BernardkoSabi Primary Care Unavailable HalkoSabi Referring Unavailable Pra, Blaze Attending Unavailable Haljeremiah, Sabi Primary Care Unavailable Haljeremiah, Sabi Referring Unavailable Prah, Blaze Attending Unavailable Prah, Blaze Referring Unavailable Haljeremiah, Sabi Primary Care Unavailable Cheng, Sabi Primary Care Unavailable Pra, Blaze Attending Unavailable Halko, Sabi Referring Unavailable Pra, Blaze Attending Unavailable Prah, Blaze Referring Unavailable Haljeremiah, Sabi Primary Care Unavailable Medications Current Medications Medication Drug Class(es) Dates Sig (Normalized) Sig (Original) acetaminophen 325 mg / HYDROcodone bitartrate 5 mg oral tablet (1 source) Opioid Agonist Start: 04-28-2023 End: 05-03-2023 Orange 325- 5 mg oral tablet Dose = 1 tab(s), Oral, q4h, PRN Pain, scale 1-6, X 5 day(s), # 12 tab(s), 0 Refill(s), Pharmacy: [facility]/pharmacy #[id number], Acute post-operative pain, 175.3, cm, 04/28/23 [...] wheezing, # 18 gram(s), 0 Refill(s), Pharmacy: [facility]/pharmacy #[id number], Acute bronchitis, 173, cm, 07/23/24 10:29:00 [...] wheezing, # 18 gram(s), 0 Refill(s), [id number], Acute bronchitis, 173, cm, 07/23/24 10:29:00 [...] Daily, # 90 tab(s), 1 Refill(s), [id number], 173, cm, 10/10/24 8:41:00 EDT, Height, [...] Daily, # 90 tab(s), 1 Refill(s), [id number], 174.2, cm, 03/30/22 8:20:00 EDT, Height Start Date: 04/01/22 Stop Date: 09/28/22 Status: Ordered amoxicillin 500 mg oral tablet (1 source) Penicillin-class Antibacterial Start: 06-22-2024 End: 07-02-2024 amoxicillin 500 mg oral tablet Dose : 1,000 mg = 2 tab(s), Oral, TID, fill on or after 06/24/2023, X 10 day(s), # 60 tab(s), 0 Refill(s), 07/02/24 12:09:00 PM EST, [id number], 175, cm, 06/22/24 11:22:00 EST, Height, kg, 06/22/24 11:22:00 EST, Dosing Weight Start Date: 06/22/24 Stop Date: 07/02/24 Status: Ordered Quantity: 60.0 Unit: tab(s) Repeat number: 1 Blood Glucose Test Machine (8 sources) Start: 10-05-2022 Blood Glucose Test Machine See Instructions, Use as directed Brand type per insurance or patient preference, # 1 EA, 0 Refill(s), [id number], Type II diabetes mellitus Hyperglycemia, 175.3, cm, 10/04/22 8:57:00 EDT, Height, 95.1 Start Date: 10/05/22 Status: Ordered cyclobenzaprine hydrochloride 10 mg oral tablet (18 sources) Muscle Relaxant Start: 10-10-2024 cyclobenzaprin e 10 mg oral tablet Dose : 10 mg = 1 tab(s), Oral, TID, PRN for muscle spasm, # 30 tab(s), 5 Refill(s), [id number], 173, cm, 10/10/24 8:41:00 EDT, Height, kg, 10/10/24 8:41:00 EDT, Dosing Weight Start Date: 10/10/24 Status: Ordered Quantity: 30.0 Unit: tab(s) Repeat number: 6 Start: 07-14-2023 cyclobenzaprin e 10 mg oral tablet Dose : 10 mg = 1 tab(s), Oral, TID, PRN for muscle spasm, # 30 tab(s), 5 Refill(s), [id number], 175.3, cm, 04/28/23 6:50:00 EST, Height, kg, 07/14/23 10:57:00 EST, Dosing Weight Start Date: 07/14/23 Status: Ordered Quantity: 30.0 Unit: tab(s) Repeat number: 6 Start: 03-28-2023 cyclobenzaprin e 10 mg oral tablet Dose : 10 mg = 1 tab(s), Oral, TID, PRN for muscle spasm, # 30 tab(s), 5 Refill(s), Pharmacy: [facility]/pharmacy #[id number], 174.5, cm, 03/28/23 17:31:00 EDT, Height, kg, 03/28/23 17:31:00 EDT, Dosing Weight Start Date: 03/28/23 Status: Ordered Start: 10-27-2022 End: 01-19-2023 cyclobenzaprine 10 mg oral t ablet Dose : 10 mg = 1 tab(s), Oral, TID, # 42 tab(s), 5 Refill(s), Pharmacy: [facility]/pharmacy #4605, 174.5, cm, 10/27/22 9:05:00 EDT, Height, kg, 10/27/22 9:05:00 EDT, Dosing Weight Start Date: 10/27/22 Stop Date: 01/19/23 Status: Ordered Start: 05-19-2022 End: 10-18-2022 cyclobenzaprine 10 mg oral t ablet Dose : 10 mg = 1 tab(s), Oral, TID, # 42 tab(s), 5 Refill(s), Pharmacy: [facility]/pharmacy #[id number], 173, cm, 07/26/22 10:04:00 EST, Height, kg, 07/26/22 10:04:00 EST, Dosing Weight Start Date: 07/26/22 Stop Date: 10/18/22 Status: Ordered Start: 09-22-2021 End: 11-03-2021 cyclobenzaprine 10 mg oral t ablet Dose : 10 mg = 1 tab(s), Oral, TID, # 42 tab(s), 2 Refill(s), Pharmacy: [facility]/pharmacy #4605, 172.5, cm, 09/22/21 8:54:00 EDT, Height, kg, 09/22/21 8:54:00 EDT, Dosing Weight Start Date: 09/22/21 Stop Date: 11/03/21 Status: Ordered Start: 03-25-2021 End: 04-24-2021 cyclobenzaprine 10 mg oral t ablet Dose : 10 mg = 1 tab(s), Oral, TID, # 30 tab(s), 0 Refill(s), Pharmacy: [facility]/pharmacy #4605, 173.5, cm, 03/24/21 8:58:00 EDT, Height, [...] Instructions, dx E11.65; Z79.4; 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, 175.3, cm, 10/04/22 8:57:00 EDT, Height Start Date: 10/05/22 Status: Ordered lisinopril 5 mg oral tablet (1 source) Angiotensin Converting Enzyme Inhibitor Start: 10-05-2022 lisinopril 5 mg oral tablet Dose : 5 mg = 1 tab(s), Oral, qDay, # 30 tab(s), 3 Refill(s), [facility], Type II diabetes mellitus Hyperglycemia, 175.3, cm, 10/04/22 8:57:00 EDT, Height Start Date: 10/05/22 Status: Ordered meloxicam 15 mg oral tablet (13 sources) Nonsteroidal Anti-inflammatory Drug Start: 04-06-2023 End: 04-08-2025 meloxicam 15 mg oral tablet Dose : 15 mg = 1 tab(s), Oral, qDay, TAKE 1 TABLET BY MOUTH EVERY DAY, # 90 tab(s), 1 Refill(s), [facility], 173, cm, 10/10/24 8:41:00 EDT, Height, [...] DAY, # 12 tab(s), 5 Refill(s), [facility], 173, cm, 10/10/24 8:41:00 EDT, Height, [...] DAY, # 12 tab(s), 5 Refill(s), [facility], 175, cm, 04/11/24 8:46:00 EDT, Height, [...] DAY, # 12 tab(s), 5 Refill(s), Pharmacy: [facility]/pharmacy #4[facility], 175.3, cm, 12/08/23 13:31:00 EDT, Height, [...] DAY, # 12 tab(s), 5 Refill(s), [facility], 174.5, cm, 04/06/23 9:44:00 EDT, Height, [...] dysfunction, # 30 tab(s), 5 Refill(s), Pharmacy: [facility], 173, cm, 10/10/24 8:41:00 EDT, Height, kg, 10/10/24 8:41:00 EDT, Dosing Weight Start Date: 10/10/24 Stop Date: 04/08/25 Status: Ordered Quantity: 30.0 Unit: tab(s) Repeat number: 6 Start: 04-01-2022 End: 09-28-2022 sildenafil 50 mg oral tablet Dose : 50 mg = 1 tab(s), Oral, qDay, PRN as needed for erectile dysfunction, # 30 tab(s), 5 Refill(s), Pharmacy: [facility], 174.2, cm, 03/30/22 8:20:00 EDT, Height Start Date: 04/01/22 Stop Date: 09/28/22 Status: Ordered simvastatin 40 mg oral tablet (16 sources) HMG-CoA Reductase Inhibitor Start: 10-10-2024 End: 04-08-2025 simvastatin 40 mg oral tablet Dose : 40 mg = 1 tab(s), Oral, qHS, # 90 tab(s), 1 Refill(s), [facility], 173, cm, 10/10/24 8:41:00 EDT, Height, kg, 10/10/24 8:41:00 EDT, Dosing Weight Start Date: 10/10/24 Stop Date: 04/08/25 Status: Ordered Quantity: 90.0 Unit: tab(s) Repeat number: 2 Start: 10-27-2022 End: 10-08-2024 simvastatin 40 mg oral table t Dose : 40 mg = 1 tab(s), Oral, qHS, # 90 tab(s), 1 Refill(s), Pharmacy: [facility]/pharmacy #4605, 175, cm, 04/11/24 8:46:00 EDT, Height, kg, 04/11/24 8:46:00 EDT, Dosing Weight Start Date: 04/11/24 Stop Date: 10/08/24 Status: Ordered Quantity: 90.0 Unit: tab(s) Repeat number: 2 Start: 04-01-2022 End: 09-28-2022 simvastatin 40 mg oral table t Dose : 40 mg = 1 tab(s), Oral, qHS, # 90 tab(s), 1 Refill(s), Pharmacy: [facility]/pharmacy #4605, 174.2, cm, 03/30/22 8:20:00 EDT, Height, kg, 03/30/22 8:20:00 EDT, Dosing Weight Start Date: 04/01/22 Stop Date: 09/28/22 Status: Ordered Start: 12-28-2016 End: 03-21-2022 simvastatin 40 mg oral table t Dose : 40 mg = 1 tab(s), Oral, qHS, # 90 tab(s), 1 Refill(s), Pharmacy: [facility]/pharmacy #4605, 172.5, cm, 09/22/21 8:54:00 EDT, Height, kg, 09/22/21 8:54:00 EDT, Dosing Weight Start Date: 09/22/21 Stop Date: 03/21/22 Status: Ordered terbinafine hydrochloride 10 mg/ml topical cream (1 source) Allylamine Antifungal Start: 01-25-2023 LamISIL AT 1% topica l cream Apply 1 chidi, Topical, BID, # 30 gram(s), 1 Refill(s), Pharmacy: [facility]/pharmacy #4605, Cream, 174.5, cm, 01/25/23 8:24:00 EDT, [...] improved, # 60 tab(s), 1 Refill(s), Pharmacy: [facility]/pharmacy #4605, 172.5, cm, 09/22/21 8:54:00 EDT, Height Start Date: 09/22/21 Stop Date: 11/21/21 Status: Ordered Start: 03-25-2021 End: 09-21-2021 topiramate 50 mg oral tablet Dose : 50 mg = 1 tab(s), Oral, qHS, # 90 tab(s), 1 Refill(s), Pharmacy: [facility]/pharmacy #4605, 173.5, cm, 03/24/21 8:58:00 EDT, Height, kg, 03/24/21 8:58:00 EDT, Dosing Weight Start Date: 03/25/21 Stop Date: 09/21/21 Status: Ordered Vitamin B Complex oral capsule (3 sources) Start: 10-13-2023 take 1 capsule by mouth once daily Vitamin B Complex oral capsule Dose = 1 cap(s), Oral, Daily, # 90 cap(s), 1 Refill(s), Pharmacy: [facility]/pharmacy #4605, 175.3, cm, 04/28/23 6:50:00 EST, Height, kg, 10/13/23 10:35:00 EDT, Dosing Weight Start Date: 10/13/23 Status: Ordered Start: 07-14-2023 take 1 capsule by mo uth once daily Vitamin B Complex oral capsule Dose = 1 cap(s), Oral, Daily, # 90 cap(s), 0 Refill(s), Pharmacy: [facility]/pharmacy #4605, 175.3, cm, 04/28/23 6:50:00 EST, Height, kg, 07/14/23 10:57:00 EST, Dosing Weight Start Date: 07/14/23 Status: Ordered Start: 06-04-2023 take 1 capsule by [facility] once daily Vitamin B Complex oral capsule Dose = 1 cap(s), Oral, Daily, # 90 cap(s), 0 Refill(s), [facility], 175.3, cm, 04/28/23 6:50:00 EST, Height, kg, 06/04/23 9:40:00 EST, Dosing Weight Start Date: 06/04/23 Status: Ordered vitamin b12 0.5 mg sublingual tablet (1 source) Vitamin B12 Start: 11-02-2023 cyanocobalamin 500 mcg sublingual tablet Dose : 500 mcg = 1 tab(s), Sublingual, qDay, # 100 tab(s), 1 Refill(s), [facility], 175.3, cm, 04/28/23 6:50:00 EST, Height, [...] PO TWICE A DAY June 22, 2017 1:00am July 06, 2017 12:04pm aspirin 325 mg oral [...] 2:53pm docusate sodium 50 mg / sennosides, shelter 8.6 mg oral tablet (1 source) Start: [...] conditions (not mental disorders or infectious disease) (19 sources) Electrocardiogram abnormal; Translations: [Viral screening status] 03-24-2021 Episodic Comment on above: Pt wants [...] Interpretation Reference Range Facility Oncology Visit Reporton 04-20 Oncology Visit Report [facility] [address] [place] [address] OFFICE VISIT Date of Service: 04/29/25 1107 MR#: [id number] Acct: [id number] Name: BRANDYN KELLY Rep #: [id number] : 1955 From: Blaze Mcmahon MD Age/Sex: 69/M Location: [facility] [place] [place] Status: Signed HPI Subjective Date of Service 04/29/25 Chief Complaint F/u for MGUS History of Present Illness 69y.o.man was found to have M-spike of 0.2 on 06/29/2023 and referred for further evaluation. He has joint pains and tingling in the finger tips. Denies weight loss, fever and night sweat. He had Skeletal survey which was negative. 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 Feels well. [facility] Medical History Somatic dysfunction of lower [...] other current occupational status: retired current occupation: [employer] Smoking Status: Former smoker alcohol intake: never ROS Constitutional Constitutional: Reports systems reviewed and no addt'l complaints, except as documented Eyes Eyes: Reports systems reviewed and no addt'l complaints, except as documented ENT HEENT: Reports systems reviewed and no addt'l complaints, except as documented Cardiovascular Cardiovascular: Reports systems reviewed and no addt'l complaints, except as documented Respiratory/Chest Respiratory/Chest: Reports systems reviewed and no addt'l complaints, except as documented Gastrointestinal Gastrointestinal: Reports systems reviewed and no addt'l complaints, except as documented Genitourinary Genitourinary: Reports systems reviewed and no addt'l complaints, except as documented Musculoskeletal Musculoskeletal: Reports systems reviewed and no addt'l complaints, except as documented and other Details: knee replacement Integumentary Integumentary: Reports systems reviewed and no addt'l complaints, except as documented Neurologic Neurologic: Reports systems reviewed and no addt'l complaints, except as documented Psychiatric Psychiatric: Reports systems reviewed and no addt'l complaints, except as documented Endocrine Endocrinology: Reports systems reviewed and no addt'l complaints, except as documented Hematologic/Lymphati c Hematologic/Lymphati c: Reports systems reviewed and no addt'l complaints, except as documented Allergic/Immunologic Allergic/Immunologic : Reports systems reviewed and no addt'l complaints, except as documented Intake Vital Signs 10/22/24 14:10 04/29/25 11:07 Height 5 ft 9 in 5 ft 9 in Weight: 93.553 kg BMI 30.4 BP 119/62 Blood Pressure Location Lt brachial Position Sitting Respiration 18 Pulse 75 Pulse Source Monitor Temp 98.3 F Temperature Source Temporal Artery Pulse Oximetry (%) 98 Oxygen Delivery Method room air Intake Accompanied by: Self Is patient in pain?: No Allergies No Known Allergies Allergy (Verified 04/29/25 11:10) Medications ???Medication ???Instructions ???Recorded ???Confirmed ???Type simvastatin 40 mg tablet 40 mg PO QHS cholesterol 12/28/16 04/29/25 History amitriptyline 25 mg tablet 25 mg PO DAILY 07/14/23 04/29/25 H istory cyclobenzaprine 10 mg tablet 10 mg PO TID PRN muscle spasm 06/2104/29/25 History meloxicam 15 mg tablet 15 mg PO DAILY 07/14/23 04/29/25 H istory multivitamin 1 tab PO DAILY 07/14/23 04/29/25 H istory rizatriptan 10 mg tablet See Rx Instructions PO .COMPLEX 04/29/25 History sildenafil 50 mg tablet 50 mg PO DAILY PRN 07/14/23 History Have you fallen in the past year?: No Central Venous Access Central Venous Access: No Exam Physical Exam Narrative Elderly man. Const alert, oriented x3 and no apparent distress HEENT normocephalic, external ears normal and external nose normal Eyes PERRL, conjunctivae normal and no scleral icterus Neck supple Lymph Lymphatic: no lymphad (more content not included)... Normal [facility] Oncology Visit Reporton Oncology Visit Report [facility] [address] [place] [address] OFFICE VISIT Date of Service: 10/22/24 1407 MR#: [id number] Acct: [id number] Name: BRANDYN KELLY Rep #: [id number] : 1955 From: Blaze Mcmahon MD Age/Sex: 68/M Location: [facility] [place] Status: Signed HPI Subjective Date of [...] and comes for follow up. Feels well. [facility] Medical History Somatic dysfunction of lower [...] other current occupational status: retired current occupation: [employer] Smoking Status: Former smoker alcohol intake: never [...] 26 27 MARK M-Solitario Comment: Comment: Free [place] LC, Quant 16.3 13.8 Free Lambda LC, Quant 9.7 10.6 Free [place]/Lambda Ratio 1.68 H 1.30 04/05/24 09/28/24 08:12 [...] 25 MARK M-Solitario Comment: 0.4 H Free [place] LC, Quant 16.0 11.4 Free Lambda LC, Quant 11.8 9.2 Free [place]/Lambda Ratio 1.36 1.24 Exam Physical Exam Narrative Elderly man. Const alert, oriented x3 and no apparent distress HEENT normocephalic, ext (more content not included)... Normal [facility] MARK + Protein Elect, Serumon 10-02-2024 Albumin [Mass/Vol] 3.7 g/dL Normal 2.9-4.4 [facility] Comment on above: Order Comment: DR.PR DAVIS ORDERED CBCD,CMP,LDH,ESR,CRP,PHOS,MG,LIGHTCHAINS,IMG G/A/M,MARK,SPEPY Performed By: #### L 500.4050, L3100.3425, L501.2300, L501.9985, L100.0100, L501.9520, L502.0250, L501.6710, L3130.0010, L504.2610, L501.5200, L500.4100, L101.9900 ####[facility] [address] [place], [place], [phone] Albumin/Globulin [Mass ratio] 1.3 {ratio} Normal 0.7-1.7 [facility] Comment on above: Order Comment: DR.PR DAVIS ORDERED CBCD,CMP,LDH,ESR,CRP,PHOS,MG,LIGHTCHAINS,IMG G/A/M,MARK,SPEPY Performed By: #### L 500.4050, L3100.3425, L501.2300, L501.9985, L100.0100, L501.9520, L502.0250, L501.6710, L3130.0010, L504.2610, L501.5200, L500.4100, L101.9900 ####[facility] [address] [place], [place], [phone] VSFJU-3-MEOY 0.2 g/dL Normal 0.0-0.4 [facility] Comment on above: Order Comment: DR.PR DAVIS ORDERED CBCD,CMP,LDH,ESR,CRP,PHOS,MG,L[place],IMG G/A/M,MARK,SPEPY Performed By: #### L 500.4050, L3100.3425, L501.2300, L501.9985, L100.0100, L501.9520, L502.0250, L501.6710, L3130.0010, L504.2610, L501.5200, L500.4100, L101.9900 ####[facility] [address] [place], [address] ADXAL-1-SGBJ 0.7 g/dL Normal 0.4-1.0 [facility] Comment on above: Order Comment: DR.PR DAVIS ORDERED CBCD,CMP,LDH,ESR,CRP,PHOS,MG,LIGHTCHAINS,IMG G/A/M,MARK,SPEPY Performed By: #### L 500.4050, L3100.3425, L501.2300, L501.9985, L100.0100, L501.9520, L502.0250, L501.6710, L3130.0010, L504.2610, L501.5200, L500.4100, L101.9900 ####[facility] [address] [place], [address] BETA GLOBULIN 0.9 g/dL Normal 0.7-1.3 [facility] Comment on above: Order Comment: DR.PR DAVIS ORDERED CBCD,CMP,LDH,ESR,CRP,PHOS,MG,LIGHTCHAINS,IMG G/A/M,MARK,SPEPY Performed By: #### L 500.4050, L3100.3425, L501.2300, L501.9985, L100.0100, L501.9520, L502.0250, L501.6710, L3130.0010, L504.2610, L501.5200, L500.4100, L101.9900 ####[facility] [address] [place], [address] GAMMA GLOBULIN 1.2 g/dL Normal 0.4-1.8 [facility] Comment on above: Order Comment: DR.PR DAVIS ORDERED CBCD,CMP,LDH,ESR,CRP,PHOS,MG,LIGHTCHAINS,IMG G/A/M,MARK,SPEPY Performed By: #### L 500.4050, L3100.3425, L501.2300, L501.9985, L100.0100, L501.9520, L502.0250, L501.6710, L3130.0010, L504.2610, L501.5200, L500.4100, L101.9900 ####[facility] [address] [place], [address] Globulin (S) [Mass/Vol] 3.0 g/dL Normal 2.2-3.9 [facility] Comment on above: Order Comment: DR.PR DAVIS ORDERED CBCD,CMP,LDH,ESR,CRP,PHOS,MG,LIGHT[place],IMG G/A/M,MARK,SPEPY Performed By: #### L 500.4050, L3100.3425, L501.2300, L501.9985, L100.0100, L501.9520, L502.0250, L501.6710, L3130.0010, L504.2610, L501.5200, L500.4100, L101.9900 ####[facility] [address] [place], [place], [phone] MARK RESULT,S Comment Abnormal . [facility] Comment on above: Order Comment: DR.PR DAVIS ORDERED CBCD,CMP,LDH,ESR,CRP,PHOS,MG,LIGHTCHAINS,IMG G/A/M,MARK,SPEPY Result Comment: Immu nofixation shows IgA monoclonal protein with lambda light chain specificity. Performed By: #### L 500.4050, L3100.3425, L501.2300, L501.9985, L100.0100, L501.9520, L502.0250, L501.6710, L3130.0010, L504.2610, L501.5200, L500.4100, L101.9900 ####[facility] [address] [place], [place], [phone] IMMUNOGLOB A QN 638 mg/dL High 61-437 [facility] Comment on above: Order Comment: DR.PR DAVIS ORDERED CBCD,CMP,LDH,ESR,CRP,PHOS,MG,L[place],IMG G/A/M,MARK,SPEPY Performed By: #### L 500.4050, L3100.3425, L501.2300, L501.9985, L100.0100, L501.9520, L502.0250, L501.6710, L3130.0010, L504.2610, L501.5200, L500.4100, L101.9900 ####[facility] [address] [place], [place], [phone] IMMUNOGLOB G QN 682 mg/dL Normal 603-1613 [facility] Comment on above: Order Comment: DR.PR DAVIS ORDERED CBCD,CMP,LDH,ESR,CRP,PHOS,MG,LIGHT[place],IMG G/A/M,MARK,SPEPY Performed By: #### L 500.4050, L3100.3425, L501.2300, L501.9985, L100.0100, L501.9520, L502.0250, L501.6710, L3130.0010, L504.2610, L501.5200, L500.4100, L101.9900 ####[facility] [address] [place], [place], [phone] IMMUNOGLOB M QN 25 mg/dL Normal 20-172 [facility] Comment on above: Order Comment: DR.PR DAVIS ORDERED CBCD,CMP,LDH,ESR,CRP,PHOS,MG,LIGHTCHAINS,IMG G/A/M,MARK,SPEPY Result Comment: Resu lt confirmed on concentration. Performed By: #### L 500.4050, L3100.3425, L501.2300, L501.9985, L100.0100, L501.9520, L502.0250, L501.6710, L3130.0010, L504.2610, L501.5200, L500.4100, L101.9900 ####[facility] [address] [place], [place], [phone] M-Solitario 0.4 g/dL Abnormal Not Observed [facility] Comment on above: Order Comment: DR.PR DAVIS ORDERED CBCD,CMP,LDH,ESR,CRP,PHOS,MG,LIGHTCHAINS,IMG G/A/M,MARK,SPEPY Performed By: #### L 500.4050, L3100.3425, L501.2300, L501.9985, L100.0100, L501.9520, L502.0250, L501.6710, L3130.0010, L504.2610, L501.5200, L500.4100, L101.9900 ####[facility] [address] [place], [place], [id number] NOTE: Comment Normal . [facility] Comment on above: Order Comment: DR.PR DAVIS ORDERED CBCD,CMP,LDH,ESR,CRP,PHOS,MG,LIGHTCHAINS,IMG G/A/M,MARK,SPEPY Result Comment: Prot ein electrophoresis scan will follow via computer, mail, or financial planner delivery. Performed By: #### L 500.4050, L3100.3425, L501.2300, L501.9985, L100.0100, L501.9520, L502.0250, L501.6710, L3130.0010, L504.2610, L501.5200, L500.4100, L101.9900 ####[facility] [id number] [place], [place], [id number] Protein [Mass/Vol] 6.7 g/dL Normal 6.0-8.5 [facility] Comment on above: Order Comment: DR.PR DAVIS ORDERED CBCD,CMP,LDH,ESR,CRP,PHOS,MG,LIGHTCHAINS,IMG G/A/M,MARK,SPEPY Performed By: #### L 500.4050, L3100.3425, L501.2300, L501.9985, L100.0100, L501.9520, L502.0250, L501.6710, L3130.0010, L504.2610, L501.5200, L500.4100, L101.9900 ####[facility] [address] [place], [address] [place] Lambda Light Chainson 10-02-2024 FR KAPPA LT CHN 11.4 mg/L Normal 3.3-19.4 [facility] Comment on above: Order Comment: DR.PR DAVIS ORDERED CBCD,CMP,LDH,ESR,CRP,PHOS,MG,LIGHTCHAINS,IMG G/A/M,MARK,SPEP Performed By: #### L 500.4050, L3100.3425, L501.2300, L501.9985, L100.0100, L501.9520, L502.0250, L501.6710, L3130.0010, L504.2610, L501.5200, L500.4100, L101.9900 ####[facility] [address] [place], [place], [phone](242) FR LAMBDA LT CH 9.2 mg/L Normal 5.7-26.3 [facility] Comment on above: Order Comment: DR.PR DAVIS ORDERED CBCD,CMP,LDH,ESR,CRP,PHOS,MG,LIGHTCHAINS,IMG G/A/M,MARK,SPEP Performed By: #### L 500.4050, L3100.3425, L501.2300, L501.9985, L100.0100, L501.9520, L502.0250, L501.6710, L3130.0010, L504.2610, L501.5200, L500.4100, L101.9900 ####[facility] [address] [place], [address] KAPPA/LAMBDA % 1.24 Normal 0.26-1.65 [facility] Comment on above: Order Comment: DR.PR DAVIS ORDERED CBCD,CMP,LDH,ESR,CRP,PHOS,MG,LIGHTCHAINS,IMG G/A/M,MARK,SPEP Result Comment: Perf ormed at: [facility] [address] [id number] Communications Department Head: Jhony Ahuja PhD, Phone: [phone] Performed By: #### L 500.4050, L3100.3425, L501.2300, L501.9985, L100.0100, L501.9520, L502.0250, L501.6710, L3130.0010, L504.2610, L501.5200, L500.4100, L101.9900 ####[facility] [address] [place], [address] Absolute neutrophil countOrd ered By: Blaze Mcmahon on 09-28-2024 Neutrophils (Bld) [#/Vol] 2.8 10*3/uL 2.0-7.7 [facility] Addendum DocumentOrdered By: Blaze Mcmahon on 09-28-2024 Serum Immunofixation Comments Comment . [facility] Comment on above: Protein electrophore sis scan will follow via computer,mail, or financial planner delivery. Albumin DL <= 20 mg/L (U) [M ass/Vol]Ordered By: Blaze Mcmahon on 09-28-2024 Urine Random Microalbumin < 12.0 mg/L NO RANGE EST. [facility] Albumin Elph [Mass/Vol]Order ed By: Blaze Mcmahon on 09-28-2024 Albumin [Mass/Vol] 3.7 g/dL 2.9-4.4 [facility] Alpha 1 globulin Elph [Mass/ Vol]Ordered By: Blaze Mcmahon on 09-28-2024 Rwntd-2-Kmtggnolr (MARK) 0.2 g/dL 0.0-0.4 [facility] Uxvma-8-Mngrmiudb (MARK) 0.7 g/dL 0.4-1.0 [facility] Anion gap in Serum or Plasma Ordered By: Blaze Mcmahon on 09-28-2024 Anion gap [Moles/Vol] 9 mmol/L 5-15 [facility] BUN/creatinine ratioOrdered By: Blaze Lisandro on 09-28-2024 Urea nitrogen/Creatinine [Mass ratio] 17.0 mg/mg 10-20 [facility] Basophil percentageOrdered B y: Blaze Lisandro on 09-28-2024 Basophils/100 WBC (Bld) 0.6 % 0-1 [facility] Beta globulin Elph [Mass/Vol ]Ordered By: Blaze Mcmahon on 09-28-2024 Beta-Globulins (MARK) 0.9 g/dL 0.7-1.3 [facility] Bilirubin, totalOrdered By: Blaze Mcmahon on 09-28-2024 Bilirubin [Mass/Vol] 0.35 mg/dL 0.00-1.30 [facility] CBC W/Diff, Automatedon 09-18 Absolute Lymph 1.57 X10 3/uL Normal 0.83-4.51 [facility] Comment on above: Order Comment: DR.PR DAVIS ORDERED CBCD,CMP,LDH,ESR,CRP,PHOS,MG,LIGHT CHAINS,IMG G/A/M,MARK,SPEP Performed By: #### L 500.4050, L3100.3425, L501.2300, L501.9985, L100.0100, L501.9520, L502.0250, L501.6710, L3130.0010, L504.2610, L501.5200, L500.4100, L101.9900 #### [facility] [address] [place] [address], [id number] Absolute Neut 2.8 X10 3/uL Normal 2.0-7.7 [facility] Comment on above: Order Comment: DR.PR DAVIS ORDERED CBCD,CMP,LDH,ESR,CRP,PHOS,MG,LIGHT CHAINS,IMG G/A/M,MARK,SPEP Performed By: #### L 500.4050, L3100.3425, L501.2300, L501.9985, L100.0100, L501.9520, L502.0250, L501.6710, L3130.0010, L504.2610, L501.5200, L500.4100, L101.9900 #### [facility] [address] [place], [address] Basophils/100 WBC (Bld) 0.6 % Normal 0-1 [facility] Comment on above: Order Comment: DR.PR DAVIS ORDERED CBCD,CMP,LDH,ESR,CRP,PHOS,MG,LIGHT CHAINS,IMG G/A/M,MARK,SPEP Performed By: #### L 500.4050, L3100.3425, L501.2300, L501.9985, L100.0100, L501.9520, L502.0250, L501.6710, L3130.0010, L504.2610, L501.5200, L500.4100, L101.9900 #### [facility] [address] [place], [address] Eosinophils/100 WBC (Bld) 3.1 % Normal 0-5 [facility] Comment on above: Order Comment: DR.PR DAVIS ORDERED CBCD,CMP,LDH,ESR,CRP,PHOS,MG,LIGHT CHAINS,IMG G/A/M,MARK,SPEP Performed By: #### L 500.4050, L3100.3425, L501.2300, L501.9985, L100.0100, L501.9520, L502.0250, L501.6710, L3130.0010, L504.2610, L501.5200, L500.4100, L101.9900 #### [facility] [address] [place], [address] Erythrocyte distribution width (RBC) [Ratio] 12.9 % Normal 11.6-14.6 [facility] Comment on above: Order Comment: DR.PR DAVIS ORDERED CBCD,CMP,LDH,ESR,CRP,PHOS,MG,LIGHT CHAINS,IMG G/A/M,MARK,SPEP Performed By: #### L 500.4050, L3100.3425, L501.2300, L501.9985, L100.0100, L501.9520, L502.0250, L501.6710, L3130.0010, L504.2610, L501.5200, L500.4100, L101.9900 #### [facility] [address] [place], [place], [phone] (073) Hematocrit (Bld) [Volume fraction] 45.0 % Normal 40-54 [facility] Comment on above: Order Comment: DR.PR DAVIS ORDERED CBCD,CMP,LDH,ESR,CRP,PHOS,MG,LIGHT CHAINS,IMG G/A/M,MARK,SPEP Performed By: #### L 500.4050, L3100.3425, L501.2300, L501.9985, L100.0100, L501.9520, L502.0250, L501.6710, L3130.0010, L504.2610, L501.5200, L500.4100, L101.9900 #### [facility] [address] [place], [place], [phone] (708) Hemoglobin (Bld) [Mass/Vol] 15.4 g/dL Normal 13.0-16.5 [facility] Comment on above: Order Comment: DR.PR DAVIS ORDERED CBCD,CMP,LDH,ESR,CRP,PHOS,MG,LIGHT CHAINS,IMG G/A/M,MARK,SPEP Performed By: #### L 500.4050, L3100.3425, L501.2300, L501.9985, L100.0100, L501.9520, L502.0250, L501.6710, L3130.0010, L504.2610, L501.5200, L500.4100, L101.9900 #### [facility] [address] [place], [address] IG% 0.200 Normal 0.0-0.9 [facility] Comment on above: Order Comment: DR.PR DAVIS ORDERED CBCD,CMP,LDH,ESR,CRP,PHOS,MG,LIGHT CHAINS,IMG G/A/M,MARK,SPEP Result Comment: IG% - Immature Granulocytes (promyelocytes, myelocytes and metamyelocytes) > 1% indicates that a LEFT SHIFT is Present. Performed By: #### L 500.4050, L3100.3425, L501.2300, L501.9985, L100.0100, L501.9520, L502.0250, L501.6710, L3130.0010, L504.2610, L501.5200, L500.4100, L101.9900 #### [facility] [address] [place], [address] Lymphocytes/100 WBC (Bld) 30.2 % Normal 19-41 [facility] Comment on above: Order Comment: DR.PR DAVIS ORDERED CBCD,CMP,LDH,ESR,CRP,PHOS,MG,LIGHT CHAINS,IMG G/A/M,MARK,SPEP Performed By: #### L 500.4050, L3100.3425, L501.2300, L501.9985, L100.0100, L501.9520, L502.0250, L501.6710, L3130.0010, L504.2610, L501.5200, L500.4100, L101.9900 #### [facility] [address] [place], [address] MCH (RBC) [Entitic mass] 31.6 pg Normal 27.0-32.0 [facility] Comment on above: Order Comment: DR.PR DAVIS ORDERED CBCD,CMP,LDH,ESR,CRP,PHOS,MG,LIGHT CHAINS,IMG G/A/M,MARK,SPEP Performed By: #### L 500.4050, L3100.3425, L501.2300, L501.9985, L100.0100, L501.9520, L502.0250, L501.6710, L3130.0010, L504.2610, L501.5200, L500.4100, L101.9900 #### [facility] [address] [place], [address] MCHC (RBC) [Mass/Vol] 34.2 g/dL Normal 32-36 [facility] Comment on above: Order Comment: DR.PR DAVIS ORDERED CBCD,CMP,LDH,ESR,CRP,PHOS,MG,LIGHT CHAINS,IMG G/A/M,MARK,SPEP Performed By: #### L 500.4050, L3100.3425, L501.2300, L501.9985, L100.0100, L501.9520, L502.0250, L501.6710, L3130.0010, L504.2610, L501.5200, L500.4100, L101.9900 #### [facility] [address] [place], [address] MCV (RBC) [Entitic vol] 92.2 fL Normal 80-94 [facility] Comment on above: Order Comment: DR.PR DAVIS ORDERED CBCD,CMP,LDH,ESR,CRP,PHOS,MG,LIGHT CHAINS,IMG G/A/M,MARK,SPEP Performed By: #### L 500.4050, L3100.3425, L501.2300, L501.9985, L100.0100, L501.9520, L502.0250, L501.6710, L3130.0010, L504.2610, L501.5200, L500.4100, L101.9900 #### [facility] [address] [place], [address] Monocytes/100 WBC (Bld) 11.9 % High 0-10 [facility] Comment on above: Order Comment: DR.PR DAVIS ORDERED CBCD,CMP,LDH,ESR,CRP,PHOS,MG,LIGHT CHAINS,IMG G/A/M,MARK,SPEP Performed By: #### L 500.4050, L3100.3425, L501.2300, L501.9985, L100.0100, L501.9520, L502.0250, L501.6710, L3130.0010, L504.2610, L501.5200, L500.4100, L101.9900 #### [facility] [address] [place], [address] (629 Neutrophils/100 WBC (Bld) 54.0 % Normal 47-70 [facility] Comment on above: Order Comment: DR.PR DAVIS ORDERED CBCD,CMP,LDH,ESR,CRP,PHOS,MG,LIGHT CHAINS,IMG G/A/M,MARK,SPEP Performed By: #### L 500.4050, L3100.3425, L501.2300, L501.9985, L100.0100, L501.9520, L502.0250, L501.6710, L3130.0010, L504.2610, L501.5200, L500.4100, L101.9900 #### [facility] [address] [place], [address] (319 Nucleated RBC (Bld) [#/Vol] 0 10*3/uL Normal 0-5 [facility] Comment on above: Order Comment: DR.PR DAVIS ORDERED CBCD,CMP,LDH,ESR,CRP,PHOS,MG,LIGHT CHAINS,IMG G/A/M,MARK,SPEP Performed By: #### L 500.4050, L3100.3425, L501.2300, L501.9985, L100.0100, L501.9520, L502.0250, L501.6710, L3130.0010, L504.2610, L501.5200, L500.4100, L101.9900 #### [facility] [address] [place], [address] Platelet mean volume (Bld) [Entitic vol] 10.7 fL Normal 6.2-12.0 [facility] Comment on above: Order Comment: DR.PR DAVIS ORDERED CBCD,CMP,LDH,ESR,CRP,PHOS,MG,LIGHT CHAINS,IMG G/A/M,MARK,SPEP Performed By: #### L 500.4050, L3100.3425, L501.2300, L501.9985, L100.0100, L501.9520, L502.0250, L501.6710, L3130.0010, L504.2610, L501.5200, L500.4100, L101.9900 #### [facility] [address] [place], [address] (690) Platelets (Bld) [#/Vol] 186 10*3/uL Normal 150-450 [facility] Comment on above: Order Comment: DR.PR DAVIS ORDERED CBCD,CMP,LDH,ESR,CRP,PHOS,MG,LIGHT CHAINS,IMG G/A/M,MARK,SPEP Performed By: #### L 500.4050, L3100.3425, L501.2300, L501.9985, L100.0100, L501.9520, L502.0250, L501.6710, L3130.0010, L504.2610, L501.5200, L500.4100, L101.9900 #### [facility] [address] [place], [address] RBC (Bld) [#/Vol] 4.88 10*6/uL Normal 4.6-6.2 [facility] Comment on above: Order Comment: DR.PR DAVIS ORDERED CBCD,CMP,LDH,ESR,CRP,PHOS,MG,LIGHT CHAINS,IMG G/A/M,MARK,SPEP Performed By: #### L 500.4050, L3100.3425, L501.2300, L501.9985, L100.0100, L501.9520, L502.0250, L501.6710, L3130.0010, L504.2610, L501.5200, L500.4100, L101.9900 #### [facility] [address] [place], [address] (866) RDW SD 43.7 fl Normal 35.1-43.9 [facility] Comment on above: Order Comment: DR.PR DAVIS ORDERED CBCD,CMP,LDH,ESR,CRP,PHOS,MG,LIGHT CHAINS,IMG G/A/M,MARK,SPEP Performed By: #### L 500.4050, L3100.3425, L501.2300, L501.9985, L100.0100, L501.9520, L502.0250, L501.6710, L3130.0010, L504.2610, L501.5200, L500.4100, L101.9900 #### [facility] [address] [place], [address] WBC (Bld) [#/Vol] 5.2 10*3/uL Normal 4.4-11.0 [facility] Comment on above: Order Comment: DR.PR DAVIS ORDERED CBCD,CMP,LDH,ESR,CRP,PHOS,MG,LIGHT CHAINS,IMG G/A/M,MARK,SPEP Performed By: #### L 500.4050, L3100.3425, L501.2300, L501.9985, L100.0100, L501.9520, L502.0250, L501.6710, L3130.0010, L504.2610, L501.5200, L500.4100, L101.9900 #### [facility] [address] [place], [place], [id number] CRPon 09-28-2024 C-REACTIVE PROT < 3.00 Normal 0.0-3.0 [facility] Comment on above: Order Comment: DR.PR DAVIS ORDERED CBCD,CMP,LDH,ESR,CRP,PHOS,MG,LIGHTCHAINS,IMG G/A/M,MARK,SPEPDRSARAN ORDERED TSH,A1,CMP,LIPID,MIACRE,CBC Performed By: #### L 500.4050, L3100.3425, L501.2300, L501.9985, L100.0100, L501.9520, L502.0250, L501.6710, L3130.0010, L504.2610, L501.5200, L500.4100, L101.9900 ####[facility] [address] [place], [place], [phone] CRP [Mass/Vol]Ordered By: Ronel Mcmahon on 09-28-2024 C-Reactive Protein Extended Range < 3.00 mg/L 0.0-3.0 [facility] Calculated very low density lipoprotein (VLDL) cholesterol measurementOrdered By: Blaze Mcmahon on 09-28-2024 VLDL Cholesterol 20 mg/dL 5-40 [facility] Carbon dioxide, total [Moles /volume] in Central venous bloodOrdered By: Blaze Mcmahon on 09-28-2024 CO2 [Moles/Vol] 24.6 mmol/L 21.0-32.0 [facility] Chloride assayOrdered By: Ronel Mcmahon on 09-28-2024 Chloride [Moles/Vol] 102 mmol/L 98-108 [facility] Comprehensive Metabolic Prof ilon 09-28-2024 Albumin [Mass/Vol] 4.1 g/dL Normal 3.4-4.8 [facility] Comment on above: Order Comment: DR.PR DAVIS ORDERED CBCD,CMP,LDH,ESR,CRP,PHOS,MG,LIGHT CHAINS,IMG G/A/M,MARK,SPEP ORDERED TSH,A1,CMP,LIPID,MIACRE,CBC Performed By: #### L 500.4050, L3100.3425, L501.2300, L501.9985, L100.0100, L501.9520, L502.0250, L501.6710, L3130.0010, L504.2610, L501.5200, L500.4100, L101.9900 #### [facility] [address] [place], [place], [id number] Albumin/Globulin [Mass ratio] 1.4 {ratio} Normal 0.9-2.4 [facility] Comment on above: Order Comment: DR.PR DAVIS ORDERED CBCD,CMP,LDH,ESR,CRP,PHOS,MG,LIGHT CHAINS,IMG G/A/M,MARK,SPEP ORDERED TSH,A1,CMP,LIPID,MIACRE,CBC Performed By: #### L 500.4050, L3100.3425, L501.2300, L501.9985, L100.0100, L501.9520, L502.0250, L501.6710, L3130.0010, L504.2610, L501.5200, L500.4100, L101.9900 #### [facility] [address] [place], [address] ALK PHOS 82 U/L Normal 40-129 [facility] Comment on above: Order Comment: DR.PR DAVIS ORDERED CBCD,CMP,LDH,ESR,CRP,PHOS,MG,LIGHT CHAINS,IMG G/A/M,MARK,SPEP ORDERED TSH,A1,CMP,LIPID,MIACRE,CBC Performed By: #### L 500.4050, L3100.3425, L501.2300, L501.9985, L100.0100, L501.9520, L502.0250, L501.6710, L3130.0010, L504.2610, L501.5200, L500.4100, L101.9900 #### [facility] [address] [place], [place], [id number] ALT [Catalytic activity/Vol] 17 U/L Normal <=46 [facility] Comment on above: Order Comment: DR.PR DAVIS ORDERED CBCD,CMP,LDH,ESR,CRP,PHOS,MG,LIGHT CHAINS,IMG G/A/M,MARK,SPEP ORDERED TSH,A1,CMP,LIPID,MIACRE,CBC Performed By: #### L 500.4050, L3100.3425, L501.2300, L501.9985, L100.0100, L501.9520, L502.0250, L501.6710, L3130.0010, L504.2610, L501.5200, L500.4100, L101.9900 #### [facility] [address] [place], [place], [id number] AST [Catalytic activity/Vol] 19 U/L Normal <=37 [facility] Comment on above: Order Comment: DR.PR DAVIS ORDERED CBCD,CMP,LDH,ESR,CRP,PHOS,MG,LIGHT CHAINS,IMG G/A/M,MARK,SPEP ORDERED TSH,A1,CMP,LIPID,MIACRE,CBC Performed By: #### L 500.4050, L3100.3425, L501.2300, L501.9985, L100.0100, L501.9520, L502.0250, L501.6710, L3130.0010, L504.2610, L501.5200, L500.4100, L101.9900 #### [facility] [address] [place], [place], [phone] (168) Bilirubin [Mass/Vol] 0.35 mg/dL Normal 0.00-1.30 [facility] Comment on above: Order Comment: DR.PR DAVIS ORDERED CBCD,CMP,LDH,ESR,CRP,PHOS,MG,LIGHT CHAINS,IMG G/A/M,MARK,SPEP ORDERED TSH,A1,CMP,LIPID,MIACRE,CBC Performed By: #### L 500.4050, L3100.3425, L501.2300, L501.9985, L100.0100, L501.9520, L502.0250, L501.6710, L3130.0010, L504.2610, L501.5200, L500.4100, L101.9900 #### [facility] [address] [place], [place], [phone] (259) BUN/CRE 17.0 RATIO Normal 10-20 [facility] Comment on above: Order Comment: DR.PR DAVIS ORDERED CBCD,CMP,LDH,ESR,CRP,PHOS,MG,LIGHT CHAINS,IMG G/A/M,MARK,SPEP ORDERED TSH,A1,CMP,LIPID,MIACRE,CBC Performed By: #### L 500.4050, L3100.3425, L501.2300, L501.9985, L100.0100, L501.9520, L502.0250, L501.6710, L3130.0010, L504.2610, L501.5200, L500.4100, L101.9900 #### [facility] [address] [place], [address] Calcium [Mass/Vol] 9.2 mg/dL Normal 7.6-11.0 [facility] Comment on above: Order Comment: DR.PR DAVIS ORDERED CBCD,CMP,LDH,ESR,CRP,PHOS,MG,LIGHT CHAINS,IMG G/A/M,MARK,SPEP ORDERED TSH,A1,CMP,LIPID,MIACRE,CBC Performed By: #### L 500.4050, L3100.3425, L501.2300, L501.9985, L100.0100, L501.9520, L502.0250, L501.6710, L3130.0010, L504.2610, L501.5200, L500.4100, L101.9900 #### [facility] [address] [place], [address] Chloride [Moles/Vol] 102 mmol/L Normal 98-108 [facility] Comment on above: Order Comment: DR.PR DAVIS ORDERED CBCD,CMP,LDH,ESR,CRP,PHOS,MG,LIGHT CHAINS,IMG G/A/M,MARK,SPEP ORDERED TSH,A1,CMP,LIPID,MIACRE,CBC Performed By: #### L 500.4050, L3100.3425, L501.2300, L501.9985, L100.0100, L501.9520, L502.0250, L501.6710, L3130.0010, L504.2610, L501.5200, L500.4100, L101.9900 #### [facility] [address] [facility] [place], [place], [id number] CO2 [Moles/Vol] 24.6 mmol/L Normal 21.0-32.0 [facility] Comment on above: Order Comment: DR.PR DAVIS ORDERED CBCD,CMP,LDH,ESR,CRP,PHOS,MG,LIGHT CHAINS,IMG G/A/M,MARK,SPEP ORDERED TSH,A1,CMP,LIPID,MIACRE,CBC Performed By: #### L 500.4050, L3100.3425, L501.2300, L501.9985, L100.0100, L501.9520, L502.0250, L501.6710, L3130.0010, L504.2610, L501.5200, L500.4100, L101.9900 #### [facility] [address] [place], [place], [id number] Creatinine [Mass/Vol] 0.99 mg/dL Normal 0.70-1.20 [facility] Comment on above: Order Comment: DR.PR DAVIS ORDERED CBCD,CMP,LDH,ESR,CRP,PHOS,MG,LIGHT CHAINS,IMG G/A/M,MARK,SPEP ORDERED TSH,A1,CMP,LIPID,MIACRE,CBC Performed By: #### L 500.4050, L3100.3425, L501.2300, L501.9985, L100.0100, L501.9520, L502.0250, L501.6710, L3130.0010, L504.2610, L501.5200, L500.4100, L101.9900 #### [facility] [address] [place], [address] GAP 9 Normal 5-15 [facility] Comment on above: Order Comment: DR.PR DAVIS ORDERED CBCD,CMP,LDH,ESR,CRP,PHOS,MG,LIGHT CHAINS,IMG G/A/M,MARK,SPEP ORDERED TSH,A1,CMP,LIPID,MIACRE,CBC Performed By: #### L 500.4050, L3100.3425, L501.2300, L501.9985, L100.0100, L501.9520, L502.0250, L501.6710, L3130.0010, L504.2610, L501.5200, L500.4100, L101.9900 #### [facility] [address] [place], [place], [phone] (206) GFR/1.73 sq M.predicted among non-blacks MDRD (S/P/Bld) [Vol rate/Area] 83 mL/min/{1.73_m2} Normal >60 [facility] Comment on above: Order Comment: DR.PR DAVIS ORDERED CBCD,CMP,LDH,ESR,CRP,PHOS,MG,LIGHT CHAINS,IMG G/A/M,MARK,SPEP ORDERED TSH,A1,CMP,LIPID,MIACRE,CBC Result Comment: mL/m in/1.73m2 CKD-EPI Creatinine Equation (2020) Performed By: #### L 500.4050, L3100.3425, L501.2300, L501.9985, L100.0100, L501.9520, L502.0250, L501.6710, L3130.0010, L504.2610, L501.5200, L500.4100, L101.9900 #### [facility] [address] [place], [address] Globulin (S) [Mass/Vol] 2.9 g/dL Normal 2.2-4.2 [facility] Comment on above: Order Comment: DR.PR DAVIS ORDERED CBCD,CMP,LDH,ESR,CRP,PHOS,MG,LIGHT CHAINS,IMG G/A/M,MARK,SPEP ORDERED TSH,A1,CMP,LIPID,MIACRE,CBC Performed By: #### L 500.4050, L3100.3425, L501.2300, L501.9985, L100.0100, L501.9520, L502.0250, L501.6710, L3130.0010, L504.2610, L501.5200, L500.4100, L101.9900 #### [facility] [address] [place], [address] Glucose [Mass/Vol] 135 mg/dL High 70-99 [facility] Comment on above: Order Comment: DR.PR DAVIS ORDERED CBCD,CMP,LDH,ESR,CRP,PHOS,MG,LIGHT CHAINS,IMG G/A/M,MARK,SPEP ORDERED TSH,A1,CMP,LIPID,MIACRE,CBC Performed By: #### L 500.4050, L3100.3425, L501.2300, L501.9985, L100.0100, L501.9520, L502.0250, L501.6710, L3130.0010, L504.2610, L501.5200, L500.4100, L101.9900 #### [facility] [address] [place], [address] Potassium [Moles/Vol] 4.8 mmol/L Normal 3.3-5.1 [facility] Comment on above: Order Comment: DR.PR DAVIS ORDERED CBCD,CMP,LDH,ESR,CRP,PHOS,MG,LIGHT CHAINS,IMG G/A/M,MARK,SPEP ORDERED TSH,A1,CMP,LIPID,MIACRE,CBC Performed By: #### L 500.4050, L3100.3425, L501.2300, L501.9985, L100.0100, L501.9520, L502.0250, L501.6710, L3130.0010, L504.2610, L501.5200, L500.4100, L101.9900 #### [facility] [address] [place], [address] Sodium [Moles/Vol] 136 mmol/L Normal 133-145 [facility] Comment on above: Order Comment: DR.PR DAVIS ORDERED CBCD,CMP,LDH,ESR,CRP,PHOS,MG,LIGHT CHAINS,IMG G/A/M,MARK,SPEP ORDERED TSH,A1,CMP,LIPID,MIACRE,CBC Performed By: #### L 500.4050, L3100.3425, L501.2300, L501.9985, L100.0100, L501.9520, L502.0250, L501.6710, L3130.0010, L504.2610, L501.5200, L500.4100, L101.9900 #### [facility] [address] [place], [address] T PROT 7.0 g/dL Normal 5.9-8.4 [facility] Comment on above: Order Comment: DR.PR DAVIS ORDERED CBCD,CMP,LDH,ESR,CRP,PHOS,MG,LIGHT CHAINS,IMG G/A/M,MARK,SPEP ORDERED TSH,A1,CMP,LIPID,MIACRE,CBC Performed By: #### L 500.4050, L3100.3425, L501.2300, L501.9985, L100.0100, L501.9520, L502.0250, L501.6710, L3130.0010, L504.2610, L501.5200, L500.4100, L101.9900 #### [facility] [address] [place], [address] Urea nitrogen [Mass/Vol] 17 mg/dL Normal 4-19 [facility] Comment on above: Order Comment: DR.PR DAVIS ORDERED CBCD,CMP,LDH,ESR,CRP,PHOS,MG,LIGHT CHAINS,IMG G/A/M,MARK,SPEP ORDERED TSH,A1,CMP,LIPID,MIACRE,CBC Performed By: #### L 500.4050, L3100.3425, L501.2300, L501.9985, L100.0100, L501.9520, L502.0250, L501.6710, L3130.0010, L504.2610, L501.5200, L500.4100, L101.9900 #### [facility] [address] [place], [address] Creatinine Unsp time (U) [Ma ss/Vol]Ordered By: Blaze Mcmahon on 09-28-2024 Creatinine (U) [Mass/Vol] 113.00 mg/dL 39.00-259.00 [facility] Eosinophil percentageOrdered By: Blaze Mcmahon on 09-28-2024 Eosinophils/100 WBC (Bld) 3.1 % 0-5 [facility] Erythrocyte Sed Rateon 09-28 SED RATE 3 mm/hr Normal 0-20 [facility] Comment on above: Order Comment: DR.PR DAVIS ORDERED CBCD,CMP,LDH,ESR,CRP,PHOS,MG,LIGHT CHAINS,IMG G/A/M,MARK,SPEP Performed By: #### L 500.4050, L3100.3425, L501.2300, L501.9985, L100.0100, L501.9520, L502.0250, L501.6710, L3130.0010, L504.2610, L501.5200, L500.4100, L101.9900 #### [facility] [address] [place], [place], [id number] Erythrocyte distribution wid th (RBC) [Ratio]Ordered By: Blaze Mcmahon on 09-28-2024 Erythrocyte distribution width (RBC) [Entitic vol] 43.7 fL 35.1-43.9 [facility] Erythrocyte distribution wid th ratioOrdered By: Blaze Lisandro on 09-28-2024 Erythrocyte distribution width (RBC) [Ratio] 12.9 % 11.6-14.6 [facility] Erythrocyte sedimentation ra teOrdered By: Blaze Mcmahon on 09-28-2024 ESR (Bld) [Velocity] 3 mm/h 0-20 [facility] GFR/1.73 sq M.predicted patricia g non-blacks MDRD (S/P/Bld) [Vol rate/Area]Ordered By: Blaze Mcmahon on 09-28-2024 Estimated GFR (MDRD) Non-Af Amer 83 >60 [facility] Comment on above: mL/min/1.73m2 CKD-EP I Creatinine Equation (2020) Gamma globulin Elph [Mass/Vo l]Ordered By: Blaze Mcmahon on 09-28-2024 Gamma Globulins (MARK) 1.2 g/dL 0.4-1.8 [facility] Hematocrit Auto (Bld) [Volum e fraction]Ordered By: Blaze Mcmahon on 09-28-2024 Hematocrit (Bld) [Volume fraction] 45.0 % 40-54 [facility] Hemoglobin A1con 09-28-2024 HbA1c (Bld) [Mass fraction] 6.6 % High <=5.6 [facility] Comment on above: Order Comment: DR.PR DAVIS ORDERED CBCD,CMP,LDH,ESR,CRP,PHOS,MG,LIGHT CHAINS,IMG G/A/M,MARK,SPEP Result Comment: Norm al < 5.7 % Prediabetic 5.7 - 6.4 % Diabetic >or= 6.5 % Please note range changes. Performed By: #### L 500.4050, L3100.3425, L501.2300, L501.9985, L100.0100, L501.9520, L502.0250, L501.6710, L3130.0010, L504.2610, L501.5200, L500.4100, L101.9900 #### [facility] [address] [place], [place], [id number] Hemoglobin A1c percentageOrd ered By: Blaze Mcmahon on 09-28-2024 HbA1c (Bld) [Mass fraction] 6.6 % High <5.7 [facility] Comment on above: Normal < 5.7 % Predi abetic 5.7 - 6.4 % Diabetic >or= 6.5 % Please note range changes. Hemoglobin measurementOrdere d By: Blaze Mcmahon on 09-28-2024 Hemoglobin (Bld) [Mass/Vol] 15.4 g/dL 13.0-16.5 [facility] IgA [Mass/Vol]Ordered By: Ronel Mcmahon on 09-28-2024 Immunoglobulin A 638 mg/dL High 61-437 [facility] IgG [Mass/Vol]Ordered By: Ronel Mcmahon on 09-28-2024 Immunoglobulin G 682 mg/dL 603-1613 [facility] Immature granulocytes/100 WB C Auto (Bld)Ordered By: Blaze Lisandro on 09-28-2024 Immature granulocytes/100 WBC (Bld) 0.200 % 0.0-0.9 [facility] Comment on above: IG% - Immature Granu locytes (promyelocytes, myelocytes and metamyelocytes) > 1% indicates that a LEFT SHIFT is Present. Immunoglobulin M measurement Ordered By: Blaze Mcmahon on 09-28-2024 Immunoglobulin M 25 mg/dL 20-172 [facility] Comment on above: Result confirmed on concentration. Immunoglobulin light chains. kappa [Mass/Vol]Ordered By: Blaze Mcmahon on 09-28-2024 Free [place] Light Chains, Quant 11.4 mg/L 3.3-19.4 [facility] Immunoglobulin light chains. kappa/Immunoglobulin light chains.lambda (S) [Mass ratio]Ordered By: Blaze Mcmahon on 09-28-2024 Free [place]/Lambda Light Chain Ratio 1.24 0.26-1.65 [facility] Comment on above: Performed at: [address] Director: Jhony Ahuja PhD, Phone: [phone] Interpretation IEP [Interp]O rdered By: Blaze Mcmahon on 09-28-2024 Immunofixation Screen Comment High . [facility] Comment on above: Immunofixation shows IgA monoclonal protein with lambdalight chain specificity. LDHon 09-28-2024 LDH 151 U/L Normal 87-241 [facility] Comment on above: Order Comment: DR.PR DAVIS ORDERED CBCD,CMP,LDH,ESR,CRP,PHOS,MG,LIGHTCHAINS,IMG G/A/M,MARK,SPEPDR.CHEGN ORDERED TSH,A1,CMP,LIPID,MIACRE,CBC1 Performed By: #### L 500.4050, L3100.3425, L501.2300, L501.9985, L100.0100, L501.9520, L502.0250, L501.6710, L3130.0010, L504.2610, L501.5200, L500.4100, L101.9900 ####[facility] [address] [place], [place], [id number] LDL calc ser/plasOrdered By: Blaze Mcmahon on 09-28-2024 LDL Cholesterol, Calculated 66 mg/dL [facility] Comment on above: Wrktmuhcwt=326-941 m g/dL & Higher Bpxi=194 mg/dL or greater Laboratory - Chemistry and C hemistry - challengeOrdered By: Blaze Mcmahon on 09-28-2024 AST [Catalytic activity/Vol] 19 U/L <38 [facility] Lactate dehydrogenase (LDH) measurementOrdered By: [facility] on 09-28-2024 LDH [Catalytic activity/Vol] 151 U/L 87-241 [facility] Lambda free light chain tana urementOrdered By: [facility] on 09-28-2024 Free Lambda Light Chains, Quant 9.2 mg/L 5.7-26.3 [facility] Lipid Profileon 09-28-2024 CHOL:HDL 2.48 Normal [facility] Comment on above: Order Comment: DR.PR DAVIS ORDERED CBCD,CMP,LDH,ESR,CRP,PHOS,MG,LIGHT CHAINS,IMG G/A/M,MARK,SPEP ORDERED TSH,A1,CMP,LIPID,MIACRE,CBC Performed By: #### L 500.4050, L3100.3425, L501.2300, L501.9985, L100.0100, L501.9520, L502.0250, L501.6710, L3130.0010, L504.2610, L501.5200, L500.4100, L101.9900 #### [facility] [address] [place], [address] Cholesterol [Mass/Vol] 144 mg/dL Normal <=200 [facility] Comment on above: Order Comment: DR.PR DAVIS ORDERED CBCD,CMP,LDH,ESR,CRP,PHOS,MG,LIGHT CHAINS,IMG G/A/M,MARK,SPEP ORDERED TSH,A1,CMP,LIPID,MIACRE,CBC Result Comment: Chol esterol level, Desirable <200 mg/dL Borderline high cholesterol 200-239 mg/dL High cholesterol >=240 mg/dL Recommendations of the NCEP Adult Treatment Panel for the following risk-cutoff thresholds for the [place] population. Performed By: #### L 500.4050, L3100.3425, L501.2300, L501.9985, L100.0100, L501.9520, L502.0250, L501.6710, L3130.0010, L504.2610, L501.5200, L500.4100, L101.9900 #### [facility] [address] [place], [address] Cholesterol in HDL [Mass/Vol] 58 mg/dL Normal [facility] Comment on above: Order Comment: DR.PR DAVIS ORDERED CBCD,CMP,LDH,ESR,CRP,PHOS,MG,LIGHT CHAINS,IMG G/A/M,MARK,SPEP ORDERED TSH,A1,CMP,LIPID,MIACRE,CBC Result Comment: Chyna onal Cholesterol Education Program (NCEP) guidelines: <40 mg/dL: Low HDL-cholesterol (major risk factor for CHD) >= 60 mg/dL: High HDL-cholesterol (negative risk factor for CHD) HDL-cholesterol is affected by a number of factors, e.g. smoking, exercise, hormones, sex and age. Performed By: #### L 500.4050, L3100.3425, L501.2300, L501.9985, L100.0100, L501.9520, L502.0250, L501.6710, L3130.0010, L504.2610, L501.5200, L500.4100, L101.9900 #### [facility] [address] [place], [address] (437) Cholesterol in LDL [Mass/Vol] 66 mg/dL Normal [facility] Comment on above: Order Comment: DR.PR DAVIS ORDERED CBCD,CMP,LDH,ESR,CRP,PHOS,MG,LIGHT CHAINS,IMG G/A/M,MARK,SPEP ORDERED TSH,A1,CMP,LIPID,MIACRE,CBC Result Comment: Bord ikquke=467-248 mg/dL Higher Zjep=821 mg/dL or greater Performed By: #### L 500.4050, L3100.3425, L501.2300, L501.9985, L100.0100, L501.9520, L502.0250, L501.6710, L3130.0010, L504.2610, L501.5200, L500.4100, L101.9900 #### [facility] [address] [place], [address] Cholesterol in VLDL [Mass/Vol] 20 mg/dL Normal 5-40 [facility] Comment on above: Order Comment: DR.PR DAVIS ORDERED CBCD,CMP,LDH,ESR,CRP,PHOS,MG,LIGHT CHAINS,IMG G/A/M,MARK,SPEP ORDERED TSH,A1,CMP,LIPID,MIACRE,CBC Performed By: #### L 500.4050, L3100.3425, L501.2300, L501.9985, L100.0100, L501.9520, L502.0250, L501.6710, L3130.0010, L504.2610, L501.5200, L500.4100, L101.9900 #### [facility] [address] [place], [place], [phone] (274) Triglyceride [Mass/Vol] 99 mg/dL Normal [facility] Comment on above: Order Comment: DR.PR DAVIS ORDERED CBCD,CMP,LDH,ESR,CRP,PHOS,MG,LIGHT CHAINS,IMG G/A/M,MARK,SPEP ORDERED TSH,A1,CMP,LIPID,MIACRE,CBC Result Comment: The drugs N-Acetylcysteine and Metamizole may falsely depress this assay. Normal range: <150 mg/dL Borderline High: 150-199 mg/dL High: 200-499 mg/dL Very High: >500 mg/dL Performed By: #### L 500.4050, L3100.3425, L501.2300, L501.9985, L100.0100, L501.9520, L502.0250, L501.6710, L3130.0010, L504.2610, L501.5200, L500.4100, L101.9900 #### [facility] [address] [place], [address] Lymphocytes Auto (Unsp spec) [#/Vol]Ordered By: Blaze Lisandro on 09-28-2024 Lymphocytes (Bld) [#/Vol] 1.57 10*3/uL 0.83-4.51 [facility] Lymphocytes/100 WBC Auto (Un sp spec)Ordered By: [facility] 09-28-2024 Lymphocytes/100 WBC (Bld) 30.2 % 19-41 [facility] MCV (mean corpuscular volume ) determinationOrdered By: [facility] on 09-28-2024 MCV (RBC) [Entitic vol] 92.2 fL 80-94 [facility] Magnesiumon 09-28-2024 Magnesium [Mass/Vol] 2.5 mg/dL High 1.5-2.2 [facility] Comment on above: Order Comment: DR.PR DAVIS ORDERED CBCD,CMP,LDH,ESR,CRP,PHOS,MG,LIGHTCHAINS,IMG G/A/M,MARK,SPEPDR.CHENG ORDERED TSH,A1,CMP,LIPID,MIACRE,CBC Performed By: #### L 500.4050, L3100.3425, L501.2300, L501.9985, L100.0100, L501.9520, L502.0250, L501.6710, L3130.0010, L504.2610, L501.5200, L500.4100, L101.9900 ####[facility] [address] [facility]. [place], [place], [phone] Magnesium (Unsp spec) [Mass/ Vol]Ordered By: Blaze Mcmahon on 09-28-2024 Magnesium [Mass/Vol] 2.5 mg/dL High 1.5-2.2 [facility] Mean corpuscular hemoglobin (MCH) determinationOrdered By: Blaze Mcmahon on 09-28-2024 MCH (RBC) [Entitic mass] 31.6 pg 27.0-32.0 [facility] Mean corpuscular hemoglobin concentration (MCHC) determinationOrdered By: Blaze Mcmahon on 09-28-2024 MCHC (RBC) [Mass/Vol] 34.2 g/dL 32-36 [facility] Mean platelet volume determi nationOrdered By: Blaze Mcmahon on 09-28-2024 Platelet mean volume (Bld) [Entitic vol] 10.7 fL 6.2-12.0 [facility] Microalb:Creat Ratio,Random URon 09-28-2024 Creatinine [Mass/Vol] 113.00 mg/dL Normal 39.00-259.00 [facility] Comment on above: Order Comment: DR.PR DAVIS ORDERED CBCD,CMP,LDH,ESR,CRP,PHOS,MG,LIGHT CHAINS,IMG G/A/M,MARK,SPEP Performed By: #### L 500.4050, L3100.3425, L501.2300, L501.9985, L100.0100, L501.9520, L502.0250, L501.6710, L3130.0010, L504.2610, L501.5200, L500.4100, L101.9900 #### [facility] [address] [place], [place], [id number] MALB:CREAT UNABLE TO CALCULATE Normal [facility] Comment on above: Order Comment: DR.PR DAVIS ORDERED CBCD,CMP,LDH,ESR,CRP,PHOS,MG,LIGHT CHAINS,IMG G/A/M,MARK,SPEP Performed By: #### L 500.4050, L3100.3425, L501.2300, L501.9985, L100.0100, L501.9520, L502.0250, L501.6710, L3130.0010, L504.2610, L501.5200, L500.4100, L101.9900 #### [facility] [address] [place], [address] MICROALBUMIN,UR < 12.0 Normal NO RANGE EST. [facility] Comment on above: Order Comment: DR.PR DAVIS ORDERED CBCD,CMP,LDH,ESR,CRP,PHOS,MG,LIGHT CHAINS,IMG G/A/M,MARK,SPEP Performed By: #### L 500.4050, L3100.3425, L501.2300, L501.9985, L100.0100, L501.9520, L502.0250, L501.6710, L3130.0010, L504.2610, L501.5200, L500.4100, L101.9900 #### [facility] [address] [place], [address] Microalbumin/creat ratio urO rdered By: Blaze Lisandro on 09-28-2024 Urine Microalbumin/Creatinine Ratio UNABLE TO CALCULATE mg/g CRE [facility] Monocyte percentageOrdered B y: Blaze Mcmahon on 09-28-2024 Monocytes/100 WBC (Bld) 11.9 % High 0-10 [facility] Neutrophil percentageOrdered By: [facility] on 09-28-2024 Neutrophils/100 WBC (Bld) 54.0 % 47-70 [facility] Nucleated red blood cell per centageOrdered By: [facility] on 09-28-2024 Nucleated RBC/100 WBC (Bld) [Ratio] 0 % 0-5 [facility] Phosphoruson 09-28-2024 Phosphate [Mass/Vol] 2.7 mg/dL Normal 2.7-4.5 [facility] Comment on above: Order Comment: DR.PR DAVIS ORDERED CBCD,CMP,LDH,ESR,CRP,PHOS,MG,LIGHTCHAINS,IMG G/A/M,MARK,SPEPDRSARAN ORDERED TSH,A1,CMP,LIPID,MIACRE,CBC Performed By: #### L 500.4050, L3100.3425, L501.2300, L501.9985, L100.0100, L501.9520, L502.0250, L501.6710, L3130.0010, L504.2610, L501.5200, L500.4100, L101.9900 ####[facility] [address] [place], [address] Platelet countOrdered By: Ronel Mcmahon on 09-28-2024 Platelets (Bld) [#/Vol] 186 10*3/uL 150-450 [facility] Potassium (Unsp spec) [Mass/ Vol]Ordered By: Blaze Mcmahon on 09-28-2024 Potassium [Moles/Vol] 4.8 mmol/L 3.3-5.1 [facility] Protein Fractions Immunofixa tion Elver [Interp]Ordered By: Blaze Mcmahon on 09-28-2024 M-Solitario (MARK) 0.4 g/dL High Not Observed [facility] RBC Auto (Bld) [#/Vol]Ordere d By: Blaze Mcmhaon on 09-28-2024 RBC (Bld) [#/Vol] 4.88 10*6/uL 4.6-6.2 [facility] Screening total cholesterol/ high density lipoprotein (HDL) cholesterol ratioOrdered By: Blaze Mcmahon on 09-28-2024 Cholesterol.total/Farnaz sterol in HDL [Mass ratio] 2.48 {ratio} [facility] Serum albumin/globulin ratio Ordered By: Blaze Mcmahon on 09-28-2024 Albumin/Globulin (MARK) 1.3 0.7-1.7 [facility] Serum creatinine measurement (mass/volume)Ordered By: Blaze Mcmahon on 09-28-2024 Creatinine [Mass/Vol] 0.99 mg/dL 0.70-1.20 [facility] Serum globulin measurement ( mass/volume)Ordered By: Blaze Mcmahon on 09-28-2024 Globulin (S) [Mass/Vol] 3.0 g/dL 2.2-3.9 [facility] Serum glucose measurement (m ass/volume)Ordered By: Blaze Mcmahon on 09-28-2024 Glucose [Mass/Vol] 135 mg/dL High 70-99 [facility] Serum or plasma alanine lu otransferase (ALT) measurementOrdered By: Blaze Mcmahon on 09-28-2024 ALT [Catalytic activity/Vol] 17 U/L <47 [facility] Serum or plasma albumin tana urement (mass/volume)Ordered By: Blaze Mcmahon on 09-28-2024 Albumin [Mass/Vol] 4.1 g/dL 3.4-4.8 [facility] Serum or plasma albumin/glob ulin mass ratioOrdered By: Blaze Mcmahon on 09-28-2024 Albumin/Globulin [Mass ratio] 1.4 {ratio} 0.9-2.4 [facility] Serum or plasma alkaline ujan sphatase measurementOrdered By: Blaze Mcmahon on 09-28-2024 ALP [Catalytic activity/Vol] 82 U/L 40-129 [facility] Serum or plasma calcium tana urement (mass/volume)Ordered By: Blaze Mcmahon on 09-28-2024 Calcium [Mass/Vol] 9.2 mg/dL 7.6-11.0 [facility] Serum or plasma cholesterol in HDL measurement (mass/volume)Ordered By: Blaze Mcmahon on 09-28-2024 Cholesterol in HDL [Mass/Vol] 58 mg/dL >40 [facility] Comment on above: National Cholesterol Education Program (NCEP) guidelines:<40 mg/dL: Low HDL-cholesterol (major risk factor for CHD)>= 60 mg/dL: High HDL-cholesterol (negative risk factor for CHD)HDL-cholesterol is affected by a number of factors, e.g. smoking, exercise, hormones, sex and age. Serum or plasma cholesterol measurement (mass/volume)Ordered By: Blaze Mcmahon on 09-28-2024 Cholesterol [Mass/Vol] 144 mg/dL <201 [facility] Comment on above: Cholesterol level, D esirable <200 mg/dLBorderline high cholesterol 200-239 mg/dLHigh cholesterol >=240 mg/dLRecommendations of the NCEP Adult Treatment Panel for the following risk-cutoff thresholds for the [place] population. Serum or plasma protein tana urement (mass/volume)Ordered By: Blaze Mcmahon on 09-28-2024 Protein [Mass/Vol] 6.7 g/dL 6.0-8.5 [facility] Serum or plasma urea nitroge n measurement (mass/volume)Ordered By: Blaze Mcmahon on 09-28-2024 Urea nitrogen [Mass/Vol] 17 mg/dL 4-19 [facility] Serum phosphorus measurement Ordered By: Blaze Mcmahon on 09-28-2024 Phosphorus Level 2.7 mg/dL 2.7-4.5 [facility] Sodium levelOrdered By: Hong Mcmahon on 09-28-2024 Sodium [Moles/Vol] 136 mmol/L 133-145 [facility] TSH DL <= 0.005 mIU/L QnOrde red By: Blaze Mcmahon on 09-28-2024 Thyroid Stimulating Hormone (TSH) 1.350 uIU/mL 0.300-4.200 [facility] Thyroid Stim Hormone (TSH)on 09-28-2024 TSH 1.350 uIU/mL Normal 0.300-4.200 [facility] Comment on above: Order Comment: DR.PR DAVIS ORDERED CBCD,CMP,LDH,ESR,CRP,PHOS,MG,LIGHT CHAINS,IMG G/A/M,MARK,SPEP ORDERED TSH,A1,CMP,LIPID,MIACRE,CBC Performed By: #### L 500.4050, L3100.3425, L501.2300, L501.9985, L100.0100, L501.9520, L502.0250, L501.6710, L3130.0010, L504.2610, L501.5200, L500.4100, L101.9900 #### [facility] [address] [place], [address] Total proteinOrdered By: Son Mcmahon on 09-28-2024 Protein [Mass/Vol] 7.0 g/dL 5.9-8.4 [facility] Triglycerides measurementOrd ered By: Blaze Mcmahon on 09-28-2024 Triglyceride [Mass/Vol] 99 mg/dL <199 [facility] Comment on above: The drugs N-Acetylcy steine and Metamizole may falsely depress this assay. Normal range: <150 mg/dLBorderline High: 150-199 mg/dLHigh: 200-499 mg/dLVery High: >500 mg/dL White blood cell (WBC) count Ordered By: Blaze Mcmahon on 09-28-2024 WBC (Bld) [#/Vol] 5.2 10*3/uL 4.4-11.0 [facility] XR SHOULDER MINIMUM 2 VIEWS RIGHTon 09-17-2024 [...] 12:45:18 PM Ordering Provider: SHAGUFTA HUMMEL Normal [facility] CVFLURVon 08-09-2024 FLU A PCR Negative Normal Negative [facility] Comment on above: Performed By: #### C VFLURV #### [place] [address] FLU B PCR Negative Normal Negative [facility] Comment on above: Performed By: #### C VFLURV #### [place] [address] RSV PCR Negative Normal Negative [facility] Comment on above: Performed By: #### C VFLURV #### [place] [address] SARS-CoV-2 (COVID-19) RNA SAVANNA+probe Ql (Unsp spec) Negative Normal Negative [facility] Comment on above: Result Comment: Resu lts [...] Performed By: #### C VFLURV #### [facility] [address] [place], [place] [address] LABORATORYOrdered By: Angelic Kyle on 08-09-2024 FLUAV RNA SAVANNA+probe Ql (Resp) Negative (08/09/24 2:12 PM) Normal AO Auto Urine SS FLUBV RNA SAVANNA+probe Ql (Resp) Negative (08/09/24 2:12 PM) Normal AO Auto Urine SS RSV RNA SAVANNA+probe Ql (Resp) Negative (08/09/24 2:12 [...] 06/22/2024 4:42:16 PM Ordering Provider: SABI Muniz [facility] Oncology Visit Reporton 04-20 Oncology Visit Report [facility] [address] [place], [place] [address] [address] OFFICE VISIT Date of Service: 05/01/24 1344 MR#: [id number] Acct: [id number] Name: BRANDYN KELLY Rep #: [id number] : 1955 From: Blaze Mcmahon MD Age/Sex: 68/M Location: [facility] Status: Signed HPI Subjective Date of [...] blood work and comes for follow up. [facility] Medical History Somatic dysfunction of lower [...] other current occupational status: retired current occupation: [employer] Smoking Status: Former smoker alcohol intake: never [...] 31 27 MARK M-Solitario Comment: Comment: Free [place] LC, Quant 16.0 13.8 Free Lambda LC, Quant 11.8 10.6 [place]/Lambda Ratio 1.36 1.30 07/14/23 10:05 WBC 7.1 [...] H IgM 26 MARK M-Solitario Comment: Free [place] LC, Quant 16.3 Free Lambda LC, Quant 9.7 [place]/Lambda Ratio 1.68 H Exam Physical Exam Narrative Elderly man. Const alert, oriented x3 and no apparent distress HEENT normocephalic, external ears normal and external nose normal Eyes PERRL, conjunctivae normal and no scleral icterus Neck supple Lymph Lymphatic: no lymphadenopathy noted Resp normal respiratory effort and clear to auscultation bilaterally Cardio regular rate, regular rhythm, S1 normal h (more content not included)... Normal [facility] CT ANGIOGRAPHY CHEST W/CONTR Ila 03-28-2024 CT [...] Date: 03/28/2024 1:36:29 PM Ordering Provider: LILIANA LARSON Normal [facility] LEADAon 07-08-2023 Blood Lead Purpose Initial Normal [facility] ([place]) Comment on above: Performed By: #### B MP, ADIFF, ANEU, CBC, GFR #### [address] [address] Blood Lead Type Venous Normal [facility]) Comment on above: Performed By: #### B MP, ADIFF, ANEU, CBC, GFR #### [address] [address] HMETBon 07-06-2023 Arsenic Bld Lvl 4 UG/L Normal [facility]) Comment on above: Result Comment: This test was developed and its performance characteristics determined by [facility]. It has not been cleared or approved by the Food and Drug Administration. Detection Limit = 1 Performed By: #### B MP, ADIFF, ANEU, CBC, GFR #### [address] [address] Cadmium Bld Lvl 0.6 UG/L Normal [facility] ([place]) Comment on above: Result Comment: This test was developed and its performance characteristics determined by [facility]. It has not been cleared or approved by the Food and Drug Administration. Environmental Exposure: Nonsmokers 0.3 - 1.2 Smokers 0.6 - 3.9 Occupational Exposure: OSHA Cadmium Std 5.0 CESILIA 5.0 Detection Limit = 0.5 Performed At: [address] [id number] Nirmal Silveira MD Ph:[phone] Performed By: #### B MP, ADIFF, ANEU, CBC, GFR #### [address] [address] Lead Bld Lvl 1.2 UG/DL Normal [facility] ([place]) Comment on above: Result Comment: Test ing performed by Inductively coupled plasma/Mass Spectrometry. This test was developed and its performance characteristics determined by [facility]. It has not been cleared or approved by the Food and Drug Administration. Environmental Exposure: WHO Recommendation <5.0 Occupational Exposure: OSHA Lead Std 40.0 CESILIA 30.0 Detection Limit = 1.0 Performed By: #### B MP, ADIFF, ANEU, CBC, GFR #### [address] [address] Mercury Bld Lvl 5.6 UG/L Normal [facility] ([place]) Comment on above: Result Comment: This test was developed and its performance characteristics determined by [facility]. It has not been cleared or approved by the Food and Drug Administration. Environmental Exposure: <15.0 Occupational Exposure: CESILIA - Inorganic Mercury: 15.0 Detection Limit = 1.0 Performed By: #### B MP, ADIFF, ANEU, CBC, GFR #### [address] [address] ANCAon 07-04-2023 C-ANCA 3.9 Normal 0.0-20.0 [facility] ([place]) Comment on above: Result Comment: NEW REFERENCE RANGES FOR ANCA BY EIA: NEGATIVE <= 20 UNITS WEAK POSITIVE 21 - 30 UNITS MOD. TO STRONG POSITIVE > 30 UNITS A positive result indicates the presence of NY-3 antibodies and suggests the possibility of certain autoimmune vasculitides such as Di?s granulomatosis. A negative result indicates no NY-3 antibody or levels below the negative cut-off of the assay. These results were obtained with the [employer] QUANTA Lite [place]-3 IgG ANGELA. [place]-3 values obtained with different manufacturers? assay methods may not be used interchangeably. The magnitude of the reported IgG level cannot be correlated to an endpoint titer. Results of this assay should be used in conjunction with clinical findings. Performed By: #### B MP, ADIFF, ANEU, CBC, GFR #### [address] [address] Cytoplasmic Neutro. Ab. See Below Normal [facility] ([place]) Comment on above: Performed By: #### B MP, ADIFF, ANEU, CBC, GFR #### [address] [address] P-ANCA 3.2 Normal 0.0-20.0 [facility] ([place]) Comment on above: Result Comment: REFE RENCE [...] were obtained with the [employer] QUANTA Lite MPO IgG ANGELA. MPO values obtained with different manufacturers? assay methods may not be used interchangeably. The magnitude of the reported IgG level cannot be correlated to an endpoint titer. Results of this assay should be used in conjunction with clinical findings. Performed By: #### B MP, ADIFF, ANEU, CBC, GFR #### [address] [address] LEADAon 07-04-2023 Lead Adult Lvl 1.2 UG/DL [facility] [place] Comment on above: Result Comment: Test ing performed by Inductively coupled plasma/Mass Spectrometry. Analysis by inductively coupled plasma/mass spectrometry (ICP/MS) This test was developed and its performance characteristics determined by [employer]. It has not been cleared or approved by the Food and Drug Administration. Environmental Exposure: WHO Recommendation <5.0 Occupational Exposure: OSHA Lead Std 40.0 CESILIA 30.0 Detection Limit = 1.0 Performed At: [address] [id number] Leigha Booker PhD Ph:[phone] Performed By: #### B MP, ADIFF, ANEU, CBC, GFR #### [place] [id number] .ANATon 06-30-2023 JUAN LUIS Pattern 1 Homogeneous Normal [facility]) Comment on above: Result Comment: [facility] an JUAN LUIS titer of less than 160 is not considered suggestive of significant rheumatoid disease. If clinical suspicion is high, suggest repeat testing in 1-2 months. Performed By: #### B MP, ADIFF, ANEU, CBC, GFR #### [place] [id number] JUAN LUIS Titer 1 40 Normal [facility]) Comment on above: Performed By: #### B MP, ADIFF, ANEU, CBC, GFR #### [place] [address] ANAon 06-30-2023 JUAN LUIS See Titer Normal Neg 40 [facility]) Comment on above: Result Comment: JUAN LUIS Screen and Titer methodology is an immunofluorescent technique utilizing Hep2 Substrate. Performed By: #### B MP, ADIFF, ANEU, CBC, GFR #### [place] [id number] RFon 06-30-2023 Rheumatoid Factor <6.0 Normal <=5.9 [facility]) Comment on above: Result Comment: RF I [...] tests. These results were obtained with the [employer] QUANTA Lite RF IgM ANGELA. RF IgM values obtained with different manufacturers' assay methods may not be used interchangeably. The magnitude of the reported IgM levels cannot be correlated to an endpoint titer. Performed By: #### B MP, ADIFF, ANEU, CBC, GFR #### [address] [address] SPEon 06-30-2023 SPE Interpretation There is a discrete band in beta-gamma region, with normal remaining polyclonal immunoglobulins. This pattern suggests monoclonal or oligoclonal proteins that may occur in chronic inflammatory diseases, multiple myeloma, or may be idiopathic (MGUS). Suggest serum and urine immunofixation and quantitative serum immunoglobulins. [facility] [place] Comment on above: Result Comment: Elec tronically Signed by: ROBERT LOPEZ 06/30/2023 16:15 EST Performed By: #### B MP, ADIFF, ANEU, CBC, GFR #### [place] [address] Albumin 3.6 G/dL Normal 3.3-5.0 [facility] [place] Comment on above: Performed By: #### B MP, ADIFF, ANEU, CBC, GFR #### [place] [address] Alpha 1 0.2 G/dL Normal 0.1-0.4 [facility] [place] Comment on above: Performed By: #### B MP, ADIFF, ANEU, CBC, GFR #### [place] [address] Alpha 2 1.0 G/dL Normal 0.6-1.2 [facility] [place] Comment on above: Performed By: #### B MP, ADIFF, ANEU, CBC, GFR #### [address] [address] Beta 0.9 G/dL Normal 0.6-1.3 [facility] [place] Comment on above: Performed By: #### B MP, ADIFF, ANEU, CBC, GFR #### [address] [address] Gamma 1.3 G/dL Normal 0.7-1.6 [facility] [place] Comment on above: Performed By: #### B MP, ADIFF, ANEU, CBC, GFR #### [address] [address] M-spike 0.2 G/dL Normal [facility] [place] Comment on above: Performed By: #### B MP, ADIFF, ANEU, CBC, GFR #### [address] [address] UPEon 06-30-2023 UPE Interpretation There was no appreciable protein detected by electrophoresis of concentrated urine. Normal [facility] [place] Comment on above: Result Comment: Elec tronically Signed by: ROBERT LOPEZ 06/30/2023 16:16 EST Performed By: #### U PE #### [place] [address] .Auto Diffon 06-29-2023 Basophil, Absolute 0.1 10 3/mcL Normal 0.0-0.2 [facility] ([place]) Comment on above: Performed By: #### C BC, [id number], ADIFF, ANEU, [id number], CRP, FERR, PSA #### [place] [address] #### B12, JUAN LUIS, RF, SPE, JENNY, ANCA #### [place] [address] Basophils/100 WBC (Bld) 0.8 % Normal 0.0-2.5 [facility] ([place]) Comment on above: Performed By: #### C BC, [id number], ADIFF, ANEU, 043614, CRP, FERR, PSA #### [place] [address] #### B12, JUAN LUIS, RF, SPE, JENNY, ANCA #### [place] [address] Eosinophil, Absolute 0.3 10 3/mcL Normal 0.0-0.4 [facility] ([place]) Comment on above: Performed By: #### C BC, [id number], ADIFF, ANEU, 738421, CRP, FERR, PSA #### [place] [address] #### B12, JUAN LUIS, RF, SPE, JENNY, ANCA #### [address] [address] Eosinophils/100 WBC (Bld) 4.7 % Normal 0.0-7.0 [facility] [place] Comment on above: Performed By: #### C BC, [id number], ADIFF, ANEU, 763930, CRP, FERR, PSA #### [place] [address] #### B12, JUAN LUIS, RF, SPE, JENNY, ANCA #### [address] [address] Lymphocyte, Absolute 1.8 10 3/mcL Normal 0.8-3.9 [facility] ([place]) Comment on above: Performed By: #### C BC, 690898, ADIFF, ANEU, 482203, CRP, FERR, PSA #### [place] [address] #### B12, JUAN LUIS, RF, SPE, JENNY, ANCA #### [address] [address] Lymphocytes/100 WBC (Bld) 29.4 % Normal 10.0-50.0 [facility] [place] Comment on above: Performed By: #### C BC, 449135, ADIFF, ANEU, 210672, CRP, FERR, PSA #### [place] [address] #### B12, JUAN LUIS, RF, SPE, JENNY, ANCA #### [address] [address] Monocyte, Absolute 0.6 10 3/mcL Normal 0.2-1.0 [facility] ([place]) Comment on above: Performed By: #### C BC, 756326, ADIFF, ANEU, 656333, CRP, FERR, PSA #### [place] [address] #### B12, JUAN LUIS, RF, SPE, JENNY, ANCA #### [address] [address] Monocytes/100 WBC (Bld) 8.9 % Normal 1.7-13.0 [facility] ([place]) Comment on above: Performed By: #### C BC, 457788, ADIFF, ANEU, 535785, CRP, FERR, PSA #### [place] [address] #### B12, JUAN LUIS, RF, SPE, JENNY, ANCA #### [address] [address] Neutrophils/100 WBC (Bld) 56.2 % Normal 37.0-80.0 [facility] [place] Comment on above: Performed By: #### C BC, [id number], ADIFF, ANEU, 214523, CRP, FERR, PSA #### [place] [address] #### B12, JUAN LUIS, RF, SPE, JENNY, ANCA #### [address] [address] .NEUABSon 06-29-2023 Neutrophil, Absolute 3.5 10 3/mcL Normal 2.9-6.2 [facility] ([place] Comment on above: Performed By: #### C BC, 964971, ADIFF, ANEU, 332696, CRP, FERR, PSA #### [place] [address] #### B12, JUAN LUIS, RF, SPE, JENNY, ANCA #### [address] [address] B12on 06-29-2023 Cobalamin (Vitamin B12) [Mass/Vol] 276 pg/mL Normal 211-911 [facility] [place] Comment on above: Performed By: #### B MP, ADIFF, ANEU, CBC, GFR #### [address] [address] CBCon 06-29-2023 Erythrocyte distribution width (RBC) [Ratio] 13.6 % Normal 11.5-14.5 [facility] [place] Comment on above: Performed By: #### C BC, 876559, ADIFF, ANEU, 701805, CRP, FERR, PSA #### [place] [address] #### B12, JUAN LUIS, RF, SPE, JENNY, ANCA #### [place] [address] Hematocrit (Bld) [Volume fraction] 45.9 % Normal 42.0-52.0 [facility] [place] Comment on above: Performed By: #### C BC, 471131, ADIFF, ANEU, 092491, CRP, FERR, PSA #### [place] [address] #### B12, JUAN LUIS, RF, SPE, JENNY, ANCA #### [place] [address] Hgb 16.1 G/dL Normal 14.0-18.0 [facility] [place] Comment on above: Performed By: #### C BC, 931707, ADIFF, ANEU, 164480, CRP, FERR, PSA #### [place] [address] #### B12, JUAN LUIS, RF, SPE, JENNY, ANCA #### [place] [address] MCH (RBC) [Entitic mass] 32.1 pg High 27.0-31.2 [facility] [place] Comment on above: Performed By: #### C BC, 815451, ADIFF, ANEU, 686078, CRP, FERR, PSA #### [place] [address] #### B12, JUAN LUIS, RF, SPE, JENNY, ANCA #### [place] [address] MCHC 35.1 G/dL Normal 31.8-35.4 [facility] [place] Comment on above: Performed By: #### C BC, 513235, ADIFF, ANEU, 567818, CRP, FERR, PSA #### [place] [address] #### B12, JUAN LUIS, RF, SPE, JENNY, ANCA #### [place] [address] MCV (RBC) [Entitic vol] 91.3 fL Normal 80.0-94.0 A [facility] ([place] Comment on above: Performed By: #### C BC, 158102, ADIFF, ANEU, 645705, CRP, FERR, PSA #### [place] [address] #### B12, JUAN LUIS, RF, SPE, JENNY, ANCA #### [address] [address] Platelet 194 10 3/mcL Normal 130-400 [facility] [place] Comment on above: Performed By: #### C BC, 291788, ADIFF, ANEU, 617423, CRP, FERR, PSA #### [place] [address] #### B12, JUAN LUIS, RF, SPE, JENNY, ANCA #### [place] [address] Platelet mean volume (Bld) [Entitic vol] 8.8 fL Normal 7.4-10.4 [facility] [place] Comment on above: Performed By: #### C BC, 149177, ADIFF, ANEU, 036597, CRP, FERR, PSA #### [place] [address] #### B12, JUAN LUIS, RF, SPE, JENNY, ANCA #### [address] [address] RBC 5.03 10 6/mcL Normal 4.04-6.13 [facility] [place] Comment on above: Performed By: #### C BC, 909711, ADIFF, ANEU, 399933, CRP, FERR, PSA #### [place] [address] #### B12, JUAN LUIS, RF, SPE, JENNY, ANCA #### [place] [address] WBC 6.2 10 3/mcL Normal 4.6-10.8 [facility] [place] Comment on above: Performed By: #### C BC, 280962, ADIFF, ANEU, 136339, CRP, FERR, PSA #### [address] [address] #### B12, JUAN LUIS, RF, SPE, JENNY, ANCA #### [address] [address] CRPon 06-29-2023 C-Reactive Protein 0.1 mg/dL Normal 0.0-0.3 [facility] ([place]) Comment on above: Performed By: #### B MP, ADIFF, ANEU, CBC, GFR #### [address] [address] Balaji 06-29-2023 Ferritin [Mass/Vol] 281.0 ng/mL Normal 26.0-388.0 [facility] ([place]) Comment on above: Performed By: #### B MP, ADIFF, ANEU, CBC, GFR #### [address] [address] LABORATORYOrdered By: SYSTEM SYSTEM on 06-29-2023 Basophil, [...] Ferritin [Mass/Vol] 281.0 ng/mL Normal 26.0 - 3 88.0 ng/mL AO ADM SS Hematocrit (Bld) [Volume [...] Prostate Specific Antigen 2.19 ng/mL Normal 0.00-4.00 [facility] [place] Comment on above: Performed By: #### B MP, ADIFF, ANEU, CBC, GFR #### [address] [address] SPEon 06-29-2023 Total Protein 7.1 G/dL Normal 5.7-8.2 [facility] [place] Comment on above: Result Comment: No te - New Reference Range in effect 20 Performed By: #### B MP, ADIFF, ANEU, CBC, GFR #### [facility] [address] [place], [place] [address] CT ANGIOGRAPHY ABD/PELVIS/BI LAT LOWER EXTREMon 06-17-2023 CT ANGIOGRAPHY ABD/PELVIS/BILAT LOWER EXTREM ORIGINAL EXAMINATION: CTA OF THE AORTA WITH LOWER EXTREMITY [id number]/03/2023 10:29 am TECHNIQUE: CTA of the pelvis [...] artery arises from the inferior epigastric artery. MULTI SPINDLE OPERATOR: No significant stenosis. Profunda: No significant stenosis. SFA: No significant stenosis. Popliteal: Metallic artifact from total knee arthroplasty obscures visualization. No definite severe stenosis. TP trunk: No contrast opacification seen. FAITH: No contrast opacification seen. Peroneal: No contrast opacification seen. LIGHT BULB ASSEMBLER: No contrast opacification seen. LEFT JANET: No significant stenosis. EIA: No significant stenosis. 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 MULTI SPINDLE OPERATOR: No significant stenosis. Profunda: No significant stenosis. [...] of contrast opacification within the proximal leg LIGHT BULB ASSEMBLER: Loss of contrast opacification within the proximal [...] Date: 06/17/20 (more content not included)... Normal [facility]) LABORATORYOrdered By: Haider Mcnally on 04-28-2023 Glucose [Mass/Vol] 93 mg/dL Invalid Interpretation Code 82 - 115 mg/dL [facility] .Auto Diffon 04-15-2023 Basophil, Absolute 0.0 10 3/mcL Normal 0.0-0.2 [facility] ([place]) Comment on above: Performed By: #### B MP, ADIFF, ANEU, CBC, GFR #### [address] [address] Basophils/100 WBC (Bld) 0.9 % Normal 0.0-2.5 [facility] ([place] Comment on above: Performed By: #### B MP, ADIFF, ANEU, CBC, GFR #### [address] [address] Eosinophil, Absolute 0.3 10 3/mcL Normal 0.0-0.4 [facility] ([place] Comment on above: Performed By: #### B MP, ADIFF, ANEU, CBC, GFR #### [address] [address] Eosinophils/100 WBC (Bld) 4.8 % Normal 0.0-7.0 [facility] [place] Comment on above: Performed By: #### B MP, ADIFF, ANEU, CBC, GFR #### [address] [address] Lymphocyte, Absolute 1.7 10 3/mcL Normal 0.8-3.9 [facility] ([place] Comment on above: Performed By: #### B MP, ADIFF, ANEU, CBC, GFR #### [address] [address] Lymphocytes/100 WBC (Bld) 32.3 % Normal 10.0-50.0 [facility] [place] Comment on above: Performed By: #### B MP, ADIFF, ANEU, CBC, GFR #### [address] [address] Monocyte, Absolute 0.5 10 3/mcL Normal 0.2-1.0 [facility] ([place] Comment on above: Performed By: #### B MP, ADIFF, ANEU, CBC, GFR #### [address] [address] Monocytes/100 WBC (Bld) 9.8 % Normal 1.7-13.0 [facility] ([place] Comment on above: Performed By: #### B MP, ADIFF, ANEU, CBC, GFR #### [address] [address] Neutrophils/100 WBC (Bld) 52.2 % Normal 37.0-80.0 [facility] [place] Comment on above: Performed By: #### B MP, ADIFF, ANEU, CBC, GFR #### [address] [address] .GFRon 04-15-2023 GFR Non- 95 ml/min/1.73sqm Normal [facility] [place] Comment on above: Result Comment: GFR Population [...] B MP, ADIFF, ANEU, CBC, GFR #### [address] [address] GFR 115 ml/min/1.73sqm Normal [facility] [place] Comment on above: Result Comment: GFR Population [...] B MP, ADIFF, ANEU, CBC, GFR #### [address] [address] .NEUABSon 04-15-2023 Neutrophil, Absolute 2.8 10 3/mcL Low 2.9-6.2 [facility] ([place] Comment on above: Performed By: #### B MP, ADIFF, ANEU, CBC, GFR #### [address] [address] BMPon 04-15-2023 BUN/Creatinine Ratio 20 ratio Normal - [facility]) Comment on above: Performed By: #### B MP, ADIFF, ANEU, CBC, GFR #### [address] [address] Calcium [Mass/Vol] 8.8 mg/dL Normal 8.4-10.2 [facility] ([place]) Comment on above: Performed By: #### B MP, ADIFF, ANEU, CBC, GFR #### [address] [address] Chloride [Moles/Vol] 98 mmol/L Normal 98-107 [facility] ([place]) Comment on above: Performed By: #### B MP, ADIFF, ANEU, CBC, GFR #### [address] [address] CO2 [Moles/Vol] 28 mmol/L Normal 23-31 [facility]) Comment on above: Performed By: #### B MP, ADIFF, ANEU, CBC, GFR #### [address] [address] Creatinine [Mass/Vol] 0.81 mg/dL Normal 0.70-1.30 [facility] ([place]) Comment on above: Performed By: #### B MP, ADIFF, ANEU, CBC, GFR #### [address] [address] Electrolyte Balance 9.0 mEq/L Normal 4.0-15.0 [facility] ([place]) Comment on above: Performed By: #### B MP, ADIFF, ANEU, CBC, GFR #### [address] [address] Glucose [Mass/Vol] 97 mg/dL Normal 80-115 [facility] ([place] Comment on above: Performed By: #### B MP, ADIFF, ANEU, CBC, GFR #### [address] [address] Potassium [Moles/Vol] 4.3 mmol/L Normal 3.5-5.1 [facility]) Comment on above: Performed By: #### B MP, ADIFF, ANEU, CBC, GFR #### [address] [address] Sodium [Moles/Vol] 135 mmol/L Low 136-145 [facility] ([place] Comment on above: Performed By: #### B MP, ADIFF, ANEU, CBC, GFR #### [address] [address] Urea nitrogen [Mass/Vol] 16 mg/dL Normal 7-18 [facility] [place] Comment on above: Performed By: #### B MP, ADIFF, ANEU, CBC, GFR #### [address] [address] CBCon 04-15-2023 Erythrocyte distribution width (RBC) [Ratio] 13.2 % Normal 11.5-14.5 [facility] [place] Comment on above: Order Comment: Pre-A dmission Testing Performed By: #### B MP, ADIFF, ANEU, CBC, GFR #### [address] [address] Hematocrit (Bld) [Volume fraction] 39.7 % Low 42.0-52.0 [facility] [place] Comment on above: Order Comment: Pre-A dmission Testing Performed By: #### B MP, ADIFF, ANEU, CBC, GFR #### [place] [address] Hgb 13.9 G/dL Low 14.0-18.0 [facility] [place] Comment on above: Order Comment: Pre-A dmission Testing Performed By: #### B MP, ADIFF, ANEU, CBC, GFR #### [place] [address] MCH (RBC) [Entitic mass] 31.7 pg High 27.0-31.2 [facility] [place] Comment on above: Order Comment: Pre-A dmission Testing Performed By: #### B MP, ADIFF, ANEU, CBC, GFR #### [place] [address] MCHC 34.9 G/dL Normal 31.8-35.4 [facility] [place] Comment on above: Order Comment: Pre-A dmission Testing Performed By: #### B MP, ADIFF, ANEU, CBC, GFR #### [place] [address] MCV (RBC) [Entitic vol] 90.7 fL Normal 80.0-94.0 A [facility] ([place] Comment on above: Order Comment: Pre-A dmission Testing Performed By: #### B MP, ADIFF, ANEU, CBC, GFR #### [place] [address] Platelet 208 10 3/mcL Normal 130-400 [facility] [place] Comment on above: Order Comment: Pre-A dmission Testing Performed By: #### B MP, ADIFF, ANEU, CBC, GFR #### [place] [id number] [place], [place] [address] Platelet mean volume (Bld) [Entitic vol] 7.9 fL Normal 7.4-10.4 [facility] [place] Comment on above: Order Comment: Pre-A dmission Testing Performed By: #### B MP, ADIFF, ANEU, CBC, GFR #### [address] [address] RBC 4.38 10 6/mcL Normal 4.04-6.13 [facility] [place] Comment on above: Order Comment: Pre-A dmission Testing Performed By: #### B MP, ADIFF, ANEU, CBC, GFR #### [address] [address] WBC 5.3 10 3/mcL Normal 4.6-10.8 [facility] [place] Comment on above: Order Comment: Pre-A dmission Testing Performed By: #### B MP, ADIFF, ANEU, CBC, GFR #### [address] [address] LABORATORYOrdered By: SYSTEM SYSTEM on 04-15-2023 Basophil, [...] Ql (U) Trace mg/dL Invalid Interpretation Code Neg-Tracemg/ dL AH Auto Urine SS LABORATORYOrdered By: SYSTEM [...] Non-Reactive (09/23/21 7:25 AM) Invalid Interpretation Code Non-Reactive AH ADM SS Hep C Ab Int [...] Pressure Non-Invasive 64 1 GEREMIAS VEGA MD [facility] 04-28-2023 12:58-0500 Heart rate 66 /min GEREMIAS VEGA MD [facility] 04-28-2023 12:58-0500 Respiratory rate 16 /min GEREMIAS VEGA MD [facility] 04-28-2023 12:58-0500 Systolic Blood Pressure Non-Invasive 110 1 GEREMIAS VEGA MD [facility] 04-28-2023 11:31-0500 Diastolic Blood Pressure Non-Invasive 56 1 GEREMIAS VEGA MD [facility] 04-28-2023 11:31-0500 Systolic Blood Pressure Non-Invasive 103 1 GEREMIAS VEGA MD [facility] 04-28-2023 11:30-0500 Diastolic Blood Pressure Non-Invasive 57 1 GEREMIAS VEGA MD [facility] 04-28-2023 11:30-0500 Heart rate 75 /min GEREMIAS VEGA MD [facility] 04-28-2023 11:30-0500 Respiratory rate 14 /min GEREMIAS VEGA MD [facility] 04-28-2023 11:30-0500 Systolic Blood Pressure Non-Invasive 97 1 GEREMIAS VEGA MD [facility] 04-28-2023 11:20-0500 Heart rate 57 /min GEREMIAS VEGA MD [facility] 04-28-2023 11:20-0500 Respiratory rate 12 /min GEREMIAS VEGA MD [facility] 04-28-2023 10:34-0500 Body temperature 97.16 [degF] GEREMIAS VEGA MD [facility] 04-28-2023 10:30-0500 Respiratory Rate - Anes 0 br/min GEREMIAS VEGA MD [facility] 04-28-2023 10:25-0500 Respiratory Rate - Anes 16 br/min GEREMIAS VEGA MD [facility] 04-28-2023 10:20-0500 Respiratory Rate - Anes 17 br/min GEREMIAS VEGA MD [facility] 04-28-2023 06:56-0500 Body temperature 97.88 [degF] GEREMIAS VEGA MD [facility] 04-28-2023 06:56-0500 Heart rate 76 /min GEREMIAS VEGA MD [facility] 04-28-2023 06:50-0500 Body height 175.3 cm GEREMIAS VEGA MD [facility] 04-28-2023 06:50-0500 Body weight 81.8 kg GEREMIAS VEGA MD [facility] 04-28-2023 06:50-0500 Body weight 26.62 kg/m2 GEREMIAS VEGA MD [facility] 04-15-2023 10:06-0400 Body height 175.3 cm GEREMIAS VEGA MD [facility] 04-15-2023 10:06-0400 Body weight 81.8 kg GEREMIAS VEGA MD [facility] 05-25-2021 10:40-0500 Diastolic Blood Pressure NBP [address] JHONY BIRD MD [facility] 05-25-2021 10:40-0500 Heart rate 78 /min DR JHONY BIRD MD [facility] 05-25-2021 10:40-0500 Respiratory rate 18 /min DR JHONY BIRD MD [facility] 05-25-2021 10:40-0500 Systolic Blood Pressure NBP [address] JHONY BIRD MD [facility] 05-25-2021 10:20-0500 Diastolic Blood Pressure NBP [address] JHONY BIRD MD [facility] 05-25-2021 10:20-0500 Heart rate 80 /min DR JHONY BIRD MD [facility] 05-25-2021 10:20-0500 Respiratory rate 18 /min DR JHONY BIRD MD [facility] 05-25-2021 10:20-0500 Systolic Blood Pressure NBP [address] JHONY BIRD MD [facility] 05-25-2021 10:16-0500 Diastolic Blood Pressure NBP [address] JHONY BIRD MD [facility] 05-25-2021 10:16-0500 Heart rate 81 /min DR JHONY BIRD MD [facility] 05-25-2021 10:16-0500 Respiratory rate 16 /min DR JHONY BIRD MD [facility] 05-25-2021 10:16-0500 Systolic Blood Pressure NBP [address] JHONY BIRD MD [facility] 05-25-2021 10:10-0500 Body temperature 97.7 [degF] DR JHONY BIRD MD [facility] 05-25-2021 08:17-0500 Body height 175.[address] JHONY BIRD MD [facility] 05-25-2021 08:17-0500 Body temperature 97.16 [degF] DR JHONY BIRD MD [facility] 05-25-2021 08:17-0500 Body weight 97.[address] JHONY BIRD MD [facility] 05-25-2021 08:17-0500 Heart rate 74 /min DR JHONY BIRD MD [facility] Encounters Encounter Date Encounter Type Care Provider Facility Start: 04-29-2025 End: 04-29-2025 ambulatory [facility] Facility:[facility] Start: 04-10-2025 End: 04-10-2025 ambulatory [facility] Facility:[facility] Start: 01-02-2025 End: 01-02-2025 ambulatory SHITAL MONTANA MD Facility:[facility] Start: 01-02-2025 End: 01-02-2025 Patient encounter procedure SHTIAL MONTANA MD [facility] Start: 10-22-2024 End: 10-22-2024 ambulatory [facility] Facility:[facility] Start: 09-28-2024 End: 09-28-[address] Sabi Anand DO Work Phone: [facility] Work Phone: Start: 09-28-2024 End: 09-28-[address] 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 Start: 06-22-2024 End: 06-22-2024 Patient encounter procedure SABI ANAND DO [facility] Start: 05-01-2024 End: 05-01-2024 ambulatory Blaze Mcmahon Facility:[facility] Start: 03-27-2024 End: 03-27-2024 ambulatory SABI BERNARDJEREMIAH STEEL Facility:[facility] Start: 03-27-2024 End: 03-27-2024 Patient encounter procedure LILIANA LARSON MD [facility] Start: 03-09-2024 ambulatory LILIANA LARSON MD Faci lity:A Start: 02-15-2024 ambulatory LILIANA LARSON MD Faci lity:A Start: 08-09-2023 ambulatory SABI ANAND DO Facili ty:A Start: 07-18-2023 End: 07-18-2023 ambulatory SHITAL MONTANA MD Facility:B Start: 07-18-2023 End: 07-18-2023 Patient encounter procedure SHITAL MONTANA MD [facility] Start: 07-08-2023 ambulatory SABI ANAND DO Facili ty:B Start: 07-07-2023 ambulatory SABI BERNARDKO DO Facili ty:A Start: 06-29-2023 End: 06-29-2023 ambulatory SABI ROBINSKO DO Facility:[facility] Start: 06-29-2023 End: 06-29-2023 Patient encounter procedure SABI ROBINSKO DO [facility] Start: 06-03-2023 End: 06-03-2023 ambulatory SABI ANAND DO Facility:[facility] Start: 06-03-2023 End: 06-03-2023 Patient encounter procedure SABI ROBINSKO DO [facility] Start: 04-28-2023 End: 04-28-2023 ambulatory GEREMIAS VEGA MD Facility:[facility] Start: 04-28-2023 End: 04-28-2023 SAME DAY STAY GEREMIAS VEGA MD [facility] Start: 04-15-2023 End: 04-15-2023 Admission to establishment GEREMIAS VEGA MD [facility] Start: 04-15-2023 End: 04-15-2023 ambulatory GEREMIAS VEGA MD Facility:[facility] Start: 01-12-2023 End: 01-12-2023 Patient encounter procedure SABI ROBINSKO DO [facility] Start: 10-05-2022 End: 10-05-2022 Patient encounter procedure JOAQUIM GARCIA PA-C [facility] Start: 10-04-2022 End: 10-04-2022 Patient encounter procedure JOAQUIM GARCIA PA-C [facility] Start: 10-20-2021 End: 10-20-2021 Patient encounter procedure ELVI PALMA MD [facility] Start: 09-23-2021 End: 09-23-2021 Patient encounter procedure SABI ANAND DO [facility] Start: 05-25-2021 End: 05-25-[address] JHONY BIRD MD [facility] Procedures Date Procedure Procedure Detail Performing Clinician Start: 04-28-2023 Bilateral inguinal h ernia (disorder) SABI ANAND DO Start: 06-20-[address] JHONY BIRD MD Comment on above: Bilateral Excision of pilonidal sinus DR JHONY BIRD MD Manipulation of disp laced nasal septum DR JHONY BIRD MD Tonsillectomy DR JHONY WAYNE MD Immunizations Immunization Date Immunization Notes Care Provider [facility] 04-11-2024 influenza, high dose seasonal, preservative-free; Translations: [Afluria PF Prefilled Syringe ] SABI ANAND DO [facility] 06-28-2023 influenza, high dose seasonal, preservative-free; Translations: [Fluad Quadrivalent PF ] SABI ANAND DO [facility] 04-06-2023 Pneumococcal conjuga te PCV20, polysaccharide [id number] conjugate, adjuvant, PF; Translations: [Prevnar 20] GEREMIAS VEGA MD [facility] 03-28-2023 influenza, high dose seasonal, preservative-free; Translations: [Fluad Quadrivalent PF ] GEREMIAS VEGA MD [facility] 08-23-2022 tetanus toxoid, redu [place] diphtheria toxoid, and acellular pertussis vaccine, adsorbed JOAQUIM VACCARELLI PA-C [facility] 04-20-2022 SARS-CoV-2 (CV19)mRNA-1273 bivalent vac SABI ANAND DO [facility] 04-20-2022 SARSCoV2 (CV19)mRNA-1273(6y+ bival bobbi JOAQUIM VACCARELLI PA-C [facility] 03-30-2022 influenza, high dose seasonal, preservative-free JOAQUIM VACCARELLI PA-C [facility] 03-30-2022 pneumococcal polysaccharide vaccine, 23 valent; Translations: [Pneumovax 23] JOAQUIM VACCARELLI PA-C [facility] 07-08-2021 SARS-CoV-2 mRNA (tozinameran) vaccine SABI ANAND DO [facility] Comment on above: Result Comment: [facility] 03-24-2021 influenza, high dose seasonal, preservative-free; Translations: [Fluad Quadrivalent PF ] DR JHONY BIRD MD [facility] 12-17-[address] JHONY BIRD MD [facility] Comment on above: Result Comment: [facility] 09-23-2020 SARS-CoV-2 mRNA (tozinameran) vaccine DR JHONY BIRD MD [facility] Comment on above: Result Comment: [facility] 09-02-2020 SARS-CoV-2 mRNA (tozinameran) vaccine DR JHONY BIRD MD [facility] Comment on above: Result Comment: [facility] 06-19-[address] JHONY BIRD MD [facility] Comment on above: Result Comment: [facility] 04-03-2020 influenza virus vaccine, unspecified formulation DR JHONY BIRD MD [facility] Comment on above: Result Comment: [facility] 04-05-2019 influenza virus vaccine, unspecified formulation DR JHONY BIRD MD [facility] 06-01-2018 influenza virus vaccine, unspecified formulation JOAQUIM VACCARELLI PA-C [facility] 04-03-[address] Sabi Anand DO Work Phone: [facility] 03-28-2017 influenza virus vaccine, unspecified formulation JOAQUIM VACCARELLI PA-C [facility] 07-01-2016 influenza virus vaccine, unspecified formulation JOAQUIM VACCARELLI PA-C [facility] 06-27-2015 influenza virus vaccine, unspecified formulation JOAQUIM VACCARELLI PA-C [facility] Payers Date Payer Category Payer Self-pay 2022 Private Health Insurance [id number] 2022 Unknown [id number] 2022 Unknown [id number] 1955 Unknown [id number] 2.16.840.1.889184.3.579.2. 1955 Unknown [id number] 2.16.840.1.558805.3.579.2. 1955 Unknown [id number] 2.16.840.1.184061.3.579.2. 1955 Unknown [id number] 2.16.840.1.751191.3.579.2. 1955 Unknown [id number] 2.16.840.1.045382.3.579.2. 1955 Unknown [id number] 2.16.840.1.377282.3.579.2. 1955 Unknown [id number] 2.16.840.1.771942.3.579.2. 1955 Unknown [id number] 2.16.840.1.591166.3.579.2. 1955 Unknown [id number] 2.16.840.1.186176.3.579.2. 1955 Unknown [id number] 2.16.840.1.881509.3.579.2. 1955 Unknown [id number] 2.16.840.1.445347.3.579.2. 1955 Unknown [id number] 2.16.840.1.810525.3.579.2 1955 Unknown [id number] 2.16.840.1.620715.3.579.2.627 1955 Unknown [id number] 2.16.840.1.634663.3.579.2.627 1955 Unknown [id number] 2.16.840.1.384312.3.579.2.627 1955 Unknown [id number] 2.16.840.1.798800.3.579.2.627 Self-pay SELF PAY INSURANCE [id number] Unknown JACOB [id number] Unknown [id number] 2.16.840.1.927220.3.579.2.462 Unknown [id number] 2.16.840.1.433466.3.579.2.462 Unknown [id number] 2.16.840.1.823759.3.579.2.462 Unknown [id number] 2.16.840.1.679393.3.579.2.462 Unknown [id number] 2.16.840.1.791795.3.579.2.462 Social History Date Type Detail Facility Start: 07-06-2019 End: 07-05-2024 Ex-smoker (finding) [facility] Start: 1955 Sex Assigned At Male A [facility] Sexual Orientation [facility] wilian [facility] Start: 12-13-2018 End: 10-03-2024 Sex Male (finding) [facility] Medical Equipment Procedure Code Equipment Code Equipment Origin al Text Equipment Identifier Dates See Instructions , 1 bottle of 50, # 1 EA, 11 Refill(s), Pharmacy: [facility]/pharmacy #[id number], Type II diabetes mellitus Hyperglycemia, 175.3, cm, 10/04/22 8:57:00 EDT, Height, 95.1 Start: 10-05-2022 See Instructions , qs 1 month supply, # 1 EA, 11 Refill(s), Pharmacy: [facility]/pharmacy #[id number], Type II diabetes mellitus Hyperglycemia, 175.3, cm, 10/04/22 8:57:00 EDT, Height, 95.1 Start: 10-05-2022 See Instructions , 1 bottle of 50, # 1 EA, 11 Refill(s), [id number], Type II diabetes mellitus Hyperglycemia, 175.3, cm, 10/04/22 8:57:00 EDT, Height, 95.1 Start: 10-05-2022 See Instructions , qs 1 month supply, # 1 EA, 11 Refill(s), [id number], Type II diabetes mellitus Hyperglycemia, 175.3, cm, 10/04/22 8:57:00 EDT, Height, 95.1 Start: 10-05-2022 See Instructions , BD UF 8mm 31 G (short) Use once daily to inject insulin, # 1 EA, 11 Refill(s), [id number], 171.5, cm, 10/06/22 9:03:00 EDT, Height, 94.6 Start: 10-07-2022 See Instructions , 1 bottle of 50, # 1 EA, 11 Refill(s), Pharmacy: [facility]/pharmacy #[id number], Type II diabetes mellitus Hyperglycemia, 175.3, cm, 10/04/22 8:57:00 EDT, Height, 95.1 Start: 10-05-2022 See Instructions , qs 1 month supply, # 1 EA, 11 Refill(s), Pharmacy: [facility]/pharmacy #[id number], Type II diabetes mellitus Hyperglycemia, 175.3, cm, 10/04/22 8:57:00 EDT, Height, 95.1 Start: 10-05-2022 See Instructions , BD UF 8mm 31 G (short) Use once daily to inject insulin, # 1 EA, 11 Refill(s), [id number], 171.5, cm, 10/06/22 9:03:00 EDT, Height, 94.6 Start: 10-07-2022 See Instructions , 1 bottle of 50, # 1 EA, 11 Refill(s), [id number], Type II diabetes mellitus Hyperglycemia, 175.3, cm, 10/04/22 8:57:00 EDT, Height, 95.1 Start: 10-05-2022 See Instructions , qs 1 month supply, # 1 EA, 11 Refill(s), [id number], Type II diabetes mellitus Hyperglycemia, 175.3, cm, 10/04/22 8:57:00 EDT, Height, 95.1 Start: 10-05-2022 See Instructions , BD UF 8mm 31 G (short) Use once daily to inject insulin, # 1 EA, 11 Refill(s), [id number], 171.5, cm, 10/06/22 9:03:00 EDT, Height, 94.6 Start: 10-07-2022 See Instructions , 1 bottle of 50, # 1 EA, 11 Refill(s), [id number], Type II diabetes mellitus Hyperglycemia, 175.3, cm, 10/04/22 8:57:00 EDT, Height, 95.1 Start: 10-05-2022 See Instructions , qs 1 month supply, # 1 EA, 11 Refill(s), [id number], Type II diabetes mellitus Hyperglycemia, 175.3, cm, 10/04/22 8:57:00 EDT, Height, 95.1 Start: 10-05-2022 See Instructions , BD UF 8mm 31 G (short) Use once daily to inject insulin, # 1 EA, 11 Refill(s), [id number], 171.5, cm, 10/06/22 9:03:00 EDT, Height, 94.6 Start: 10-07-2022 See Instructions , 1 bottle of 50, # 1 EA, 11 Refill(s), [id number], Type II diabetes mellitus Hyperglycemia, 175.3, cm, 10/04/22 8:57:00 EDT, Height, 95.1 Start: 10-05-2022 See Instructions , qs 1 month supply, # 1 EA, 11 Refill(s), [id number], Type II diabetes mellitus Hyperglycemia, 175.3, cm, 10/04/22 8:57:00 EDT, Height, 95.1 Start: 10-05-2022 See Instructions , BD UF 8mm 31 G (short) Use once daily to inject insulin, # 1 EA, 11 Refill(s), [id number], 171.5, cm, 10/06/22 9:03:00 EDT, Height, 94.6 Start: 10-07-2022 See Instructions , 1 bottle of 50, # 1 EA, 11 Refill(s), [id number], Type II diabetes mellitus Hyperglycemia, 175.3, cm, 10/04/22 8:57:00 EDT, Height, 95.1 Start: 10-05-2022 See Instructions , qs 1 month supply, # 1 EA, 11 Refill(s), [facility], Type II diabetes mellitus Hyperglycemia, 175.3, cm, 10/04/22 8:57:00 EDT, Height, 95.1 Start: 10-05-2022 See Instructions , BD UF 8mm 31 G (short) Use once daily to inject insulin, # 1 EA, 11 Refill(s), Pharmacy: [facility], 171.5, cm, 10/06/22 9:03:00 EDT, Height, 94.6 Start: 10-07-2022 See Instructions , 1 bottle of 50, # 1 EA, 11 Refill(s), [id number], Type II diabetes mellitus Hyperglycemia, 175.3, cm, 10/04/22 8:57:00 EDT, Height, 95.1 Start: 10-05-2022 See Instructions , qs 1 month supply, # 1 EA, 11 Refill(s), [facility], Type II diabetes mellitus Hyperglycemia, 175.3, cm, 10/04/22 8:57:00 EDT, Height, 95.1 Start: 10-05-2022 See Instructions , BD UF 8mm 31 G (short) Use once daily to inject insulin, # 1 EA, 11 Refill(s), [facility], 171.5, cm, 10/06/22 9:03:00 EDT, Height, 94.6 [...] Activity Statu s ADL Up to bathroom [facility] 04-28-2023 Functional Status bilateral knee high applied/on [facility] 04-28-2023 Functional Status Maintained [facility] 04-15-2023 Functional Status Sensory Deficits None A [facility] Mental Status Date Assessment Result Facility 04-28-2023 Mental Status Orientation Oriented x 4 [facility] 04-28-2023 Mental Status [facility] Clinical Notes 05-25-2021 to 06-22-2024 Note Date & Type Note Facility 06-22-2024 Note Exam Date Time Procedure Performing Provider Status 06/22/24 1:18 PM XR Spine Cervical Ap/Lat RAMAKRISHNA WONG DO; Auth (Verified) [id number] ORIGINAL EXAMINATION: TWO XRAY VIEWS OF THE [...] 06/22/2024 4:42:16 PM Ordering Provider: SABI ANAND [facility] Himafelix [id number] Hospital Discharge instructions Patient Education 04/28/2023 10:57:31 [...] water added (diluted fruit juice). Eat bland, jedh-dy-ngikgu foods in small amounts as you are able. These foods include bananas, applesauce, rice, lean meats, toast, and crackers. Avoid fluids that contain a lot of sugar or caffeine, such as energy drinks, sports drinks, and soda. Avoid alcohol. Avoid spicy or fatty foods. General instructions Take siyq-xox-encajed and prescription medicines only as told by your health care provider. Drink enough fluid to keep your urine pale yellow. Wash your hands often using soap and water. If soap and water are not available, use hand front counter attendant. Make sure that all people in your [...] eating and drinking to prevent dehydration. Take imlz-dux-jmeoicd and prescription medicines only as told by [...] 06/06/2006 Document Revised: 09/28/2019 Document Reviewed: 11/14/2018 [employer] Patient Education 2020 [employer] Inc[employer] 04/28/2023 10:57:25 Laparoscopic Inguinal Hernia Repair, Adult, [...] and water are not available, use hand front counter attendant. ?Change your dressing as told by your [...] be allowed to take sponge baths. Take hrei-nyq-gigjtcr and prescription medicines only as told by your health care provider. To prevent or treat constipation while you are taking prescription pain medicine, your health care provider may recommend that you: ?Drink enough fluid to keep your urine pale yellow. ?Take svxa-wig-cbryjba or prescription medicines. ?Eat foods that are [...] 09/15/2017 Document Revised: 11/14/2019 Document Reviewed: 09/15/2017 [employer] Patient Education 2020 [employer] 04/28/2023 10:56:47 General Anesthesia, Adult, Care After [...] what activities are safe for you. Take upqs-wle-eudmdij and prescription medicines only as told by [...] 09/12/2001 Document Revised: 06/09/2018 Document Reviewed: 01/20/2018 [employer] Patient Education [facility]. Follow Up Care 04/11/2023 14:19:19 With:GEREMIAS VEGA MD, Surgery Address: [address] [place], [place] [id number]- [phone] When:Within 2 Week(s) Comments:Schedule appointment as soon as possible [facility] 11-09-2023 Summary of episode note Discharge Instructions Thank you for allowing [facility] to assist you with your healthcare needs. The following is importantdischarge information regarding your hospital visit. Your Care Team SABI ANAND DO Your Diagnosis Acute post-operative pain What to do next Scheduled Follow-Up Appointments Appointment Type When With Where Contact InformationDB Diabetic Individual Visit (AOH) 07/08/2023 09:00 AM [facility] Diet Visits [phone] PC OV 07/27/2023 09:00 AM SABI ZHENG DO [facility] Follow Up Appointments Follow Up with GEREMIAS VEGA MD, Surgery When In 2 weeks Why: Schedule appointment as soon as possible Where: [address] [place] [phone] The Following Activity and Diet Have Been Ordered for You Discharge Activity - Ordered -- Sexual [place] Restricted No bending, twisting, crawling or squatt, [...] When Why Instructions Last Dose New acetaminophen-hydrocodone (Orange 325- 5 mg oral tablet) 1 tab(s) by mouth Every 4 hours as needed for Pain, scale 1-6 Acute post-operative pain Duration: 5 Days Pickup at [facility]/pharmacy #[id number] Unchanged amitriptyline (amitriptyline 25 mg oral tablet) [...] insulin dx E11.65; Z79.4; 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 Eat bland, xcgj-ka-mjhdrl foods in small amounts as you are able. These foods include bananas, applesauce, rice, lean meats, toast, and crackers. Avoid fluids that contain a lot of sugar or caffeine, such as energy drinks, sports drinks, and soda. Avoid alcohol. Avoid spicy or fatty foods. General instructions Take qcbr-occ-spuyudw and prescription medicines only as told by your health care provider. Drink enough fluid to keep your urine pale yellow. Wash your hands often using soap and water. If soap and water are not available, use hand front counter attendant. Make sure that all people in your [...] eating and drinking to prevent dehydration. Take plly-ogx-xablhcd and prescription medicines only as told by [...] 06/06/2006 Document Revised: 09/28/2019 Document Reviewed: 11/14/2018 [employer] Patient Education 2020 [employer]. Laparoscopic Inguinal Hernia Repair, Adult, Care After [...] and water are not available, use hand front counter attendant. ? Change your dressing as told by [...] be allowed to take sponge baths. Take tedd-buu-lmqvdpz and prescription medicines only as told by your health care provider. To prevent or treat constipation while you are taking prescription pain medicine, your health care provider may recommend that you: ? Drink enough fluid to keep your urine pale yellow. ? Take boie-lnp-ihmbisx or prescription medicines. ? Eat foods that [...] 09/15/2017 Document Revised: 11/14/2019 Document Reviewed: 09/15/2017 [employer] Patient Education 2020 [employer]. General Anesthesia, Adult, Care After This sheet [...] what activities are safe for you. Take hlir-kbo-lptliqv and prescription medicines only as told by [...] Document Reviewed: 01/20/2018 Elsevier Patient Education 2020 [employer] Inc. Additional Information VACCINATE! IT SAVES LIVES! Members of the community who have not yet received the COVID-19 vaccine and would like to receive it can visit one of [facility] vaccine clinics. There are many vaccine clinic locations within the [facility]. For locations and available times, please visit [email or web address] It is important to note that some COVID mobile vaccine clinics are held outdoors and may be canceled in rainy or stormy conditions. To learn more about pediatric vaccinations (ages 5-11), we invite you to visit the [facility] webpage. [email or web address] learn more about the COVID-19 vaccine, we invite you to visit the CDC website for a list of frequently asked questions.https://www.cdc.gov/coronavirus/2019-ncov/vaccines/faq.html [employer] Patient Portal Access Instructions: Stay connected with your healthcare team and access your personal medical information anytime with the [employer] Patient Portal. Please follow the directions below to create your [employer] account: 1.Access the email account you provided upon registration to the hospital/physician office.2.Look for an invitation email from [facility].3.Open the email and access the invitation link: AcceptInvitation to [facility].4.Fill in the required toro to create your account. To access your account, visit [email or web address]. Click the blue button labeled Access Patient Portal and then log in with the username and password that you created in the steps above. You will be able to view your test results, lab results, a summary of your visits, upcoming appointments and more. There is also a convenient messaging option where you can send secure messages to your p WiN MSvider. In addition, you will have the ability to download any documents or summaries to your computer and/or send the information securely to a physician. Remember that your healthcare information is confidential, so carefully consider who you will allowto register on the [facility] Patient Portal for access to your information. You can also access the [facility] Patient Portal on the Site Organicwhere chidi. Simply click on Patient Portal and then log into your account. If you would like to receive a full copy of your medical records, please contact the [facility] Medical Records Department by calling [phone], Tuesday through Tuesday between 8 a.m. and [...] Call your local pharmacy or go to [email or web address] to find one close to you.3.Make use of household items: Use cat litter or old coffee grounds to dispose medications if other options arenot available. Mix your drugs with these household products, seal them in an airtight container andthrow it into the garbage. Call [facility]: [phone] to be sure your drugs can be [...] aware that I should contact my doctor. 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, 1 EA, 0 Refill(s) Lancets: See Instructions, [...] Thoracic ascending aortic aneurysm / SNOMED CT 0597426275 / Confirmed Aortic atherosclerosis / SNOMED CT 207133479 / Confirmed Bronchitis / SNOMED CT 70621580 / Confirmed Chronic headaches / SNOMED CT 7036627471 / Confirmed Coronary artery disease / SNOMED CT 21845789 / Confirmed Coronary artery disease due to type 2 diabetes mellitus / SNOMED CT 7566591981 / Confirmed COVID-19 virus infection / SNOMED CT 7867300553 / Confirmed Abnormal EKG / SNOMED CT 0361281070 / Confirmed ED (erectile dysfunction) / SNOMED CT 9440619496 / Confirmed Former smoker / SNOMED CT 26804267 / Confirmed Type 2 diabetes mellitus with hyperglycemia / SNOMED CT 5684357947 / Confirmed HLD (hyperlipidemia) / SNOMED CT 54630310 / Confirmed Immunization due / SNOMED CT 244320055 / Confirmed Inguinal hernia / SNOMED CT 0943425833 / Confirmed IBS (irritable bowel syndrome) / SNOMED CT 88154301 / Confirmed Direct inguinal hernia of left side / SNOMED CT 4829230792 / Confirmed Left inguinal hernia / SNOMED CT 447331805 / Confirmed Low back pain / SNOMED CT 586575680 / Confirmed Lumbar strain / SNOMED CT 069625314 / Confirmed Migraines / SNOMED CT 21897227 / Confirmed Actinic keratoses / SNOMED CT 1482854118 / Confirmed Overweight / SNOMED CT 726712540 / Confirmed BMI 27.0-27.9,adult / SNOMED CT 0048388434 / Confirmed Paresthesia / SNOMED CT 149537363 / Confirmed Screen for colon cancer / SNOMED CT 582905613 / Confirmed Screening for prostate cancer / SNOMED CT 872424742 / Confirmed Screening for AAA (abdominal aortic aneurysm) / SNOMED CT 756290564 / Confirmed Medicare annual wellness visit, subsequent / SNOMED CT 172907330 / Confirmed Screening for cardiovascular condition / SNOMED CT 211612115 / Confirmed Peripheral vascular disease / SNOMED CT 0055835433 / Confirmed Diabetic peripheral vascular disease / SNOMED CT 0454022347 / Confirmed Emphysema of lung / SNOMED CT 833910630 / Confirmed Screening due / SNOMED CT 811730009 / Confirmed Somatic dysfunction of lower extremity / SNOMED CT 0342480712 / Confirmed Somatic dysfunction of lumbar region / SNOMED CT 5902306378 / Confirmed Somatic dysfunction of pelvic region / SNOMED CT 4573396842 / Confirmed Somatic dysfunction of rib region / SNOMED CT 9335685892 / Confirmed Somatic dysfunction of sacral region / SNOMED CT 6896265257 / Confirmed Somatic dysfunction of thoracic region / SNOMED CT 5439493186 / Confirmed Back spasm / SNOMED CT 380831843 / Confirmed Back pain, thoracic / SNOMED CT 545685519 / Confirmed Type 2 diabetes mellitus with hyperlipidemia / SNOMED CT 177219415 / Confirmed, Active Problems (42) Abnormal EKG [...] artery disease Mother Procedure history: Knee replacement (111977805) in 2018 at 62 Years. Comments: 07/06/2019 8:40 JACINDA - Maren Sanchez RN Bilateral Manipulation of deviated nasal septum (395209245). Tonsillectomy (461484934). Excision of pilonidal sinus (771948090). 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, lives with girlfriend, he has 1 [...] Signs(last 24 hrs) Last Charted Heart Rate Hgcserlyt25 bpm (APR 28 08:20) Resp Rate 17 br/min (APR 28 06:56) SBP97 mmHg (APR 28 08:20) DBP70 mmHg (APR 28 08:20) BMI26.62 (APR 28 06:50) Measurements from flowsheet : Measurements 04/28/2023 6:50 EST Height 175.3 cm Admission Weight 81.8 kg Weight Method Stated [place] Body Weight 70.74 kg BSA Admission 1.98 [...] br/min br/min 04/28/2023 8:17 EST SN - SD - By (Single) SN - SD - By (Single) 04/28/2023 8:15 EST Heart [...] Surgeon SN - CAt - Role Performed CS ASSOCIATE SN - CAt - Role Performed Biochemical Engineer 1 SN - CAt - Role Performed Biochemical Engineer 2 SN - CAt - Role Performed Scrub 1 SN - CAt - Role Performed Supervisor Paint 1 04/28/2023 7:27 EST SN - Preop [...] Allergies No Anesthesia Extension Set Applied Yes International Exchange Coordinator On Yes Consent Form Signed Yes Patient [...] EST Designated Person #1 We May Share [facility] [phone] Designated Person #1 Relationship Significant other Designated Person #2 We May Share PHI [place] [phone] Designated Person #2 Relationship Other: Rc son Height 175.3 cm Admission Weight 81.8 kg Weight Method Stated [facility] [place] Body Weight 70.74 kg BSA Admission 1.98 [...] evident Teaching Method Explanation Preferred Spoken Language Tuvaluan Preferred Written Language Tuvaluan Information Given by Patient Patient's Current Physicians Patient's Current Physicians Discharge To, Anticipated Home independently Prev Test Positive/Diagnosis w/COVID-19 Yes Previous COVID-19 Positive Date 2020 Current Quarantine/Isolated any Illness No Any Contact with Sick Animals/Birds No Traveled Anywhere in Last 30 Days No N/A Personal Devices, Patient Valuables Glasses Admission Note-Nursing Procedure/Therapy Intake . Assessment and Plan [place] [employer]hesi[employer] (ASA) physical status classification: Class III. Anesthetic Preoperative Plan Premedication: intravenous. Anesthetic technique: General. Induction: intravenously. Maintenance airway: Oral endotracheal tube. Postoperative pain management: Per surgeon. Risks discussed: nausea, vomiting, sore throat. Informed consent: signed by patient. Digitally Signed by MARGARITO LOVING on 04/28/2023 08:37 AM [facility]12-06-2021 Evaluation + Plan noteExtracted from: Title:Clinical Document Author:JHONY BIRD Date:05/25/21 HINES ADMISSION HISTORY A ND PHYSICIAL CHIEF COMPLAINT: HISTORY OF PRESENT ILLNESS: REVIEW OF SYSTEMS: ACTIVE PROBLEMS: (30) Abnormal EKG (9138641085) Ascending aortic aneurysm (7318880378) Back pain, thoracic (770737071) Back spasm (859224811) BMI 33.0-33.9,adult (414916852) COVID-19 virus infection (2718201721) Depression screen (986521905) Emphysema of lung (980362105) Former smoker (44032054) Frequent headaches (7646844397) HLD (hyperlipidemia) (58892998) IBS (irritable bowel syndrome) (04077838) Immunization due (270773216) Inguinal hernia (3384923891) Low back pain (629424619) Medicare annual wellness visit, initial (340501480) Need for hepatitis C screening test (509719384) Obesity (2126614242) Paresthesia (420982995) Screen for colon cancer (681272515) Screening for AAA (abdominal aortic aneurysm) (200242793) Screening for prostate cancer (509563380) Somatic dysfunction of lower extremity (7684226725) Somatic dysfunction of lumbar region (9475506627) Somatic dysfunction of pelvic region (0154244483) Somatic dysfunction of rib region (6102289166) Somatic dysfunction of sacral region (4398104869) Somatic dysfunction of thoracic region (3217557267) Thoracic ascending aortic aneurysm (1207577623) Type 2 diabetes mellitus (018310021) MEDICATIONS: Active Inpt Meds: None Active PRN Meds: None One Time Meds: None Active IV Meds: Lactated Ringers Infusion 1,000 mL (LR 1,000 mL) Start: 05/25/21 8:20:00 EST, Rate: 50 mL/hr ALLERGIES: (1) NKA FAMILY HISTORY: SOCIAL HISTORY: PHYSICAL EXAM: VITALS: UovfrhMxihLMYcfltFVHkN3APZ8GobmRu(kg) 05/25 08:1736.2103/191218--NK97/06 97.7 24 Hr Tmax: 36.2 at 05/25 [...] Date:09/22/2021 09:00:00 AM Scheduled Provider:SABI ANAND DO [facility] [place] Appointment Type:PC OV Future Scheduled Tests Laboratory* [...] XR Spine Lumbar W/Obliques 4 Views 11/19/20 [facility] 12-06-2021 Hospital Discharge instructions Patient Education 05/25/2021 [...] 03/02/2005 Document Revised: 09/21/2018 Document Reviewed: 09/21/2018 [employer] Patient Education 2020 [employer]. 05/25/2021 10:22:49 Nausea and Vomiting, Adult, Swpk-bn-Glqj Nausea and Vomiting, Adult Nausea is feeling [...] fruit juice). ?Low-calorie sports drinks. Eat bland, saev-cz-phaicb foods in small amounts as you are able, such as: ?Bananas. ?Applesauce. ?Rice. ?Low-fat (lean) meats. ?[place]. ?Crackers. Avoid drinking fluids that have a lot of sugar or caffeine in them. This includes energy drinks, sports drinks, and soda. Avoid alcohol. Avoid spicy or fatty foods. General instructions Take wibf-ygi-hdpnclv and prescription medicines only as told by your doctor. Drink enough fluid to keep your pee (urine) pale yellow. Wash your hands often with soap and water. If you cannot use soap and water, use hand front counter attendant. Make sure that all people in your [...] too much water in your body. Take juay-uop-nonaczf and prescription medicines only as told by [...] 11/22/2008 Document Revised: 09/28/2019 Document Reviewed: 11/14/2018 [employer] Patient Education 2020 [employer]. 05/25/2021 10:22:47 Monitored Anesthesia Care, Care After [...] before eating solid foods. General instructions Take vuba-rxp-yasnfax and prescription medicines only as told by [...] 09/26/2016 Document Revised: 09/04/2018 Document Reviewed: 09/26/2016 [employer] Patient Education 2020 [employer]. 05/25/2021 10:22:07 Colonoscopy, Adult, Care After, Ilkl-cp-Ncev Colonoscopy, Adult, Care After This sheet gives [...] are soft and easy to digest. Take aiwl-hpz-jfxxxui or prescription medicines only as told by [...] 07/09/2011 Document Revised: 04/06/2018 Document Reviewed: 02/28/2017 [employer] Patient Education 2020 [employer] Follow Up Care 04/21/2021 13:08:40 With:JHONY BIRD MD Address: [phone] When: Unknown Comments:CALL DR BIRD WITH ANY QUESTIONS. GO TO THE EMERGENCY ROOM WITH ANY URGENT MATTERS [facility] Evaluation + Plan note Future Appointments Appointment Date:10/20/2021 10:30:00 AM Scheduled Provider: Location:[facility] Appointment Type:CT Angiography Chest w/ Contrast Appointment Date:11/03/2021 02:00:00 PM Scheduled Provider:ELVI PALMA MD Location:[facility] Appointment Type:CTS OV Appointment Date:11/11/2021 09:30:00 AM Scheduled Provider:SABI ANAND DO Location:[facility] Appointment Type:PC OV Future Scheduled Tests [...] XR Spine Lumbar W/Obliques 4 Views 11/19/20 [facility] Evaluation + Plan note Future Appointments Appointment Date:11/03/2021 02:00:00 PM Scheduled Provider:ELVI PALMA MD Location:[facility] Appointment Type:CTS OV Appointment Date:11/11/2021 09:30:00 AM Scheduled Provider:SABI ANAND DO Location:[facility] Appointment Type:PC OV Future Scheduled Tests [...] XR Spine Lumbar W/Obliques 4 Views 11/19/20 [facility] Evaluation + Plan note Future Appointments Appointment Date:10/27/2022 09:00:00 AM Scheduled Provider:SABI ANAND DO Location:[facility] Appointment Type:PC OV Future Scheduled Tests [...] XR Spine Lumbar W/Obliques 4 Views 07/26/22 [facility] Evaluation + Plan note Future Appointments Appointment Date:10/06/2022 09:00:00 AM Scheduled Provider:JACKELINE MANCINI DO Location:[facility] Appointment Type:PC OV Appointment Date:10/06/2022 02:30:00 PM Scheduled Provider: Location:[facility] Appointment Type:DB Diabetic Individual Visit (AOH) Appointment Date:10/27/2022 09:00:00 AM Scheduled Provider:SABI ANAND DO Location:[facility] Appointment Type:PC OV Diagnostic Tests Pending [...] XR Spine Lumbar W/Obliques 4 Views 07/26/22 [facility] Evaluation + Plan note Future Appointments Appointment Date:01/19/2023 09:00:00 AM Scheduled Provider:SABI ANAND DO Location:[facility] Appointment Type:PC OV Appointment Date:04/06/2023 09:30:00 AM Scheduled Provider:SABI ANAND DO Location:[facility] Appointment Type:PC Wellness Medicare Appointment Date:04/07/2023 [...] XR Spine Lumbar W/Obliques 4 Views 07/26/22 [facility] Evaluation + Plan note Future Appointments Appointment Date:07/08/2023 09:00:00 AM Scheduled Provider: Location:[facility] Appointment Type:DB Diabetic Individual Visit (AOH) Appointment Date:07/27/2023 09:00:00 AM Scheduled Provider:SABI ANAND DO [facility] Type:PC OV Future Scheduled Tests Laboratory* [...] XR Spine Lumbar W/Obliques 4 Views 07/26/22 [facility] Evaluation + Plan note Future Appointments Appointment Date:07/08/2023 09:00:00 AM Scheduled Provider: Location:[facility] Appointment Type:DB Diabetic Individual Visit (AOH) Appointment Date:07/14/2023 11:00:00 AM Scheduled Provider:SABI ANAND DO [facility] Appointment Type:PC OV Diagnostic Tests Pending * [...] XR Spine Lumbar W/Obliques 4 Views 07/26/22 [facility] Evaluation + Plan note Future Appointments Appointment Date:08/23/2023 01:10:00 PM Scheduled Provider: Location:[facility] [place] Appointment Type:PM EMG/NCV 4 Extremity Appointment Date:10/13/2023 10:30:00 AM Scheduled Provider:SABI ANAND DO [facility] Appointment Type:PC OV Appointment Date:01/04/2024 09:00:00 AM Scheduled Provider: Location:[facility] Appointment Type:DB Diabetic Individual Visit (AOH) Future Scheduled Tests Laboratory* Thyroid Stimulating Hormone 07/22/23 * A1C Hemoglobin 07/22/23 * Complete Blood Count 07/22/23 * Lipid Profile 07/22/23 * Albumin/Creatinine Ratio, Random Urine 07/22/23 * Complete Metabolic Panel 07/22/23 Radiology* CT Angiography Chest w/ Contrast 11/04/23 * XR Spine Lumbar W/Obliques 4 Views 07/26/22 [facility] Evaluation + Plan note Future Appointments Appointment Date:04/11/2024 09:00:00 AM Scheduled Provider:SABI ANAND DO [facility] Appoint[facility] Type:PC Wellness Medicare Appointment Date:04/19/2024 02:00:00 PM Scheduled Provider:LILIANA LARSON MD Location:[facility] Appointment Type:CTS OV Future Scheduled Tests Laboratory* Thyroid Stimulating Hormone 12/08/23 * Vitamin B12 Level 12/08/23 * A1C Hemoglobin 12/08/23 * Complete Blood Count 12/08/23 * Lipid Profile 12/08/23 * Albumin/Creatinine Ratio, Random Urine 12/08/23 * Complete Metabolic Panel 12/08/23 [facility] Evaluation + Plan note Future Appointments Appointment Date:07/08/2023 09:00:00 AM Scheduled Provider: Location:[facility] Appointment Type:DB Diabetic Individual Visit (AOH) Appointment Date:07/27/2023 09:00:00 AM Scheduled Provider:SABI ANAND DO Location:[facility] Appointment Type:PC OV Future Scheduled Tests [...] XR Spine Lumbar W/Obliques 4 Views 07/26/22 [facility] Evaluation + Plan note Future Appointments Appointment Date:10/10/2024 08:30:00 AM Scheduled Provider:SABI ANAND DO Location:[facility] Appointment Type:PC OV Future Scheduled Tests [...] Panel 04/04/24 * Complete Metabolic Panel 10/10/24 [facility] Evaluation + Plan note Future Appointments Appointment Date:04/24/2025 09:00:00 AM Scheduled Provider:SABI ANAND DO Location:[facility] Appointment Type: Wellness Medicare with Labs Future [...] Panel 04/04/24 * Complete Metabolic Panel 10/10/24 [facility] Evaluation noteNo assessment information available [facility] Work Phone: Hospital course Narrative No data available for this section [facility] Hospital Discharge instructions No data available for this section [facility] Progress note No data available for this section [facility] Reason for referral (narrative)No reason for referral information availableWC[facility] Work Phone: Summary Purpose Family History [...] section and content) DATE CREATED AUTHOR 02/17/2024 [facility] ([place]) DATE CREATED AUTHOR AUTHOR'S ORGANIZ ATION 03/11/2024 [facility] DATE CREATED AUTHOR AUTHOR'S ORGANIZ ATION 01/10/2025 [facility] DATE CREATED AUTHOR AUTHOR'S ORGANIZ ATION 04/30/2025 [facility] Goals (unrecognized section and content) Goals may [...] BE BASED ON THE PRIMARY CLINICAL RECORDS. [employer] provides no warranty or guarantee of the accuracy or completeness of information in this document.
[2025-05-22] MEDS: Lidocaine 1% (20 ml mdv) 20 ML Vial 10 ML INFILT (21:33)
[2025-05-22] MEDS: HYDROcodone Bitartrate/Apap 5/325 Tablet PO (21:33)
[2025-05-22 21:35] VITALS: BP 109/52; PULSE 82; RESP 16; TEMP 36.6; O2SAT 99
== END 2025-05-22 21:37 | disposition home or self-care (01) ==
PROVIDERS: Emergency Provider Emergency Medicine; PCP Student in an Organized Health Care Education/Training Program; Visit Provider Emergency Medicine
DX: S61.213A Laceration without foreign body of left middle finger without damage to nail, initial encounter (principal); E11.51 Type 2 diabetes mellitus with diabetic peripheral angiopathy without gangrene; W26.0XXA Contact with knife, initial encounter; E78.5 Hyperlipidemia, unspecified; I25.10 Atherosclerotic heart disease of native coronary artery without angina pectoris; Z87.891 Personal history of nicotine dependence; Z79.899 Other long term (current) drug therapy
CPT/HCPCS: 12002; 99283